=== PATIENT | female | born 1940 | race Caucasian/White ===

== ENCOUNTER → 2016-03-09 | Outpatient (CLI) | payer BC ==
[~2016-03-09] MED LIST: AMLO-110 PO; ASPCH81X PO; ASPI-435 PO; CHOLCAP5 PO; GLCSR500 PO; INSUINJ12 SC; IPRA0.037 NAE; JNV100 PO; LOSA1TAB38 PO; LSX20 PO; MELO15TA4 PO; METO1TAB69 PO; METO1TAB71 PO; MULT-506 PO; NVLGI/PEN SC; POTA-335 PO; RBX750 PO; SIMV-150 PO; TIMO0.5S2 OPB; [UNRECOGNIZED DRUG - CODE] PO
[2016-03-09 13:17] LABS: BASO % 0.6 %; BASO ABS # 0.05 K/uL (0-0.2); COMPLETE YES; EOS % 3.5 %; HEMATOCRIT 40.5 % (37-47); IG% 0.1 %; LYMPH % 32.6 %; LYMPH ABS # 2.63 K/uL (1.2-3.4); MEAN CELL VOLUME 89.6 fL (80-100); MEAN CORPUSCULAR HEMOGLOBIN 30.8 pg (25-34); MEAN CORPUSCULAR HGB CONC 34.3 g/dl (32-36); MEAN PLATELET VOLUME 10.9 fL (7.4-10.4); MONO % 8.2 %; PLATELET COUNT 227 K/uL (130-400); RED BLOOD COUNT 4.52 M/uL (4.2-5.4); WHITE BLOOD COUNT 8.07 K/uL (4.8-10.8)
[2016-03-09 13:31] LABS: URINE APPEARANCE CLEAR (CLEAR); URINE BILIRUBIN NEG (NEG); URINE COLOR YELLOW; URINE EPITHELIAL CELL AUTO >30 /lpf (0-5); URINE NITRITE NEG (NEG); URINE SPECIFIC GRAVITY 1.019 (1.000-1.030); UROBILINOGEN NEG (NEG); ZZUR CULT IF INDIC CLEAN CATCH YES
[2016-03-09 13:35] LABS: MANUAL MICROSCOPIC REQUIRED? NO; REVIEW REQ? YES
[2016-03-09 13:51] LABS: URINE PROTIEN/CREAT RATIO 0.3 (0-0.2); URINE TOTAL PROTEIN 73.8 mg/dl (0-11.9)
[2016-03-09 14:24] LABS: BLOOD UREA NITROGEN 10 mg/dl (7-18); BUN/CREATININE RATIO 8.6 (10-20); CARBON DIOXIDE 22 mmol/L (21-32); CHLORIDE 107 mmol/L (98-107); GLUCOSE 195 mg/dl (70-99); POTASSIUM 4.3 mmol/L (3.5-5.1); SODIUM 141 mmol/L (136-145)
== END | disposition home or self-care (01) ==
LOC: C.LABPVFM 09:44
PROVIDERS: ATTEND Family Medicine
DX: N18.3 Chronic kidney disease, stage 3 (moderate) (principal)

== ENCOUNTER → 2016-04-11 | Outpatient (CLI) | payer BC | END | disposition home or self-care (01) | LOC: C.RDSM 12:11 | PROVIDERS: ATTEND Physical Medicine & Rehabilitation Sports Medicine | DX: T84.84XA Pain due to internal orthopedic prosthetic devices, implants and grafts, initial encounter (principal); Z96.651 Presence of right artificial knee joint; Y79.2 Prosthetic and other implants, materials and accessory orthopedic devices associated with adverse incidents ==

== ENCOUNTER → 2016-06-08 | Day surgery (SDC) | payer BC ==
[2016-05-11 12:35] VITALS: Ht 160 cm; Wt 115.9 kg
[~2016-06-08] VITALS: Ht 160 cm; Wt 115.9 kg
[~2016-06-08] MED LIST changes: -ASPI-435 PO; +BUPIVACAINE/EPINEPHRINE 0.5% MPF 1:200,000 30 ML VIAL ONE; +CEFAZOLIN IV 2,000 MG/60 ML D5W IV ONE; -GLCSR500 PO; -IPRA0.037 NAE; -JNV100 PO; -MELO15TA4 PO; +METO100T44 PO; -METO1TAB69 PO; -METO1TAB71 PO; +MoRPHine SULFATE PF 1 MG/ML 10 ML AMP/VIAL ONE
--- NOTE | 2016-06-08 13:43 | History & Physical Bridge - [place] ---
H&P Re-Evaluation Bridge Note: I have examined the patient, reviewed the History & Physical and in the interval since the performance of the History & Physical I have noted the following changes of clinical significance: No changes noted
[2016-06-08] MEDS: LIDOCAINE HCL 1% MPF 5 ML VIAL ONE (14:01)
[2016-06-08] MEDS: IOPAMIDOL INJ 61% 15 ML VIAL ONE (14:02)
[2016-06-08] MEDS: SODIUM CHLORIDE 0.9% INJ 10 ML VIAL ONE (14:03)
[2016-06-08 14:15] VITALS: TEMP 37
--- NOTE | 2016-06-08 14:18 | Discharge Instructions ---
Discharge Instructions Date of Service Jun 08, 2016. Visit Reason for Visit: Lumbar Spondylolisthesis Discharge Discharge Diagnosis / Problem: bilateral leg pain Discharge Goals Goal(s): Decrease discomfort, Improve function Medications Stopped Medications Name(s): ASA 1 week ago Activity Recommendations Activity Limitations: resume your previous activity Anesthesia . Post Anesthesia Instructions: If you have had General Anesthesia or IV Sedation: * Do not drive today. * Resume driving when surgeon permits. * Do not make important decisions or sign legal documents today. * Call surgeon for: 1. Temperature elevations greater than 101 degrees F. 2. Uncontrollable pain. 3. Excessive bleeding. 4. Persistent nausea and vomiting. 5. Medication intolerance (nausea, vomiting or rash). * For nausea and vomiting use only clear liquids such as: tea, soda, bouillon until nausea subsides, then gradually increase diet as tolerated. * If you have any concerns or questions, call your surgeon's office. If physician is unavailable and it is an emergency, call 911 or go to the nearest emergency room. . Diet Recommendations Recommended Home Diet: resume previous diet Pending Studies Studies pending at discharge: no Medical Emergencies . Who to Call and When: Medical Emergencies: If at any time you feel your situation is an emergency, please call 911 immediately. . Non-Emergent Contact Non-Emergency issues call your: Specialist . . "Provider Documentation" section prepared by Winston Nelson. .
[2016-06-08 14:25] VITALS: BP 174/77; PULSE 58; O2SAT 95
--- NOTE | 2016-06-08 14:31 | OPERATIVE REPORT ---
DATE OF OPERATION: 06/08/2016 PREOPERATIVE DIAGNOSES: Lumbar spinal stenosis with lumbar spondylolisthesis L5-S1 with bilateral lower extremity radiculopathies. POSTOPERATIVE DIAGNOSES: Same. PROCEDURE: Left paramedian L5-S1 intralaminar epidural steroid injection under fluoroscopic guidance. INDICATIONS: The patient is a 75-year-old white female who has responded favorably to epidural injections in the past. She is having increasing radicular pain that is functionally limiting to her. She cannot walk very far, needs to sit down because of intense pain. She presents today for an epidural injection to provide her with relief. PHYSICAL EXAMINATION: GENERAL: Pleasant female, seated comfortably in no apparent distress. MUSCULOSKELETAL: Lumbar paraspinal muscles were palpated and noted to be nontender. She has normal lower extremity strength. Negative seated straight leg raises. CONSENT: Verbal and written consent was obtained from patient. Risks and benefits were reviewed. Risks include but are not limited to epidural abscess, epidural hematoma, allergic reaction, dural puncture. The patient wishes to proceed. DESCRIPTION OF PROCEDURE: The patient was taken back to the special procedures room of the [facility] where she has been maintained in prone position. Backside was cleansed with Betadine x3 and a dry sterile dressing was applied. Fluoroscope was used to identify the L5-S1 interlaminar space. It appeared to be a little bit more open on the left than the right. Overlying skin was then anesthetized with 4 mL of lidocaine 1% with a 25 gauge 1.5-inch needle. A 22 gauge 4.25-inch Tuohy needle was then directed down towards the intralaminar space, it was advanced under lateral fluoroscopic guidance and loss of resistance was noted at a depth of 10 cm. Isovue-300 contrast 1 mL was injected in which demonstrated epidural uptake pattern which was confirmed with both AP and lateral views, then underwent injection after negative aspiration of 40 mg of Depo-Medrol, 4 mL of preservative free sodium chloride. Injection was well tolerated and reproduced a familiar transient radicular sensation down the left leg. DISPOSITION: 1. The patient is taken out into the discharge recovery area where she will be discharged home once discharge criteria have been met. 2. Follow up in the [facility] office in 2-4 weeks. I attest to the content of the Intraoperative Record and any orders documented therein. Any exceptio ns are noted below.
== END | disposition home or self-care (01) ==
LOC: X.SURG 12:48
PROVIDERS: ATTEND Physical Medicine & Rehabilitation
DX: M48.06 Spinal stenosis, lumbar region (principal); M43.16 Spondylolisthesis, lumbar region; Z79.899 Other long term (current) drug therapy

== ENCOUNTER → 2016-06-24 | Outpatient (CLI) | payer BC ==
[~2016-06-24] MED LIST changes: -BUPIVACAINE/EPINEPHRINE 0.5% MPF 1:200,000 30 ML VIAL ONE; -CEFAZOLIN IV 2,000 MG/60 ML D5W IV ONE; -MoRPHine SULFATE PF 1 MG/ML 10 ML AMP/VIAL ONE
[2016-06-24 12:22] LABS: BASO % 0.4 %; BASO ABS # 0.04 K/uL (0-0.2); COMPLETE YES; EOS % 2.4 %; HEMATOCRIT 41.4 % (37-47); IG% 0.3 %; MEAN CELL VOLUME 91.4 fL (80-100); MEAN CORPUSCULAR HEMOGLOBIN 30.7 pg (25-34); MEAN CORPUSCULAR HGB CONC 33.6 g/dl (32-36); MEAN PLATELET VOLUME 11.1 fL (7.4-10.4); MONO % 10.8 %; NEUT % 56.1 %; PLATELET COUNT 253 K/uL (130-400); RED BLOOD COUNT 4.53 M/uL (4.2-5.4); WHITE BLOOD COUNT 10.01 K/uL (4.8-10.8)
[2016-06-24 12:28] LABS: URINE APPEARANCE CLOUDY (CLEAR); URINE BILIRUBIN NEG (NEG); URINE COLOR YELLOW; URINE EPITHELIAL CELL AUTO >30 /lpf (0-5); URINE NITRITE NEG (NEG); UROBILINOGEN NEG (NEG); ZZUR CULT IF INDIC CLEAN CATCH YES
[2016-06-24 12:43] LABS: MANUAL MICROSCOPIC REQUIRED? NO; REVIEW REQ? NO
[2016-06-24 12:47] LABS: BLOOD UREA NITROGEN 20 mg/dl (7-18); BUN/CREATININE RATIO 16.6 (10-20); CARBON DIOXIDE 26 mmol/L (21-32); CHLORIDE 107 mmol/L (98-107); GLUCOSE 149 mg/dl (70-99); MAGNESIUM 2.1 mg/dl (1.8-2.4); PHOSPHORUS 3.7 mg/dl (2.5-4.9); POTASSIUM 3.9 mmol/L (3.5-5.1); SODIUM 141 mmol/L (136-145)
[2016-06-24 12:51] LABS: CALCIUM 9.2 mg/dl (8.5-10.1); CHOLESTEROL/HDL RATIO 2.5
[2016-06-24 13:00] LABS: URINE PROTIEN/CREAT RATIO 0.5 (0-0.2); URINE TOTAL PROTEIN 68.6 mg/dl (0-11.9)
[2016-06-24 13:34] LABS: ESTIMATED AVERAGE GLUCOSE 192 mg/dl; HA1C FLAG Normal (Normal)
== END | disposition home or self-care (01) ==
LOC: C.LABPVFM 08:08
PROVIDERS: ATTEND Family Medicine
DX: E11.29 Type 2 diabetes mellitus with other diabetic kidney complication (principal); E11.22 Type 2 diabetes mellitus with diabetic chronic kidney disease; N18.3 Chronic kidney disease, stage 3 (moderate); E78.5 Hyperlipidemia, unspecified; M79.671 Pain in right foot

== ENCOUNTER → 2016-10-26 | Outpatient (CLI) | payer BC ==
[~2016-10-26] MED LIST changes: -METO100T44 PO; +METO1TAB69 PO
[2016-10-26 13:17] LABS: ESTIMATED AVERAGE GLUCOSE 174 mg/dl; HA1C FLAG Normal (Normal)
[2016-10-26 13:53] LABS: BLOOD UREA NITROGEN 11 mg/dl (7-18); BUN/CREATININE RATIO 9.2 (10-20); CALCIUM 8.9 mg/dl (8.5-10.1); CARBON DIOXIDE 27 mmol/L (21-32); CHLORIDE 110 mmol/L (98-107); GLUCOSE 114 mg/dl (70-99); POTASSIUM 4.1 mmol/L (3.5-5.1); SODIUM 143 mmol/L (136-145); TRIGLYCERIDES 128 mg/dl (0-150); VERY LOW DENSITY LIPOPROT CALC 26 mg/dl
[2016-10-26 13:56] LABS: ALB/GLOB RATIO 0.9 (0.9-2); ALKALINE PHOSPHATASE 117 U/L (45-117); ALT/SGPT 19 U/L (12-78); AST/SGOT 19 U/L (15-37); CHOLESTEROL 170 mg/dl (0-200); CHOLESTEROL/HDL RATIO 3.1; HDL CHOLESTEROL 54 mg/dl; LDL CHOLESTEROL CALCULATED 90 mg/dl
== END | disposition home or self-care (01) ==
LOC: C.LABPVFM 08:54
PROVIDERS: ATTEND Internal Medicine Nephrology
DX: I12.9 Hypertensive chronic kidney disease with stage 1 through stage 4 chronic kidney disease, or unspecified chronic kidney disease (principal); E78.5 Hyperlipidemia, unspecified; N18.3 Chronic kidney disease, stage 3 (moderate); E11.22 Type 2 diabetes mellitus with diabetic chronic kidney disease; E11.65 Type 2 diabetes mellitus with hyperglycemia; Z79.4 Long term (current) use of insulin

== ENCOUNTER → 2017-02-22 | Outpatient (CLI) | payer BC ==
[~2017-02-22] MED LIST changes: -AMLO-110 PO; +AMLO5TAB3 PO; +METO100T44 PO; -METO1TAB69 PO
--- NOTE | 2017-02-22 14:58 | MAMMOGRAPHY REPORT ---
BILATERAL DIGITAL SCREENING MAMMOGRAM TOMOSYNTHESIS WITH CAD: 02/22/2017 CLINICAL HISTORY: Routine screening. TECHNIQUE: Breast tomosynthesis in addition to standard 2D mammography was performed. Current study was also evaluated with a Computer Aided Detection (CAD) system. COMPARISON: Comparison is made to exams dated: 02/18/2016 mammogram, 02/16/2015 mammogram, 4 mammogram, 02/08/2013 mammogram, 02/08/2012 mammogram, and 02/04/2011 mammogram - [facility]. BREAST COMPOSITION: There are scattered areas of fibroglandular density in both breasts. FINDINGS: No suspicious masses, calcifications, or areas of architectural distortion are noted in ei ther breast. There has been no significant interval change compared to prior exams. IMPRESSION: ACR BI-RADS CATEGORY 1: NEGATIVE There is no mammographic evidence of malignancy. A 1 year screening mammogram is recommended. The pa tient will receive written notification of the results. Approximately 10% of breast cancers are not detected with mammography. A negative mammographic report should not delay biopsy if a clinically suggestive mass is present. Lilia Stewart M.D. ah/:02/22/2017 11:40:54 Finish Molder: Chiki VINCENT(Laura)(M), [facility] letter sent: Normal 1/2 BI-RADS Code: ACR BI-RADS Category 1: Negative
== END | disposition home or self-care (01) ==
LOC: C.MAMM 10:47
PROVIDERS: ATTEND Obstetrics & Gynecology
DX: Z12.31 Encounter for screening mammogram for malignant neoplasm of breast (principal)

== ENCOUNTER → 2017-03-22 | Outpatient (CLI) | payer BC ==
[~2017-03-22] MED LIST changes: +AMLO-110 PO; -AMLO5TAB3 PO
[2017-03-22 13:20] LABS: HEMOGLOBIN A1C 7.2 % (4.5-5.6)
== END | disposition home or self-care (01) ==
LOC: C.LABPVFM 08:49
PROVIDERS: ATTEND Family Medicine
DX: E11.29 Type 2 diabetes mellitus with other diabetic kidney complication (principal)

== ENCOUNTER → 2017-05-02 | Outpatient (CLI) | payer BC ==
[2017-05-02 17:23] LABS: BASO % 0.2 %; BASO ABS # 0.03 K/uL (0-0.2); EOS % 1.9 %; EOS ABS # 0.24 K/uL (0-0.5); HEMATOCRIT 40.8 % (37-47); IG# 0.02 K/uL (0.00-0.02); LYMPH % 22.1 %; LYMPH ABS # 2.73 K/uL (1.2-3.4); MEAN CELL VOLUME 90.1 fL (80-100); MEAN CORPUSCULAR HEMOGLOBIN 30.9 pg (25-34); MEAN CORPUSCULAR HGB CONC 34.3 g/dl (32-36); MEAN PLATELET VOLUME 10.6 fL (7.4-10.4); MONO % 11.5 %; MONO ABS # 1.42 K/uL (0.11-0.59); NEUT % 64.1 %; NEUT ABS # 7.92 K/uL (1.4-6.5); PLATELET COUNT 221 K/uL (130-400); RED CELL DISTRIBUTION WIDTH CV 13.7 % (11.5-14.5); RED CELL DISTRIBUTION WIDTH SD 45.1 fL (36.4-46.3); WHITE BLOOD COUNT 12.36 K/uL (4.8-10.8)
[2017-05-02 17:35] LABS: ALBUMIN 3.1 gm/dl (3.4-5.0); BLOOD UREA NITROGEN 16 mg/dl (7-18); CALCIUM 8.7 mg/dl (8.5-10.1); CARBON DIOXIDE 26 mmol/L (21-32); CREATININE 1.51 mg/dl (0.60-1.20); GLUCOSE 246 mg/dl (70-99); PHOSPHORUS 3.6 mg/dl (2.5-4.9); POTASSIUM 4.1 mmol/L (3.5-5.1); SODIUM 140 mmol/L (136-145)
== END | disposition home or self-care (01) ==
LOC: C.LABPVFM 13:36
PROVIDERS: ATTEND Internal Medicine Nephrology
DX: N18.3 Chronic kidney disease, stage 3 (moderate) (principal)

== ENCOUNTER → 2017-06-12 | Outpatient (CLI) | payer BC | END | disposition home or self-care (01) | LOC: C.RDSM 16:25 | PROVIDERS: ATTEND Physical Medicine & Rehabilitation Sports Medicine | DX: M25.562 Pain in left knee (principal); M25.552 Pain in left hip ==

== ENCOUNTER → 2017-06-21 | Outpatient (CLI) | payer BC ==
[2017-06-21 13:37] LABS: HEMOGLOBIN A1C 8.4 % (4.5-5.6)
== END | disposition home or self-care (01) ==
LOC: C.LABPVFM 08:48
PROVIDERS: ATTEND Nurse Practitioner Adult Health
DX: E11.29 Type 2 diabetes mellitus with other diabetic kidney complication (principal); E78.5 Hyperlipidemia, unspecified

== ENCOUNTER → 2017-09-20 | Outpatient (CLI) | payer BC ==
[~2017-09-20] MED LIST changes: -AMLO-110 PO; +AMLO5TAB3 PO
[2017-09-20 14:08] LABS: ALBUMIN 3.1 gm/dl (3.4-5.0); BLOOD UREA NITROGEN 11 mg/dl (7-18); CALCIUM 8.7 mg/dl (8.5-10.1); CARBON DIOXIDE 23 mmol/L (21-32); CREATININE 1.14 mg/dl (0.60-1.20); GLUCOSE 143 mg/dl (70-99); PHOSPHORUS 3.9 mg/dl (2.5-4.9); POTASSIUM 3.9 mmol/L (3.5-5.1); SODIUM 138 mmol/L (136-145)
== END | disposition home or self-care (01) ==
LOC: C.LABPVFM 09:39
PROVIDERS: ATTEND Internal Medicine Nephrology
DX: N18.3 Chronic kidney disease, stage 3 (moderate) (principal)

== ENCOUNTER → 2017-09-26 | Outpatient (CLI) | payer BC | END | disposition home or self-care (01) | LOC: C.RDSM 08:12 | PROVIDERS: ATTEND Physical Medicine & Rehabilitation Sports Medicine | DX: R20.2 Paresthesia of skin (principal); M19.041 Primary osteoarthritis, right hand ==

== ENCOUNTER 2019-08-30 11:54 | Inpatient (IN) ==
[2019-08-30 12:24] LABS: Basophils # (auto) 0.05 K/uL (0-0.2); Basophils % (auto) 0.5 %; Eosinophils # (auto) 0.25 K/uL (0-0.5); Eosinophils % (auto) 2.5 %; Hematocrit (blood only) 46.4 % (37-47); Hemoglobin 15.7 g/dL (12.0-16.0); Immature Granulocytes # (auto) 0.03 K/uL (0.00-0.02); Immature Granulocytes % (auto) 0.3 %; Lymphocytes # (auto) 2.65 K/uL (1.2-3.4); Mean Corpuscular Hemoglobin 31.2 pg (25-34); Mean Corpuscular Hgb Conc 33.8 g/dL (32-36); Mean Corpuscular Volume 92.1 fL (80-100); Mean Platelet Volume 10.6 fL (7.4-10.4); Monocytes # (auto) 1.26 K/uL (0.11-0.59); Monocytes % (auto) 12.8 %; Neutrophils # (auto) 5.57 K/uL (1.4-6.5); Neutrophils % (auto) 56.9 %; Platelet Count 238 K/uL (130-400); RDW Coefficient of Variation 13.9 % (11.5-14.5); RDW Standard Deviation 46.4 fL (36.4-46.3); Red Blood Count 5.04 M/uL (4.2-5.4); White Blood Count 9.81 K/uL (4.8-10.8)
[2019-08-30 12:36] LABS: Partial Thromboplastin Time 27.5 Seconds (21.0-31.0); Prothrombin Time 10.3 Seconds (9.0-12.0)
[2019-08-30] MEDS ORDERED: METOPROLOL TARTRATE 1 MG/ML VIAL IV STA (12:43)
[2019-08-30 12:45] LABS: Alanine Aminotransferase 21 U/L (12-78); Albumin Level 3.1 gm/dl (3.4-5.0); Aspartate Aminotransferase 18 U/L (15-37); Blood Urea Nitrogen 13 mg/dl (7-18); Calcium 9.2 mg/dl (8.5-10.1); Carbon Dioxide 27 mmol/L (21-32); Chloride 109 mmol/L (98-107); Creatinine Clr Calc Pharmacy 45.3 ml/min; Est GFR (African American) 44.6; Est GFR (Non-African American) 38.5; Glucose 149 mg/dl (70-99); Potassium 4.2 mmol/L (3.5-5.1); Sodium 142 mmol/L (136-145)
--- NOTE | 2019-08-30 12:47 | Emergency Department Note ---
Impression & Plan Atrial fibrillation with rapid ventricular response ED Provider Note Provider: Nigel Roberts MD DATE OF SERVICE: 08/30/2019 CHIEF COMPLAINT: Referred from preop testing HISTORY OF PRESENT ILLNESS: Patient is a 78-year-old female with a past medical history of CKD, type 2 diabetes on insulin, angina, hypertension, and hyperlipidemia presenting today referred from anesthesia preop testing as she is scheduled in several weeks for a left total knee replacement with orthopedics with notable atrial fibrillation onset today. Patient was noted on preop testing to have atrial fibrillation with rapid ventricular response with a rate of 115 per the EKG from preop testing. Patient states that for some time she has had a bit of shortness of breath with exertion but she thought this is more related to her weight. Denies any real chest pain and denies palpitations sensation. Patient states she is some chronic mild lower extremity swelling. Patient states that she is not had a history of atrial fibrillation before. She is unsure how long she may have been in this. Patient states at rest she feels fine. Patient denies any fever or infectious symptoms. Patient states compliance with home metoprolol 100 mg every morning. Occasionally follows with Dr. Gar yearly. REVIEW OF SYSTEMS: A total of 10 review of systems was obtained and negative except as stated above in the HPI. PAST MEDICAL HISTORY: As noted above MEDICATIONS: Reviewed home medication list which includes insulin, metoprolol SOCIAL HISTORY: , non-smoker PHYSICAL EXAM: GENERAL: alert and oriented in no acute distress on stretcher Head: normocephalic and atraumatic EYES: No injection, discharge or icterus. ENT: Mucous membranes pink and moist. LUNGS: Airway patent. No retractions. Breath sounds clear HEART: Irregular tachycardic rate and rhythm. No chest wall tenderness ABDOMEN: Soft and non-tender, without guarding or rebound. SKIN: Acyanotic, warm, dry, without rashes EXTREMITIES: Healed right midline knee scar. 1-2+ lower extremity swelling bilaterally. Some trace swelling of the left knee noted. No significant erythema appreciated. NEUROLOGICAL: No focal deficits. No aphasia. No facial droop or slurred speech. EKG: Atrial fibrillation with rapid ventricular sponsored [address] segment elevation although some lateral ST depression and some slight inferior d epressions appreciable. QTC 475. Some slight intraventricular conduction delay is appreciated. CONTINUOUS CARDIAC MONITORING: was ordered and showed a heart rate of bpm in Patient's hypertension was referred to the hospitalist/PCP HOSPITAL COURSE: [id number] Patient was first seen and H&P performed. 1338 Patient reassessed and updated. Patient was resting comfortably in bed. Heart rate appeared to initially responded in the 80s and 90s did spend some time talking with the patient her heart rate now unfortunately continues to be greater than 100 into the 1 teens. Discussed with her options at this time. Will discuss with the hospitalist. Patient's laboratory studies and imaging reviewed. Differential includes Premature contractions, electrolyte abnormality, cardiac dysrhythmia, thyroid dysfunction, pulmonary embolism, infection, gastrointestinal, as well as other pathologies. IMPRESSION/MEDICAL DECISION MAKING: Patient presents referred without real significant symptoms although some mild dyspnea on exertion reported though seems more chronic, with A. fib RVR. New diagnosis. Patient is on metoprolol every morning. Not currently anticoagulation. Patient does have elevated risk for stroke and discussed with her anticoagulation. Rate control attempted with bolus of diltiazem initially. Basic labs were obtained including magnesium and thyroid studies. Patient again not actively dorsi pain at this time and resting comfortably. Laboratory studies likely without significant procedures or anemia. Troponin is undetectable. Chronic kidney disease noted but stable. No significant electrolyte abnormality or evidence of thyroid dysfunction. Chest x-ray obtained without evidence of significant fluid overload. Patient's heart rate improved after initial diltiazem bolus and did strongly consider if she was rate controlled sending her home on oral Cardizem and anticoagulation. On reassessment however the patient now is drifting back up into a rapid ventricular response. Discussed with the patient and will start on a diltiazem drip. Discussed with the hospitalist further observation and inpatient management. DIAGNOSIS: New onset atrial fibrillation with rapid ventricular response DISPOSITION: Hospitalist will evaluate Patient was agreeable with this plan. Critical Care I have personally spent 42 minutes of critical care time in the direct management of this patient. This includes bedside care, interpretation of diagnostic studies, and testing, discussion with consultants, patient, and family members, and other required patient management activities. These 42 minutes is in excess of all separately billable procedures. Past Med/Surg History Medical History (Updated 08/30/19 @ 12:53 by Nigel Roberts M.D.) CKD (chronic kidney disease) STAGE III SEES DR. AZEVEDO Diabetes mellitus, type 2 Diverticulosis of colon (Inactive) Family history of melanoma (Inactive) GERD (gastroesophageal reflux disease) Glaucoma Hx of pancreatitis NO CURRENT ISSUE Hyperlipidemia Hypertension Kidney stones PASSED ON OWN Morbid obesity Osteoarthritis Osteoporosis Sacroiliitis Spondylisthesis LUMBAR REGION Stable angina SEES DR. MARTHA GOLDSMITH (was previous q 6 months but at last appt 11/2018 he felt OK to move to annually). At [facility], pt denies ever having CP. Feels SOB with 1 FOS but denies any CP. 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 Supervisor Required: No Beliefs That Will Affect Care: None Current Living Situation: Alone current occupational status: retired Feels Safe at Home: Yes Smoking Status: Never smoker Second Hand Exposure: No ; Hx Alcohol Use: Yes Alcohol type: wine and hard liquor Hx Substance Use: No caffeine: Yes Dental Care, Regularly: Yes Physical Activity Frequency: 1-2 Times per Week Seatbelt Use: sometimes Sunscreen Use: Yes Allergies Allergies Allergy/AdvReac Type Severity Reaction Status Date / Time No Known Allergies Allergy Unknown Verified 08/30/19 13:10 Home Meds Home Medications Medication Instructions Recorded Confirmed cholecalciferol (vitamin D3) 5,000 unit PO QAM 02/21/18 08/30/19 [Vitamin D3] methocarbamol 750 mg PO Q8H PRN 02/21/18 08/30/19 multivitamin 1 tab PO QAM 02/21/18 08/30/19 timolol 1 drp OPB BID 02/21/18 08/30/19 blood sugar diagnostic #10 ea 10/02/18 04/24/19 lancing device #1 ea 10/02/18 04/24/19 conjugated estrogens 0.45 mg tablet 0.45 mg PO Q OTHER DAY tab 10/10/18 08/30/19 cranberry extract 500 mg PO QAM 12/11/18 08/30/19 gabapentin 100 mg capsule 400 mg PO TID 04/24/19 08/30/19 diclofenac sodium [Voltaren] 2 g TOPICAL QID PRN 08/29/19 08/30/19 insulin aspart U-100 [Novolog 10 unit SUBCUT TID 08/29/19 08/30/19 Flexpen U-100 Insulin] insulin glargine U-300 conc 40 units SUBCUT QAM 08/29/19 08/30/19 [Toujeo Max U-300 SoloStar] omeprazole 20 mg PO DAILY PRN 08/29/19 08/30/19 Previous Rx's Medication Instructions Recorded furosemide 20 mg tablet 20 mg PO DAILY PRN #90 tab 10/16/18 potassium chloride 20 mEq 20 meq PO QAM #90 tab 01/03/19 tablet,extended release pen needle, diabetic 32 gauge x #400 ea 01/31/1902/23" amlodipine 5 mg tablet 5 mg PO QAM #90 tab 03/18/19 losartan 100 mg tablet 100 mg PO QAM #90 tab 03/18/19 ibuprofen 400 mg tablet 400 mg PO TID #240 tab 04/12/19 atorvastatin 10 mg tablet 10 mg PO Q OTHER DAY #90 tab 06/24/19 metoprolol succinate 100 mg 100 mg PO QAM #90 tab 06/24/19 tablet,extended release 24 hr Results & Data (ED) Vital Signs Vital Signs - 24 hr 08/30/19 11:59 08/30/19 12:57 08/30/19 14:06 Temperature 37.2 C Temperature Source Oral Pulse Rate 107 H Pulse Rate [Right Finger] 70 87 Pulse Rhythm Irregular Respiratory Rate 22 20 20 Respiratory Effort / Characteristics Non-Labored Non-Labored Spontaneous Respiratory Depth Normal Normal Respiratory Pattern Regular Blood Pressure 199/97 H Blood Pressure [Right Arm] 137/90 119/88 Blood Pressure Mean 131 Blood Pressure Mean [Right Arm] 105 98 Blood Pressure Position Lying Blood Pressure Position [Right Arm] Lying Pulse Oximetry 91 97 98 Oxygen Delivery Method Room Air Room Air Room Air Sepsis Recent Fever Within 48 Hours No Sepsis New/Unexplained Change in Mental Status No Sepsis Action Taken by Nursing No Action Required Laboratory Data Result diagrams: 08/30/19 12:11 08/30/19 12:11 Lab Results 08/30/19 08/30/19 08/30/19 Range/Units 12:11 12:11 12:11 WBC 9.81 (4.8-10.8) K/uL RBC 5.04 (4.2-5.4) M/uL Hgb 15.7 (12.0-16.0) g/dL Hct 46.4 (37-47) % MCV 92.1 (80-100) fL MCH 31.2 (25-34) pg MCHC 33.8 (32-36) g/dL RDW Std Deviation 46.4 H (36.4-46.3) fL RDW Coeff of Bill 13.9 (11.5-14.5) % Plt Count 238 (130-400) K/uL MPV 10.6 H (7.4-10.4) fL Immature Gran % (Auto) 0.3 % Neut % (Auto) 56.9 % Lymph % (Auto) 27.0 % [place] % (Auto) 12.8 % Eos % (Auto) 2.5 % Baso % (Auto) 0.5 % Neut # (Auto) 5.57 (1.4-6.5) K/uL Lymph # (Auto) 2.65 (1.2-3.4) K/uL [place] # (Auto) 1.26 H (0.11-0.59) K/uL Eos # (Auto) 0.25 (0-0.5) K/uL Baso # (Auto) 0.05 (0-0.2) K/uL Immature Gran # (Auto) 0.03 H (0.00-0.02) K/uL PT 10.3 (9.0-12.0) Seconds INR 1.0 (0.9-1.1) APTT 27.5 (21.0-31.0) Seconds PTT Ratio 1.0 Sodium 142 (136-145) mmol/L Potassium 4.2 (3.5-5.1) mmol/L Chloride 109 H (98-107) mmol/L Carbon Dioxide 27 (21-32) mmol/L Anion Gap 6.0 (3-11) BUN 13 (7-18) mg/dl Creatinine 1.33 H (0.6-1.2) mg/dl Est Cr Clr Drug Dosing 45.3 ml/min Est GFR ( Amer) 44.6 Est GFR (Non-Af Amer) 38.5 BUN/Creatinine Ratio 10.0 (10-20) Glucose 149 H (70-99) mg/dl Calcium 9.2 (8.5-10.1) mg/dl Magnesium (1.8-2.4) mg/dl Total Bilirubin 0.5 (0.2-1) mg/dl AST 18 (15-37) U/L ALT 21 (12-78) U/L Alkaline Phosphatase 130 H (45-117) U/L Troponin I < 0.015 (0-0.045) ng/ml Total Protein 7.0 (6.4-8.2) gm/dl Albumin 3.1 L (3.4-5.0) gm/dl Globulin 3.9 (2.5-4.0) gm/dl Albumin/Globulin Ratio 0.8 L (0.9-2) TSH (0.300-4.500) uIu/ml 08/30/19 Range/Units 12:11 WBC (4.8-10.8) K/uL RBC (4.2-5.4) M/uL Hgb (12.0-16.0) g/dL Hct (37-47) % MCV (80-100) fL MCH (25-34) pg MCHC (32-36) g/dL RDW Std Deviation (36.4-46.3) fL RDW Coeff of Bill (11.5-14.5) % Plt Count (130-400) K/uL MPV (7.4-10.4) fL Immature Gran % (Auto) % Neut % (Auto) % Lymph % (Auto) % [place] % (Auto) % Eos % (Auto) % Baso % (Auto) % Neut # (Auto) (1.4-6.5) K/uL Lymph # (Auto) (1.2-3.4) K/uL [place] # (Auto) (0.11-0.59) K/uL Eos # (Auto) (0-0.5) K/uL Baso # (Auto) (0-0.2) K/uL Immature Gran # (Auto) (0.00-0.02) K/uL PT (9.0-12.0) Seconds INR (0.9-1.1) APTT (21.0-31.0) Seconds PTT Ratio Sodium (136-145) mmol/L Potassium (3.5-5.1) mmol/L Chloride (98-107) mmol/L Carbon Dioxide (21-32) mmol/L Anion Gap (3-11) BUN (7-18) mg/dl Creatinine (0.6-1.2) mg/dl Est Cr Clr Drug Dosing ml/min Est GFR ( Amer) Est GFR (Non-Af Amer) BUN/Creatinine Ratio (10-20) Glucose (70-99) mg/dl Calcium (8.5-10.1) mg/dl Magnesium 1.9 (1.8-2.4) mg/dl Total Bilirubin (0.2-1) mg/dl AST (15-37) U/L ALT (12-78) U/L Alkaline Phosphatase (45-117) U/L Troponin I (0-0.045) ng/ml Total Protein (6.4-8.2) gm/dl Albumin (3.4-5.0) gm/dl Globulin (2.5-4.0) gm/dl Albumin/Globulin Ratio (0.9-2) TSH 1.260 (0.300-4.500) uIu/ml Administered Medications Diltiazem HCl 125 mg/ Dextrose 125 mls @ 5 mls/hr IV .Q24H [facility]; Protocol Stop: 09/29/19 13:59 Last Admin: 08/30/19 14:08 Dose: 5 mg/hr, 5 mls/hr Documented by: [id number] Cosigned by: [id number] Discontinued Medications Diltiazem HCl (Cardizem) 10 mg IV NOW STA Stop: 08/30/19 12:49 Last Admin: 08/30/19 12:53 Dose: 10 mg Documented by: [id number] Cosigned by: [id number] Metoprolol Tartrate (Lopressor) 5 mg IV NOW STA Stop: 08/30/19 12:44 Last Admin: 08/30/19 12:53 Dose: Not Given Documented by: [id number] Discharge Plan Visit Data Chief Complaint: Cardiac Assessment Stated Complaint: NEW ONSET AFIB ED Provider: Nigel Roberts Discharge Problem: Atrial fibrillation with rapid ventricular response Patient Disposition: Being Evaluated by Hospitalist Condition: Good Forms Stand Alone Forms: [facility] Prescriptions Prescriptions: No Action potassium chloride 20 mEq tablet extended release 20 meq PO QAM Qty: 90 RF: 3 (DME) pen needle, diabetic [Novofine 32] 32 gauge x 1/4" needle See Dose Instructions .ROUTE .MEDSUPPLY Qty: 400 RF: 3 losartan 100 mg tablet 100 mg PO QAM Qty: 90 RF: 3 amlodipine 5 mg tablet 5 mg PO QAM Qty: 90 RF: 3 atorvastatin [Lipitor] 10 mg tablet 10 mg PO Q OTHER DAY Qty: 90 RF: 1 metoprolol succinate 100 mg tablet extended release 24 hr 100 mg PO QAM Qty: 90 RF: 1 ibuprofen 400 mg tablet 400 mg PO TID Qty: 240 RF: 3 (DME) lancing device [Adjustable Lancing Device] misc See Dose Instructions .ROUTE .MEDSUPPLY Qty: 1 RF: 0 (DME) FreeStyle Test strip See Dose Instructions .ROUTE .MEDSUPPLY Qty: 10 RF: 0 furosemide [Lasix] 20 mg tablet 20 mg PO DAILY PRN (Reason: SWELLING) Qty: 90 RF: 1 gabapentin 100 mg capsule 400 mg PO TID RF: 0 multivitamin Tablet 1 tab PO QAM RF: 0 methocarbamol 750 mg Tablet 750 mg PO Q8H PRN (Reason: Muscle Spasm) RF: 0 timolol 0.5 % Drops 1 drp OPB BID RF: 0 cholecalciferol (vitamin D3) [Vitamin D3] 5,000 unit Tablet 5,000 unit PO QAM RF: 0 Premarin 0.45 mg tablet 0.45 mg PO Q OTHER DAY RF: 0 cranberry extract 500 mg Capsule 500 mg PO QAM RF: 0 diclofenac sodium [Voltaren] 1 % Gel 2 g TOPICAL QID PRN (Reason: Pain) RF: 0 omeprazole 20 mg capsule,delayed release(DR/EC) 20 mg PO DAILY PRN (Reason: Heartburn) RF: 0 insulin aspart U-100 [Novolog Flexpen U-100 Insulin] 100 unit/mL (3 mL) insulin pen 10 unit SUBCUT TID RF: 0 Toujeo Max U-300 SoloStar 300 unit/mL (3 mL) insulin pen 40 units SUBCUT QAM RF: 0 Referrals Referrals: Leidy Mckeon MD [Primary Care Provider] -
[2019-08-30] MEDS ORDERED: dilTIAZem HCl 5 MG/ML 5 ML VIAL IV STA (12:48)
[2019-08-30 12:50] LABS: Albumin Globulin Ratio 0.8 (0.9-2); Alkaline Phosphatase 130 U/L (45-117); Bilirubin,Total 0.5 mg/dl (0.2-1); Globulin 3.9 gm/dl (2.5-4.0); Troponin I < 0.015 ng/ml (0-0.045)
[2019-08-30 13:12] LABS: Magnesium 1.9 mg/dl (1.8-2.4); Thyroid Stimulating Hormone 1.26 uIu/ml (0.300-4.500)
--- NOTE | 2019-08-30 13:28 | XRay Report ---
XR chest 1V portable CLINICAL HISTORY: Chest Pain pain COMPARISON STUDY: None FINDINGS: The bones soft tissues and hemidiaphragms are normal. The cardiomediastinal silhouette is n ormal. The lungs are clear. The pulmonary vasculature is normal. IMPRESSION: Negative chest. ACT 112: Negative or not required by law. The above report was generated using voice recognition software. It may contain grammatical, syntax or spelling errors. Electronically signed by: Johnson Winkler M.D. 08/30/2019 1:26 PM
[2019-08-30] MEDS ORDERED: STAT IV Infusion **Titration per Protocol STA (13:49)
[2019-08-30] MEDS ORDERED: dilTIAZem HCL 125 MG in DEXTROSE 5% 100 ML IV SCH (14:00)
[2019-08-30] MEDS ORDERED: METOPROLOL TARTRATE 25 MG TAB PO STA (15:07)
[2019-08-30] MEDS ORDERED: GLUCOSE 10 TABS/TUBE PO PRN (17:16)
[2019-08-30] MEDS ORDERED: ALUMINUM/MAGNESIUM SUSP 30 ML UDC PO PRN (17:16)
[2019-08-30] MEDS ORDERED: GLUCAGON FOR INJ 1 MG VIAL SQ PRN (17:16)
[2019-08-30] MEDS ORDERED: CARBOHYDRATES FOR HYPOGLYCEMIA PO PRN (17:16)
[2019-08-30] MEDS ORDERED: DEXTROSE 50% 50 ML SYRINGE IV PRN (17:16)
[2019-08-30] MEDS ORDERED: METOPROLOL TARTRATE 1 MG/ML VIAL IV PRN (17:16)
[2019-08-30] MEDS ORDERED: METHOCARBAMOL 750 MG TABLET PO PRN (17:16)
[2019-08-30] MEDS ORDERED: GLUCOSE 40% GEL 15 GM TUBE PO PRN (17:16)
[2019-08-30] MEDS ORDERED: DICLOFENAC SOD 1% GEL 100 GM TUBE EXT PRN (17:16)
[2019-08-30] MEDS ORDERED: ACETAMINOPHEN 325 MG TAB PO PRN (17:16)
[2019-08-30] MEDS ORDERED: ONDANSETRON INJ 2 MG/ML 2 ML VIAL IV PRN (17:16)
[2019-08-30] MEDS ORDERED: PANTOprazole 40 MG TAB PO PRN (17:24)
[2019-08-30] MEDS: INSULIN ASPART 100 UNITS/ML 3 ML PEN SC SCH ×2 (18:19→22:15)
[2019-08-30] MEDS: GABAPENTIN 400 MG CAP PO SCH (20:20)
[2019-08-30] MEDS: METOPROLOL SUCC 50MG EXT REL TAB PO SCH (20:20)
[2019-08-30] MEDS: APIXABAN 2.5 MG TAB PO SCH (20:20)
[2019-08-30] MEDS: TIMOLOL MALEATE 0.5% OP SOLN 5 ML BTL OP SCH (20:21)
--- NOTE | 2019-08-30 20:22 | History & Physical Report ---
Date of Service August 30, 2019 Assessment & Plan (1) Atrial fibrillation with rapid ventricular response: New onset, found incidentally, patient asymptomatic Rate control by increasing her usual metoprolol succinate to 100mg BID Additional PRN dose of 5mg IV Q4H for HR 100 TTE TSH unremarkable Anticoagulation with Eliquis Follow up outpatient cardiology (she follows Dr Gar) for cardiac clearance for her surgery (2) Stage III chronic kidney disease: Cr at baseline 1.33 Monitor BMP with AM labs (3) Peripheral neuropathy: Continue home dose gabapentin (4) Hypertension: Continue home dose amlodipine and losartan Will add her usual Lasix in the morning given increased leg swelling (5) Controlled type 2 diabetes mellitus with kidney complication, with long-term current use of insulin: Hemoglobin A1C 7.5 in January Switch Tresiba to Lantus QAM Novolog sliding scale (correction and carb coverage) based on basal dose of insulin (6) Hyperlipidemia: Continue atorvastatin 10mg PO daily (7) DVT prophylaxis: Apixaban as above Admission and Anticipated Discharge Date Admission Date: 08/30/2019 History of Present Illness Chief Complaint: New onset atrial fibrillation Primary Care Provider: Leidy Mckeon MD Imelda Freed is a 78 year old female who presents to the ER from her pre-op appointment due to incidentally noted to have new onset atrial fibrillation with rapid ventricular rate. She denies any chest pain, shortness of breath, claudication, palpitations, PND or orthopnea. In hindsight she does feel she has had increased leg swelling for the past two days, more so than usual. She does occasionally take lasix as needed for leg swelling but has not done so in the last 2 days. Unsure if her weight is increasing. She otherwise feels in her normal state of health. No fevers, chills or cough. She plans on having her left knee replacement under Dr Kelly on September 17, 2019. Allergies Allergy/AdvReac Type Severity Reaction Status Date / Time No Known Allergies Allergy Unknown Verified 08/30/19 13:10 Home Medications Home Medications Medication Instructions Recorded Confirmed Type cholecalciferol (vitamin D3) 5,000 unit PO QAM 02/21/18 08/30/19 History [Vitamin D3] methocarbamol 750 mg PO Q8H PRN 02/21/18 08/30/19 History multivitamin 1 tab PO QAM 02/21/18 08/30/19 History timolol 1 drp OPB BID 02/21/18 08/30/19 History blood sugar diagnostic #10 ea 10/02/18 04/24/19 History lancing device #1 ea 10/02/18 04/24/19 History conjugated estrogens 0.45 mg tablet 0.45 mg PO Q OTHER DAY tab 10/10/18 08/30/19 History furosemide 20 mg tablet 20 mg PO DAILY PRN #90 tab 10/16/18 08/30/19 Rx cranberry extract 500 mg PO QAM 12/11/18 08/30/19 History potassium chloride 20 mEq 20 meq PO QAM #90 tab 01/03/19 08/30/19 Rx tablet,extended release pen needle, diabetic 32 gauge x #400 ea 01/31/19 04/24/19 Rx 1/" amlodipine 5 mg tablet 5 mg PO QAM #90 tab 03/18/19 08/30/19 Rx losartan 100 mg tablet 100 mg PO QAM #90 tab 03/18/19 08/30/19 Rx ibuprofen 400 mg tablet 400 mg PO TID #240 tab 04/12/19 08/30/19 Rx gabapentin 100 mg capsule 400 mg PO TID 04/24/19 08/30/19 History atorvastatin 10 mg tablet 10 mg PO Q OTHER DAY #90 tab 06/24/19 08/30/19 Rx metoprolol succinate 100 mg 100 mg PO QAM #90 tab 06/24/19 08/30/19 Rx tablet,extended release 24 hr diclofenac sodium [Voltaren] 2 g TOPICAL QID PRN 08/29/19 08/30/19 History insulin aspart U-100 [Novolog 10 unit SUBCUT TID 08/29/19 08/30/19 History Flexpen U-100 Insulin] insulin glargine U-300 conc 40 units SUBCUT QAM 08/29/19 08/30/19 History [Toujeo Max U-300 SoloStar] omeprazole 20 mg PO DAILY PRN 08/29/19 08/30/19 History Past Med/Surg History Medical History (Updated 09/01/19 @ 07:07 by Norbert Bobby MD) CKD (chronic kidney disease) STAGE III SEES DR. AZEVEDO Diabetes mellitus, type 2 Diverticulosis of colon (Inactive) Family history of melanoma (Inactive) GERD (gastroesophageal reflux disease) Glaucoma Hx of pancreatitis NO CURRENT ISSUE Hyperlipidemia Hypertension Kidney stones PASSED ON OWN Morbid obesity Osteoarthritis Osteoporosis Sacroiliitis Spondylisthesis LUMBAR REGION Stable angina SEES DR. MARTHA GOLDSMITH (was previous q 6 months but at last appt 11/2018 he felt OK to move to annually). At [facility], pt denies ever having CP. Feels SOB with 1 FOS but denies any CP. Surgical History (Updated 08/30/19 @ 11:17 by Holger Goddard) History of appendectomy History of cataract surgery RIGHT - HEMMORHAGE AND LOSS VISION History of colonoscopy History of esophagogastroduodenoscopy (EGD) History of eye surgery X 4 TO RIGHT EYE History of foot surgery RT History of tooth extraction History of total abdominal hysterectomy and bilateral salpingo-oophorectomy History of total knee replacement RT Hx of hand surgery RIGHT> LIGAMENT REPAIR Social History Preferred Language: Amharic Communication Ability: Effective Slasher Runner Required: No Beliefs That Will Affect Care: None Current Living Situation: Alone current occupational status: retired Other Information That Helps Us Care for You: No Feels Safe at Home: Yes Safety Concerns: Feels Safe At This Time Smoking Status: Never smoker Do You Dip or Chew Tobacco: No ; Second Hand Exposure: No ; Hx Alcohol Use: Yes Alcohol type: beer and wine Hx Substance Use: No caffeine: Yes Dental Care, Regularly: Yes Physical Activity Frequency: 1-2 Times per Week Seatbelt Use: sometimes Sunscreen Use: Yes Review of Systems Review of Systems: All systems reviewed & are unremarkable except as noted in HPI & below Physical Exam Constitutional: well developed, well nourished and + morbidly obese; no acute distress Eyes: PERRL, conjunctivae normal, anicteric sclerae ENMT: external ear and nose normal, oropharynx normal Neck: trachea midline, no thyromegaly Respiratory: normal respiratory effort; no respiratory distress Auscultation: + crackles (fine bibasal); no diminished lung sounds, no rales, no rhonchi and no wheezes Cardiovascular: Rate/Rhythm: + tachycardic and + irregularly irregular Heart Sounds: no murmur Vessels: + JVD Extremities: normal capillary refill and + pedal edema (1+ b/l equal top knees); no calf tenderness Gastrointestinal (Abdomen): normal bowel sounds, soft, nontender, no hepatosplenomegaly Musculoskeletal: no cyanosis or clubbing, extremities motor strength 5/5 Skin: no rashes, warm and dry Neurologic: moves all extremities and awake; not confused Psychiatric: A+Ox3, euthymic affect Genitourinary: no CVA tenderness Results & Data Results & Data ([facility]) Vital Signs (Past 12 Hours) Vital Signs Temp Pulse Pulse Resp BP BP Pulse Ox 08/30/19 14:06 87 20 119/88 98 08/30/19 12:57 70 20 137/90 97 08/30/19 11:59 37.2 C 107 H 22 199/97 H 91 Diagnostic Findings XR chest 1V portable IMPRESSION: Negative chest. ECG Indication: tachycardia Rate (beats per minute): 115 Rhythm: atrial fibrillation Findings: no acute ischemic change Comparison ECG Date: from Change: the following changes noted (atrial fibrillation is new) Code Status & VTE Plan Code Status Full as discussed with the patient VTE Prophylaxis Plan VTE Prophylaxis will be ordered: Yes PG Care Time/CCT Total # of Minutes Spent Total Time Spent with Patient: Total time spent is greater than 50% in coordination of care (as documented) at patient's floor/unit and/or counseling patient: Coding Level of Care Code 57568 Initial Inpt Care Lvl 3 Diagnoses Atrial fibrillation with rapid ventricular response I48.91 Stage III chronic kidney disease N18.3 Peripheral neuropathy G62.9 Hypertension I10 Controlled type 2 diabetes mellitus with kidney complication, with long-term current use of insulin E11.29; Z79.4 Hyperlipidemia E78.5 DVT prophylaxis Z29.9
--- NOTE | 2019-08-31 07:25 | Electrocardiogram Report ---
Test Reason : Blood Pressure : / mmHG Vent. Rate : 128 BPM Atrial Rate : 125 BPM P-R Int : 000 ms QRS Dur : 124 ms QT Int : 326 ms P-R-T Axes : 000 -03 216 degrees QTc Int : 475 ms Atrial fibrillation with rapid ventricular response Non-specific intra-ventricular conduction delay Abnormal ECG When compared with ECG of 30-AUG-2019 11:35, T wave inversion now evident in Inferior leads Confirmed by Irving Rodriguez ([id number]) on 08/31/2019 7:24:38 AM Referred By: Confirmed By:Irving Rodriguez
[2019-08-31] MEDS ORDERED: ESTROGENS, CONJUGATED 0.45 MG TAB PO SCH (09:00)
[2019-08-31] MEDS ORDERED: NON-FORMULARY MEDICATION (Cranberry Extract 500 MG) PO SCH (09:00)
[2019-08-31] MEDS ORDERED: ATORVASTATIN 10 MG TAB PO SCH (09:00)
[2019-08-31] MEDS ORDERED: FUROSEMIDE 20 MG TAB PO SCH (09:00)
[2019-08-31] MEDS ORDERED: INSULIN GLARGINE SOLOSTAR 100 UNITS/ML 3 ML PEN SC SCH (09:00)
[2019-08-31] MEDS ORDERED: METOPROLOL SUCC 50MG EXT REL TAB PO STA (09:02)
[2019-08-31] MEDS: CHOLECALCIFEROL 1,000 UNITS 25 MCG TAB PO SCH (09:41)
[2019-08-31] MEDS: MULTIVITAMIN TAB PO SCH (09:42)
[2019-08-31] MEDS: LOSARTAN POTASSIUM 50 MG TAB PO SCH (09:42)
[2019-08-31] MEDS: AMLODIPINE BESYLATE 5 MG TAB PO SCH (09:42)
[2019-08-31] MEDS: GABAPENTIN 400 MG CAP PO SCH ×3 (09:43→20:42)
[2019-08-31] MEDS: APIXABAN 2.5 MG TAB PO SCH ×2 (09:44→20:42)
[2019-08-31] MEDS: TIMOLOL MALEATE 0.5% OP SOLN 5 ML BTL OP SCH ×2 (09:44→20:43)
[2019-08-31] MEDS: INSULIN ASPART 100 UNITS/ML 3 ML PEN SC SCH ×4 (09:46→20:30)
[2019-08-31] MEDS: METOPROLOL SUCC 50MG EXT REL TAB PO SCH ×2 (09:54→20:43)
[2019-08-31 10:10] LABS: Basophils # (auto) 0.04 K/uL (0-0.2); Basophils % (auto) 0.4 %; Eosinophils # (auto) 0.33 K/uL (0-0.5); Eosinophils % (auto) 3.5 %; Hematocrit (blood only) 43.8 % (37-47); Hemoglobin 14.9 g/dL (12.0-16.0); Immature Granulocytes # (auto) 0.02 K/uL (0.00-0.02); Immature Granulocytes % (auto) 0.2 %; Lymphocytes # (auto) 2.69 K/uL (1.2-3.4); Lymphocytes % (auto) 28.8 %; Mean Corpuscular Hemoglobin 30.8 pg (25-34); Mean Corpuscular Volume 90.5 fL (80-100); Mean Platelet Volume 10.7 fL (7.4-10.4); Monocytes % (auto) 11.8 %; Neutrophils # (auto) 5.16 K/uL (1.4-6.5); Neutrophils % (auto) 55.3 %; Platelet Count 219 K/uL (130-400); RDW Coefficient of Variation 13.8 % (11.5-14.5); RDW Standard Deviation 45.9 fL (36.4-46.3); Red Blood Count 4.84 M/uL (4.2-5.4); White Blood Count 9.34 K/uL (4.8-10.8)
[2019-08-31 10:40] LABS: BUN Creatinine Ratio 10.6 (10-20); Calcium 8.8 mg/dl (8.5-10.1); Creatinine Clr Calc Pharmacy 39.5 ml/min; Est GFR (African American) 37.3; Est GFR (Non-African American) 32.2; Potassium 4.5 mmol/L (3.5-5.1)
[2019-08-31] MEDS ORDERED: FUROSEMIDE 20 MG in SYRINGE 0 ML IV ONE (16:45)
--- NOTE | 2019-08-31 19:23 | Hospitalist Progress Note ---
Date of Service August 31, 2019 Assessment & Plan (1) Atrial fibrillation with rapid ventricular response: New onset, found incidentally, patient asymptomatic Rate control by increasing her usual metoprolol succinate to 200mg BID (although unclear if increased dose really decreased HR further) Additional PRN dose of 5mg IV Q4H for HR 100 TTE - LVEF 55-60%, no wall motion abnormalities on technically limited study TSH unremarkable Anticoagulation with Eliquis Initially planned to discharge today but given right sided heart failure, limited left sided heart failure recommend continued inpatient stay for IV diuretics Follow up outpatient cardiology (she follows Dr Gar) for cardiac clearance for her surgery within the next week. (2) Right-sided heart failure: Elevated JVD and leg edema IV lasix 20mg PO this morning, given increased Cr will keep overnight and give additional IV lasix 20mg now to ensure she is on the correct path to euvolemia given upcoming surgery Daily weights I&Os Low sodium diet, heart healthy diet (3) Stage III chronic kidney disease: Cr increased without IV lasix ?reduced cardiac output due to tachycardia and a. fib and not on lasix. Right side appears hypervolemic as above although no significant left sided heart failure Monitor BMP with AM labs (4) Peripheral neuropathy: Continue home dose gabapentin (5) Hypertension: Continue home dose amlodipine and losartan Lasix as above (6) Controlled type 2 diabetes mellitus with kidney complication, with long-term current use of insulin: Hemoglobin A1C 7.5 in January Switched Tresiba to Lantus QAM Novolog sliding scale (correction and carb coverage) based on basal dose of insulin (7) Hyperlipidemia: Continue atorvastatin 10mg PO daily (8) DVT prophylaxis: Apixaban as above Admission and Anticipated Discharge Date Admission Date: August 30, 2019 Anticipated date of discharge: 09/01/19 Subjective Patient feeling well today, at baseline. No chest pain, palpitations, shortness of breath, claudication, orthopnea, PND. No real change in leg swelling. No significant change in heart rate on telemetry with increased metoprolol. Running 80-100. Review of Systems Review of Systems: All systems reviewed & are unremarkable except as noted in HPI & below Physical Exam Constitutional: well developed, well nourished and + morbidly obese; no acute distress Respiratory: normal respiratory effort; no respiratory distress Auscultation: lungs clear to auscultation bilaterally; no diminished lung sounds, no crackles, no rales, no rhonchi and no wheezes Cardiovascular: Rate/Rhythm: + tachycardic and + irregularly irregular Heart Sounds: no murmur Vessels: + JVD (to mid jaw) Extremities: normal capillary refill and + pedal edema (1+ b/l equal to knees, no change from yesterday); no calf tenderness Gastrointestinal (Abdomen): normal bowel sounds, soft, nontender, no hepatosplenomegaly Musculoskeletal: no cyanosis or clubbing, extremities motor strength 5/5 Skin: no rashes, warm and dry Neurologic: moves all extremities and awake; not confused Psychiatric: A+Ox3, euthymic affect Results & Data Results & Data ([facility]) Vital Signs (Past 12 Hours) Vital Signs Temp Pulse Pulse Resp BP Pulse Ox 08/31/19 16:06 36.7 C 96 H 18 119/59 L 93 08/31/19 11:35 37.0 C 77 18 126/77 93 08/31/19 08:00 91 H 08/31/19 07:31 36.6 C 103 H 18 140/91 93 PG Care Time/CCT Total # of Minutes Spent Total Time Spent with Patient: Total time spent is greater than 50% in coordination of care (as documented) at patient's floor/unit and/or counseling patient: Coding Level of Care Code 65562 Subseq Hosp Care Lvl 2 Diagnoses Atrial fibrillation with rapid ventricular response I48.91 Right-sided heart failure I50.810 Stage III chronic kidney disease N18.3 Peripheral neuropathy G62.9 Hypertension I10 Controlled type 2 diabetes mellitus with kidney complication, with long-term current use of insulin E11.29; Z79.4 Hyperlipidemia E78.5 DVT prophylaxis Z29.9
[2019-09-01 07:55] LABS: BUN Creatinine Ratio 13.5 (10-20); Calcium 8.9 mg/dl (8.5-10.1); Creatinine Clr Calc Pharmacy 38.9 ml/min; Est GFR (African American) 36.5; Est GFR (Non-African American) 31.5
[2019-09-01] MEDS ORDERED: INSULIN GLARGINE SOLOSTAR 100 UNITS/ML 3 ML PEN SC SCH (09:00)
[2019-09-01] MEDS: MULTIVITAMIN TAB PO SCH (09:48)
[2019-09-01] MEDS: APIXABAN 2.5 MG TAB PO SCH (09:48)
[2019-09-01] MEDS: METOPROLOL SUCC 50MG EXT REL TAB PO SCH (09:48)
[2019-09-01] MEDS: CHOLECALCIFEROL 1,000 UNITS 25 MCG TAB PO SCH (09:49)
[2019-09-01] MEDS: GABAPENTIN 400 MG CAP PO SCH ×2 (09:49→14:08)
[2019-09-01] MEDS: LOSARTAN POTASSIUM 50 MG TAB PO SCH (09:49)
[2019-09-01] MEDS: AMLODIPINE BESYLATE 5 MG TAB PO SCH (09:49)
[2019-09-01] MEDS: TIMOLOL MALEATE 0.5% OP SOLN 5 ML BTL OP SCH (09:50)
[2019-09-01] MEDS: INSULIN ASPART 100 UNITS/ML 3 ML PEN SC SCH ×2 (09:53→14:06)
--- NOTE | 2019-09-01 13:10 | Discharge Summary ---
Date of Service date of admission - August 30, 2019 date of discharge - September 01, 2019 Admission HPI Per Admitting Provider Imelda Freed is a 78 year old female who presents to the ER after attending a pre-op appointment for upcoming total knee replacement surgery. During that visit she was incidentally noted to have new-onset atrial fibrillation with rapid ventricular rate. She denies any chest pain, shortness of breath, claudication, palpitations, PND or orthopnea. In hindsight she does feel she has had increased leg swelling for the past two days, more so than usual. She does occasionally take lasix as needed for leg swelling but has not done so in the last 2 days. Unsure if her weight is increasing. She otherwise feels in her normal state of health. No fevers, chills or cough. She plans on having her left knee replacement under Dr Kelly on September 17, 2019. Principal Diagnosis atrial fibrillation with RVR Discharge Exam Constitutional well developed, well nourished and + morbidly obese; no acute distress and no altered mental status ENMT external ear and nose normal, oropharynx normal Respiratory normal respiratory effort, lungs clear to auscultation Cardiovascular Rate/Rhythm: regular rate and + irregularly irregular Heart Sounds: normal S1 and normal S2; no murmur Vessels: posterior tibial pulses present and dorsalis pedis pulses present; no JVD Extremities: no edema Gastrointestinal (Abdomen) normal bowel sounds, soft, nontender, no hepatosplenomegaly Psychiatric A+Ox3, euthymic affect Discharge Data Allergies Allergy/AdvReac Type Severity Reaction Status Date / Time No Known Allergies Allergy Unknown Verified 08/30/19 13:10 Procedures Performed echocardiogram - * EF 55-60% * moderate LVH * grade 2 diastolic dysfunction * right ventricular dilatation but preserved function * left atrial enlargement Hospital Course (1) Atrial fibrillation with rapid ventricular response: New onset, found incidentally during a pre-op appointment for upcoming left total knee replacement. Patient asymptomatic at time of discovery of a.fib even despite the rapid ventricular rate. Patient had been taking metoprolol succinate once daily at admission. This was increased to BID dosing and ultimately titrated to 200mg BID. With the 200mg BID dosing she had mildly low-normal BPs and thus the dose recommended at discharge was 150mg BID. She remained in a.fib the entire stay. Echocardiogram - EF 55-60%, normal valve function, right ventricular dilatation. TSH unremarkable. K/mag levels normal. CHADs-VASC score equated to ~5% stroke risk/year. Thus, anticoagulation was recommended in the form of eliquis 5mg BID. She received some IV diuresis while here in the setting of her rapid a.fib. Volume status was euvolemic at discharge. She will take PO lasix on prn basis at home for weight gain or edema. She sees Dr Gar from [facility] cardiology and follow-up with him within 7-10 days post-discharge advised. (2) Stage III chronic kidney disease: Cr ranged 1.3 to 1.5 while here with baseline 1.1/1.2. Likely due to rapid a.fib and diuresis. (3) Controlled type 2 diabetes mellitus with kidney complication, with long-term current use of insulin: Hemoglobin A1C 7.5 in January; repeat hemoglobin a1c was pending at discharge. She will resume her usual insulin regimen at discharge. (4) Hypertension: Continue home dose of amlodipine but hold losartan due to mild increase in creatinine and titration of beta kaylie. Defer resumption of ARB to outpatient providers. (5) Hyperlipidemia: Continue atorvastatin 10mg PO daily (6) Morbid obesity with BMI of 45.0-49.9, adult: BMI 49.4 (7) Peripheral neuropathy: Continue home dose gabapentin (8) Acute diastolic (congestive) heart failure: 2nd to a.fib with RVR. acute diastolic CHF resolved with gentle diuresis. volume status euvolemic at discharge. she was advised to check daily weights at home; parameters for using her lasix at home discussed in detail. (9) Osteoarthritis of left knee: Scheduled to undergo elective left TKR later in August [address] Adonis Kelly. However, in light of newly discovered a.fib and initiation of anticoagulation, the patient will need to coordinate this surgery with her surgeon and cardiology. Advised follow-up with both physicians to address the timing of her elective surgery. Total Time Total Time Spent Total Time Spent (In Minutes): 40 Total Time Includes: Examination of the Patient, Discharge Planning and Medication Reconciliation Discharge Plan Discharge Items Patient Disposition: Home - Self-Care Reason For Visit: NEW ONSET ATRIAL FIBRILLATION Discharge Diagnosis: Atrial fibrillation Condition on Discharge: Good Activity: Resume your previous activity Activity Comment: as tolerated Non-emergency contact: Primary Care Provider and [employer] Call non-emergency contact if: you have any medication questions, your symptoms worsen and you have a fever Follow-up/Referrals: Phuc Gar MD [Physician] - (see Dr Gar in 7-10 days ) Leidy Mckeon MD [Primary Care Provider] - (see your family doctor this week as scheduled ) Adonis Kelly MD [Surgeon] - (please call Dr Kelly this week to let him know you are now on blood thinner medication (ELIQUIS) ) Diet: Carb Consistent or DM2 and Heart Healthy Addtl Attending Provider Instructions: You were admitted and treated for newly-discovered atrial fibrillation. Atrial fibrillation (a.fib for short) is an irregular heart rhythm that or iginates from the top portion of your heart. Many people do not necessarily have symptoms or feel their a.fib. Your rapid heart rate from the a.fib improved with increasing your metoprolol. We have also started you on eliquis blood thinner to reduce your risk of stroke from the a.fib. Recommendations - 1. INCREASE your metoprolol xl to 150mg twice daily every day, first dose tonight. 2. START eliquis blood thinner 5mg twice daily every day, first dose tonight. Prescription sent to [facility]. 3. HOLD your losartan. 4. Have a blood test on Monday or Monday. 5. stop any anti-inflammatory pills (motrin, ibuprofen, etc). OK to take tylenol as needed. 6. in the future I strongly recommend you have a sleep study to rule out sleep apnea. 7. try to check your blood pressure and pulse every day. 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 8. check your weight every morning on the same scale. If you gain more than 2- 3 pounds in 1-2 days, you start to see swelling in your legs, etc please START your lasix (furosemide) water pill and let your doctors know. 9. wear a mask any time you leave your home to prevent COVID-19/coronavirus. Follow-up - see separate section Blood thinner information - Medication Instructions: Your condition is typically treated with an anticoagulant. Anticoagulants will thin your blood to help prevent new clots. Your anticoagulant is "ELIQUIS." * You should take her medication exactly as directed. * Never skip a dose. * Never take a double dose. If you miss a dose, take it as soon as you remember. Call your Primary Care doctor if you experience any of the following: * Chest Pain * Sudden Shortness of Breath * Rapid or pounding heart beat * Fainting * Dizziness * Cough with blood or bloody sputum * Sweating more than normal * Bruises * Heavy or uncontrolled bleeding * Blood in your urine, stool or vomit * Black or tarry stools * Heavy nosebleeds [facility] to [facility] if - * you have fever over 100.4 degrees * you have any concerns about bleeding * you have worsening chest pain or breathing difficulty * you have concerns about fluid weight gain * your pulse (heart rate) is consistently over 100 * your pulse is consistently less than 60 * any other concerns Pending Studies at Discharge: No Stand-Alone Forms: My [facility], Smoking Cessation Medications and DC Order Prescriptions: New Eliquis 5 mg tablet 5 mg PO BID Qty: 60 RF: 5 Continued potassium chloride 20 mEq tablet extended release 20 meq PO QAM Qty: 90 RF: 3 (DME) pen needle, diabetic [Novofine 32] 32 gauge x 1/4" needle See Dose Instructions .ROUTE .MEDSUPPLY Qty: 400 RF: 3 amlodipine 5 mg tablet 5 mg PO QAM Qty: 90 RF: 3 atorvastatin [Lipitor] 10 mg tablet 10 mg PO Q OTHER DAY Qty: 90 RF: 1 (DME) lancing device [Adjustable Lancing Device] misc See Dose Instructions .ROUTE .MEDSUPPLY Qty: 1 RF: 0 (DME) FreeStyle Test strip See Dose Instructions .ROUTE .MEDSUPPLY Qty: 10 RF: 0 furosemide [Lasix] 20 mg tablet 20 mg PO DAILY PRN (Reason: SWELLING) Qty: 90 RF: 1 gabapentin 100 mg capsule 400 mg PO TID RF: 0 multivitamin Tablet 1 tab PO QAM RF: 0 methocarbamol 750 mg Tablet 750 mg PO Q8H PRN (Reason: Muscle Spasm) RF: 0 timolol 0.5 % Drops 1 drp OPB BID RF: 0 cholecalciferol (vitamin D3) [Vitamin D3] 5,000 unit Tablet 5,000 unit PO QAM RF: 0 Premarin 0.45 mg tablet 0.45 mg PO Q OTHER DAY RF: 0 cranberry extract 500 mg Capsule 500 mg PO QAM RF: 0 diclofenac sodium [Voltaren] 1 % Gel 2 g TOPICAL QID PRN (Reason: Pain) RF: 0 omeprazole 20 mg capsule,delayed release(DR/EC) 20 mg PO DAILY PRN (Reason: Heartburn) RF: 0 insulin aspart U-100 [Novolog Flexpen U-100 Insulin] 100 unit/mL (3 mL) insulin pen 10 unit SUBCUT TID RF: 0 Toujeo Max U-300 SoloStar 300 unit/mL (3 mL) insulin pen 40 units SUBCUT QAM RF: 0 Changed metoprolol succinate 100 mg tablet extended release 24 hr 150 mg PO BID Qty: 90 RF: 1 Discontinued losartan 100 mg tablet 100 mg PO QAM Qty: 90 RF: 3 ibuprofen 400 mg tablet 400 mg PO TID Qty: 240 RF: 3 Discharge Orders: Discharge Order (Routine); Ordered 09/01/19 Ordered By: Norbert Davenport/Other Patient Handouts: Understanding Atrial Fibrillation, ED Atrial Fibrillation Admission Data Admit Date/Time: 08/30/19 16:02 Attending Provider: Norbert Rebollar Admit Provider: Norbert Bobby Primary Care Provider: Leidy Mckeon Other Providers: Norbert Bobby Other Interventions: Discharge Summary Assessment (RN) Last Done: 09/01/19 14:13 DC Date/Time DO NOT enter until pt leaves facility: 09/01/19 15:09 Coding Level of Care Code D/C Day Management >30 mins Diagnoses Atrial fibrillation with rapid ventricular response I48.91 Stage III chronic kidney disease N18.3 Controlled type 2 diabetes mellitus with kidney complication, with long-term current use of insulin E11.29; Z79.4 Hypertension I10 Hyperlipidemia E78.5 Morbid obesity with BMI of 45.0-49.9, adult E66.01; Z68.42 Peripheral neuropathy G62.9 Acute diastolic (congestive) heart failure I50.31 Osteoarthritis of left knee M17.12
[2019-09-02 07:05] LABS: Estimated Average Glucose 169 mg/dl; Hemoglobin A1C 7.5 % (4.5-5.6)
== END 2019-09-01 15:09 | disposition home or self-care (01) | DRG 308 ==
LOC: ED 11:54 → SUATTDRO 16:02 → 2N 16:02

== ENCOUNTER 2019-10-01 05:19 | Observation (INO) ==
--- NOTE | 2019-09-26 10:54 | Anesthesiology Consultation ---
Date of Service September 26, 2019 Assessment & Plan (1) Encounter for pre-operative examination: Patient was seen in PAT on 08/29, and found to be in new-onset afib with RVR. She was sent to ED and eventually admitted. Seen by [facility] cardiology for follow-up and surgical clearance. When patient presented for surgery on 09/16, per patient's report the surgeon canceled the case due to LE swelling and a brush burn on her knee on the operative limb. Per day-of procedure note from Dr. Adrianne Hugo (and review of pre-op vitals), pt was in fact febrile in pre-op, leading to cancellation of case. Patient was subsequently evaluated by PCP for DVT, US negative for DVT, Lasix increased. Patient now R/S to 10/01, and will be tested for COVID19 on 09/29 at [facility]. PCP Clearance 09/04/19 = "[reviewed] her medical record and her recent hospitalization and lab results. From my perspective, her diabetes is controlled enough that she can have surgery however the final decision will have to be made by Cardiology as to whether they feel that she can proceed with surgery at this time and she is aware of that." Cardiology Clearance 09/09/19 = "She is back in sinus rhythm with a rate of 60 bpm. She was asymptomatic with the arrhythmia, and it is therefore unclear when she converted. Will continue metoprolol and diltiazem for rate control of any future paroxysms of the arrhythmia. Continue Eliquis for thromboembolic prophylaxis. The medication can be held for 2-3 days prior to surgery and resumed once safe from a bleeding standpoint...She is at an acceptable risk to proceed with upcoming surgery without any additional cardiovascular testing or intervention. Recommend she remain on her beta kaylie and calcium channel kaylie throughout the perioperative period. Chart Review Chart Review: Acceptable Risk for Surgery and Patient seen in Pre Admission Testing (on 08/29, then surgery R/S) History Surgery Operation Date: 10/01/19 12:50 Proposed Procedures p Left Total Knee Arthroplasty - Adonis Kelly MD Height/Weight Height: 5 ft 3 in Weight: 122.47 kg Allergies Allergy/AdvReac Type Severity Reaction Status Date / Time No Known Allergies Allergy Unknown Verified 09/25/19 14:49 Medications Home Medications Medication Instructions Recorded Confirmed Last Taken cholecalciferol (vitamin D3) 5,000 unit PO QAM 02/21/18 09/25/19 09/16/19 09:00 [Vitamin D3] methocarbamol 750 mg PO Q8H PRN 02/21/18 09/25/19 2 Months Ago ~07/18/19 multivitamin 1 tab PO QAM 02/21/18 09/25/19 09/16/19 09:00 timolol 1 drp OPB BID 02/21/18 09/25/19 09/16/19 19:00 blood sugar diagnostic #10 ea 10/02/18 09/19/19 Unknown lancing device #1 ea 10/02/18 09/19/19 Unknown conjugated estrogens 0.45 mg tablet 0.45 mg PO Q OTHER DAY tab 10/10/18 09/25/19 09/16/19 09:00 cranberry extract 500 mg PO QAM 12/11/18 09/25/19 1 Week Ago ~09/10/19 potassium chloride 20 mEq 20 meq PO QAM #90 tab 01/03/19 09/25/19 09/16/19 09:00 tablet,extended release pen needle, diabetic 32 gauge x #400 ea 01/31/19 09/19/19 Unknown 02/23" gabapentin 100 mg capsule 400 mg PO TID 04/24/19 09/25/19 09/17/19 04:00 atorvastatin 10 mg tablet 10 mg PO Q OTHER DAY #90 tab 06/24/19 09/25/19 09/16/19 09:00 Toujeo Max U-300 SoloStar 40 units SUBCUT QAM 08/29/19 09/25/19 09/16/19 09:00 diclofenac sodium [Voltaren] 2 g TOPICAL QID PRN 08/29/19 09/25/19 2 Months Ago ~07/18/19 insulin aspart U-100 [Novolog 10 unit SUBCUT TID 08/29/19 09/25/19 09/16/19 19:00 Flexpen U-100 Insulin] omeprazole 20 mg PO DAILY PRN 08/29/19 09/25/19 2 Months Ago ~07/18/19 apixaban [Eliquis] 5 mg PO BID #60 tab 09/01/19 09/25/19 09/14/19 19:00 metoprolol succinate 100 mg 150 mg PO BID #90 tab 09/04/19 09/25/19 09/17/19 04:00 tablet,extended release 24 hr diltiazem HCl 120 mg PO QAM 09/25/19 09/25/19 Unknown furosemide 40 mg PO QAM 09/25/19 09/25/19 Unknown Past Medical History Medical History Atrial fibrillation new onset 08/2019 (noted during PAT appt and sent to ER) -- follows w/ [facility], seen for hospita f/u and surgical clearance, OK to proceed and hold Eliquis x 2-3 days. CKD (chronic kidney disease) STAGE [facility] SEES DR. WRAY Diabetes mellitus, type 2 IDDM Diverticulosis of colon (Inactive) GILL (dyspnea on exertion) Feels SOB with 1 FOS but denies any CP. Negative DSE in 2018. GERD (gastroesophageal reflux disease) Glaucoma History of kidney stones Hx of pancreatitis NO CURRENT ISSUE Hyperlipidemia Hypertension Morbid obesity On anticoagulant therapy Eliquis BID Osteoarthritis Osteoporosis Sacroiliitis Spondylisthesis LUMBAR REGION Past Family History Family History Father Diabetes Myocardial infarction Brother Diabetes Sister Diabetes Family history of melanoma Mother Cancer of the neck Denies family history of Ovarian cancer Prostate cancer Breast cancer Colorectal cancer Past Surgical History Surgical History History of appendectomy History of cataract surgery RIGHT - HEMMORHAGE AND LOSS VISION History of colonoscopy History of esophagogastroduodenoscopy (EGD) History of eye surgery X 4 TO RIGHT EYE History of foot surgery RT History of tooth extraction History of total abdominal hysterectomy and bilateral salpingo-oophorectomy History of total knee replacement RT Hx of hand surgery RIGHT> LIGAMENT REPAIR Social History Smoking Status: Never smoker Do You Dip or Chew Tobacco: No Hx Alcohol Use: Yes Alcohol type: beer and wine alcohol intake frequency: a few times a month Hx Substance Use: No substance use type: does not use Physical Exam Vital Signs BP: 126/81 P: 93bpm SPO2: 95% RA T: 98.5 F R: 16 Constitutional + morbidly obese ENMT Mouth: + dentures (partial upper); no chipped teeth and no loose teeth Thyromental Distance: > or= 3.5 Finger Breadths Mallampati Class: II Neck + short neck; neck extension not limited Respiratory normal respiratory effort Auscultation: lungs clear to auscultation bilaterally Cardiovascular Rate/Rhythm: regular rhythm (irregularly irregular) and + tachycardic (borderline) Heart Sounds: no murmur Extremities: + edema (1+ pitting edema B/L) Testing Laboratory Results 09/25/19 WBC: 10.29 H/H: 12.4/38.2 PLATELETS: 489 SODIUM: 141 POTASSIUM: 4.6 CHLORIDE: 105 CO2: 30 BUN: 15 CREATININE: 1.38 GLUCOSE: 191 09/01/19 A1C: 7.5% 08/30/19 PT: 10.3 PTT: 27.5 INR: 1.0 09/17/19 TYPE AND SCREEN: O+, ab screen negative Electrocardiogram Date: 09/09/19 Findings: + NSR @ (60bpm) IVCD. Possible LVH. Chest X-Ray Date: 08/30/19 Findings: + NAD Stress Test Date: 11/13/17 Type: DSE Findings: + WNL and + achieved max HR (88%); no ischemia Other Testing Echocardiogram Date: 08/31/19 EF: 55-60% This is a very technically limited study. The LV is normal in size and function. With use of echo contrast there are no obvious regional wall motion abnormalities. There is moderate concentric LVH. The RV appears dilated with normal RV function. Grade 2 diastolic dysfunction, consistent with elevated left atrial pressure. The left atrium is moderately dilated.
[2019-10-01] MEDS ORDERED: ROPIVACAINE 0.5% HCL/PF 150 MG, BUPIVACAINE 0.5% MPF 30 ML, EPINEPHrine 0.15 MG, Ketoro... INFIL SCH (06:00)
[2019-10-01] MEDS ORDERED: LR 500ML BOLUS, THEN 15ML/HR IV SCH (06:00)
[2019-10-01] MEDS ORDERED: BUPIVACAINE 0.5 % 5 MG/1 ML PF 10ML VIAL ONE (06:25)
[2019-10-01] MEDS ORDERED: BUPIVACAINE 0.25% 30 ML VIAL ONE (06:25)
[2019-10-01] MEDS ORDERED: BUPIVACAINE 0.5 % 5 MG/1 ML MPF 30ML VIAL ONE (06:25)
--- NOTE | 2019-10-01 06:42 | History & Physical Bridge Note ---
Date of Service October 01, 2019 History & Physical Bridge Note I have examined the patient, reviewed the History & Physical and in the interval since the performance of the History & Physical I have noted the following changes of clinical significance: no changes noted
[2019-10-01] MEDS ORDERED: ORTHO JOINT ANESTHETIC ONE (06:43)
[2019-10-01] MEDS ORDERED: LIDOCAINE HCL 2% 2 ML VIAL/AMP(20MG/ML) INFIL ONE (06:44)
[2019-10-01] MEDS ORDERED: MIDAZOLAM HCL 1 MG/ML 2ML VIAL ONE (06:44)
[2019-10-01] MEDS ORDERED: BACITRACIN INJ 50,000 UNIT VIAL ONE (06:44)
[2019-10-01] MEDS ORDERED: PROPOFOL IV EMULSION 10 MG/ML 20 ML VIAL IV ONE (06:44)
[2019-10-01] MEDS ORDERED: VANCOMYCIN HCL 1000MG/20ML VIAL ONE (07:01)
[2019-10-01] MEDS ORDERED: CEFAZOLIN 3000MG/72.5 ML BAG IV ONE (07:10)
[2019-10-01] MEDS ORDERED: ONDANSETRON INJ 2 MG/ML 2 ML VIAL ONE (07:11)
[2019-10-01] MEDS ORDERED: CeleBREX 200 MG CAP ONE (07:11)
[2019-10-01] MEDS ORDERED: FAMOTIDINE 20 MG TAB ONE (07:11)
[2019-10-01] MEDS ORDERED: ACETAMINOPHEN 500 MG TAB ONE (07:11)
[2019-10-01] MEDS ORDERED: fentaNYL citrate 100 MCG/2 ML VIAL ONE ×4 (07:11→09:55)
[2019-10-01] MEDS ORDERED: ROCURONIUM BROMIDE 10 MG/ML 5 ML VIAL IV ONE (07:11)
[2019-10-01] MEDS ORDERED: GABAPENTIN 300 MG CAP ONE (07:12)
[2019-10-01] MEDS ORDERED: METOCLOPRAMIDE HCL 10 MG TABLET ONE (07:12)
[2019-10-01] MEDS ORDERED: TRAMADOL HCL 50 MG TABLET ONE (07:13)
[2019-10-01] MEDS ORDERED: OXYCODONE HCL 10 MG TABCR (OXYCONTIN) ONE (07:13)
[2019-10-01] MEDS ORDERED: TRANEXAMIC ACID / 0.7% NACL 1000MG/100ML BAG IV ONE (07:14)
[2019-10-01] MEDS ORDERED: LABETALOL HCL IV 5 MG/ML 20ML IV ONE (08:10)
[2019-10-01] MEDS ORDERED: ONDANSETRON INJ 2 MG/ML 2 ML VIAL IV PRN ×2 (08:54→12:08)
[2019-10-01] MEDS ORDERED: ATROPINE SULFATE 0.1 MG/ML 10ML SYR IV PRN (08:54)
[2019-10-01] MEDS ORDERED: ePHEDrine sulfate 50 MG/ML AMP IV PRN (08:54)
--- NOTE | 2019-10-01 10:54 | Operative Report ---
Post Operative Report Pre & Post Diagnosis Operation Date: 10/01/19 07:00 Pre-Op Diagnosis: Left Knee Arthritis Post-Op Diagnosis: Left Knee Arthritis I identified the patient and participated in the time-out.: Yes Procedure Operation Date: 10/01/19 07:00 Actual Procedures p Left Total Knee Arthroplasty(Left) - Adonis Kelly MD Surgeon Adonis Kelly MD Safety Lamp Keeper Tracey Hardy physicians dairy and food laboratory assistant. No qualified resident or fellow was Estimated Blood Loss 5 Findings Consistent with Post-Op Diagnosis Specimens Resected bone and soft tissue Drains None Anesthesia Type General Regional Complications Intraoperative avulsion of the tibial attachment of the medial collateral ligament repaired with a single spike to ligament staple. Disposition Accompanied Patient To Recovery: No Disposition: Recovery Room Indications Patient is 78. She has severe osteoarthritis of her left knee. Previously scheduled for knee replacement but rescheduled due to fever and knee abrasion as well as leg swelling. Her knee abrasion has healed she has been on diuretics and her leg swelling is minimal. Knee abrasion has healed. She has been off her blood thinners for almost 3 days. She has had preoperative medical evaluation and clearance. Description of Procedure Informed consent obtained. Patient identified. She identified the operative site as the left knee. I marked with my initials and a preop surgical timeout was performed. Preop dose of IV antibiotics was given. She was taken to the operating room positioned supine on the operating room table. Tourniquet applied to the left thigh. Padded post under the left calf and a bump under the left hip. The exam under anesthesia showed range of motion 0/20/80 5-90. She had about a 15 degree loss of extension on the right side and flexed her knee to about 95 perhaps 100. She had a fixed varus deformity of the left knee with trace to 1+ edema at the ankle. The anesthetic was administered. TXA was given. DVT prophylaxis with foot pumps and postoperatively Eliquis. Limb exsanguinated with the Esmarch. Tourniquet inflated 250 mmHg after routine prep and drape. A midline longitudinal incision of about 20 to 25 cm was made followed by medial parapatellar arthrotomy. Immediately upon entering the knee some old blood was encountered. She had had a fall several weeks ago and this is likely the result in the resolving hematoma. Synovitis in the knee secondary to the hematoma as well as the hematoma itself were evacuated. Soft tissue on the anterior aspect the distal femur was excised along with the hypertrophic synovitis. The soft tissue around the patella was removed and osteophytes on the patella were debrided. She had grade 2 and 3 changes of the patella. The synovial reflection in the lateral gutter was removed. An extensile medial soft tissue release was performed off the tibia. The retropatellar fat pad was resected. There was severe osteoarthritis in the medial compartment of the knee with complete loss of cartilage bony wear and eburnation. Large marginal osteophytes were removed throughout the knee. The medial and lateral menisci were deficient more so medial. The cruciate ligaments were resected after carefully flexing the knee. The patella did not want to gabriel easily. Retractors were inserted. Brilliandeer Looper hole was drilled in front of the lateral tibial spine and the intramedullary alignment guide was inserted. The guide was aligned to the tibial tubercle and set to take 10 slotted off of the lateral side corresponding to a 2 skin cut medially. Guide was pinned in the place and checked with the extra medullary alignment tito. The cut was made. Laterally I had to do this manually and beveled with a rasp. This was a 0 degree block. Tibia was sized to a 3. Attention was then turned to the femur.Brilliandeer Looper hole was drilled in the distal femur after resecting the notch osteophytes. Distal femoral cutting guide was inserted into intramedullary fashion. 7 degrees valgus 14 mm thick cut. This was distal to the collateral ligaments. This was pinned in place and the cut was made. The extension gap was asymmetric 8. She had a fixed bearing knee on the contralateral side and I went ahead and elected to proceed with that on this side. The epicondylar axis was marked out and the distal femoral sizing guide was applied and sized with 3. The external rotation drill Holes were made which matched the epicondylar axis. The size 3 anterior down cutting block was applied and the cuts were made protecting the collateral ligaments. Osteophytes removed in the back of the knee along with several large loose bodies. Additionally the collateral ligaments were protected.The box cutting guide was applied and lateralized and the box cut was made. Residual osteophytes were removed in the back the knee and the size 3 femur was applied with good fit. Attention was turned to the patella. It measured 24 mm in thickness. The guide was set to preserve 16 mm of bone. The cut was made and residual patellar thickness was 15. It was sized with 32 and the paddle was aligned perpendicular to the trochlea and the lug holes were drilled. Patellar tracking was fine with a no hands technique. Trialing was then performed. The size 3 tibia was inserted and the knee was placed through range of motion and rotation was marked. Stability was good and at this point I was able to easily fit a size 10 fixed-bearing posterior stabilized insert. While trialing the femur slipped off and while bending the knee the distal MCL was avulsed. This resulted in increased medial laxity. At the conclusion of the procedure this was addressed by upsizing to a 12.5 mm thick posterior stabilized plus insert and repairing the MCL with a 16 mm x 20 mm stapler after identifying the avulsed MCL distally. It was fixed in its shortest position which was at about 80 degrees of knee flexion in an anatomical location. This restored stability to the knee.Trial components were removed. Copious irrigation was performed the bony surfaces were prepared. Ortho joint mix injected into the back of the knee canals were plugged. 2 g of powdered vancomycin per bag were mixed with 2 bags of Simplex P cement and then while in a doughy state the femur tibia and patella were cemented into place and held in full extension until the cement had cured. At that time the tourniquet was let down after about 123 minutes of inflation. There is no significant bleeding and meticulous hemostasis was performed. The distal MCL was tagged and the remainder the Ortho joint mix and irrigation was performed.Trialing was again performed and the 12.5 stabilized plus insert gave improved stability. The knee was cleaned of a cement at the posterior condyles copiously irrigated. The final 12.5 stabilized plus insert was applied and the knee was placed through a range of motion. She had full extension with neutral alignment. Patellar tracking was fine. Flexion was about to 90 degrees and to lift off occurred. This was consistent with the preoperative condition and the stiffness of her knee. At this time the knee was placed at about 80 degrees of flexion and with distal traction on the MCL joint reduced the stapler was inserted with good fixation. This restored stability there was no laxity in extension she had trace MCL laxity in mid position 1+ LCL laxity in mid position and trace varus valgus laxity at 90 degrees. The extensor mechanism was closed above the equator the patella with interrupted #2 FiberWire. The patellar thickness at the conclusion the operation was 24 mm. [place] assisted flexion was approximately 90 degrees. The extensor mechanism was closed with running and interrupted #1 Vicryl below the equator of the patella. The skin was closed in layers with 020 and reilly. A soft sterile dressing was applied Xeroform 4 x 4's ABD full-length Selvin wrap and a hinged brace locked in extension.She was then awakened from anesthesia without difficulty and taken to the recovery room in stable condition. Blood loss was 5 cc. Counts were correct. The intraoperative complication of a distal avulsion of the MCL was corrected by inserting a single bone staple. Specimens were bone and soft tissue. At the conclusion of the operation spoke to patient's son informed of my findings and postop instructions were given. She will be able to weight-bear as tolerated with her hinged brace on. Rehab per protocol. Components inserted with a J[employer]J PFC Sigma fixed bearing knee with a size 3 posterior stabilized left femur. A size 3 fixed bearing tibial tray a 32 mm 3 peg oval dome patella and a size 12.5 thick size 3 stabilized plus tibial earl yethylene insert I attest to the content of the Intraoperative Record and any orders documented therein. Any exceptions are noted below.
--- NOTE | 2019-10-01 11:03 | Operative Report ---
Post Operative Report Pre & Post Diagnosis Operation Date: 10/01/19 07:00 Pre-Op Diagnosis: Left Knee Arthritis Post-Op Diagnosis: Left Knee Arthritis I identified the patient and participated in the time-out.: Yes Procedure Operation Date: 10/01/19 07:00 Actual Procedures p Left Total Knee Arthroplasty(Left) - Adonis Kelly MD Surgeon Adonis Kelly M.D. Director Financial Planning Tracey Hardy PA-C, no fellow available, Medical Student Estimated Blood Loss 5 Findings Consistent with Post-Op Diagnosis Specimens Bone and soft tissue Drains None Anesthesia Type General Regional Complications none Description of Procedure Patient was taken to the operating room, placed under general anesthesia, given 3 gm IV ancef for surgical prophylaxis. Time out performed, prepped and draped in routine sterile fashion. I was present during the entire case and assisted with positioning, tissue retraction, trialing implants, implantation of hardware, closure and dressings. Patient was awakened and taken to the recovery room in stable condition. I attest to the content of the Intraoperative Record and any orders documented therein. Any exceptions are noted below.
[2019-10-01] MEDS: fentaNYL citrate 100 MCG/2 ML VIAL IV PRN ×4 (11:07→11:22)
--- NOTE | 2019-10-01 11:43 | XRay Report ---
XR knee LT 1 or 2V routine CLINICAL HISTORY: Postoperative evaluation. COMPARISON: Left knee radiographs August 27, 2019. FINDINGS: Left knee arthroplasty is noted. There is no periprosthetic fracture. No unexpected radiop aque foreign bodies are noted. Note is made of a spike within the proximal left tibia at the tibial i nsertion of the medial collateral alignment. There are skin reilly. IMPRESSION: Status post total left knee arthroplasty. No periprosthetic fracture. No unexpected radio paque foreign body. ACT 112: Negative or not required by law. Electronically signed by: Deandre Villtaoro M.D. 10/01/2019 11:42 AM
[2019-10-01] MEDS ORDERED: METOCLOPRAMIDE HCL INJ 5 MG/ML 2 ML VIAL IV PRN (12:08)
[2019-10-01] MEDS ORDERED: bisacodyL 10 MG SUPP PR PRN (12:08)
[2019-10-01] MEDS ORDERED: HYDROmorphone INJ 0.5 MG/0.5 ML SYR IV PRN (12:08)
[2019-10-01] MEDS ORDERED: METHOCARBAMOL 750 MG TABLET PO PRN (12:08)
[2019-10-01] MEDS ORDERED: NALOXONE HCL 0.4 MG/1 ML VIAL/CARP IV PRN (12:08)
[2019-10-01] MEDS ORDERED: MAGNESIUM HYDROXIDE SUSP 30 ML UDC PO PRN (12:08)
[2019-10-01] MEDS ORDERED: PANTOprazole 40 MG TAB PO PRN (12:14)
[2019-10-01] MEDS ORDERED: PHARMACY GLYCEMIC MGMT CONSULT PRN (12:23)
[2019-10-01] MEDS: SODIUM CHLORIDE 0.9% 1000ML 1,000 ML IV SCH ×2 (12:25→22:39)
--- NOTE | 2019-10-01 12:42 | Consultation ---
Date of Consultation October 01, 2019 Assessment & Plan (1) Osteoarthritis of left knee: s/p left TKR today by Dr Kelly. Eliquis 5mg BID for DVT proph. Pain control, disposition deferred to orthopedics. Repeat labs in am. (2) Type 2 DM with CKD stage 3 and hypertension: Orthopedics placed pharmacy glycemic consult. Defer management to pharmacy. Appreciate their assistance. (3) Morbid obesity with BMI of 45.0-49.9, adult: BMI 48 Hopefully with TKR on left she will be more mobile once recovered (4) PAF (paroxysmal atrial fibrillation): Cont CCB and BB. Cont eliquis 5mg BID. Examines NSR today. Was in NSR during previous cardiology clinic visit. Continue to monitor clinically. (5) Essential (primary) hypertension: Would recommend holding ARB and lasix in am until creatinine is checked to ensure stability. If creatinine is stable in am then resume both. Cont CCB, BB. (6) CKD (chronic kidney disease): baseline CrCl 30s/40s bmp in am (7) Glaucoma: cont eye drops (8) Hyperlipidemia: cont statin (9) DVT prophylaxis: eliquis 5mg BID thank you for the consult. hospitalist service will follow with you. History of Present Illness Requesting Physician: Adonis Kelly MD Reason for Consultation: post-op medical management Attending Physician: Adonis Kelly MD History of Present Illness 78yo female with recently diagnosed a.fib, HTN, T2DM, morbid obesity, and CKD stage 3 - well known to me from her August 2019 hospitalization for newly discovered a.fib with RVR - presented today for elective left TKR by Dr Kelly. I saw the patient post-op on the orthopedic floor. She was getting ready to eat lunch. She was awake & alert. Denied cp, dyspnea, abd pain, nausea, numbness or weakness of either arm or the right leg, recent fevers/chills, recent loss of taste or smell, or any other infectious symptoms. She mentioned she had seen cardiology twice after her hospital discharge and her AV stephanie agents were adjusted. During the 2nd visit with cardiology she was found to be in NSR. Patient is hopeful she will be able to go to rehab post-d/c as she lives alone in [place]. Allergies Allergy/AdvReac Type Severity Reaction Status Date / Time No Known Allergies Allergy Unknown Verified 10/01/19 05:58 Home Medications Home Medications Medication Instructions Recorded Confirmed Type cholecalciferol (vitamin D3) 5,000 unit PO QAM 02/21/18 10/01/19 History [Vitamin D3] methocarbamol 750 mg PO Q8H PRN 02/21/18 10/01/19 History multivitamin 1 tab PO QAM 02/21/18 10/01/19 History timolol 1 drp OPB BID 02/21/18 10/01/19 History blood sugar diagnostic #10 ea 10/02/18 09/26/19 History lancing device #1 ea 10/02/18 09/26/19 History conjugated estrogens 0.45 mg tablet 0.45 mg PO Q OTHER DAY tab 10/10/18 10/01/19 History cranberry extract 500 mg PO QAM 12/11/18 10/01/19 History potassium chloride 20 mEq 20 meq PO QAM #90 tab 01/03/19 10/01/19 Rx tablet,extended release pen needle, diabetic 32 gauge x #400 ea 01/31/19 09/26/19 Rx 1/4" gabapentin 100 mg capsule 400 mg PO TID 04/24/19 10/01/19 History atorvastatin 10 mg tablet 10 mg PO Q OTHER DAY #90 tab 06/24/19 10/01/19 Rx Toujeo Max U-300 SoloStar 40 units SUBCUT QAM 08/29/19 10/01/19 History diclofenac sodium [Voltaren] 2 g TOPICAL QID PRN 08/29/19 10/01/19 History insulin aspart U-100 [Novolog 10 unit SUBCUT TID 08/29/19 10/01/19 History Flexpen U-100 Insulin] omeprazole 20 mg PO DAILY PRN 08/29/19 10/01/19 History apixaban [Eliquis] 5 mg PO BID #60 tab 09/01/19 10/01/19 Rx metoprolol succinate 100 mg 150 mg PO BID #90 tab 09/04/19 10/01/19 Rx tablet,extended release 24 hr diltiazem HCl [Cardizem CD] 120 mg PO QAM 09/25/19 10/01/19 History furosemide 40 mg PO QAM 09/25/19 10/01/19 History losartan [Cozaar] 25 mg PO DAILY 10/01/19 10/01/19 History Patient History Medical History Atrial fibrillation new onset 08/2019 (noted during PAT appt and sent to ER) -- follows w/ [facility], seen for hospita f/u and surgical clearance, OK to proceed and hold Eliquis x 2-3 days. CKD (chronic kidney disease) STAGE III SEES DR. WRAY Diabetes mellitus, type 2 IDDM Diverticulosis of colon (Inactive) GILL (dyspnea on exertion) Feels SOB with 1 FOS but denies any CP. Negative DSE in 2018. GERD (gastroesophageal reflux disease) Glaucoma History of kidney stones Hx of pancreatitis NO CURRENT ISSUE Hyperlipidemia Hypertension Morbid obesity On anticoagulant therapy Eliquis BID Osteoarthritis Osteoporosis Sacroiliitis Spondylisthesis LUMBAR REGION Surgical History History of appendectomy History of cataract surgery RIGHT - HEMMORHAGE AND LOSS VISION History of colonoscopy History of esophagogastroduodenoscopy (EGD) History of eye surgery X 4 TO RIGHT EYE History of foot surgery RT History of tooth extraction History of total abdominal hysterectomy and bilateral salpingo-oophorectomy History of total knee replacement RT Hx of hand surgery RIGHT> LIGAMENT REPAIR Family History Father Diabetes Myocardial infarction Brother Diabetes Sister Diabetes Family history of melanoma Mother Cancer of the neck Denies family history of Ovarian cancer Prostate cancer Breast cancer Colorectal cancer Social History (Updated 10/01/19 @ 12:43 by Norbert Rebollar) Smoking Status: Never smoker Second Hand Exposure: No; Do You Dip or Chew Tobacco: No; Hx Alcohol Use: Yes Alcohol type: beer and wine Hx Substance Use: No Preferred Language: Malawian Communication Ability: Effective 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 Required: No Beliefs That Will Affect Care: None marital status: / Current Living Situation: Alone current occupational status: retired Other Information That Helps Us Care for You: No Feels Safe at Home: Yes Safety Concerns: Feels Safe At This Time caffeine: Yes Dental Care, Regularly: Yes Physical Activity Frequency: 1-2 Times per Week Seatbelt Use: sometimes Sunscreen Use: Yes Review of Systems Constitutional: no fever, no chills, no fatigue and no anorexia Ear, Nose, Mouth, Throat: no nasal congestion and no sore throat Respiratory: no cough and no dyspnea Cardiovascular: + edema (recent; takes prn lasix); no chest pain Gastrointestinal: no abdominal pain, no nausea and no vomiting Musculoskeletal: + joint pain (left knee ) Integumentary: no rash Neurologic: no localized weakness Endocrine: patient is diabetic on insulin at home Physical Exam Constitutional: well developed, well nourished and + morbidly obese; no acute distress Eyes: PERRL ENMT: external ear and nose normal, oropharynx normal Neck: trachea midline, no thyromegaly normal visual inspection Respiratory: normal respiratory effort, lungs clear to auscultation Cardiovascular: Rate/Rhythm: regular rate and regular rhythm Heart Sounds: normal S1 and normal S2; no murmur Vessels: posterior tibial pulses present and dorsalis pedis pulses present; no JVD Extremities: + edema (trace right foot; <1+ left foot/ankle) Gastrointestinal (Abdomen): normal bowel sounds, soft, nontender, no hepatosplenomegaly Musculoskeletal: left leg in knee immobilizer/brace; KIM wrap in place Skin: no rashes, warm and dry Neurologic: moves all extremities; no focal motor deficits and not confused Psychiatric: Orientation: alert and oriented x 3 Lymphatic: no cervical lymphadenopathy Results & Data ([facility]) Vital Signs (Past 12 Hours) Vital Signs Temp Pulse Pulse Resp BP BP Pulse Ox 10/01/19 11:40 36.4 C L 67 16 159/95 H 96 10/01/19 11:30 67 16 169/89 H 94 10/01/19 11:20 70 16 202/85 H 96 10/01/19 11:10 71 18 177/81 H 96 10/01/19 11:00 36.5 C 74 18 165/94 H 96 10/01/19 06:41 64 21 205/83 H 97 10/01/19 06:07 36.9 C 60 18 189/78 H 95 Laboratory Results Laboratory Results - last 24 hr 10/01/19 10/01/19 10/01/19 05:54 06:27 11:09 POC Glucose 180 H 171 H 209 H 10/01/19 10/01/19 12:18 16:59 POC Glucose 211 H 160 H PG Care Time/CCT Total # of Minutes Spent Total Time Spent with Patient: Total time spent is greater than 50% in coordination of care (as documented) at patient's floor/unit and/or counseling patient: Coding Level of Care Code 17435 Subseq Hosp Care Lvl 2 Diagnoses Osteoarthritis of left knee M17.12 Osteoarthritis type: unspecified Type 2 DM with CKD stage 3 and hypertension E11.22; I12.9; N18.3 Morbid obesity with BMI of 45.0-49.9, adult E66.01; Z68.42 PAF (paroxysmal atrial fibrillation) I48.0 Essential (primary) hypertension I10 CKD (chronic kidney disease) N18.3 Chronic kidney disease stage: stage 3 (moderate) Glaucoma H40.9 Glaucoma type: unspecified Laterality: unspecified laterality Hyperlipidemia E78.2 Hyperlipidemia type: mixed hyperlipidemia DVT prophylaxis Z29.9 (1) Hyperlipidemia Hyperlipidemia type: mixed hyperlipidemia Qualified Code(s): E78.2 - Mixed hyperlipidemia (2) CKD (chronic kidney disease) Chronic kidney disease stage: stage 3 (moderate) Qualified Code(s): N18.3 - Chronic kidney disease, stage 3 (moderate) (3) Osteoarthritis of left knee Osteoarthritis type: unspecified Qualified Code(s): M17.12 - Unilateral primary osteoarthritis, left knee (4) Glaucoma Glaucoma type: unspecified Laterality: unspecified laterality Qualified Code(s): H40.9 - Unspecified glaucoma
[2019-10-01] MEDS ORDERED: GLUCOSE 10 TABS/TUBE PO PRN (12:45)
[2019-10-01] MEDS ORDERED: GLUCOSE 40% GEL 15 GM TUBE PO PRN (12:45)
[2019-10-01] MEDS ORDERED: CARBOHYDRATES FOR HYPOGLYCEMIA PO PRN (12:45)
[2019-10-01] MEDS ORDERED: DEXTROSE 50% 50 ML SYRINGE IV PRN (12:45)
[2019-10-01] MEDS ORDERED: GLUCAGON FOR INJ 1 MG VIAL IM PRN (12:45)
--- NOTE | 2019-10-01 12:53 | Anesthesiology Progress Note ---
Date of Service October 01, 2019 Anesthesia Post Procedure Vital Signs Vital Signs: Temp Pulse Pulse Resp BP BP Pulse Ox 10/01/19 12:30 36.5 C 72 17 166/72 H 96 10/01/19 11:40 36.4 C L 67 16 159/95 H 96 10/01/19 11:30 67 16 169/89 H 94 10/01/19 11:20 70 16 202/85 H 96 10/01/19 11:10 71 18 177/81 H 96 10/01/19 11:00 36.5 C 74 18 165/94 H 96 10/01/19 06:41 64 21 205/83 H 97 10/01/19 06:07 36.9 C 60 18 189/78 H 95 Pain Intensity Left Knee: Pain Intensity: 5 Transfer of Care Handoff Completed per policy Notes Mental Status: alert / awake / arousable and participated in evaluation Patient Amnestic to Procedure: Yes Nausea / Vomiting: adequately controlled Pain: adequately controlled Airway Patency, RR, SpO2: stable & adequate BP & HR: stable & adequate Hydration State: stable & adequate Anesthetic Complications: no major complications apparent and Pt Satisfied with anesthetic care
[2019-10-01] MEDS: GABAPENTIN 400 MG CAP PO SCH ×2 (13:53→20:49)
[2019-10-01] MEDS: ACETAMINOPHEN 500 MG TAB PO SCH ×2 (13:53→21:17)
[2019-10-01] MEDS: INSULIN GLARGINE SOLOSTAR 100 UNITS/ML 3 ML PEN SC SCH (13:56)
[2019-10-01] MEDS: INSULIN ASPART 100 UNITS/ML 3 ML PEN SC SCH ×3 (13:56→20:54)
--- NOTE | 2019-10-01 15:23 | Pharmacy Report ---
Glycemic Control Consultation - Date of Service October 01, 2019 - Scope Scope: Glycemic Pharmacist consulted for glycemic control and to write orders per [facility] inpatient glycemic control protocol. - Objective Weight: 122.9 kg Accuchecks BSG (last 24hrs): 10/01/19 10/01/19 10/01/19 05:54 06:27 11:09 POC Glucose 180 H 171 H 209 H 10/01/19 12:18 POC Glucose 211 H - Recent Pertinent Medications Outpatient Anti-diabetic Regimen: * Toujeo 40 units SQ QAM * Novolog 10 units TID with meals * A1c = 7.5% on 09/01/19 Risk Factors for Insulin Resistance: * Steroids: none * Infection: Ancef 2 gm IV x 2 doses post op. * IVF: NS @ 100 ml/hr * Recent Surgery: POD 0 L TKA * Diet: T2DM - Assessment & Plan Assessment & Plan: ASSESSMENT: * 78 y/o F admitted for L TKA. Patient with history of Type 2 diabetes managed at home on basal Toujeo insulin and bolus Novolog with meals. * Will switch basal to Lantus while admitted and continue with same dose since conversion between the two insulins is 1:1. * Will initiate moderate stress, weight based insulin dosing and titrate based on BSG trends. * Patient is ordered a one-time dose of Decadron 8 mg PO x 1 tomorrow AM. Will adjust insulin dosing tomorrow to prevent steroid induced hyperglycemia. PLAN FOR INPATIENT GLYCEMIC CONTROL: * Basal insulin * Lantus 40 units SQ QAM * Bolus insulin * NovoLog per scale ACHS or Q6hrs while NPO * Goal Range: Low 110 mg/dL - High 140 mg/dL * Correction Factor: 20 mg/dL/unit * Nutritional / Prandial insulin per carb ratio of 1 unit per 7 grams CHO consumed * Please note that the plan above was derived based on current level of insulin resistance and hospital stress. These recommendations are appropriate for inpatient admission only. Plan of care upon discharge will need to be reassessed to avoid potential outpatient hypo/hyperglycemia. Thank you.
[2019-10-01] MEDS: CEFAZOLIN 2000MG 2,000 MG/15 ML SYR IV SCH ×2 (15:37→23:14)
--- NOTE | 2019-10-01 17:44 | Progress Note ---
Date of Service October 01, 2019 Assessment & Plan (1) CKD (chronic kidney disease): Chronic kidney disease stage: stage 3 (moderate) Qualified Code(s): N18.3 - Chronic kidney disease, stage 3 (moderate) Present on Admission?: Yes (2) Essential (primary) hypertension: Present on Admission?: Yes (3) PAF (paroxysmal atrial fibrillation): Present on Admission?: Yes (4) Spinal stenosis: Present on Admission?: Yes (5) Peripheral neuropathy: Present on Admission?: Yes (6) Obesity, morbid, BMI 40.0-49.9: Present on Admission?: Yes (7) Blindness of one eye: Present on Admission?: Yes (8) Diabetic nephropathy: Present on Admission?: Yes (9) Osteoarthritis of left knee: Osteoarthritis type: unspecified Qualified Code(s): M17.12 - Unilateral primary osteoarthritis, left knee Present on Admission?: Yes (10) Type 2 DM with CKD stage 3 and hypertension: Doing well postop. X-rays reviewed and without complication. Discussed with patient MCL avulsion and staple. start eliquis in AM. brace instructions reviewed. Present on Admission?: Yes (11) Bilateral lower extremity edema: Present on Admission?: Yes Admission and Anticipated Discharge Date Admission Date: October 01, 2019 Subjective Pain well controlled. No problems noted. eating. Physical Exam Physical Exam: dortsalis pedis 1+. Sensation intact throughout the foot. 5 out of 5 in all planes. Results & Data ([facility]) Vital Signs (Past 12 Hours) Vital Signs Temp Pulse Pulse Pulse Resp BP BP 10/01/19 15:11 36.6 C 68 16 155/75 H 10/01/19 14:00 36.5 C 67 16 164/83 H 10/01/19 13:00 36.5 C 67 17 147/74 H 10/01/19 12:30 36.5 C 72 17 166/72 H 10/01/19 12:00 36.7 C 68 16 173/82 H 10/01/19 11:40 36.4 C L 67 16 159/95 H 10/01/19 11:30 67 16 169/89 H 10/01/19 11:20 70 16 202/85 H 10/01/19 11:10 71 18 177/81 H 10/01/19 11:00 36.5 C 74 18 165/94 H 10/01/19 06:41 64 21 205/83 H 10/01/19 06:07 36.9 C 60 18 189/78 H Pulse Ox 10/01/19 15:11 99 10/01/19 14:00 98 10/01/19 13:00 92 10/01/19 12:30 96 10/01/19 12:00 97 10/01/19 11:40 96 10/01/19 11:30 94 10/01/19 11:20 96 10/01/19 11:10 96 10/01/19 11:00 96 10/01/19 06:41 97 10/01/19 06:07 95
[2019-10-01] MEDS: OXYCODONE HCL IR 5 MG TAB (IMMEDIATE RELEASE) PO PRN (19:57)
[2019-10-01] MEDS: DOCUSATE SODIUM 100 MG CAP PO SCH (20:49)
[2019-10-01] MEDS: SENNA 8.6 MG TAB PO SCH (20:49)
[2019-10-01] MEDS: METOPROLOL SUCC 50MG EXT REL TAB PO SCH (20:49)
[2019-10-01] MEDS: TIMOLOL MALEATE 0.5% OP SOLN 5 ML BTL OP SCH (20:49)
[2019-10-02] MEDS: OXYCODONE HCL IR 5 MG TAB (IMMEDIATE RELEASE) PO PRN (05:44)
[2019-10-02] MEDS: ACETAMINOPHEN 500 MG TAB PO SCH ×3 (05:44→21:57)
[2019-10-02] MEDS ORDERED: ROPIVACAINE 0.5% HCL/PF 150 MG, BUPIVACAINE 0.5% MPF 30 ML, EPINEPHrine 0.15 MG, Ketoro... INFIL SCH (06:00)
[2019-10-02 06:01] LABS: Hematocrit (blood only) 37.7 % (37-47); Hemoglobin 11.5 g/dL (12.0-16.0); Mean Corpuscular Hemoglobin 29.2 pg (25-34); Mean Corpuscular Hgb Conc 30.5 g/dL (32-36); Mean Corpuscular Volume 95.7 fL (80-100); Mean Platelet Volume 9.5 fL (7.4-10.4); Platelet Count 391 K/uL (130-400); RDW Coefficient of Variation 14.2 % (11.5-14.5); RDW Standard Deviation 49.4 fL (36.4-46.3); Red Blood Count 3.94 M/uL (4.2-5.4); White Blood Count 11.33 K/uL (4.8-10.8)
[2019-10-02 06:28] LABS: BUN Creatinine Ratio 10.7 (10-20); Calcium 7.7 mg/dl (8.5-10.1); Creatinine Clr Calc Pharmacy 30.7 ml/min; Est GFR (African American) 28.1; Est GFR (Non-African American) 24.2; Potassium 4.6 mmol/L (3.5-5.1)
[2019-10-02] MEDS ORDERED: dexAMETHasone 4 MG TAB PO SCH (08:00)
[2019-10-02] MEDS ORDERED: NovoLIN-N (NPH) PER UNIT CHARGE SQ ONE (08:00)
[2019-10-02] MEDS: TRAMADOL HCL 50 MG TABLET PO PRN ×3 (08:33→23:37)
[2019-10-02] MEDS: INSULIN ASPART 100 UNITS/ML 3 ML PEN SC SCH ×4 (08:37→22:02)
[2019-10-02] MEDS: INSULIN GLARGINE SOLOSTAR 100 UNITS/ML 3 ML PEN SC SCH (08:37)
[2019-10-02] MEDS: CHOLECALCIFEROL 1,000 UNITS 25 MCG TAB PO SCH (08:41)
[2019-10-02] MEDS: MULTIVITAMIN TAB PO SCH (08:41)
[2019-10-02] MEDS: METOPROLOL SUCC 50MG EXT REL TAB PO SCH ×2 (08:41→21:52)
[2019-10-02] MEDS: GABAPENTIN 400 MG CAP PO SCH ×3 (08:42→21:52)
[2019-10-02] MEDS: DOCUSATE SODIUM 100 MG CAP PO SCH ×2 (08:42→17:27)
[2019-10-02] MEDS: TIMOLOL MALEATE 0.5% OP SOLN 5 ML BTL OP SCH ×2 (08:42→21:52)
[2019-10-02] MEDS: APIXABAN 5 MG TABLET PO SCH ×2 (08:42→21:51)
[2019-10-02] MEDS: dilTIAZem HCL 120 MG CAPCR PO SCH (08:42)
[2019-10-02] MEDS ORDERED: LOSARTAN POTASSIUM 25 MG TAB PO SCH (09:00)
[2019-10-02] MEDS ORDERED: ATORVASTATIN 10 MG TAB PO SCH (09:00)
[2019-10-02] MEDS ORDERED: FUROSEMIDE 40 MG TAB PO SCH (09:00)
[2019-10-02] MEDS ORDERED: POTASSIUM CHLORIDE 20 MEQ TABCR PO SCH (09:00)
--- NOTE | 2019-10-02 09:52 | Hospitalist Progress Note ---
Date of Service October 02, 2019 Assessment & Plan (1) Osteoarthritis of left knee: * POD#1 s/p left TKR today by Dr Kelly on 09/30. EBL 5cc. Pre-op h/h 12.4/38.2 * Eliquis 5mg BID for DVT proph. * Pain control, disposition deferred to orthopedics. * h/h stable, but dropped to 11.5/37.7 --> likely acute blood loss from surgery as well as dilutional. WBC elevated slightly, likely atelectasis * CBC in AM (2) CKD (chronic kidney disease): * baseline CrCl 30s/40s * Now with MANNY --> Cr elevated to 1.95 on AM labs, eGFR 24.2 * --> ordered gentle IVF given hx of "puffing up". * Continue to hold lasix/arb (will also hold potassium 20meq as previously ord ered given pt K 4.6 on AM labs) * bmp in am (3) Type 2 DM with CKD stage 3 and hypertension: * Orthopedics placed pharmacy glycemic consult. * Defer management to pharmacy. * Appreciate their assistance (4) Morbid obesity with BMI of 45.0-49.9, adult: * BMI 48 * Hopefully with TKR on left she will be more mobile once recovered (5) PAF (paroxysmal atrial fibrillation): * Cont CCB and BB. * Cont eliquis 5mg BID. * Examines NSR today. * Was in NSR during previous cardiology clinic visit. * Continue to monitor clinically. (6) Essential (primary) hypertension: * Stable, currently 135/64 * Continue dilt, metoprolol * Continuing to hold losartan and lasix until creatinine is checked to ensure stability. * If creatinine is stable in am then resume both. (7) Glaucoma: * cont eye drops (8) Hyperlipidemia: * cont statin (9) DVT prophylaxis: * eliquis 5mg BID thank you for the consult. hospitalist service will follow with you. Admission and Anticipated Discharge Date Admission Date: October 01, 2019 Supervising Physician Co-Signing Physician Notes PA Supervision Note: I did not personally see or examine the patient today, but I verified all read points of SIDDHARTH Chao's assessment and plan with the following exceptions/additions: None Subjective Patient evaluated this morning. Eating/drinking without difficulty. States she has not had a bowel movement but has been passing lots of gas. Pain controlled with oral medication. States she was up with PT/OT this morning and tolerated well. Minimal discomfort afterwards and improved now resting in bed. States she just spoke with someone on the phone from [facility] that they have a bed available but they are just waiting on insurance. Discussed elevated creatinine and that we will monitor in the AM off of her lasix and losartan and that if stable we will resume in AM. Denies fever, chills, chest pain, shortness of breath, abdominal pain, n/v/d, dysuria at this time. Review of Systems Review of Systems: All systems reviewed & are unremarkable except as noted in HPI & below Physical Exam Constitutional: well developed, well nourished and + morbidly obese; no acute distress Eyes: PERRL Neck: trachea midline, no thyromegaly Respiratory: normal respiratory effort, lungs clear to auscultation Cardiovascular: Rate/Rhythm: regular rate and regular rhythm Heart Sounds: normal S1 and normal S2; no murmur Vessels: posterior tibial pulses present and dorsalis pedis pulses present; no JVD Extremities: + edema (trace b/l, improved from yesterday) Gastrointestinal (Abdomen): normal bowel sounds, soft, nontender, no hepatosplenomegaly Musculoskeletal: dressing to left knee c/d/i brace in place NVI 2+ dp/pt bilaterally Skin: no rashes, warm and dry Neurologic: moves all extremities; no focal motor deficits and not confused Psychiatric: Orientation: alert and oriented x 3 Lymphatic: no cervical lymphadenopathy Results & Data Results & Data ([facility]) Vital Signs (Past 12 Hours) Vital Signs Temp Pulse Pulse Resp BP Pulse Ox 10/02/19 07:36 37.1 C 66 17 129/76 94 10/02/19 02:40 37.1 C 69 20 129/68 90 10/01/19 22:59 37 C 71 16 160/73 H 91 Laboratory Results 10/02/19 10/02/19 10/02/19 Range/Units 17:06 12:11 08:09 WBC (4.8-10.8) K/uL RBC (4.2-5.4) M/uL Hgb (12.0-16.0) g/dL Hct (37-47) % MCV (80-100) fL MCH (25-34) pg MCHC (32-36) g/dL RDW Std Deviation (36.4-46.3) fL RDW Coeff of Bill (11.5-14.5) % Plt Count (130-400) K/uL MPV (7.4-10.4) fL Sodium (136-145) mmol/L Potassium (3.5-5.1) mmol/L Chloride (98-107) mmol/L Carbon Dioxide (21-32) mmol/L Anion Gap (3-11) BUN (7-18) mg/dl Creatinine (0.6-1.2) mg/dl Est Cr Clr Drug Dosing ml/min Est GFR ( Amer) Est GFR (Non-Af Amer) BUN/Creatinine Ratio (10-20) Glucose (70-99) mg/dl POC Glucose 174 H 131 H 157 H (70-99) mg/dl Calcium (8.5-10.1) mg/dl 10/02/19 10/02/19 10/01/19 Range/Units 05:49 05:49 20:40 WBC 11.33 H (4.8-10.8) K/uL RBC 3.94 L (4.2-5.4) M/uL Hgb 11.5 L (12.0-16.0) g/dL Hct 37.7 (37-47) % MCV 95.7 (80-100) fL MCH 29.2 (25-34) pg MCHC 30.5 L (32-36) g/dL RDW Std Deviation 49.4 H (36.4-46.3) fL RDW Coeff of Bill 14.2 (11.5-14.5) % Plt Count 391 (130-400) K/uL MPV 9.5 (7.4-10.4) fL Sodium 142 (136-145) mmol/L Potassium 4.6 (3.5-5.1) mmol/L Chloride 110 H (98-107) mmol/L Carbon Dioxide 25 (21-32) mmol/L Anion Gap 7.0 (3-11) BUN 21 H (7-18) mg/dl Creatinine 1.95 H (0.6-1.2) mg/dl Est Cr Clr Drug Dosing 30.7 ml/min Est GFR ( Amer) 28.1 Est GFR (Non-Af Amer) 24.2 BUN/Creatinine Ratio 10.7 (10-20) Glucose 108 H (70-99) mg/dl POC Glucose 182 H (70-99) mg/dl Calcium 7.7 L (8.5-10.1) mg/dl PG Care Time/CCT Total # of Minutes Spent Total Time Spent with Patient: Total time spent is greater than 50% in coordination of care (as documented) at patient's floor/unit and/or counseling patient: Coding Level of Care Code 60715 Subseq Hosp Care Lvl 3 Diagnoses Osteoarthritis of left knee M17.12 Osteoarthritis type: unspecified CKD (chronic kidney disease) N18.3 Chronic kidney disease stage: stage 3 (moderate) Type 2 DM with CKD stage 3 and hypertension E11.22; I12.9; N18.3 Morbid obesity with BMI of 45.0-49.9, adult E66.01; Z68.42 PAF (paroxysmal atrial fibrillation) I48.0 Essential (primary) hypertension I10 Glaucoma H40.9 Glaucoma type: unspecified Laterality: unspecified laterality Hyperlipidemia E78.2 Hyperlipidemia type: mixed hyperlipidemia DVT prophylaxis Z29.9 (1) Hyperlipidemia Hyperlipidemia type: mixed hyperlipidemia Qualified Code(s): E78.2 - Mixed hyperlipidemia (2) CKD (chronic kidney disease) Chronic kidney disease stage: stage 3 (moderate) Qualified Code(s): N18.3 - Chronic kidney disease, stage 3 (moderate) (3) Osteoarthritis of left knee Osteoarthritis type: unspecified Qualified Code(s): M17.12 - Unilateral primary osteoarthritis, left knee (4) Glaucoma Glaucoma type: unspecified Laterality: unspecified laterality Qualified Code(s): H40.9 - Unspecified glaucoma
--- NOTE | 2019-10-02 11:55 | Orthopedic Progress Note ---
Date of Service October 02, 2019 Assessment & Plan (1) S/P total knee arthroplasty: POD 1 - s/p left total knee arthroplasty PT/OT as ordered OOB, WBAT with hinged brace on and assistance of a walker Allowed for ROM left knee; unlock brace PRN Eliquis resumed for DVT prophylaxis. Appreciate medicine assistance, mildly elevated BUN/Creatinine, will recheck BMP in AM. H/H stable Pain medication as prescribed. Case management for disposition - bed available at [facility] - insurance authorization is pending. Ice/Elevation PRN Keep dressings in place today, if here tomorrow will redress in AM Dr. Kelly present for today's visit. Will D/C once insurance authorization obtained. Follow up with Dr. Kelly as scheduled, discharge instructions reviewed with patient in case of discharge later today. Present on Admission?: Yes Admission and Anticipated Discharge Date Admission Date: October 01, 2019 Subjective Patient doing well. Mild pain thru the night. Denies chest pain, shortness of breath, nausea or vomiting. Has been out of bed with PT/OT. Pain well controlled with ordered pain medications. Physical Exam Physical Exam: Left knee dressing intact. Hinged ROM brace in place. Distal pulses and sensation intact. strength 5/5. Results & Data ([facility]) Vital Signs (Past 12 Hours) Vital Signs Temp Pulse Pulse Resp BP Pulse Ox 10/02/19 07:36 37.1 C 66 17 129/76 94 10/02/19 02:40 37.1 C 69 20 129/68 90 Laboratory Results Lab Results 10/01/19 10/01/19 10/01/19 Range/Units 05:54 06:27 11:09 WBC (4.8-10.8) K/uL RBC (4.2-5.4) M/uL Hgb (12.0-16.0) g/dL Hct (37-47) % MCV (80-100) fL MCH (25-34) pg MCHC (32-36) g/dL RDW Std Deviation (36.4-46.3) fL RDW Coeff of Bill (11.5-14.5) % Plt Count (130-400) K/uL MPV (7.4-10.4) fL Sodium (136-145) mmol/L Potassium (3.5-5.1) mmol/L Chloride (98-107) mmol/L Carbon Dioxide (21-32) mmol/L Anion Gap (3-11) BUN (7-18) mg/dl Creatinine (0.6-1.2) mg/dl Est Cr Clr Drug Dosing ml/min Est GFR ( Amer) Est GFR (Non-Af Amer) BUN/Creatinine Ratio (10-20) Glucose (70-99) mg/dl POC Glucose 180 H 171 H 209 H (70-99) mg/dl Calcium (8.5-10.1) mg/dl 10/01/19 10/01/19 10/01/19 Range/Units 12:18 16:59 20:40 WBC (4.8-10.8) K/uL RBC (4.2-5.4) M/uL Hgb (12.0-16.0) g/dL Hct (37-47) % MCV (80-100) fL MCH (25-34) pg MCHC (32-36) g/dL RDW Std Deviation (36.4-46.3) fL RDW Coeff of Bill (11.5-14.5) % Plt Count (130-400) K/uL MPV (7.4-10.4) fL Sodium (136-145) mmol/L Potassium (3.5-5.1) mmol/L Chloride (98-107) mmol/L Carbon Dioxide (21-32) mmol/L Anion Gap (3-11) BUN (7-18) mg/dl Creatinine (0.6-1.2) mg/dl Est Cr Clr Drug Dosing ml/min Est GFR ( Amer) Est GFR (Non-Af Amer) BUN/Creatinine Ratio (10-20) Glucose (70-99) mg/dl POC Glucose 211 H 160 H 182 H (70-99) mg/dl Calcium (8.5-10.1) mg/dl 10/02/19 10/02/19 10/02/19 Range/Units 05:49 05:49 08:09 WBC 11.33 H (4.8-10.8) K/uL RBC 3.94 L (4.2-5.4) M/uL Hgb 11.5 L (12.0-16.0) g/dL Hct 37.7 (37-47) % MCV 95.7 (80-100) fL MCH 29.2 (25-34) pg MCHC 30.5 L (32-36) g/dL RDW Std Deviation 49.4 H (36.4-46.3) fL RDW Coeff of Bill 14.2 (11.5-14.5) % Plt Count 391 (130-400) K/uL MPV 9.5 (7.4-10.4) fL Sodium 142 (136-145) mmol/L Potassium 4.6 (3.5-5.1) mmol/L Chloride 110 H (98-107) mmol/L Carbon Dioxide 25 (21-32) mmol/L Anion Gap 7.0 (3-11) BUN 21 H (7-18) mg/dl Creatinine 1.95 H (0.6-1.2) mg/dl Est Cr Clr Drug Dosing 30.7 ml/min Est GFR ( Amer) 28.1 Est GFR (Non-Af Amer) 24.2 BUN/Creatinine Ratio 10.7 (10-20) Glucose 108 H (70-99) mg/dl POC Glucose 157 H (70-99) mg/dl Calcium 7.7 L (8.5-10.1) mg/dl Diagnostic Findings XR knee LT 1 or 2V routine CLINICAL HISTORY: Postoperative evaluation. COMPARISON: Left knee radiographs August 27, 2019. FINDINGS: Left knee arthroplasty is noted. There is no periprosthetic fracture. No unexpected radiopaque foreign bodies are noted. Note is made of a spike within the proximal left tibia at the tibial insertion of the medial collateral alignment. There are skin reilly. IMPRESSION: Status post total left knee arthroplasty. No periprosthetic fracture. No unexpected radiopaque foreign body.
--- NOTE | 2019-10-02 12:46 | Pharmacy Report ---
Pharmacy Glycemic Short Note 2 - Date of Service October 02, 2019 - Glycemic Short BSG Results (Last 24 hours): 10/01/19 10/01/19 10/02/19 16:59 20:40 05:49 Glucose 108 H POC Glucose 160 H 182 H 10/02/19 10/02/19 08:09 12:11 Glucose POC Glucose 157 H 131 H OUTPATIENT ANTIDIABETIC REGIMEN: * Toujeo 40 units SQ QAM * Novolog 10 units SQ TID with meals ASSESSMENT: * 78 y/o F admitted for L TKA, today is POD 1. * Patient received total of 61 units of insulin yesterday: 40 units of basal and 21 units bolus. This total is less than what she receives at home. * Pt is ordered Dexamethasone 8 mg PO x 1 dose this AM. To prevent steroid induced hyperglycemia, she was given one dose of NPH. Dose was based on 0.4 mg/kg using adjusted body weight, then reduced by 50% since patient's serum creatinine has increased today compared to yesterday. So 15 units of NPH was given with PO dexamethasone this AM. * Fasting BSG today = 108 is WNL. Will continue with 40 units of basal. * Post prandial BSG were only slightly elevated. Will continue with current Novolog parameters as well. PLAN FOR INPATIENT GLYCEMIC CONTROL: * Basal insulin * Lantus 40 units SQ QAM * NPH 15 units x 1 dose today AM with Decadron PO. * Bolus insulin: continue * NovoLog per scale ACHS or Q6hrs while NPO * Goal Range: Low 110 mg/dL - High 140 mg/dL * Correction Factor: 20 mg/dL/unit * Nutritional / Prandial insulin per carb ratio of 1 unit per 7 grams CHO consumed PLAN FOR DISCHARGE: * HbA1c = 7.5% * Goal A1c < 8% in this patient based on age and co-morbidities. * Patient at goal, recommend continue current insulin regimen that she is on at home with Toujeo and Novolog as long as she is not reporting any hypoglycemia.
[2019-10-02] MEDS: SENNA 8.6 MG TAB PO SCH (17:27)
[2019-10-02] MEDS ORDERED: SODIUM CHLORIDE 0.9% 1000ML 1,000 ML IV SCH (18:15)
[2019-10-03] MEDS: ACETAMINOPHEN 500 MG TAB PO SCH ×3 (05:26→21:16)
[2019-10-03 06:10] LABS: Hematocrit (blood only) 35.3 % (37-47); Hemoglobin 10.9 g/dL (12.0-16.0); Mean Corpuscular Hemoglobin 29.3 pg (25-34); Mean Corpuscular Hgb Conc 30.9 g/dL (32-36); Mean Corpuscular Volume 94.9 fL (80-100); Mean Platelet Volume 10.1 fL (7.4-10.4); Platelet Count 323 K/uL (130-400); RDW Coefficient of Variation 14.1 % (11.5-14.5); RDW Standard Deviation 48.8 fL (36.4-46.3); Red Blood Count 3.72 M/uL (4.2-5.4); White Blood Count 17.76 K/uL (4.8-10.8)
[2019-10-03 06:40] LABS: BUN Creatinine Ratio 16.1 (10-20); Calcium 8.8 mg/dl (8.5-10.1); Creatinine Clr Calc Pharmacy 34.7 ml/min; Est GFR (African American) 32.4; Potassium 4.7 mmol/L (3.5-5.1)
[2019-10-03] MEDS: CHOLECALCIFEROL 1,000 UNITS 25 MCG TAB PO SCH (08:28)
[2019-10-03] MEDS: dilTIAZem HCL 120 MG CAPCR PO SCH (08:29)
[2019-10-03] MEDS: GABAPENTIN 400 MG CAP PO SCH ×3 (08:30→21:15)
[2019-10-03] MEDS: TIMOLOL MALEATE 0.5% OP SOLN 5 ML BTL OP SCH ×2 (08:30→22:01)
[2019-10-03] MEDS: METOPROLOL SUCC 50MG EXT REL TAB PO SCH ×2 (08:30→21:15)
[2019-10-03] MEDS: APIXABAN 5 MG TABLET PO SCH ×2 (08:30→21:15)
[2019-10-03] MEDS: DOCUSATE SODIUM 100 MG CAP PO SCH ×2 (08:30→15:43)
[2019-10-03] MEDS: MULTIVITAMIN TAB PO SCH (08:30)
[2019-10-03] MEDS: TRAMADOL HCL 50 MG TABLET PO PRN ×2 (08:33→21:23)
[2019-10-03] MEDS: INSULIN GLARGINE SOLOSTAR 100 UNITS/ML 3 ML PEN SC SCH (08:35)
[2019-10-03] MEDS: INSULIN ASPART 100 UNITS/ML 3 ML PEN SC SCH ×4 (08:35→21:24)
--- NOTE | 2019-10-03 08:46 | Discharge Summary ---
Date of Service October 03, 2019 Discharge Data Consultations 10/01/19 12:08 Consult Case Management - Discharge Planning Routine Consult Hospitalist Routine Procedures Performed Operation Date: 10/01/19 07:00 Actual Procedures p Left Total Knee Arthroplasty(Left) - Adonis Kelly MD Hospital Course (1) S/P total knee arthroplasty: Patient was admitted to [facility] on October 01, 2019 after undergoing an elective left total knee arthroplasty by Dr. Adonis Kelly. Her preoperative COVID test was negative. She was placed under general anesthesia. She was given 3 g of IV Ancef for surgical prophylaxis and this was continued for 24 hours after her surgery. She tolerated the surgery well. Postoperative x-rays were performed in the recovery unit and showed a stable left knee prosthesis, as well as a retained staple in the proximal tibia. She underwent a normal left total knee arthroplasty except for the fact that her MCL was ruptured during surgery and a staple was placed to stabilize the MCL. Post operatively she was given a diabetic diet which she tolerated during her inpatient stay. She was allowed out of bed, weight bear as tolerated left lower extremity with the assistance of a walker and a hinged ROM brace left knee, which was locked with ambulation, and allowed to be unlocked for full ROM left knee as tolerated. These instructions were communicated with nursing as well as physical therapy and occupational therapy. On POD 2 we allowed for her brace to be unlocked at all times, but kept on her left leg at all times. Pain medication was prescribed and consisted of IV dilaudid, oxycodone, tylenol, tramadol. He pain was well controlled with oral medications during her stay. On POD 1 and POD 2 she did have an elevated BUN/Cr, but her Creatinine improved on POD 2. She was followed by the Hospitalist service for post op medical management during her stay. A glycemic control consult was also placed for post operative management of her Diabetes. She remained medically stable during her inpatient stay. Her dressings were changed on POD 2 and incision was clean, dry, intact. Her Eliquis was resumed on post operative day 1 and this was used for DVT prophylaxis as well as zohaib stockings and AV impulse boots. Case management was consulted for disposition, patient requested [employer] [facility]. A referral was placed and it took 3 days after surgery to get authorization for [employer]. Dr. Kelly had to do [id number] for authorization to be obtained. She did well in phsyical therapy and occupation therapy and was deemed safe for discharge to [facility]. She was discharged in stable condition on 10/04/19. Discharge instructions were reviewed and all questions answered. Discharge Instructions New Medicine: * You will likely be taking one or more of these medications: 1. Eliquis - Take, as prescribed, twice daily. 2. Oxycodone - Take, as directed, when you need it, every four to six hours to control your pain. 3. Tramadol - Take, as directed, when you need it, every four to six hours to control your pain. 4. Tylenol - Take, as directed, when you need it, every 8 hours to control your pain. 5. Colace & Senokot - Take to prevent constipation which can be caused by narcotics. These can be bought [id number] at the pharmacy. Also do your normal daily constipation prevention routine. * The most common side effects of pain medicine and iron are nausea and constipation. If nausea or constipation is too much of a problem or if you have any questions about your new medicines or doses, call [facility] at . We will try to help you manage these issues. "VERY IMPORTANT TO READ AND REVIEW" Blood Clots and Blood Thinning Medicine: * Take your Eliquis as prescribed. Physical Therapy: * Do your physical therapy at home. These are the exercises you learned while in the hospital (quad sets, leg raises, calf pumps, gluteal squeezes, knee bending, and heel props.) You should do these exercises 3-4 times per day. * You will either go to inpatient rehab ([facility]), home with Home Therapy and nursing or home with outpatient rehab. You should do rehab with the therapist 2-3 times per week. You should do therapy on your own daily. * You may bear full weight on your leg with crutches or walker unless otherwise advised. Home Exercise: * You were shown a series of exercises (heel props, heel slides, etc.) in the hospital. Do these exercises three to four times each day including the exercises you were shown in physical therapy. Walking: * You may be up for short periods of time. Standing and walking for 1-2 hours at a time is usually okay. You should not stand or walk for excessive periods of time as this may Cause increased pain and swelling. SELF CARE INSTRUCTIONS AFTER TOTAL KNEE REPLACEMENT A. You may need to continue a physical therapy program after discharge from the hospital. There are several options available to you. Your doctor will assist you in selecting the best one for you. 1. An out-patient facility 2 to 3 times a week for therapy or home therapy. 2. Continue working on all exercises taught to you in the hospital. Your goals should be to increase bending of your knee to 90 degrees and beyond and to fully straighten your knee. B. Your therapist will notify you when you are able to progress from a walker to a cane. C. Wear TEDS as much as possible.~ They may be removed at night for laundering. You may wear these during the day and remove at night. Wear on both legs. D. Do not place a pillow behind your knee when resting. A pillow at your ankle is okay. E. Ice your knee 15-20 minutes every 2-3 hours and elevate it above the level of your heart. F. You may shower on the fourth day after surgery using regular soap and water. (Monday) Do not submerge until the wound is completely healed (approximately 2 weeks). Until the fourth day after surgery, cover the incision/bandage with a bag or plastic wrap. G. Anyone who is touching your surgical incision area should wash their hands and wear gloves. H. Keep your incision covered with gauze pads under the ZOHAIB hose until it is dry. I. Use Hinged Range of Motion Brace left knee at all times. May unlock brace at all times. Only lock as needed for ambulation if knee feels unsteady. May unlock brace to work on Range of motion as tolerated (brace settings at 0-90 degrees). May unlock brace when sitting or getting into a chair. Will need to wear the brace for up to 4-6 weeks after surgery. May do physical therapy exercises with brace on and unlocked when appropriate. J. Use walker to assist with ambulation. K. Change dressing left knee as needed and daily. Reapply light gauze dressing and/or ABD pad and ZOHAIB stocking. L. Physical therapy and occupation therapy as tolerated. May unlock brace for ambulation and ROM. VERY IMPORTANT TO READ AND REVIEW A. There are a few signs you need to watch for after you are home. Call [facility] if you notice any of the followin. Increased severe knee pain. Some pain is expected especially when you exercise. 2. Increased swelling in your leg or knee; pain or swelling of the calf muscle in either lower leg. 3. Any fluid drainage from the incision. 4. Shortness of breath or chest pain. 5. Numbness and tingling in the surgical extremity B. Please call [facility] at if you have any concerns or questions about your operation or recovery. The doctor or his nurse will return your call promptly. C. Do not have any elective dental work or other elective procedures done for 6 weeks after your knee replacement. When you have any invasive procedure (dental cleaning, extraction, colonoscopy etc) performed, you will need to take antibiotics to prevent infection from developing in your artificial joint. Tell your other health care providers you have an artificial joint. My office will supply you with further information and the antibiotics. Call your doctor if: * Temperature above 101 degrees F. * Pain not relieved by pain medicine ordered. * Increased drainage or redness from incision. * Notify your doctor with any questions or concerns. Follow-up Visit: You will follow-up with Dr. Kelly 10-14 days after surgery. The office number is . Avoid all tobacco products. If you need help to stop smoking, call [place] at . This is a free call.
[2019-10-03 09:19] LABS: Basophils # (auto) 0.01 K/uL (0-0.2); Basophils % (auto) 0.1 %; Immature Granulocytes # (auto) 0.04 K/uL (0.00-0.02); Immature Granulocytes % (auto) 0.2 %; Lymphocytes # (auto) 0.87 K/uL (1.2-3.4); Lymphocytes % (auto) 4.7 %; Monocytes # (auto) 1.79 K/uL (0.11-0.59); Monocytes % (auto) 9.7 %; Neutrophils # (auto) 15.76 K/uL (1.4-6.5); Neutrophils % (auto) 85.3 %
--- NOTE | 2019-10-03 10:07 | Pharmacy Report ---
Glycemic Control Progress Note - Date of Service October 03, 2019 - Scope Glycemic Pharmacist consulted for glycemic control to write orders per [facility] inpatient glycemic control protocol. - Objective Accuchecks BSG(last 24 hours):: 10/02/19 10/02/19 10/02/19 12:11 17:06 20:42 Glucose POC Glucose 131 H 174 H 232 H 10/02/19 10/03/19 10/03/19 22:01 05:26 08:10 Glucose 190 H POC Glucose 224 H 183 H - Recent Pertinent Medications The patient is currently receiving: * Basal insulin: Lantus 40 units every 24 hours in the morning and NPH 15 units SQ x 1 * Correctional Insulin: Novolog Correction per scale ACHS Goal Range: Low 110 mg/dL - High 140 mg/dL Correction Factor: 20 mg/dL/unit * Prandial insulin: Per carb ratio of 1 unit per 7 grams CHO consumed - Outpatient Anti-Diabetic Meds Toujeo 40 units qAM Novolog 10 units TIDM - Assessment & Plan ASSESSMENT: * See progress note from 10/01/19 for more background info, in short: * Pt receiving SQ basal bolus insulin regimen for hyperglycemia secondary to baseline DM (outpatient regimen on hold). Received dexamethasone 8 mg PO x 1 yesterday. * Patient is currently receiving an average of 78 units of insulin per day * 55 units of basal insulin * 23 units of prandial/correctional insulin * BSGs ranging 131 - 232 mg/dl over the past 24hrs * Changes needed to insulin regimen: * AM Fasting BSG = 183 mg/dl. This is above goal range for patient based on inpatient targets and co-morbidities. Continue basal insulin as this hyperglycemia is from steroids. Regimen is very basal heavy right now. * Post-prandial BSGs are elevated due to steroids. Tighten CF/CR as steroid hyperglycemia may continue throughout the day. * Total daily dose = ~60-70 units. Insulin adjusted to push towards more 50/50 split. PLAN FOR INPATIENT GLYCEMIC CONTROL: * Continuing Lantus 40 units SQ qAM * TIGHTEN correction factor to 18 mg/dl/unit * TIGHTEN carb ratio to 1 unit per 5 grams CHO consumed * Continuing goal range of Low 110 mg/dL - High 140 mg/dL RECOMMENDATIONS FOR DISCHARGE: * HbA1c = 7.5% * Goal A1c < 8% in this patient based on age and co-morbidities. * Patient at goal, recommend continue current insulin regimen that she is on at home with Toujeo and Novolog as long as she is not reporting any hypoglycemia. Thank you.
--- NOTE | 2019-10-03 10:11 | Orthopedic Progress Note ---
Date of Service October 03, 2019 Assessment & Plan (1) S/P total knee arthroplasty: POD 2- left total knee arthroplasty Continue PT/OT - may unlock brace at all times if comfortable. Need to leave on at all times. WBAT LLE Continue Eliquis Appreciate medicine assistance. H/H stable Continue Diet Continue pain medication as ordered, recommended taking 1 tablet at a time Dr. Kelly present for today's visit. Ortho stable for discharge, plan for discharge today to either [facility] or [facility] based on insurance authorization. Present on Admission?: Yes Admission and Anticipated Discharge Date Admission Date: October 01, 2019 Anticipated date of discharge: 10/03/19 Subjective Doing well. No complaints of pain left knee. Has been out of bed with nursing and PT. Has been tolerating the brace. Physical Exam Physical Exam: Left knee dressings changed today, incision clean, dry intact. No effusion left knee. No edema left leg. Distal pulses 1+, strength 5/5. Full ROM left ankle, tolerates gentle ROM left knee, firm endpoint with valgus stress of MCL. No ecchymosis, erythema or blisters. Results & Data ([facility]) Vital Signs (Past 12 Hours) Vital Signs Temp Pulse Pulse Resp BP Pulse Ox 10/03/19 07:02 36.7 C 61 16 146/72 H 94 10/02/19 23:30 36.7 C 60 20 147/71 H 93 Laboratory Results 10/03/19 10/03/19 10/03/19 Range/Units 08:10 05:26 05:26 WBC 17.76 H (4.8-10.8) K/uL RBC 3.72 L (4.2-5.4) M/uL Hgb 10.9 L (12.0-16.0) g/dL Hct 35.3 L (37-47) % MCV 94.9 (80-100) fL MCH 29.3 (25-34) pg MCHC 30.9 L (32-36) g/dL RDW Std Deviation 48.8 H (36.4-46.3) fL RDW Coeff of Bill 14.1 (11.5-14.5) % Plt Count 323 (130-400) K/uL MPV 10.1 (7.4-10.4) fL Immature Gran % (Auto) 0.2 % Neut % (Auto) 85.3 % Lymph % (Auto) 4.7 % [place] % (Auto) 9.7 % Eos % (Auto) 0.0 % Baso % (Auto) 0.1 % Neut # (Auto) 15.76 H (1.4-6.5) K/uL Lymph # (Auto) 0.87 L (1.2-3.4) K/uL [place] # (Auto) 1.79 H (0.11-0.59) K/uL Eos # (Auto) 0.00 (0-0.5) K/uL Baso # (Auto) 0.01 (0-0.2) K/uL Immature Gran # (Auto) 0.04 H (0.00-0.02) K/uL Sodium 140 (136-145) mmol/L Potassium 4.7 (3.5-5.1) mmol/L Chloride 109 H (98-107) mmol/L Carbon Dioxide 26 (21-32) mmol/L Anion Gap 5.0 (3-11) BUN 28 H (7-18) mg/dl Creatinine 1.73 H (0.6-1.2) mg/dl Est Cr Clr Drug Dosing 34.7 ml/min Est GFR ( Amer) 32.4 Est GFR (Non-Af Amer) 28.0 BUN/Creatinine Ratio 16.1 (10-20) Glucose 190 H (70-99) mg/dl POC Glucose 183 H (70-99) mg/dl Calcium 8.8 (8.5-10.1) mg/dl 10/02/19 10/02/19 10/02/19 Range/Units 22:01 20:42 17:06 WBC (4.8-10.8) K/uL RBC (4.2-5.4) M/uL Hgb (12.0-16.0) g/dL Hct (37-47) % MCV (80-100) fL MCH (25-34) pg MCHC (32-36) g/dL RDW Std Deviation (36.4-46.3) fL RDW Coeff of Bill (11.5-14.5) % Plt Count (130-400) K/uL MPV (7.4-10.4) fL Immature Gran % (Auto) % Neut % (Auto) % Lymph % (Auto) % [place] % (Auto) % Eos % (Auto) % Baso % (Auto) % Neut # (Auto) (1.4-6.5) K/uL Lymph # (Auto) (1.2-3.4) K/uL [place] # (Auto) (0.11-0.59) K/uL Eos # (Auto) (0-0.5) K/uL Baso # (Auto) (0-0.2) K/uL Immature Gran # (Auto) (0.00-0.02) K/uL Sodium (136-145) mmol/L Potassium (3.5-5.1) mmol/L Chloride (98-107) mmol/L Carbon Dioxide (21-32) mmol/L Anion Gap (3-11) BUN (7-18) mg/dl Creatinine (0.6-1.2) mg/dl Est Cr Clr Drug Dosing ml/min Est GFR ( Amer) Est GFR (Non-Af Amer) BUN/Creatinine Ratio (10-20) Glucose (70-99) mg/dl POC Glucose 224 H 232 H 174 H (70-99) mg/dl Calcium (8.5-10.1) mg/dl 10/02/19 Range/Units 12:11 WBC (4.8-10.8) K/uL RBC (4.2-5.4) M/uL Hgb (12.0-16.0) g/dL Hct (37-47) % MCV (80-100) fL MCH (25-34) pg MCHC (32-36) g/dL RDW Std Deviation (36.4-46.3) fL RDW Coeff of Bill (11.5-14.5) % Plt Count (130-400) K/uL MPV (7.4-10.4) fL Immature Gran % (Auto) % Neut % (Auto) % Lymph % (Auto) % [place] % (Auto) % Eos % (Auto) % Baso % (Auto) % Neut # (Auto) (1.4-6.5) K/uL Lymph # (Auto) (1.2-3.4) K/uL [place] # (Auto) (0.11-0.59) K/uL Eos # (Auto) (0-0.5) K/uL Baso # (Auto) (0-0.2) K/uL Immature Gran # (Auto) (0.00-0.02) K/uL Sodium (136-145) mmol/L Potassium (3.5-5.1) mmol/L Chloride (98-107) mmol/L Carbon Dioxide (21-32) mmol/L Anion Gap (3-11) BUN (7-18) mg/dl Creatinine (0.6-1.2) mg/dl Est Cr Clr Drug Dosing ml/min Est GFR ( Amer) Est GFR (Non-Af Amer) BUN/Creatinine Ratio (10-20) Glucose (70-99) mg/dl POC Glucose 131 H (70-99) mg/dl Calcium (8.5-10.1) mg/dl
[2019-10-03] MEDS ORDERED: SODIUM CHLORIDE 0.9% 1000ML 1,000 ML IV SCH (11:00)
[2019-10-03] MEDS: OXYCODONE HCL IR 5 MG TAB (IMMEDIATE RELEASE) PO PRN (11:37)
--- NOTE | 2019-10-03 12:32 | Hospitalist Progress Note ---
Date of Service October 03, 2019 Assessment & Plan (1) Osteoarthritis of left knee: * POD#2 s/p left TKR today by Dr Kelly on 09/30. EBL 5cc. Pre-op h/h 12.4/38.2 * Eliquis 5mg BID for DVT proph. * Pain control, disposition deferred to orthopedics --> plans for possible d/c to [facility] pending insurance auth * h/h stable, 10.9/35.3 -- has been getting fluids-> likely acute blood loss from surgery as well as dilutional. WBC elevated from steroids operatively. Denied shortness of breath, abdominal pain, dysuria at this time. Has been afebrile. * CBC in AM (2) CKD (chronic kidney disease): * baseline CrCl 30s/40s. Follows with Dr. Azevedo outpatient. Per notes, baseline 1.2-1.6. * MANNY post-op with Cr ~1.9 * --> ordered 1L on 10/01 and ordered additional 500cc 10/02 for continued elevation at 1.73 * No edema, shortness of breath or JVD on exam * Continue to hold lasix/arb (also holding potassium 20meq starting 10/01as previously ordered given pt K 4.6 on AM labs, currently 4.7) * Of note, patient with history of "puffing up" -- monitor volume status (3) Type 2 DM with CKD stage 3 and hypertension: * Orthopedics placed pharmacy glycemic consult. * Defer management to pharmacy. * Appreciate their assistance -- tightening parameters due to steroid induced hyperglycemia * Conitnue to monitor (4) Morbid obesity with BMI of 45.0-49.9, adult: * BMI 48 * Hopefully with TKR on left she will be more mobile once recovered (5) PAF (paroxysmal atrial fibrillation): * Cont CCB and BB. * Cont eliquis 5mg BID. * Examines NSR today. * Was in NSR during previous cardiology clinic visit. * Continue to monitor clinically. (6) Essential (primary) hypertension: * Stable, currently 146/72 * Continue dilt, metoprolol * Continuing to hold losartan and lasix until creatinine returned to baseline * If creatinine is stable in am then resume both. (7) Glaucoma: * cont eye drops (8) Hyperlipidemia: * cont statin --> had previously discontinued statin due to intolerance per Dr Azevedo's note --> will discontinue at this time (9) DVT prophylaxis: * eliquis 5mg BID thank you for the consult. hospitalist service will follow with you. Admission and Anticipated Discharge Date Admission Date: October 01, 2019 Supervising Physician Co-Signing Physician Notes SIDDHARTH Supervision Note: I did not personally see or examine the patient today, but I verified all read points of SIDDHARTH Chao's assessment and plan with the following exceptions/additions: None Subjective Patient evaluated this morning. Eating and drinking better today. She states she has been trying to sip on more water today. Has been passing lots of gas but no BM. She states she did try some prune juice last night but has had success at home previously on dried prune. She states she had an episode last night where she was lethargic from pain medications and that she decided to take a lesser strength dose more frequently after discussion with orthopedic team this morning. She states pain has been controlled. Worked with therapy this morning. Denies any edema and states she is surprised and so what surgeon. Discussed Cr still slightly elevated. She does follow with Dr. Azevedo outpatient and has an appointment at the end of the month. Believes baseline Cr to be creeping up to the 1.3-1.5 range but she did have previous values around 1.1 and is supposed to have lab work completed later this month prior to seeing Dr. Azevedo. Discussed continuing to hold her diuretic and BP medication and will give a little bit of fluid and repeat labs in AM. All questions/concerns addressed at this time. Review of Systems Review of Systems: All systems reviewed & are unremarkable except as noted in HPI & below Physical Exam Constitutional: well developed, well nourished and + morbidly obese; no acute distress Eyes: PERRL ENMT: slightly dry mm Neck: trachea midline, no thyromegaly Respiratory: normal respiratory effort, lungs clear to auscultation Cardiovascular: Rate/Rhythm: regular rate and regular rhythm Heart Sounds: normal S1 and normal S2; no murmur Vessels: posterior tibial pulses present and dorsalis pedis pulses present; no JVD Extremities: + edema (trace LLE) Gastrointestinal (Abdomen): normal bowel sounds, soft, nontender, no hepatosplenomegaly Musculoskeletal: Dressing to LEFT knee changed today by orthopedic team. C/d/i Brace in place NVI 1+ pulses pt, dp Strength 5/5 Skin: warm, dry Neurologic: moves all extremities; no focal motor deficits and not confused Psychiatric: Orientation: alert and oriented x 3 Lymphatic: no cervical lymphadenopathy Results & Data Results & Data ([facility]) Vital Signs (Past 12 Hours) Vital Signs Temp Pulse Resp BP Pulse Ox 10/03/19 07:02 36.7 C 61 16 146/72 H 94 Laboratory Results 10/03/19 10/03/19 10/03/19 Range/Units 12:11 08:10 05:26 WBC 17.76 H (4.8-10.8) K/uL RBC 3.72 L (4.2-5.4) M/uL Hgb 10.9 L (12.0-16.0) g/dL Hct 35.3 L (37-47) % MCV 94.9 (80-100) fL MCH 29.3 (25-34) pg MCHC 30.9 L (32-36) g/dL RDW Std Deviation 48.8 H (36.4-46.3) fL RDW Coeff of Bill 14.1 (11.5-14.5) % Plt Count 323 (130-400) K/uL MPV 10.1 (7.4-10.4) fL Immature Gran % (Auto) 0.2 % Neut % (Auto) 85.3 % Lymph % (Auto) 4.7 % Custer % (Auto) 9.7 % Eos % (Auto) 0.0 % Baso % (Auto) 0.1 % Neut # (Auto) 15.76 H (1.4-6.5) K/uL Lymph # (Auto) 0.87 L (1.2-3.4) K/uL Custer # (Auto) 1.79 H (0.11-0.59) K/uL Eos # (Auto) 0.00 (0-0.5) K/uL Baso # (Auto) 0.01 (0-0.2) K/uL Immature Gran # (Auto) 0.04 H (0.00-0.02) K/uL Sodium (136-145) mmol/L Potassium (3.5-5.1) mmol/L Chloride (98-107) mmol/L Carbon Dioxide (21-32) mmol/L Anion Gap (3-11) BUN (7-18) mg/dl Creatinine (0.6-1.2) mg/dl Est Cr Clr Drug Dosing ml/min Est GFR ( Amer) Est GFR (Non-Af Amer) BUN/Creatinine Ratio (10-20) Glucose (70-99) mg/dl POC Glucose 154 H 183 H (70-99) mg/dl Calcium (8.5-10.1) mg/dl 10/03/19 10/02/19 10/02/19 Range/Units 05:26 22:01 20:42 WBC (4.8-10.8) K/uL RBC (4.2-5.4) M/uL Hgb (12.0-16.0) g/dL Hct (37-47) % MCV (80-100) fL MCH (25-34) pg MCHC (32-36) g/dL RDW Std Deviation (36.4-46.3) fL RDW Coeff of Bill (11.5-14.5) % Plt Count (130-400) K/uL MPV (7.4-10.4) fL Immature Gran % (Auto) % Neut % (Auto) % Lymph % (Auto) % Custer % (Auto) % Eos % (Auto) % Baso % (Auto) % Neut # (Auto) (1.4-6.5) K/uL Lymph # (Auto) (1.2-3.4) K/uL Custer # (Auto) (0.11-0.59) K/uL Eos # (Auto) (0-0.5) K/uL Baso # (Auto) (0-0.2) K/uL Immature Gran # (Auto) (0.00-0.02) K/uL Sodium 140 (136-145) mmol/L Potassium 4.7 (3.5-5.1) mmol/L Chloride 109 H (98-107) mmol/L Carbon Dioxide 26 (21-32) mmol/L Anion Gap 5.0 (3-11) BUN 28 H (7-18) mg/dl Creatinine 1.73 H (0.6-1.2) mg/dl Est Cr Clr Drug Dosing 34.7 ml/min Est GFR ( Amer) 32.4 Est GFR (Non-Af Amer) 28.0 BUN/Creatinine Ratio 16.1 (10-20) Glucose 190 H (70-99) mg/dl POC Glucose 224 H 232 H (70-99) mg/dl Calcium 8.8 (8.5-10.1) mg/dl 10/02/19 Range/Units 17:06 WBC (4.8-10.8) K/uL RBC (4.2-5.4) M/uL Hgb (12.0-16.0) g/dL Hct (37-47) % MCV (80-100) fL MCH (25-34) pg MCHC (32-36) g/dL RDW Std Deviation (36.4-46.3) fL RDW Coeff of Bill (11.5-14.5) % Plt Count (130-400) K/uL MPV (7.4-10.4) fL Immature Gran % (Auto) % Neut % (Auto) % Lymph % (Auto) % Custer % (Auto) % Eos % (Auto) % Baso % (Auto) % Neut # (Auto) (1.4-6.5) K/uL Lymph # (Auto) (1.2-3.4) K/uL Custer # (Auto) (0.11-0.59) K/uL Eos # (Auto) (0-0.5) K/uL Baso # (Auto) (0-0.2) K/uL Immature Gran # (Auto) (0.00-0.02) K/uL Sodium (136-145) mmol/L Potassium (3.5-5.1) mmol/L Chloride (98-107) mmol/L Carbon Dioxide (21-32) mmol/L Anion Gap (3-11) BUN (7-18) mg/dl Creatinine (0.6-1.2) mg/dl Est Cr Clr Drug Dosing ml/min Est GFR ( Amer) Est GFR (Non-Af Amer) BUN/Creatinine Ratio (10-20) Glucose (70-99) mg/dl POC Glucose 174 H (70-99) mg/dl Calcium (8.5-10.1) mg/dl PG Care Time/CCT Total # of Minutes Spent Total Time Spent with Patient: Total time spent is greater than 50% in coordination of care (as documented) at patient's floor/unit and/or counseling patient: Coding Level of Care Code 81169 Subseq Hosp Care Lvl 3 Diagnoses Osteoarthritis of left knee M17.12 Osteoarthritis type: unspecified CKD (chronic kidney disease) N18.3 Chronic kidney disease stage: stage 3 (moderate) Type 2 DM with CKD stage 3 and hypertension E11.22; I12.9; N18.3 Morbid obesity with BMI of 45.0-49.9, adult E66.01; Z68.42 PAF (paroxysmal atrial fibrillation) I48.0 Essential (primary) hypertension I10 Glaucoma H40.9 Glaucoma type: unspecified Laterality: unspecified laterality Hyperlipidemia E78.2 Hyperlipidemia type: mixed hyperlipidemia DVT prophylaxis Z29.9 (1) Hyperlipidemia Hyperlipidemia type: mixed hyperlipidemia Qualified Code(s): E78.2 - Mixed hyperlipidemia (2) CKD (chronic kidney disease) Chronic kidney disease stage: stage 3 (moderate) Qualified Code(s): N18.3 - Chronic kidney disease, stage 3 (moderate) (3) Osteoarthritis of left knee Osteoarthritis type: unspecified Qualified Code(s): M17.12 - Unilateral primary osteoarthritis, left knee (4) Glaucoma Glaucoma type: unspecified Laterality: unspecified laterality Qualified Code(s): H40.9 - Unspecified glaucoma
[2019-10-03] MEDS ORDERED: POLYETHYLENE (MIRALAX) 17 GM PACK PO ONE (13:30)
[2019-10-03] MEDS: SENNA 8.6 MG TAB PO SCH (15:43)
[2019-10-04] MEDS: ACETAMINOPHEN 500 MG TAB PO SCH ×2 (05:36→12:52)
[2019-10-04 05:47] LABS: Hematocrit (blood only) 33.8 % (37-47); Hemoglobin 10.7 g/dL (12.0-16.0); Mean Corpuscular Hemoglobin 29.5 pg (25-34); Mean Corpuscular Hgb Conc 31.7 g/dL (32-36); Mean Corpuscular Volume 93.1 fL (80-100); Mean Platelet Volume 10.1 fL (7.4-10.4); Platelet Count 329 K/uL (130-400); RDW Coefficient of Variation 14.2 % (11.5-14.5); RDW Standard Deviation 48.1 fL (36.4-46.3); Red Blood Count 3.63 M/uL (4.2-5.4); White Blood Count 15.19 K/uL (4.8-10.8)
[2019-10-04 06:16] LABS: BUN Creatinine Ratio 22.1 (10-20); Calcium 8.5 mg/dl (8.5-10.1); Creatinine Clr Calc Pharmacy 36.1 ml/min; Est GFR (African American) 34.1; Est GFR (Non-African American) 29.4; Potassium 4.5 mmol/L (3.5-5.1)
[2019-10-04] MEDS: INSULIN ASPART 100 UNITS/ML 3 ML PEN SC SCH ×2 (07:25→12:51)
[2019-10-04] MEDS: TRAMADOL HCL 50 MG TABLET PO PRN ×2 (07:29→12:54)
[2019-10-04] MEDS: DOCUSATE SODIUM 100 MG CAP PO SCH (07:30)
[2019-10-04] MEDS: TIMOLOL MALEATE 0.5% OP SOLN 5 ML BTL OP SCH (07:32)
[2019-10-04] MEDS: GABAPENTIN 400 MG CAP PO SCH ×2 (07:32→12:52)
[2019-10-04] MEDS: dilTIAZem HCL 120 MG CAPCR PO SCH (07:32)
[2019-10-04] MEDS: METOPROLOL SUCC 50MG EXT REL TAB PO SCH (07:32)
[2019-10-04] MEDS: APIXABAN 5 MG TABLET PO SCH (07:33)
[2019-10-04] MEDS: MULTIVITAMIN TAB PO SCH (07:33)
[2019-10-04] MEDS: CHOLECALCIFEROL 1,000 UNITS 25 MCG TAB PO SCH (07:33)
[2019-10-04] MEDS ORDERED: POLYETHYLENE (MIRALAX) 17 GM PACK PO SCH (09:00)
[2019-10-04] MEDS ORDERED: INSULIN GLARGINE SOLOSTAR 100 UNITS/ML 3 ML PEN SC SCH (09:00)
--- NOTE | 2019-10-04 11:34 | Hospitalist Progress Note ---
Date of Service October 04, 2019 Assessment & Plan (1) Osteoarthritis of left knee: * POD#3 s/p left TKR today by Dr Kelly on 09/30. EBL 5cc. Pre-op h/h 12.4/38.2 * Eliquis 5mg BID for DVT proph. * Pain control, disposition deferred to orthopedics --> plans for possible d/c to [facility] pending insurance auth --> transportation for today at 14:00 * h/h stable (2) CKD (chronic kidney disease): * baseline CrCl 30s/40s. Follows with Dr. Azevedo outpatient. Per notes, baseline 1.2-1.6. * MANNY post-op with Cr ~1.9 * --> ordered 1L on 10/01 and ordered additional 500cc 10/02 for continued elevation at 1.73 * Cr improved to 1.66, around baseline. With bump in BUN and trace-1+ edema resumed lasix and instructed to resume losartan until 10/04 and have repeat labs at [facility]. Script for lab put on patients chart and to be forwarded to her Records Officer Dr. Azevedo as well as she has an appointment with him at the end of the month (3) Type 2 DM with CKD stage 3 and hypertension: * Orthopedics placed pharmacy glycemic consult. * Defer management to pharmacy while inpatient * To have home medications resumed at discharge per recommendations. A1c 7.5 and at goal (4) Morbid obesity with BMI of 45.0-49.9, adult: * BMI 48 * Hopefully with TKR on left she will be more mobile once recovered (5) PAF (paroxysmal atrial fibrillation): * Cont CCB and BB. * Cont eliquis 5mg BID. * Examines NSR today. * Was in NSR during previous cardiology clinic visit. (6) Essential (primary) hypertension: * Stable, elevated to 177/79 this morning and resumed home lasix. BP to be repeated -- likely some component of stress in addition to ARB/lasix being held for MANNY * Continue dilt, metoprolol * Resumed and continue lasix. Resume losartan 10/04. Repeat labs as above (7) Glaucoma: * cont eye drops (8) Hyperlipidemia: * cont statin --> had previously discontinued statin due to intolerance per Dr Azevedo's note --> discontinued 10/02 (9) DVT prophylaxis: * eliquis 5mg BID thank you for the consult. hospitalist service will sign off. Please call with any questions/concerns. Admission and Anticipated Discharge Date Admission Date: October 01, 2019 Supervising Physician Co-Signing Physician Notes PA Supervision Note: I did not personally see or examine the patient today, but I verified all read points of SIDDHARTH Chao's assessment and plan with the following exceptions/additions: None Subjective Doing well. Pain controlled with tramadol. Worked with therapy this morning and is a little sore, now back in bed. Eating/drinking without difficulty. States she did have several bowel movements this morning, approximately 5, consisting of softer formed brown stool per her account. Resumed lasix this morning for some increased swelling to lower legs, now improved since administration. Discussed resuming losartan tomorrow and that we will provide slip for repeat labs at [facility] to ensure kidney function remains stable. Denies fever, chills, chest pain, shortness of breath, abdominal pain, dysuria at this time. Review of Systems Review of Systems: All systems reviewed & are unremarkable except as noted in HPI & below Physical Exam Constitutional: well developed, well nourished and + morbidly obese; no acute distress Eyes: PERRL Neck: trachea midline, no thyromegaly Respiratory: normal respiratory effort, lungs clear to auscultation Cardiovascular: Rate/Rhythm: regular rate and regular rhythm Heart Sounds: normal S1 and normal S2; no murmur Vessels: posterior tibial pulses present and dorsalis pedis pulses present; no JVD Extremities: + edema (trace) Gastrointestinal (Abdomen): normal bowel sounds, soft, nontender, no hepatosplenomegaly Musculoskeletal: dressing to left knee c/d/i brace in place NVI 1+ dp/pt bilaterally Skin: no rashes, warm and dry Neurologic: moves all extremities; no focal motor deficits and not confused Psychiatric: Orientation: alert and oriented x 3 Lymphatic: no cervical lymphadenopathy Results & Data Results & Data ([facility]) Vital Signs (Past 12 Hours) Vital Signs Temp Pulse Resp BP BP Pulse Ox 10/04/19 06:43 36.7 C 57 L 16 177/79 H 185/78 H 96 Laboratory Results 10/04/19 10/04/19 10/04/19 Range/Units 06:45 05:23 05:23 WBC 15.19 H (4.8-10.8) K/uL RBC 3.63 L (4.2-5.4) M/uL Hgb 10.7 L (12.0-16.0) g/dL Hct 33.8 L (37-47) % MCV 93.1 (80-100) fL MCH 29.5 (25-34) pg MCHC 31.7 L (32-36) g/dL RDW Std Deviation 48.1 H (36.4-46.3) fL RDW Coeff of Bill 14.2 (11.5-14.5) % Plt Count 329 (130-400) K/uL MPV 10.1 (7.4-10.4) fL Sodium 140 (136-145) mmol/L Potassium 4.5 (3.5-5.1) mmol/L Chloride 110 H (98-107) mmol/L Carbon Dioxide 24 (21-32) mmol/L Anion Gap 6.0 (3-11) BUN 37 H (7-18) mg/dl Creatinine 1.66 H (0.6-1.2) mg/dl Est Cr Clr Drug Dosing 36.1 ml/min Est GFR ( Amer) 34.1 Est GFR (Non-Af Amer) 29.4 BUN/Creatinine Ratio 22.1 H (10-20) Glucose 109 H (70-99) mg/dl POC Glucose 114 H (70-99) mg/dl Calcium 8.5 (8.5-10.1) mg/dl 10/03/19 10/03/19 10/03/19 Range/Units 20:40 17:08 12:11 WBC (4.8-10.8) K/uL RBC (4.2-5.4) M/uL Hgb (12.0-16.0) g/dL Hct (37-47) % MCV (80-100) fL MCH (25-34) pg MCHC (32-36) g/dL RDW Std Deviation (36.4-46.3) fL RDW Coeff of Bill (11.5-14.5) % Plt Count (130-400) K/uL MPV (7.4-10.4) fL Sodium (136-145) mmol/L Potassium (3.5-5.1) mmol/L Chloride (98-107) mmol/L Carbon Dioxide (21-32) mmol/L Anion Gap (3-11) BUN (7-18) mg/dl Creatinine (0.6-1.2) mg/dl Est Cr Clr Drug Dosing ml/min Est GFR ( Amer) Est GFR (Non-Af Amer) BUN/Creatinine Ratio (10-20) Glucose (70-99) mg/dl POC Glucose 168 H 180 H 154 H (70-99) mg/dl Calcium (8.5-10.1) mg/dl PG Care Time/CCT Total # of Minutes Spent Total Time Spent with Patient: Total time spent is greater than 50% in coordination of care (as documented) at patient's floor/unit and/or counseling patient: Coding Level of Care Code 31645 Subseq Hosp Care Lvl 2 Diagnoses Osteoarthritis of left knee M17.12 Osteoarthritis type: unspecified CKD (chronic kidney disease) N18.3 Chronic kidney disease stage: stage 3 (moderate) Type 2 DM with CKD stage 3 and hypertension E11.22; I12.9; N18.3 Morbid obesity with BMI of 45.0-49.9, adult E66.01; Z68.42 PAF (paroxysmal atrial fibrillation) I48.0 Essential (primary) hypertension I10 Glaucoma H40.9 Glaucoma type: unspecified Laterality: unspecified laterality Hyperlipidemia E78.2 Hyperlipidemia type: mixed hyperlipidemia DVT prophylaxis Z29.9 (1) Hyperlipidemia Hyperlipidemia type: mixed hyperlipidemia Qualified Code(s): E78.2 - Mixed hyperlipidemia (2) CKD (chronic kidney disease) Chronic kidney disease stage: stage 3 (moderate) Qualified Code(s): N18.3 - Chronic kidney disease, stage 3 (moderate) (3) Osteoarthritis of left knee Osteoarthritis type: unspecified Qualified Code(s): M17.12 - Unilateral primary osteoarthritis, left knee (4) Glaucoma Glaucoma type: unspecified Laterality: unspecified laterality Qualified Code(s): H40.9 - Unspecified glaucoma
--- NOTE | 2019-10-04 13:51 | Orthopedic Progress Note ---
Date of Service October 04, 2019 Assessment & Plan (1) S/P total knee arthroplasty: POD 2- left total knee arthroplasty Continue PT/OT - may unlock brace at all times if comfortable. Need to leave on at all times. WBAT LLE Continue Eliquis Appreciate medicine assistance. H/H stable Continue Diet Continue pain medication as ordered, recommended taking 1 tablet at a time Dr[address] Kelly present for today's visit. Ortho stable for discharge, plan for discharge today to either [facility] or [facility] based on insurance authorization. Admission and Anticipated Discharge Date Admission Date: October 01, 2019 Subjective Doing well. No complaints of pain. Resting in bed comfortably. Physical Exam Physical Exam: Dressings/ZOHAIB stocking intact. Clean and dry. Dorsalis pedis pulse 1+, no distal edema. Brace in place. Strength 5/5. Results & Data ([facility]) Vital Signs (Past 12 Hours) Vital Signs Temp Pulse Resp BP BP Pulse Ox 10/04/19 13:42 166/81 H 166/78 H 10/04/19 06:43 36.7 C 57 L 16 177/79 H 185/78 H 96
== END 2019-10-04 14:25 ==
LOC: 3E 05:19 → ASU 05:19

== ENCOUNTER 2020-08-25 11:09 | Observation (INO) ==
--- NOTE | 2020-08-20 08:51 | Anesthesiology Consultation ---
Date of Service August 20, 2020 Assessment & Plan (1) Encounter for pre-operative examination: Chart Review Chart Review: Acceptable Risk for Surgery (pending preop Covid test results ) and Patient NOT seen in Pre Admission Testing Per nursing assessment 08/11/2020, patient denies any recent travel. Wears mask when required. Patient is vaccinated for Covid. No known Covid infection in the past 90 days. No known Covid positive contacts or Covid related symptoms. Preop Covid testing scheduled 08/21/20= will await results. Seen in office by PCP 08/13/2020 = patient seen for preop physical. Scheduled for knee arthroscopy with lateral release. Denies issues with anesthesia in the past. 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 Diabeteson insulinunder fairly good control usually. Had cortisone injections recently for back that caused elevated blood sugars. Has appointment next week with endocrinology to get blood sugars under better control before surgery. CHF with A. fibfollow-up with cardiology. Stable with no recent CHF events. CKDoverall stable. Hypertensioncompliant with medicationsBP acceptable. "Patient is cleared for surgery. Form was completed and faxed to [facility]." PCP clearance request 08/12/2020 = " yes" patient is medically cleared for surgery. Seen by endocrinology 08/14/2020 = scheduled for upcoming knee scopeworried about recent A1c of 8.2. Had recent cortisone injection in ED for back pain. Started on Jardiance. BG's are still highrecommend increase Toujeo to 40 units. Increase basal insulin dose bolus to 9 or 10 units before meals of continued high. (Per [employer] Communication note- glucose and A1C discussed with surgeon- "he will go ahead with surgery." Endo will continue to keep patient optimized preop and follow up postop) Patient last seen by cardiology 06/11/2020 = presents for routine follow-up. Patient with history of paroxysmal A. fibmultiple vascular risk factors including hypertension, diabetes, obesity, CKD stage III and dyslipidemia. Paroxysmal A. fibincidentally noted last summerno clinical evidence of recurrence since. Appears euvolemic on once weekly furosemide. Lipids favorable on low-dose atorvastatin. No bleeding problems on apixaban. Continue current medications. Follow-up 6 months. Per [employer] note on 08/11/20= Cardio aware of upcoming surgery. "She has mild renal insufficiency, therefore would hold Eliquis for the 2 days prior to the day of surgery (as well as obviously that day)." Left TKA 10/01/2019 = done under [facility] with LMA #5. (Done under [facility] due to her last dose of Eliquis not being fully 72 hours outhas renal disease. Decision was made to do block and general onset of spinal did Eliquis.) History Surgery Operation Date: 08/25/20 09:30 Proposed Procedures p Left Arthroscopy Knee Lateral Release - Adonis Kelly MD Height/Weight Height: 5 ft 3 in Weight: 117.934 kg Allergies Allergy/AdvReac Type Severity Reaction Status Date / Time No Known Allergies Allergy Unknown Verified 08/13/20 15:18 Medications Home Medications Medication Instructions Recorded Confirmed Last Taken cholecalciferol (vitamin D3) 5,000 unit PO QAM 02/21/18 08/13/20 05/04/20 08:30 [Vitamin D3] methocarbamol 750 mg PO Q8H PRN 02/21/18 08/13/20 2 Months Ago ~07/18/19 multivitamin 1 tab PO QAM 02/21/18 08/13/20 05/04/20 08:30 blood sugar diagnostic #10 ea 10/02/18 08/13/20 Unknown lancing device #1 ea 10/02/18 08/13/20 Unknown cranberry extract 500 mg PO QAM 12/11/18 08/13/20 05/04/20 08:30 apixaban 5 mg tablet 5 mg PO BID #180 tab 10/30/19 08/13/20 04/30/20 20:00 atorvastatin 10 mg tablet 10 mg PO Q OTHER DAY #90 tab 12/31/19 08/13/20 05/04/20 08:30 potassium chloride 20 mEq 20 meq PO QAM #90 tab 12/31/19 08/13/20 05/04/20 08:30 tablet,extended release metoprolol succinate 100 mg 150 mg PO BID #270 tab 03/05/20 08/13/20 05/04/20 08:30 tablet,extended release 24 hr furosemide 40 mg tablet 60 mg PO .COMPLEX tab 03/13/20 08/13/20 05/04/20 08:30 Toujeo Max U-300 SoloStar 36 unit SUBCUT QAM 04/01/20 08/13/20 05/04/20 08:30 acetaminophen 1,000 mg PO Q8 PRN 04/01/20 08/13/20 Unknown diltiazem HCl 180 mg PO QAM 04/01/20 08/13/20 05/04/20 08:30 losartan 100 mg PO QAM 04/01/20 08/13/20 05/04/20 08:30 travoprost [Travatan Z] 1 drp OPHTHALMIC (EYE) PM 04/01/20 08/13/20 Unknown pen needle, diabetic 32 gauge x #400 ea 06/15/20 08/13/20 Unknown 02/23" insulin aspart U-100 100 unit/mL 8 unit SUBCUT TID #45 ml 06/17/20 08/13/20 Unknown (3 mL) subcutaneous pen empagliflozin [Jardiance] 10 mg PO UD 08/11/20 08/13/20 Unknown Past Medical History Medical History Atrial fibrillation Dx 08/2019 > follows with Dr. Gar CKD (chronic kidney disease) STAGE III SEES DR. WRAY Diabetes mellitus, type 2 IDDM GILL (dyspnea on exertion) Feels SOB with 1 FOS but denies any CP. Negative DSE in 2018. GERD (gastroesophageal reflux disease) Glaucoma History of kidney stones passed on own Hyperlipidemia Hypertension Macular hole, right eye Morbid obesity On anticoagulant therapy Eliquis BID Osteoporosis Sacroiliitis Spinal stenosis of lumbar region with radiculopathy Spondylisthesis LUMBAR REGION Past Family History Family History Father Diabetes Myocardial infarction Brother Diabetes Sister Diabetes Family history of melanoma Mother Cancer of the neck Denies family history of Ovarian cancer Prostate cancer Breast cancer Colorectal cancer Past Surgical History Surgical History History of appendectomy History of cataract surgery RIGHT - HEMMORHAGE AND LOSS VISION History of colonoscopy History of esophagogastroduodenoscopy (EGD) History of eye surgery X 4 TO RIGHT EYE History of foot surgery RT History of tooth extraction History of total abdominal hysterectomy and bilateral salpingo-oophorectomy History of total knee replacement bilat Hx of hand surgery RIGHT> LIGAMENT REPAIR S/P epidural steroid injection Social History Smoking Status: Never smoker Do You Dip or Chew Tobacco: No Hx Alcohol Use: Yes Alcohol type: hard liquor alcohol intake frequency: holidays/special occasions only Hx Substance Use: No substance use type: does not use Lab Results Anesthesia Preop Results Results Anesthesia Widget: WBC 9.18 K/uL (4.8-10.8) 06/29/20 Hgb 13.7 g/dL (12.0-16.0) 06/29/20 Hct 42.0 % (37-47) 06/29/20 Plt 246 K/uL (130-400) 06/29/20 Na 141 mmol/L (136-145) 08/11/20 K 4.3 mmol/L (3.5-5.1) 08/11/20 Cl 107 mmol/L (98-107) 08/11/20 CO2 28 mmol/L (21-32) 08/11/20 BUN 14 mg/dl (7-18) 08/11/20 Creat 1.17 mg/dl (0.6-1.2) 08/11/20 Glucose Level 149 mg/dl (70-99) H 08/11/20 HA1c 8.2 % (4.5-5.6) H 08/11/20 Testing Electrocardiogram Date: 09/09/19 Findings: + NSR @ (60bpm) IVCD. Possible LVH. Chest X-Ray Date: 01/24/20 Findings: + NAD Cardiomediastinal and hilar silhouettes are within normal limits. Calcified plaque the thoracic aorta. Mild chronic interstitial coarsening. There is no pneumothorax, pleural effusion, overt pulmonary edema or airspace consolidation typical for pneumonia. Degenerative changes of the shoulders and spine. Echocardiogram Date: 02/09/20 EF: 50-55% LV Function: normal RWMA: + none Other Findings: + LVH (Borderline/concentric) and + diastolic dysfunction (Grade 1) Valvular Disease: + no significant valvular disease Study technically difficult. Stress Test Date: 11/13/17 Type: DSE Findings: + WNL and + achieved max HR (88%); no ischemia No EKG changes. Resting echo with normal systolic function (EF 60%). Moderate concentric LVH. Mild MR.
[~2020-08-25 11:09] MED LIST changes: -AMLO5TAB3 PO; -ASPCH81X PO; -CHOLCAP5 PO; -INSUINJ12 SC; +LACTATED RINGER'S 1,000 ML IV SCH; -LOSA1TAB38 PO; +LR 15ML/HR IV SCH; -LSX20 PO; -METO100T44 PO; -MULT-506 PO; -NVLGI/PEN SC; -POTA-335 PO; -RBX750 PO; -SIMV-150 PO; -TIMO0.5S2 OPB; -[UNRECOGNIZED DRUG - CODE] PO
[2020-08-25] MEDS ORDERED: fentaNYL citrate 100 MCG/2 ML VIAL ONE (11:38)
[2020-08-25] MEDS ORDERED: MIDAZOLAM HCL 1 MG/ML 2ML VIAL ONE (11:38)
[2020-08-25] MEDS ORDERED: ONDANSETRON INJ 2 MG/ML 2 ML VIAL ONE (11:54)
[2020-08-25] MEDS ORDERED: LIDOCAINE 2% 2 ML VIAL/AMP(20MG/ML) INFIL ONE (11:54)
[2020-08-25] MEDS ORDERED: ePHEDrine sulfate 50 MG/ML SYR ONE (11:54)
[2020-08-25] MEDS ORDERED: PHENYLEPHRINE 100MCG/ML 5ML SYR ONE (11:54)
[2020-08-25] MEDS ORDERED: DEXAMETHASONE SOD INJ 4 MG/ML VIAL ONE (11:54)
[2020-08-25] MEDS ORDERED: PROPOFOL IV EMULSION 10 MG/ML 20 ML VIAL IV ONE (11:54)
[2020-08-25] MEDS ORDERED: ATROPINE SULFATE 0.1 MG/ML 10ML SYR IV PRN (12:51)
[2020-08-25] MEDS ORDERED: ePHEDrine sulfate 50 MG/ML AMP IV PRN (12:51)
[2020-08-25] MEDS ORDERED: HYDROmorphone INJ 2 MG/ML SYR/VIAL IV PRN (12:51)
[2020-08-25] MEDS ORDERED: ONDANSETRON INJ 2 MG/ML 2 ML VIAL IV PRN ×2 (12:51→18:34)
[2020-08-25] MEDS ORDERED: LIDOCAINE/EPINEPHRINE 1% 20 ML VIAL ONE (13:39)
--- NOTE | 2020-08-25 13:48 | History & Physical Bridge Note ---
Date of Service August 25, 2020 History & Physical Bridge Note I have examined the patient, reviewed the History & Physical and in the interval since the performance of the History & Physical I have noted the following changes of clinical significance: no changes noted
[2020-08-25] MEDS ORDERED: NEOSTIGMINE METHYLSULFATE 1 MG/ML 10ML VIAL ONE (14:12)
[2020-08-25] MEDS ORDERED: GLYCOPYRROLATE 0.2 MG/ML VIAL ONE (14:12)
[2020-08-25] MEDS ORDERED: ROCURONIUM BROMIDE 10 MG/ML 5 ML VIAL IV ONE (14:12)
[2020-08-25] MEDS ORDERED: LARYING-O-JET KIT (LTA) ONE (14:20)
--- NOTE | 2020-08-25 15:32 | Operative Report ---
Post Operative Report Pre & Post Diagnosis Operation Date: 08/25/20 13:00 Pre-Op Diagnosis: Left Patella Lateral tracking Status Post Left Total Knee Arthroplasty Post-Op Diagnosis: Left Patella Lateral tracking Status Post Left Total Knee Arthroplasty I identified the patient and participated in the time-out.: Yes Procedure Operation Date: 08/25/20 13:00 Actual Procedures p Left Arthroscopy Knee Lateral Release(Left) extensive debridement- Adonis Kelly MD Surgeon Adonis Kelly MD Academic Affairs Vice President Tracey Hardy no resident or fellow available. Estimated Blood Loss 0 Findings Consistent with Post-Op Diagnosis Specimens None Drains 1 Hemovac Anesthesia Type General Complications none Disposition Accompanied Patient To Recovery: No Disposition: Recovery Room Indications Sarah Marcano is 79. She is status post a left knee replacement. She has been having lateral peripatellar pain which I think is due to scarring and lateral tracking of the patella. Nonsurgical treatments have been ineffective and I have offered her arthroscopic surgery and she agrees to proceed. Her infection work-up was negative. Radiographs show no evidence of loosening. Description of Procedure Informed consent obtained. Patient identified. She identified the operative site as the left knee. I marked with my initials and a preoperative surgical timeout was performed. A preop dose of IV antibiotics was given. She was taken to the operating room and positioned supine. A tourniquet was applied to the left thigh the leg was prepped and draped in the usual sterile fashion from the toes to the tourniquet. DVT prophylaxis with foot pumps intraoperatively and postoperatively with her Eliquis. The exam under anesthesia revealed range of motion 0 to 105 degrees. She had a trace amount of fluid in the knee no swelling. There was 1+ LCL laxity and trace MCL laxity. Posterior drawer intact. Inferolateral viewing portal and an inferomedial working portal were established. This was done using the the outside in technique for the working portal. Scar tissue in the anterior aspect of the knee was debrided. There was scarring noted throughout the knee particularly in the suprapatellar pouch and the lateral and anterior portion of the knee. Some medial was debrided. The femoral component and the polyethylene look fine. There was no synovitis noted except for some irritated tissue in the lateral compartment. The patella seemed to track fairly centrally but there was scar tissue and extra tissue laterally which likely was getting impinged or pinched. The medial gutter and lateral gutters look normal. They were debrided. The retropatellar fat pad area was carefully debrided. The scope was able to be introduced into the suprapatellar pouch which was diminished due to scarring. The the suprapatellar pouch was recreated using electrocautery and shaver. The patellar component look normal. Lateral scarring was debrided. I identified the superior pole of the patella and the lateral tissue was released from this area down to the arthroscopic portal laterally using shaver cold cut and basket forceps. I then made a an outside in portal superolaterally and introduced a large Hemovac drain into the suprapatellar pouch. The tourniquet was inflated at the beginning of the case after exsanguinating the limb with an Esmarch. Tourniquet was let down after the dressing was applied after 45 minutes of inflation. Portals were closed with 4-0 nylon. A soft sterile dressing was applied Xeroform 4 x 4's ABD full- length Selvin wrap and a knee immobilizer. Patient was awakened from anesthesia without difficulty taken to recovery in stable condition. There were no specimens or complications. Counts were correct and blood loss was 0. At the conclusion the operation spoke patient's son informed him of my findings and gave postoperative instructions. She will be admitted to the hospital and received postop IV antibiotics. She will do PT and can weight-bear as tolerated. We will see her tomorrow and likely pull the drain out and keep her from bending her knee until that point. We will start her back on her Eliquis in the morning. I attest to the content of the Intraoperative Record and any orders documented therein. Any exceptions are noted below.
--- NOTE | 2020-08-25 15:35 | Operative Report ---
Post Operative Report Pre & Post Diagnosis Operation Date: 08/25/20 13:00 Pre-Op Diagnosis: Left Patella Lateral Locking Status Post Left Total Knee Arthroplasty Post-Op Diagnosis: Left Patella Lateral Locking Status Post Left Total Knee Arthroplasty I identified the patient and participated in the time-out.: Yes Procedure Operation Date: 08/25/20 13:00 Actual Procedures p Left Arthroscopy Knee Lateral Release(Left) - Adonis Kelly MD Surgeon Adonis Kelly M.D. Telecom Assistant Tracey Hardy PA-C Estimated Blood Loss 0 Findings Consistent with Post-Op Diagnosis Specimens NOne Drains Hemovac x 1 Anesthesia Type General Complications none Disposition Accompanied Patient To Recovery: Yes Disposition: Recovery Room Description of Procedure Patient was taken to the operating room, placed under general anesthesia, time out performed, prepped and draped in routine sterile fashion. She was given 3 gm IV Ancef for surgical prophylaxis. I was present during the entire case and assisted with instrumentation, leg positioning and closure. Please see Dr. Kelly's operative report for further detail. Patient was awakened and taken to the recovery room in stable condition. I attest to the content of the Intraoperative Record and any orders documented therein. Any exceptions are noted below.
[2020-08-25] MEDS: fentaNYL citrate 100 MCG/2 ML VIAL IV PRN ×2 (15:45→15:50)
--- NOTE | 2020-08-25 15:55 | Anesthesiology Progress Note ---
Date of Service August 25, 2020 Anesthesia Post Procedure Vital Signs Vital Signs: Temp Pulse Pulse Resp BP BP Pulse Ox 08/25/20 15:50 64 12 158/70 H 96 08/25/20 15:42 63 12 157/72 H 96 08/25/20 15:39 36.0 C L 67 12 135/71 96 08/25/20 11:47 37.0 C 70 20 146/89 H 96 Pain Intensity Left Knee: Pain Intensity: 4 Transfer of Care Handoff Completed per policy Notes Mental Status: alert / awake / arousable and participated in evaluation Patient Amnestic to Procedure: Yes Nausea / Vomiting: adequately controlled Pain: adequately controlled Airway Patency, RR, SpO2: stable & adequate BP & HR: stable & adequate Hydration State: stable & adequate Anesthetic Complications: no major complications apparent and Pt Satisfied with anesthetic care
[2020-08-25] MEDS ORDERED: MAGNESIUM HYDROXIDE SUSP 30 ML UDC PO PRN (18:34)
[2020-08-25] MEDS ORDERED: bisacodyL 10 MG SUPP PR PRN (18:34)
[2020-08-25] MEDS ORDERED: ATORVASTATIN 10 MG TAB PO SCH (18:34)
[2020-08-25] MEDS ORDERED: METHOCARBAMOL 750 MG TABLET PO PRN (18:34)
[2020-08-25] MEDS ORDERED: HYDROmorphone INJ 0.5 MG/0.5 ML SYR IV PRN (18:34)
[2020-08-25] MEDS ORDERED: NALOXONE HCL 0.4 MG/1 ML VIAL/CARP IV PRN (18:34)
[2020-08-25] MEDS ORDERED: METOCLOPRAMIDE HCL INJ 5 MG/ML 2 ML VIAL IV PRN (18:34)
[2020-08-25] MEDS ORDERED: PHARMACY GLYCEMIC MGMT CONSULT PRN (18:55)
[2020-08-25] MEDS ORDERED: GLUCOSE 10 TABS/TUBE PO PRN (19:15)
[2020-08-25] MEDS ORDERED: CARBOHYDRATES FOR HYPOGLYCEMIA PO PRN (19:15)
[2020-08-25] MEDS ORDERED: GLUCAGON FOR INJ 1 MG VIAL IM PRN (19:15)
[2020-08-25] MEDS ORDERED: GLUCOSE 40% GEL 15 GM TUBE PO PRN (19:15)
[2020-08-25] MEDS ORDERED: DEXTROSE 50% 50 ML SYRINGE IV PRN (19:15)
[2020-08-25] MEDS: INSULIN ASPART 100 UNITS/ML 3 ML PEN SC SCH ×2 (20:33→23:56)
[2020-08-25] MEDS: SODIUM CHLORIDE 0.9% 1000ML 1,000 ML IV SCH (20:34)
[2020-08-25] MEDS: traMADol HCL 50 MG TABLET PO PRN (20:36)
[2020-08-25] MEDS: DOCUSATE SODIUM 100 MG CAP PO SCH (20:37)
[2020-08-25] MEDS: METOPROLOL SUCC 50MG EXT REL TAB PO SCH (20:38)
[2020-08-25] MEDS ORDERED: SENNA 8.6 MG TAB PO SCH (21:00)
[2020-08-25] MEDS ORDERED: TRAVOPROST Z 0.004% OPH SOLN 2.5 ML BTL OP SCH (21:00)
[2020-08-25] MEDS: ACETAMINOPHEN 500 MG TAB PO SCH (22:24)
[2020-08-25] MEDS: ceFAZolin 2000MG 2,000 MG/15 ML SYR IV SCH (22:25)
[2020-08-25] MEDS: oxyCODONE HCL IR 5 MG TAB (IMMEDIATE RELEASE) PO PRN (23:55)
[2020-08-26] MEDS: SODIUM CHLORIDE 0.9% 1000ML 1,000 ML IV SCH (05:46)
[2020-08-26] MEDS: ACETAMINOPHEN 500 MG TAB PO SCH ×2 (05:47→13:04)
[2020-08-26] MEDS: ceFAZolin 2000MG 2,000 MG/15 ML SYR IV SCH (05:47)
[2020-08-26] MEDS: INSULIN ASPART 100 UNITS/ML 3 ML PEN SC SCH ×2 (08:47→12:57)
[2020-08-26] MEDS: METOPROLOL SUCC 50MG EXT REL TAB PO SCH (08:55)
[2020-08-26] MEDS: DOCUSATE SODIUM 100 MG CAP PO SCH (08:56)
[2020-08-26] MEDS ORDERED: POTASSIUM CHLORIDE CRTAB 20 MEQ TABCR PO SCH (09:00)
[2020-08-26] MEDS ORDERED: LOSARTAN POTASSIUM 50 MG TAB PO SCH (09:00)
[2020-08-26] MEDS ORDERED: INSULIN GLARGINE SOLOSTAR 100 UNITS/ML 3 ML PEN SC ONE (09:00)
[2020-08-26] MEDS ORDERED: MULTIVITAMIN TAB PO SCH (09:00)
[2020-08-26] MEDS ORDERED: dilTIAZem HCL 180 MG CAPCR PO SCH (09:00)
[2020-08-26] MEDS ORDERED: CHOLECALCIFEROL 1,000 UNITS 25 MCG TAB PO SCH (09:00)
[2020-08-26] MEDS ORDERED: APIXABAN 5 MG TABLET PO SCH (09:00)
[2020-08-26] MEDS ORDERED: CRANBERRY EXTRACT 500 MG PO SCH (09:00)
[2020-08-26 09:46] LABS: Hematocrit (blood only) 38.6 % (37-47); Hemoglobin 12.5 g/dL (12.0-16.0); Mean Corpuscular Hemoglobin 30.7 pg (25-34); Mean Corpuscular Hgb Conc 32.4 g/dL (32-36); Mean Corpuscular Volume 94.8 fL (80-100); Mean Platelet Volume 10.3 fL (7.4-10.4); Platelet Count 223 K/uL (130-400); RDW Coefficient of Variation 14.1 % (11.5-14.5); RDW Standard Deviation 49.1 fL (36.4-46.3); Red Blood Count 4.07 M/uL (4.2-5.4); White Blood Count 8.13 K/uL (4.8-10.8)
[2020-08-26 10:17] LABS: Calcium 8.5 mg/dl (8.5-10.1); Creatinine Clr Calc Pharmacy 41.5 ml/min; Est GFR (African American) 41.6 ml/min; Est GFR (Non-African American) 35.9 ml/min; Potassium 4.2 mmol/L (3.5-5.1)
--- NOTE | 2020-08-26 10:32 | Progress Notes ---
DATE: 08/26/2020. SUBJECTIVE: Sarah Marcano is resting comfortably in bed. She had some issues with low blood sugar over night and some knee pain controlled with medication. OBJECTIVE: VITAL SIGNS: She is afebrile. Her vital signs are stable. Her blood pressure was running a little bit high last night. Her drain output was 50 mL the last two shifts. EXTREMITIES: The dressing is clean and dry. The Hemovac is pulled without incident. Dorsalis pedis 1+. Sensation intact. Ankle and toe plantar flexion, dorsiflexion, and ankle eversion intact with normal strength. LABORATORY DATA: Labs are noted. PRP pending. CBC acceptable. ASSESSMENT: She is postoperative day #1, status post left knee arthroscopy, extensive debridement an d lateral release, status post total knee replacement. PLAN: She is doing very well. Discontinue the knee immobilizer and the Hemovac. She may bend her k nee and weightbear as tolerated. She may do regular rehabilitation and should ambulate with a walker . After PT today, we will assess her readiness for discharge. Pending PT evaluation, we will determ ine whether or not she can go home with outpatient PT or need home health services. She is to elevat e and ice. She will take her regular medications including her Eliquis, which was restarted today. She will take a stool softener and have a pain pill also. If there are any problems with pain, swell ing, fevers, numbness, drainage, etc., please call the office or go to the emergency room. She is to leave the dressing on until Monday, change it and then bathe, but not submerge. She will follow up in our office 2 weeks postoperatively with Tracey as scheduled. I discussed with her that I will b e out of the office at that time. Exercises encouraged today including ankle pumps, gluteal squeezes , quad sets, knee bending, leg raises. Job ID: [id number]
--- NOTE | 2020-08-26 10:44 | Pharmacy Report ---
Pharmacy Glycemic Short Note 2 - Date of Service August 26, 2020 - Glycemic Short BSG Results (Last 24 hours): 08/25/20 08/25/20 08/25/20 11:33 15:39 17:10 Glucose POC Glucose 159 H 101 H 122 H 08/25/20 08/25/20 08/26/20 19:07 23:40 01:22 Glucose POC Glucose 136 H 161 H 104 H 08/26/20 08/26/20 08:37 09:25 Glucose 207 H POC Glucose 164 H OUTPATIENT ANTIDIABETIC REGIMEN: * Toujeo (insulin glargine U-300) 36-40 units SQ AM * NovoLog 8 units TIDM + Scale * A1c = 8.2% on 08/11/20 ASSESSMENT: * 79yo T2DM female - follows with [facility]. Outpatient regimen is SQ basal jailyn us insulin regimen. Outpatient basal insulin recently increased from 36 units to 40 units. * Pt did NOT take her basal insulin yesterday prior to surgery. Pt refused a reduced dose of basal insulin last evening after surgery * AM fasting BSG 164 mg/dl this morning (GLU = 207 mg/dl). Pt fears hypoglycemia - she wears a CGM. * Since outpatient regimen is slightly more basal heavy will try to re-distr ibute 50:50% basal:prandial for inpatient use since typically CHO consumed in the hospital is less than outpatient (her outpatient basal may be covering some CHO). * Goal is to maintain BSGs < 180 (ideally < 150 mg/dl) to prevent post-op infectious complications. PLAN FOR INPATIENT GLYCEMIC CONTROL: * Basal insulin * Lantus 32 units SQ Daily in AM * Bolus insulin * NovoLog per scale ACHS or Q6hrs while NPO * Goal Range: Low 110 mg/dL - High 140 mg/dL * Correction Factor: 20 mg/dL/unit * Nutritional / Prandial insulin per carb ratio of 1 unit per 6 grams CHO consumed PLAN FOR DISCHARGE: * Pt to d/u with [facility] for further insulin dose titrations.
[2020-08-26] MEDS: oxyCODONE HCL IR 5 MG TAB (IMMEDIATE RELEASE) PO PRN (12:04)
[2020-08-26] MEDS: traMADol HCL 50 MG TABLET PO PRN (15:56)
[2020-08-27] MEDS ORDERED: INSULIN GLARGINE SOLOSTAR 100 UNITS/ML 3 ML PEN SC SCH (09:00)
--- NOTE | 2020-08-27 12:41 | Discharge Summary ---
Date of Service August 27, 2020 Discharge Data Procedures Performed Operation Date: 08/25/20 13:00 Actual Procedures p Left Arthroscopy Knee Lateral Release(Left) - Adonis Kelly MD Hospital Course (1) S/P total knee arthroplasty: Patient was placed in observation after undergoing a left knee arthroscopy, lateral release with Dr. Kelly on August 25, 2020. Surgery was p erformed with general anesthesia. She tolerated the surgery well without any intraoperative complications. She was given 3 g of IV Ancef which was continued for 24 hours after surgery. She was kept in observation in order to control pain, have her get a PT and OT evaluation postoperatively and in order to control hemostasis. A Hemovac drain was placed during surgery. She was given a regular diabetic diet postoperatively. A knee immobilizer was placed at the time of surgery. She was allowed out of bed, weight-bear as tolerated left lower extremity with the assistance of a walker. Her pain was well controlled with oral oxycodone, tramadol. Also ordered IV Dilaudid to use as needed. Her vitals remained stable while in the hospital. She was seen and evaluated by physical therapy and Occupational Therapy. She did well out of bed and was deemed safe for discharge to her home with home nursing and home physical therapy. She was seen by the egg caser and home health was arranged. Postoperative day 1 her dressings were clean and dry and the knee immobilizer was discontinued. She was allowed to do full range of motion of her left knee and continue weightbearing as tolerated with the assistance of a walker. Pain was well controlled after surgery when she was discharged home with oxycodone and tramadol. Discharge instructions were reviewed and provided to patient. She will follow-up as scheduled. She knows to call with any worsening problems, questions or concerns. She was discharged to her home in stable condition on August 26, 2020.
[2020-08-30] MEDS ORDERED: FUROSEMIDE 20 MG TAB PO SCH (09:00)
== END 2020-08-26 16:02 | disposition home health service (06) ==
LOC: ASU 11:09 → PACUINP 11:09 → 3W 18:45

== ENCOUNTER 2023-01-02 23:20 | Inpatient (IN) ==
[2023-01-02] MEDS ORDERED: SODIUM CHLORIDE 0.9% 250 ML IV PRN (23:40)
[2023-01-02] MEDS ORDERED: SODIUM CHLORIDE 0.9% 1,000 ML IV SCH (23:45)
--- NOTE | 2023-01-02 23:46 | Emergency Department Note ---
Impression & Plan Acute GI hemorrhage, MANNY (acute kidney injury) ED Provider Note NAME: RIN ZHAO AGE: 82 SEX: F : 1940 ARRIVES VIA: Walk-In INFORMANT: Patient ED PROVIDER(S): Mariusz Melara DO CHIEF COMPLAINT: GI bleed HPI: Patient is an 82-year-old female with a past medical history bradycardia, chronic heart failure with preserved EF, hyperlipidemia, diabetes, paroxysmal A- fib on Eliquis who presents to the ER for bright red blood per rectum. This started tonight around 5 PM when she had a bowel movement where she thought it was all diarrhea but ended up being all blood. She had 3 large bloody bowel movements and several small in between. She denies any headache or change in vision. No chest pain or shortness of breath. No dizziness or lightheadedness. She did take her nighttime dose of apixaban. No other exacerbating or remitting factors. ADDITIONAL HISTORY OBTAINED: Per HPI Chronic Medical/Social Conditions Affecting Care: Per HPI PAST MEDICAL HISTORY:See Below PAST SURGICAL HISTORY:See Below FAMILY HISTORY:See Below SOCIAL HISTORY:See Below HOME MEDICATIONS:See Below ALLERGIES:See Below VITALS:See Below PHYSICAL EXAMINATION: GENERAL: Sitting up in bed, alert, well appearing, well nourished, no distress, non-toxic EYE EXAM: normal conjunctiva. PERRL and EOM's grossly intact. OROPHARYNX: no exudate, no erythema, lips, buccal mucosa, and tongue normal and mucous membranes are moist LUNGS: Clear to auscultation. Normal chest wall mechanics HEART: no murmurs, S1 normal and S2 normal ABDOMEN: abdomen soft, non-tender, normo-active bowel sounds, no masses, no rebound or guarding. : Dried blood around the rectum. No appreciable UPPER EXTREMITIES: upper extremities are grossly normal. LOWER EXTREMITIES: No pitting edema. NEURO EXAM: Normal sensorium, cranial nerves II-XII grossly intact, normal speech, no gross weakness of arms, no gross weakness of legs. MEDICAL DECISION MAKING: Patient is an 82-year-old female who presents ER for bright red blood per rectum which started earlier tonight. She has had 3 episodes of fairly large amounts of blood and several smaller. She did just take her dose of Eliquis which she takes for A-fib which is paroxysmal. She presents the ER with no other complaints. She has no belly pain. Vitals are stable with exception she is slightly hypertensive. IV was established blood work was obtained. Labs show no significant leukocytosis or anemia with a hemoglobin of 13. INR 1. BMP with a creatinine of 2.0 up from baseline of 1.4. She was given IV fluids. Glucose mildly elevated at 241. LFTs bilirubin was unremarkable. Patient was typed and crossed for 2 units but they were put on hold as her hemoglobin was 13 and her vitals were stable throughout the stay in the ER. I did discuss the case with Dr. Yara Kidd for further evaluation management treatment. External Records Reviewed: Seen by cardiology earlier this month and has a preserved EF per report Consults/Care Managements Discussions: Per MDM Triage Nursing notes reviewed. Limited review of prior medical records performed Vital Signs: reviewed and remarkable for HTN Differential diagnosis: Differential diagnosis includes etiologies such as diverticulitis, diverticulosis, AVM, coagulopathy, colitis, inflammatory bowel disease, malignancy, Angie-Mcmillan tear, esophagitis, peptic ulcer disease, variceal bleed, gastritis, epistaxis, fissure, hemorrhoids, as well as others were entertained. ER treatment provided: See below Diagnostics interpreted by me include EKG and cardiac monitoring as listed below: -Cardiac Monitoring: An order was placed for continuous cardiac monitoring. The monitor shows a rate of 70 with sinus rhythm. -ECG: none -Laboratory studies:Interpreted by me as stated above in MDM and shown below. Imaging studies: Xrays: As interpreted by me:none CTs show: none Procedures:none Critical Care: None Past Med/Surg History Medical History Recurrent UTI Insomnia Neck pain, musculoskeletal History of kidney stones On anticoagulant therapy Atrial fibrillation GILL (dyspnea on exertion) GERD (gastroesophageal reflux disease) Nephrolithiasis Right shoulder pain Spondylisthesis Sacroiliitis Osteoporosis Surgical History History of arthroscopy of left knee S/P epidural steroid injection S/P total knee arthroplasty Hx of hand surgery History of appendectomy History of tooth extraction History of esophagogastroduodenoscopy (EGD) History of colonoscopy History of eye surgery History of cataract surgery History of foot surgery History of total knee replacement History of total abdominal hysterectomy and bilateral salpingo-oophorectomy Family History Father Diabetes Myocardial infarction Brother Diabetes Sister Diabetes Family history of melanoma Mother Cancer of the neck Denies family history of Ovarian cancer Prostate cancer Breast cancer Colorectal cancer Social History Smoking Status: Never smoker Second Hand Exposure: No; Do You Dip or Chew Tobacco: No; Hx Alcohol Use: Yes Alcohol type: hard liquor Alcohol Intake Frequency: Monthly or Less Hx Substance Use: No Preferred Language: East Timorese Communication Ability: Effective Visual Impairment: No Limitations Hearing Ability: Normal Computer Education Professor Required: No Beliefs That Will Affect Care: None marital status: / Current Living Situation: Alone current occupational status: retired How many Children do You have: 2 Feels Safe at Home: Yes Childhood Exposure to Second-Hand Smoke: Yes Diet: regular caffeine: Yes during the past year weight has: remained stable Dental Care, Regularly: Yes Physical Activity Frequency: 1-2 Times per Week Seatbelt Use: always Sunscreen Use: Yes Do you think of yourself as: straight/heterosexual Gender Identity: Female Assistive Devices: Cane and Glasses Allergies Allergies Allergy/AdvReac Type Severity Reaction Status Date / Time No Known Allergies Allergy Unknown Verified 01/03/23 00:29 Home Meds Home Medications Medication Instructions Recorded Confirmed cholecalciferol (vitamin D3) 125 5,000 unit PO QAM 02/21/18 01/03/23 mcg (5,000 unit) tablet (Vitamin D3) methocarbamol 750 mg tablet 750 mg PO Q8H PRN Muscle Spasm 02/21/18 01/03/23 multivitamin 1 tab PO QAM 02/21/18 01/03/23 cranberry extract 500 mg capsule 500 mg PO QAM 12/11/18 01/03/23 acetaminophen 500 mg tablet 1,000 mg PO Q8 PRN Pain 04/01/20 01/03/23 travoprost 0.004 % eye drops 1 drp ophthalmic (eye) PM 04/01/20 01/03/23 (Travatan Z) tramadol 50 mg tablet 50 mg PO Q6H PRN pain 01/03/23 01/03/23 Previous Rx's Medication Instructions Recorded trazodone 50 mg tablet 50 mg PO DAILY #90 tabs 07/02/21 conjugated estrogens 0.3 mg tablet 0.3 mg PO DAILY #90 tabs 08/31/21 (Premarin) atorvastatin 10 mg tablet (Lipitor) 10 mg PO Q OTHER DAY #90 tabs 12/17/21 potassium chloride 20 mEq 20 meq PO QAM #90 tabs 12/17/21 tablet,extended release empagliflozin 10 mg tablet 10 mg PO DAILY #90 tabs 02/03/22 (Jardiance) insulin glargine U-300 conc 300 40 unit (0.1333 mL) subcut QAM #12 06/17/22 unit/mL (3 mL) subcutaneous pen mL (Toujeo Max U-300 SoloStar) furosemide 40 mg tablet 60 mg (1.5 x 40 mg) PO Q2D #45 tabs 07/15/22 metoprolol succinate 100 mg 100 mg PO HS #90 tabs 07/21/22 tablet,extended release 24 hr finerenone 10 mg tablet 10 mg PO DAILY #90 tabs 08/05/22 insulin aspart U-100 100 unit/mL 7 unit (0.07 mL) subcut TID #30 mL 08/12/22 (3 mL) subcutaneous pen (Novolog FlexPen U-100 Insulin aspart) pen needle, diabetic 32 gauge x #400 ea 08/12/22 1/" (BD Ultra-Fine Micro Pen Needle) nystatin 100,000 unit/gram topical 1 applic topical BID #30 grams 09/08/22 cream diltiazem HCl 180 mg 180 mg PO QAM #90 caps 10/17/22 capsule,extended release 24 hr mirabegron 50 mg tablet,extended 50 mg PO DAILY #90 tabs 10/31/22 release 24 hr (Myrbetriq) apixaban 5 mg tablet (Eliquis) 5 mg PO BID #180 tabs 12/21/22 losartan 100 mg tablet 100 mg PO QAM #90 tabs 12/21/22 ciprofloxacin HCl 500 mg tablet 500 mg PO BID #14 tabs 12/28/22 (Cipro) Results & Data (ED) Vital Signs Vital Signs - 24 hr 01/02/23 23:25 01/02/23 23:41 Temperature 37.3 C Temperature Source Temporal Artery Scan Pulse Rate 80 75 Respiratory Rate 16 Blood Pressure 184/79 H Blood Pressure Mean 114 Pulse Oximetry 96 Oxygen Delivery Method Room Air Sepsis Recent Fever Within 48 Hours No Sepsis New/Unexplained Change in Mental Status No Sepsis Action Taken by Nursing No Action Required Laboratory Data 01/02/23 23:47 01/02/23 23:47 Lab Results 01/02/23 01/02/23 Range/Units 23:47 23:51 WBC 9.42 (4.8-10.8) K/ul RBC 4.24 (4.20-5.40) M/uL Hgb 13.3 (12.0-16.0) g/dl Hct 40.2 (37.0-47.0) % MCV 94.8 (80.0-100.0) fL MCH 31.4 (25.0-34.0) pg MCHC 33.1 (32.0-36.0) g/dL RDW Std Deviation 47.1 H (36.4-46.3) fL RDW Coeff of Bill 13.5 (11.5-14.5) % Plt Count 236 (130-400) K/uL MPV 10.2 (9.4-12.4) fL Immature Gran % (Auto) 0.3 % Neut % (Auto) 61.4 % Lymph % (Auto) 21.4 % [place] % (Auto) 13.8 % Eos % (Auto) 2.5 % Baso % (Auto) 0.6 % Neut # (Auto) 5.77 (1.40-6.50) K/uL Lymph # (Auto) 2.02 (1.20-3.40) K/uL [place] # (Auto) 1.30 H (0.11-0.59) K/uL Eos # (Auto) 0.24 (0.00-0.50) K/uL Baso # (Auto) 0.06 (0.00-0.20) K/uL Immature Gran # (Auto) 0.03 (0.01-0.20) K/uL PT 10.8 (9.0-12.0) Seconds INR 1.0 (0.9-1.1) APTT 31.2 H (21.0-31.0) Seconds PTT Ratio 1.1 Sodium 140 (136-145) mmol/L Potassium 4.6 (3.5-5.1) mmol/L Chloride 105 (98-107) mmol/L Carbon Dioxide 27 (21-32) mmol/L Anion Gap 8 (3-11) BUN 24 H (6-23) mg/dl Creatinine 2.01 H (0.6-1.2) mg/dl Est Cr Clr Drug Dosing Not Reportable Est GFR ( Amer) 26.3 ml/min Est GFR (Non-Af Amer) 22.7 ml/min BUN/Creatinine Ratio 11.9 (10-20) Glucose 241 H (70-99(Fasting)) mg/dl Calcium 9.3 (8.6-10.3) mg/dl Total Bilirubin 0.4 (0.2-1.0) mg/dl AST 18 (13-39) U/L ALT 16 (7-52) U/L Alkaline Phosphatase 105 H (34-104) U/L Total Protein 6.7 (6.0-8.3) gm/dl Albumin 3.8 (3.4-5.0) gm/dl Globulin 2.9 (2.5-4.0) gm/dl Albumin/Globulin Ratio 1.3 (0.9-2) Blood Type O Positive Antibody Screen NEGATIVE Crossmatch See Detail Administered Medications Discontinued Medications Sodium Chloride (Nss) 1,000 mls @ 999 mls/hr IV .Q1H1M GALO Stop: 01/03/23 00:45 Last Admin: 01/03/23 00:05 Dose: 999 mls/hr Documented By: SB Discharge Plan Visit Data Chief Complaint: Rectal Bleed Stated Complaint: RECTAL BLEEDING, ON BLOOD THINNERS ED Provider: Mariusz Melara Discharge Problem: Acute GI hemorrhage, MANNY (acute kidney injury) Forms Stand Alone Forms: My [facility] Prescriptions Prescriptions: No Action Toujeo Max U-300 SoloStar 300 unit/mL (3 mL) insulin pen 40 unit SUBCUT QAM Qty: 12 3RF metoprolol succinate 100 mg tablet extended release 24 hr 100 mg PO HS Qty: 90 3RF diltiazem HCl 180 mg capsule,extended release 24hr 180 mg PO QAM Qty: 90 3RF Eliquis 5 mg tablet 5 mg PO BID Qty: 180 3RF losartan 100 mg tablet 100 mg PO QAM Qty: 90 3RF ciprofloxacin HCl [Cipro] 500 mg tablet 500 mg PO BID Qty: 14 0RF trazodone 50 mg tablet 50 mg PO DAILY Qty: 90 3RF Rx Instructions: before bed Jardiance 10 mg tablet 10 mg PO DAILY Qty: 90 3RF Hold Instructions: Home Medication placed on hold at Doctor's office nystatin 100,000 unit/gram cream 1 applic topical BID Qty: 30 1RF Rx Instructions: apply to affected areas under breasts for 7-10 days insulin aspart U-100 [Novolog FlexPen U-100 Insulin] 100 unit/mL (3 mL) insulin pen 7 unit SUBCUT TID Qty: 30 3RF Rx Instructions: plus sliding scale Tdd 32 (DME) pen needle, diabetic [BD Ultra-Fine Micro Pen Needle] 32 gauge x 1/4" needle See Rx Instructions .Route Qty: 400 3RF Rx Instructions: use 4 x daily Premarin 0.3 mg tablet 0.3 mg PO DAILY Qty: 90 3RF atorvastatin [Lipitor] 10 mg tablet 10 mg PO Q OTHER DAY Qty: 90 1RF Rx Instructions: Every other day potassium chloride 20 mEq tablet extended release 20 meq PO QAM Qty: 90 3RF Hold Instructions: Home Medication placed on hold at Doctor's office finerenone 10 mg tablet 10 mg PO DAILY Qty: 90 3RF furosemide 40 mg tablet 60 mg PO Q2D Qty: 45 5RF Myrbetriq 50 mg tablet extended release 24 hr 50 mg PO DAILY Qty: 90 3RF multivitamin Tablet 1 tab PO QAM methocarbamol 750 mg Tablet 750 mg PO Q8H PRN (Reason: Muscle Spasm) cholecalciferol (vitamin D3) [Vitamin D3] 5,000 unit Tablet 5,000 unit PO QAM cranberry extract 500 mg Capsule 500 mg PO QAM travoprost [Travatan Z] 0.004 % Drops 1 drp OPHTHALMIC (EYE) PM acetaminophen 500 mg tablet 1,000 mg PO Q8 PRN (Reason: Pain) tramadol 50 mg tablet 50 mg PO Q6H PRN (Reason: pain) Referrals Referrals: Leidy Mckeon MD [Primary Care Provider] -
[2023-01-03 00:08] LABS: Basophils # (auto) 0.06 K/uL (0.00-0.20); Basophils % (auto) 0.6 %; Eosinophils # (auto) 0.24 K/uL (0.00-0.50); Eosinophils % (auto) 2.5 %; Hematocrit (blood only) 40.2 % (37.0-47.0); Hemoglobin 13.3 g/dl (12.0-16.0); Immature Granulocytes # (auto) 0.03 K/uL (0.01-0.20); Immature Granulocytes % (auto) 0.3 %; Lymphocytes # (auto) 2.02 K/uL (1.20-3.40); Lymphocytes % (auto) 21.4 %; Mean Corpuscular Hemoglobin 31.4 pg (25.0-34.0); Mean Corpuscular Hgb Conc 33.1 g/dL (32.0-36.0); Mean Corpuscular Volume 94.8 fL (80.0-100.0); Mean Platelet Volume 10.2 fL (9.4-12.4); Monocytes % (auto) 13.8 %; Neutrophils # (auto) 5.77 K/uL (1.40-6.50); Neutrophils % (auto) 61.4 %; Platelet Count 236 K/uL (130-400); RDW Coefficient of Variation 13.5 % (11.5-14.5); RDW Standard Deviation 47.1 fL (36.4-46.3); Red Blood Count 4.24 M/uL (4.20-5.40); White Blood Count 9.42 K/ul (4.8-10.8)
[2023-01-03 00:23] LABS: Alanine Aminotransferase 16 U/L (7-52); Albumin Globulin Ratio 1.3 (0.9-2); Albumin Level 3.8 gm/dl (3.4-5.0); Alkaline Phosphatase 105 U/L (34-104); Anion Gap 8 (3-11); Aspartate Aminotransferase 18 U/L (13-39); BUN Creatinine Ratio 11.9 (10-20); Bilirubin,Total 0.4 mg/dl (0.2-1.0); Blood Urea Nitrogen 24 mg/dl (6-23); Calcium 9.3 mg/dl (8.6-10.3); Carbon Dioxide 27 mmol/L (21-32); Chloride 105 mmol/L (98-107); Est GFR (African American) 26.3 ml/min; Est GFR (Non-African American) 22.7 ml/min; Globulin 2.9 gm/dl (2.5-4.0); Glucose 241 mg/dl (70-99(Fasting)); Potassium 4.6 mmol/L (3.5-5.1); Sodium 140 mmol/L (136-145); Total Protein 6.7 gm/dl (6.0-8.3)
[2023-01-03 00:39] LABS: Partial Thromboplastin Ratio 1.1; Partial Thromboplastin Time 31.2 Seconds (21.0-31.0); Prothrombin Time 10.8 Seconds (9.0-12.0)
--- NOTE | 2023-01-03 01:35 | History & Physical Report ---
Date of Service January 03, 2023 Assessment & Plan (1) Acute GI hemorrhage: Plan: 82-year-old female presenting with multiple episodes of bloody diarrhea Patient hemodynamically stable. Hemoglobin = 13.3. No coagulopathy. Platelets within normal limits. Likely lower GI source. Admit to telemetry Maintain 2 large-bore IVs LR at 100 mL/h x 1 L Monitor CBC every 8 hours. Transfuse for active bleed, symptomatic anemia or hemoglobin less than 7. Blood consent form signed and on chart GI consultation appreciated (2) Diabetes mellitus, type 2: Plan: Chronic. Elevated blood sugar here Lantus 20 units twice daily Insulin sliding scale Goal blood sugar [id number] (3) PAF (paroxysmal atrial fibrillation): Plan: Chronic. Stable. Rate controlled. Continue metoprolol 100 mg p.o. nightly Hold apixaban in setting of acute GI bleed (4) Hyperlipidemia: Plan: Chronic. Stable. Continue atorvastatin at 10 mg p.o. every other day History of Present Illness Chief Complaint: Bright red blood per rectum Primary Care Provider: Leidy Mckeon MD Sarah Freed is an 82-year-old female with history of atrial fibrillation on Eliquis anticoagulation, diabetes, hypertension hyperlipidemia presenting from home with bright red blood per rectum. Patient reports being in her usual state of health until around 1700 when she began to have some cramping in her abdomen. She then proceeded to have 2 episodes of bloody diarrhea. Patient came to the ER and had 5 additional episodes of bright red blood per rectum with passage of clots. She denies rectal pain no constipation. No prior history of GI bleed. She has no reported history of hemorrhoids or diverticuli to her knowledge. She did take her evening dose of Eliquis prior to coming in No report of chest pain, palpitations, dizziness or shortness of breath. No additional complaints at this time Allergies Allergy/AdvReac Type Severity Reaction Status Date / Time No Known Allergies Allergy Unknown Verified 01/03/23 00:29 Home Medications Medication Instructions Recorded Confirmed Type cholecalciferol (vitamin D3) 125 5,000 unit PO QAM 02/21/18 01/03/23 History mcg (5,000 unit) tablet (Vitamin D3) methocarbamol 750 mg tablet 750 mg PO Q8H PRN Muscle Spasm 02/21/18 01/03/23 History multivitamin 1 tab PO QAM 02/21/18 01/03/23 History cranberry extract 500 mg capsule 500 mg PO QAM 12/11/18 01/03/23 History acetaminophen 500 mg tablet 1,000 mg PO Q8 PRN Pain 04/01/20 01/03/23 History travoprost 0.004 % eye drops 1 drp ophthalmic (eye) PM 04/01/20 01/03/23 History (Travatan Z) trazodone 50 mg tablet 50 mg PO DAILY #90 tabs 07/02/21 01/03/23 Rx conjugated estrogens 0.3 mg tablet 0.3 mg PO DAILY #90 tabs 08/31/21 01/03/23 Rx (Premarin) atorvastatin 10 mg tablet (Lipitor) 10 mg PO Q OTHER DAY #90 tabs 12/17/21 01/03/23 Rx potassium chloride 20 mEq 20 meq PO QAM #90 tabs 12/17/21 01/03/23 Rx tablet,extended release empagliflozin 10 mg tablet 10 mg PO DAILY #90 tabs 02/03/22 01/03/23 Rx (Jardiance) insulin glargine U-300 conc 300 40 unit (0.1333 mL) subcut QAM #12 06/17/22 01/03/23 Rx unit/mL (3 mL) subcutaneous pen mL (Toujeo Max U-300 SoloStar) furosemide 40 mg tablet 60 mg (1.5 x 40 mg) PO Q2D #45 tabs 07/15/22 01/03/23 Rx metoprolol succinate 100 mg 100 mg PO HS #90 tabs 07/21/22 01/03/23 Rx tablet,extended release 24 hr finerenone 10 mg tablet 10 mg PO DAILY #90 tabs 08/05/22 01/03/23 Rx insulin aspart U-100 100 unit/mL 7 unit (0.07 mL) subcut TID #30 mL 08/12/22 01/03/23 Rx (3 mL) subcutaneous pen (Novolog FlexPen U-100 Insulin aspart) pen needle, diabetic 32 gauge x #400 ea 08/12/22 12/30/22 Rx 1/4" (BD Ultra-Fine Micro Pen Needle) nystatin 100,000 unit/gram topical 1 applic topical BID #30 grams 09/08/22 01/03/23 Rx cream diltiazem HCl 180 mg 180 mg PO QAM #90 caps 10/17/22 01/03/23 Rx capsule,extended release 24 hr mirabegron 50 mg tablet,extended 50 mg PO DAILY #90 tabs 10/31/22 01/03/23 Rx release 24 hr (Myrbetriq) apixaban 5 mg tablet (Eliquis) 5 mg PO BID #180 tabs 12/21/22 01/03/23 Rx losartan 100 mg tablet 100 mg PO QAM #90 tabs 12/21/22 01/03/23 Rx ciprofloxacin HCl 500 mg tablet 500 mg PO BID #14 tabs 12/28/22 01/03/23 Rx (Cipro) tramadol 50 mg tablet 50 mg PO Q6H PRN pain 01/03/23 01/03/23 History Past Med/Surg History Medical History Recurrent UTI Insomnia Neck pain, musculoskeletal History of kidney stones passed on own On anticoagulant therapy Eliquis BID Atrial fibrillation Dx 08/2019 > follows with Dr. Cong GILL (dyspnea on exertion) Feels SOB with 1 FOS but denies any CP. Negative DSE in 2018. PT REPORTS THIS IS IMPROVING AND FEELS DUE TO WEIGHT - HAS LOST SOME WEIGHT. GERD (gastroesophageal reflux disease) Nephrolithiasis Right shoulder pain Spondylisthesis LUMBAR REGION Sacroiliitis Osteoporosis Surgical History History of arthroscopy of left knee AUGUST 2020 - CURRENT PT FOR S/P epidural steroid injection HX S/P total knee arthroplasty Hx of hand surgery RIGHT> LIGAMENT REPAIR History of appendectomy History of tooth extraction History of esophagogastroduodenoscopy (EGD) History of colonoscopy History of eye surgery X 4 TO RIGHT EYE History of cataract surgery RIGHT - HEMMORHAGE AND LOSS VISION History of foot surgery RT History of total knee replacement bilat History of total abdominal hysterectomy and bilateral salpingo-oophorectomy Family History Father Diabetes Myocardial infarction Brother Diabetes Sister Diabetes Family history of melanoma Mother Cancer of the neck Denies family history of Ovarian cancer Prostate cancer Breast cancer Colorectal cancer Social History Smoking Status: Never smoker Second Hand Exposure: No; Do You Dip or Chew Tobacco: No; Hx Alcohol Use: Yes Alcohol type: hard liquor Alcohol Intake Frequency: Monthly or Less Hx Substance Use: No Preferred Language: Serbian Communication Ability: Effective Visual Impairment: No Limitations Hearing Ability: Normal Ultrasonic Solderer Required: No Beliefs That Will Affect Care: None marital status: / Current Living Situation: Alone current occupational status: retired How many Children do You have: 2 Other Information That Helps Us Care for You: No Feels Safe at Home: Yes Safety Concerns: Feels Safe At This Time Childhood Exposure to Second-Hand Smoke: Yes Diet: regular caffeine: Yes during the past year weight has: remained stable Dental Care, Regularly: Yes Physical Activity Frequency: 1-2 Times per Week Seatbelt Use: always Sunscreen Use: Yes Do you think of yourself as: straight/heterosexual Gender Identity: Female Assistive Devices: Cane, Denture - Upper and Glasses Assistive Devices Comment: partial upper dentures Review of Systems Review of Systems: All systems reviewed & are unremarkable except as noted in HPI & below Physical Exam Physical Exam: General: patient resting comfortably, NAD, non-toxic in appearance, AA&O x 4 Skin: warm, dry, intact, no rashes or lesions HEENT: NC/AT, PERRL, EOMI, anicteric sclera, conjunctiva without injection, external ear normal to inspection and nontender, nares patent, moist mucus membranes, dentition intact, no oropharyngeal lesions, neck supple, trachea midline, no LAD, no thyromegaly, no JVD Heart: +S1/S2, regular, no m/r/g Lungs: equal air entry bilaterally, no rales/rhonchi/wheezes Abd: +BS, soft, nondistended, tenderness in the lower abdomen without rebound/guarding/peritonitis, no masses/organomegaly/ascites Ext: warm, 2+ pulses in UE/LE bilaterally, no clubbing/cyanosis or edema Neuro: nonfocal, patient AA&O x 4, speech intact, no facial droop, moving all extremities on command with equal strength 5/5 Results & Data Results & Data Vital Signs (Past 12 Hours) Vital Signs Temp Pulse Resp BP Pulse Ox O2 Del Method 01/02/23 23:41 75 01/02/23 23:25 37.3 C 80 16 184/79 H 96 Room Air Laboratory Results Laboratory Results WBC 9.42 K/ul (4.8-10.8) 01/02/23 23:47 RBC 4.24 M/uL (4.20-5.40) 01/02/23 23:47 Hgb 13.3 g/dl (12.0-16.0) 01/02/23 23:47 Hct 40.2 % (37.0-47.0) 01/02/23 23:47 MCV 94.8 fL (80.0-100.0) 01/02/23 23:47 MCH 31.4 pg (25.0-34.0) 01/02/23 23:47 MCHC 33.1 g/dL (32.0-36.0) 01/02/23 23:47 RDW Std Deviation 47.1 fL (36.4-46.3) H 01/02/23 23:47 RDW Coeff of Bill 13.5 % (11.5-14.5) 01/02/23 23:47 Plt Count 236 K/uL (130-400) 01/02/23 23:47 MPV 10.2 fL (9.4-12.4) 01/02/23 23:47 Immature Gran % (Auto) 0.3 % 01/02/23 23:47 Neut % (Auto) 61.4 % 01/02/23 23:47 Lymph % (Auto) 21.4 % 01/02/23 23:47 Dickson % (Auto) 13.8 % 01/02/23 23:47 Eos % (Auto) 2.5 % 01/02/23 23:47 Baso % (Auto) 0.6 % 01/02/23 23:47 Neut # (Auto) 5.77 K/uL (1.40-6.50) 01/02/23 23:47 Lymph # (Auto) 2.02 K/uL (1.20-3.40) 01/02/23 23:47 Dickson # (Auto) 1.30 K/uL (0.11-0.59) H 01/02/23 23:47 Eos # (Auto) 0.24 K/uL (0.00-0.50) 01/02/23 23:47 Baso # (Auto) 0.06 K/uL (0.00-0.20) 01/02/23 23:47 Immature Gran # (Auto) 0.03 K/uL (0.01-0.20) 01/02/23 23:47 PT 10.8 Seconds (9.0-12.0) 01/02/23 23:47 INR 1.0 (0.9-1.1) 01/02/23 23:47 APTT 31.2 Seconds (21.0-31.0) H 01/02/23 23:47 PTT Ratio 1.1 01/02/23 23:47 Sodium 140 mmol/L (136-145) 01/02/23 23:47 Potassium 4.6 mmol/L (3.5-5.1) 01/02/23 23:47 Chloride 105 mmol/L (98-107) 01/02/23 23:47 Carbon Dioxide 27 mmol/L (21-32) 01/02/23 23:47 Anion Gap 8 (3-11) 01/02/23 23:47 BUN 24 mg/dl (6-23) H 01/02/23 23:47 Creatinine 2.01 mg/dl (0.6-1.2) H 01/02/23 23:47 Est Cr Clr Drug Dosing Not Reportable 01/02/23 23:47 Est GFR ( Amer) 26.3 ml/min 01/02/23 23:47 Est GFR (Non-Af Amer) 22.7 ml/min 01/02/23 23:47 BUN/Creatinine Ratio 11.9 (10-20) 01/02/23 23:47 Glucose 241 mg/dl (70-99(Fasting)) H 01/02/23 23:47 Calcium 9.3 mg/dl (8.6-10.3) 01/02/23 23:47 Total Bilirubin 0.4 mg/dl (0.2-1.0) 01/02/23 23:47 AST 18 U/L (13-39) 01/02/23 23:47 ALT 16 U/L (7-52) 01/02/23 23:47 Alkaline Phosphatase 105 U/L (34-104) H 01/02/23 23:47 Total Protein 6.7 gm/dl (6.0-8.3) 01/02/23 23:47 Albumin 3.8 gm/dl (3.4-5.0) 01/02/23 23:47 Globulin 2.9 gm/dl (2.5-4.0) 01/02/23 23:47 Albumin/Globulin Ratio 1.3 (0.9-2) 01/02/23 23:47 Blood Type O Positive 01/02/23 23:51 Antibody Screen NEGATIVE 01/02/23 23:51 Crossmatch See Detail 01/02/23 23:51 PG Care Time/CCT Total # of Minutes Spent Total Time Spent with Patient: Total time spent is greater than 50% in coordination of care (as documented) at patient's floor/unit and/or counseling patient: Coding Level of Care Code 15382 INT INP/OBS CARE 3/75MIN Diagnoses Acute GI hemorrhage K92.2 Type 2 diabetes mellitus with chronic kidney disease, with long-term current use of insulin, unspecified CKD stage E11.22; Z79.4 Diabetes mellitus jail 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 Diabetes mellitus complication status: with kidney complications Diabetes mellitus complication detail: with chronic kidney disease Chronic kidney disease stage: unspecified stage PAF (paroxysmal atrial fibrillation) I48.0 Mixed hyperlipidemia E78.2 Hyperlipidemia type: mixed hyperlipidemia (2) Diabetes mellitus, type 2 Diabetes mellitus jail insulin use: with jail use Diabetes mellitus complication status: with kidney complications Diabetes mellitus complication detail: with chronic kidney disease Chronic kidney disease stage: unspecified stage Qualified Code(s): E11.22 - Type 2 diabetes mellitus with diabetic chronic kidney disease; Z79.4 - residential (current) use of insulin (4) Hyperlipidemia Hyperlipidemia type: mixed hyperlipidemia Qualified Code(s): E78.2 - Mixed hyperlipidemia
[2023-01-03] MEDS ORDERED: GLUCOSE 40% GEL 15 GM TUBE PO PRN (02:53)
[2023-01-03] MEDS ORDERED: ACETAMINOPHEN 500 MG TAB PO PRN (02:53)
[2023-01-03] MEDS ORDERED: DEXTROSE 50% 50 ML SYRINGE IV PRN (02:53)
[2023-01-03] MEDS ORDERED: GLUCOSE 10 TAB/TUBE PO PRN (02:53)
[2023-01-03] MEDS ORDERED: GLUCAGON FOR INJ 1 MG VIAL SQ PRN (02:53)
[2023-01-03] MEDS ORDERED: traMADol HCL 50 MG TABLET PO PRN (02:53)
[2023-01-03] MEDS ORDERED: ONDANSETRON INJ 2 MG/ML 2 ML VIAL IV PRN (02:53)
[2023-01-03] MEDS ORDERED: METHOCARBAMOL 750 MG TABLET PO PRN (02:53)
[2023-01-03] MEDS ORDERED: LACTATED RINGER'S 1,000 ML IV SCH (02:53)
[2023-01-03] MEDS ORDERED: CARBOHYDRATES FOR HYPOGLYCEMIA PO PRN (02:53)
[2023-01-03] MEDS: INSULIN ASPART PER UNIT CHARGE SC SCH ×2 (03:30→12:10)
[2023-01-03 07:20] LABS: iSTAT Hemoglobin 13.3 g/dl (12.0-16.0); iSTAT Ionized Calcium 1.14 mmol/l (1.12-1.32); iSTAT Potassium 4.7 mmol/L (3.3-5.0)
[2023-01-03 08:31] LABS: Hematocrit (blood only) 31.6 % (37.0-47.0); Hemoglobin 10.5 g/dl (12.0-16.0); Mean Corpuscular Hemoglobin 30.9 pg (25.0-34.0); Mean Corpuscular Hgb Conc 33.2 g/dL (32.0-36.0); Mean Corpuscular Volume 92.9 fL (80.0-100.0); Mean Platelet Volume 10.5 fL (9.4-12.4); Platelet Count 197 K/uL (130-400); RDW Coefficient of Variation 13.6 % (11.5-14.5); RDW Standard Deviation 46.3 fL (36.4-46.3); White Blood Count 8.22 K/ul (4.8-10.8)
[2023-01-03 08:43] LABS: Albumin Level 3.1 gm/dl (3.4-5.0); BUN Creatinine Ratio 12.7 (10-20); Bilirubin Direct 0.1 mg/dl (0-0.2); Bilirubin,Total 0.4 mg/dl (0.2-1.0); Calcium 8.5 mg/dl (8.6-10.3); Creatinine Clr Calc Pharmacy 33.7 ml/min; Est GFR (African American) 33.4 ml/min; Est GFR (Non-African American) 28.8 ml/min; Potassium 4.4 mmol/L (3.5-5.1); Total Protein 5.3 gm/dl (6.0-8.3)
[2023-01-03] MEDS ORDERED: LANTUS PER UNIT CHARGE SQ SCH (09:00)
[2023-01-03] MEDS ORDERED: PANTOprazole 40 MG in SYRINGE 0 ML IV SCH (09:00)
[2023-01-03] MEDS ORDERED: traZODone HCL 50 MG TAB PO SCH (09:00)
[2023-01-03] MEDS ORDERED: ESTROGENS, CONJUGATED 0.3 MG TAB PO SCH (09:00)
[2023-01-03] MEDS ORDERED: dilTIAZem HCL 180 MG CAPCR PO SCH (09:00)
[2023-01-03] MEDS ORDERED: VIBEGRON 75 MG TAB PO SCH (09:00)
--- NOTE | 2023-01-03 09:00 | Electrocardiogram Report ---
Test Reason : Blood Pressure : / mmHG Vent. Rate : 069 BPM Atrial Rate : 069 BPM P-R Int : 158 ms QRS Dur : 124 ms QT Int : 414 ms P-R-T Axes : 084 -27 027 degrees QTc Int : 443 ms Poor data quality, interpretation may be adversely affected Normal sinus rhythm Left ventricular hypertrophy with QRS widening ( R in aVL , [place] product ) Abnormal ECG When compared with ECG of 30-AUG-2019 11:58, Sinus rhythm has replaced Atrial fibrillation Vent. rate has decreased BY [address] no longer depressed in Anterior leads T wave inversion no longer evident in Inferior leads T wave inversion no longer evident in Lateral leads Confirmed by Phuc Gar ([id number]) on 01/03/2023 9:00:35 AM Referred By: REFERRED SELF Confirmed By:Phuc Gar
[2023-01-03 12:45] LABS: Hematocrit (blood only) 32.6 % (37.0-47.0); Hemoglobin 10.6 g/dl (12.0-16.0); Mean Corpuscular Hemoglobin 30.9 pg (25.0-34.0); Mean Corpuscular Hgb Conc 32.5 g/dL (32.0-36.0); Mean Platelet Volume 10.2 fL (9.4-12.4); Platelet Count 181 K/uL (130-400); RDW Coefficient of Variation 13.7 % (11.5-14.5); RDW Standard Deviation 48.2 fL (36.4-46.3); Red Blood Count 3.43 M/uL (4.20-5.40); White Blood Count 7.82 K/ul (4.8-10.8)
--- NOTE | 2023-01-03 16:55 | Gastrointestinal Consultation ---
Date of Consultation January 03, 2023 Assessment & Plan (1) Acute GI hemorrhage: She had self limited rectal bleeding. It sounds like she had an acute infectious enteritis. It could also be diverticular hemorrhage but some features don't sound like it. At any rate she is passing formed brown stools t haresh. She has a trip planned for tomorrow at 4 am and would like to go on it. I am okay with it after I instructed her what to watch out for. We also have arranged to get together as outpatient to consider colonoscopy History of Present Illness Reason for Consultation: rectal bleeding Attending Physician: Farzad Caraballo MD History of Present Illness 82 year old female who was fixing dinner last night and had the urge to have diarrhea but it turned out to be bloody stool. She had another episode 4 hours later. She went to ER and had several episodes but has had none since. As I am seeing her she tells me she is passing formed brown stools. She never had pain with this. She had no nausea or vomiting. She has never done this before. Her last colonoscopy was 8-10 years ago. She denies fever or chills. She feels well now. Allergies Allergy/AdvReac Type Severity Reaction Status Date / Time No Known Allergies Allergy Unknown Verified 01/03/23 00:29 Home Medications Medication Instructions Recorded Confirmed Type cholecalciferol (vitamin D3) 125 5,000 unit PO QAM 02/21/18 01/03/23 History mcg (5,000 unit) tablet (Vitamin D3) methocarbamol 750 mg tablet 750 mg PO Q8H PRN Muscle Spasm 02/21/18 01/03/23 History multivitamin 1 tab PO QAM 02/21/18 01/03/23 History cranberry extract 500 mg capsule 500 mg PO QAM 12/11/18 01/03/23 History acetaminophen 500 mg tablet 1,000 mg PO Q8 PRN Pain 04/01/20 01/03/23 History travoprost 0.004 % eye drops 1 drp ophthalmic (eye) PM 04/01/20 01/03/23 History (Travatan Z) trazodone 50 mg tablet 50 mg PO DAILY #90 tabs 07/02/21 01/03/23 Rx conjugated estrogens 0.3 mg tablet 0.3 mg PO DAILY #90 tabs 08/31/21 01/03/23 Rx (Premarin) atorvastatin 10 mg tablet (Lipitor) 10 mg PO Q OTHER DAY #90 tabs 12/17/21 01/03/23 Rx potassium chloride 20 mEq 20 meq PO QAM #90 tabs 12/17/21 01/03/23 Rx tablet,extended release empagliflozin 10 mg tablet 10 mg PO DAILY #90 tabs 02/03/22 01/03/23 Rx (Jardiance) insulin glargine U-300 conc 300 40 unit (0.1333 mL) subcut QAM #12 06/17/22 Rx unit/mL (3 mL) subcutaneous pen mL (Toujeo Max U-300 SoloStar) furosemide 40 mg tablet 60 mg (1.5 x 40 mg) PO Q2D #45 tabs 07/15/22 01/03/23 Rx metoprolol succinate 100 mg 100 mg PO HS #90 tabs 07/21/22 01/03/23 Rx tablet,extended release 24 hr finerenone 10 mg tablet 10 mg PO DAILY #90 tabs 08/05/22 01/03/23 Rx insulin aspart U-100 100 unit/mL 7 unit (0.07 mL) subcut TID #30 mL 08/12/22 01/03/23 Rx (3 mL) subcutaneous pen (Novolog FlexPen U-100 Insulin aspart) pen needle, diabetic 32 gauge x #400 ea 08/12/22 12/30/22 Rx 1/4" (BD Ultra-Fine Micro Pen Needle) nystatin 100,000 unit/gram topical 1 applic topical BID #30 grams 09/08/22 01/03/23 Rx cream diltiazem HCl 180 mg 180 mg PO QAM #90 caps 10/17/22 01/03/23 Rx capsule,extended release 24 hr mirabegron 50 mg tablet,extended 50 mg PO DAILY #90 tabs 10/31/22 01/03/23 Rx release 24 hr (Myrbetriq) apixaban 5 mg tablet (Eliquis) 5 mg PO BID #180 tabs 12/21/22 01/03/23 Rx losartan 100 mg tablet 100 mg PO QAM #90 tabs 12/21/22 01/03/23 Rx ciprofloxacin HCl 500 mg tablet 500 mg PO BID #14 tabs 12/28/22 01/03/23 Rx (Cipro) tramadol 50 mg tablet 50 mg PO Q6H PRN pain 01/03/23 01/03/23 History Patient History Medical History Recurrent UTI Insomnia Neck pain, musculoskeletal History of kidney stones passed on own On anticoagulant therapy Eliquis BID Atrial fibrillation Dx 08/2019 > follows with Dr. Cong GILL (dyspnea on exertion) Feels SOB with 1 FOS but denies any CP. Negative DSE in 2018. PT REPORTS THIS IS IMPROVING AND FEELS DUE TO WEIGHT - HAS LOST SOME WEIGHT. GERD (gastroesophageal reflux disease) Nephrolithiasis Right shoulder pain Spondylisthesis LUMBAR REGION Sacroiliitis Osteoporosis Surgical History History of arthroscopy of left knee AUGUST 2020 - CURRENT PT FOR S/P epidural steroid injection HX S/P total knee arthroplasty Hx of hand surgery RIGHT> LIGAMENT REPAIR History of appendectomy History of tooth extraction History of esophagogastroduodenoscopy (EGD) History of colonoscopy History of eye surgery X 4 TO RIGHT EYE History of cataract surgery RIGHT - HEMMORHAGE AND LOSS VISION History of foot surgery RT History of total knee replacement bilat History of total abdominal hysterectomy and bilateral salpingo-oophorectomy Family History Father Diabetes Myocardial infarction Brother Diabetes Sister Diabetes Family history of melanoma Mother Cancer of the neck Denies family history of Ovarian cancer Prostate cancer Breast cancer Colorectal cancer Social History Smoking Status: Never smoker Second Hand Exposure: No; Do You Dip or Chew Tobacco: No; Hx Alcohol Use: Yes Alcohol type: hard liquor Alcohol Intake Frequency: Monthly or Less Hx Substance Use: No Preferred Language: Maori Communication Ability: Effective Visual Impairment: No Limitations Hearing Ability: Normal Compliance Review Specialist Required: No Beliefs That Will Affect Care: None marital status: / Current Living Situation: Alone current occupational status: retired How many Children do You have: 2 Other Information That Helps Us Care for You: No Feels Safe at Home: Yes Safety Concerns: Feels Safe At This Time Childhood Exposure to Second-Hand Smoke: Yes Diet: regular caffeine: Yes during the past year weight has: remained stable Dental Care, Regularly: Yes Physical Activity Frequency: 1-2 Times per Week Seatbelt Use: always Sunscreen Use: Yes Do you think of yourself as: straight/heterosexual Gender Identity: Female Assistive Devices: Cane Assistive Devices Comment: partial upper dentures Review of Systems Review of Systems: All systems reviewed & are unremarkable except as noted in HPI & below Physical Exam Constitutional: WD/WN, vitals as above no acute distress Eyes: PERRL, conjunctivae normal, anicteric sclerae ENMT: external ear and nose normal, oropharynx normal Neck: trachea midline, no thyromegaly Respiratory: normal respiratory effort, lungs clear to auscultation Cardiovascular: RRR, no murmur, no edema Gastrointestinal (Abdomen): normal bowel sounds, soft, nontender, no hepato splenomegaly Musculoskeletal: Extremities: no cyanosis and no clubbing Skin: no rashes, warm and dry Neurologic: PERRL, EOMI, accommodation nl, no face palsy, no dysarthria Psychiatric: Orientation: alert and oriented x 3 Results & Data Vital Signs (Past 12 Hours) Vital Signs Temp Pulse Pulse Resp BP Pulse Ox O2 Del Method 01/03/23 15:38 37.0 C 65 18 160/77 H 96 Room Air 01/03/23 11:26 36.7 C 63 18 122/76 96 Room Air 01/03/23 07:13 36.7 C 73 18 129/69 98 Room Air 01/03/23 07:12 64 Laboratory Results 01/03/23 01/03/23 01/03/23 Range/Units 16:35 12:30 11: WBC 7.82 (4.8-10.8) K/ul RBC 3.43 L (4.20-5.40) M/uL Hgb 10.6 L (12.0-16.0) g/dl POC Hgb (12.0-16.0) g/dl Hct 32.6 L (37.0-47.0) % POC Hct (37-47) % MCV 95.0 (80.0-100.0) fL MCH 30.9 (25.0-34.0) pg MCHC 32.5 (32.0-36.0) g/dL RDW Std Deviation 48.2 H (36.4-46.3) fL RDW Coeff of Bill 13.7 (11.5-14.5) % Plt Count 181 (130-400) K/uL MPV 10.2 (9.4-12.4) fL Immature Gran % (Auto) % Neut % (Auto) % Lymph % (Auto) % [place] % (Auto) % Eos % (Auto) % Baso % (Auto) % Neut # (Auto) (1.40-6.50) K/uL Lymph # (Auto) (1.20-3.40) K/uL [place] # (Auto) (0.11-0.59) K/uL Eos # (Auto) (0.00-0.50) K/uL Baso # (Auto) (0.00-0.20) K/uL Immature Gran # (Auto) (0.01-0.20) K/uL PT (9.0-12.0) Seconds INR (0.9-1.1) APTT (21.0-31.0) Seconds PTT Ratio POC Sodium (135-144) mmol/L Sodium (136-145) mmol/L POC Potassium (3.3-5.0) mmol/L Potassium (3.5-5.1) mmol/L POC Chloride (101-112) mmol/L Chloride (98-107) mmol/L Carbon Dioxide (21-32) mmol/L POC Total CO2 (24-31) mmol/L Anion Gap (3-11) POC Anion Gap (16-25) mmol/L POC BUN (7-18) mg/dl BUN (6-23) mg/dl Creatinine (0.6-1.2) mg/dl POC Creatinine (0.6-1.3) mg/dl Est Cr Clr Drug Dosing Est GFR ( Amer) ml/min Est GFR (Non-Af Amer) ml/min BUN/Creatinine Ratio (10-20) Glucose (70-99(Fasting)) mg/dl POC Glucose 129 H 158 H (70-99) mg/dl POC Glucose (other) (70-99) mg/dl Calcium (8.6-10.3) mg/dl POC Ioniz Calcium Amairani (1.12-1.32) mmol/l Total Bilirubin (0.2-1.0) mg/dl Direct Bilirubin (0-0.2) mg/dl AST (13-39) U/L ALT (7-52) U/L Alkaline Phosphatase (34-104) U/L Total Protein (6.0-8.3) gm/dl Albumin (3.4-5.0) gm/dl Globulin (2.5-4.0) gm/dl Albumin/Globulin Ratio (0.9-2) Blood Type Antibody Screen Crossmatch 01/03/23 01/03/23 01/02/23 Range/Units 08:08 05:54 23:53 WBC 8.22 (4.8-10.8) K/ul RBC 3.40 L (4.20-5.40) M/uL Hgb 10.5 L (12.0-16.0) g/dl POC Hgb 13.3 (12.0-16.0) g/dl Hct 31.6 L (37.0-47.0) % POC Hct 39 (37-47) % MCV 92.9 (80.0-100.0) fL MCH 30.9 (25.0-34.0) pg MCHC 33.2 (32.0-36.0) g/dL RDW Std Deviation 46.3 (36.4-46.3) fL RDW Coeff of Bill 13.6 (11.5-14.5) % Plt Count 197 (130-400) K/uL MPV 10.5 (9.4-12.4) fL Immature Gran % (Auto) % Neut % (Auto) % Lymph % (Auto) % [place] % (Auto) % Eos % (Auto) % Baso % (Auto) % Neut # (Auto) (1.40-6.50) K/uL Lymph # (Auto) (1.20-3.40) K/uL [place] # (Auto) (0.11-0.59) K/uL Eos # (Auto) (0.00-0.50) K/uL Baso # (Auto) (0.00-0.20) K/uL Immature Gran # (Auto) (0.01-0.20) K/uL PT (9.0-12.0) Seconds INR (0.9-1.1) APTT (21.0-31.0) Seconds PTT Ratio POC Sodium 140 (135-144) mmol/L Sodium 141 (136-145) mmol/L POC Potassium 4.7 (3.3-5.0) mmol/L Potassium 4.4 (3.5-5.1) mmol/L POC Chloride 106 (101-112) mmol/L Chloride 110 H (98-107) mmol/L Carbon Dioxide 27 (21-32) mmol/L POC Total CO2 25 (24-31) mmol/L Anion Gap 4 (3-11) POC Anion Gap 15.0 L (16-25) mmol/L POC BUN 24 H (7-18) mg/dl BUN 21 (6-23) mg/dl Creatinine 1.65 H D (0.6-1.2) mg/dl POC Creatinine 2.0 H (0.6-1.3) mg/dl Est Cr Clr Drug Dosing 33.7 Est GFR ( Amer) 33.4 ml/min Est GFR (Non-Af Amer) 28.8 ml/min BUN/Creatinine Ratio 12.7 (10-20) Glucose 182 H (70-99(Fasting)) mg/dl POC Glucose 176 H (70-99) mg/dl POC Glucose (other) 247 H (70-99) mg/dl Calcium 8.5 L (8.6-10.3) mg/dl POC Ioniz Calcium [place]ani 1.14 (1.12-1.32) mmol/l Total Bilirubin 0.4 (0.2-1.0) mg/dl Direct Bilirubin 0.1 (0-0.2) mg/dl AST 14 (13-39) U/L ALT 13 (7-52) U/L Alkaline Phosphatase 77 (34-104) U/L Total Protein 5.3 L D (6.0-8.3) gm/dl Albumin 3.1 L (3.4-5.0) gm/dl Globulin (2.5-4.0) gm/dl Albumin/Globulin Ratio (0.9-2) Blood Type Antibody Screen Crossmatch 01/02/23 01/02/23 Range/Units 23:51 23:47 WBC 9.42 (4.8-10.8) K/ul RBC 4.24 (4.20-5.40) M/uL Hgb 13.3 (12.0-16.0) g/dl POC Hgb (12.0-16.0) g/dl Hct 40.2 (37.0-47.0) % POC Hct (37-47) % MCV 94.8 (80.0-100.0) fL MCH 31.4 (25.0-34.0) pg MCHC 33.1 (32.0-36.0) g/dL RDW Std Deviation 47.1 H (36.4-46.3) fL RDW Coeff of Bill 13.5 (11.5-14.5) % Plt Count 236 (130-400) K/uL MPV 10.2 (9.4-12.4) fL Immature Gran % (Auto) 0.3 % Neut % (Auto) 61.4 % Lymph % (Auto) 21.4 % [place] % (Auto) 13.8 % Eos % (Auto) 2.5 % Baso % (Auto) 0.6 % Neut # (Auto) 5.77 (1.40-6.50) K/uL Lymph # (Auto) 2.02 (1.20-3.40) K/uL [place] # (Auto) 1.30 H (0.11-0.59) K/uL Eos # (Auto) 0.24 (0.00-0.50) K/uL Baso # (Auto) 0.06 (0.00-0.20) K/uL Immature Gran # (Auto) 0.03 (0.01-0.20) K/uL PT 10.8 (9.0-12.0) Seconds INR 1.0 (0.9-1.1) APTT 31.2 H (21.0-31.0) Seconds PTT Ratio 1.1 POC Sodium (135-144) mmol/L Sodium 140 (136-145) mmol/L POC Potassium (3.3-5.0) mmol/L Potassium 4.6 (3.5-5.1) mmol/L POC Chloride (101-112) mmol/L Chloride 105 (98-107) mmol/L Carbon Dioxide 27 (21-32) mmol/L POC Total CO2 (24-31) mmol/L Anion Gap 8 (3-11) POC Anion Gap (16-25) mmol/L POC BUN (7-18) mg/dl BUN 24 H (6-23) mg/dl Creatinine 2.01 H (0.6-1.2) mg/dl POC Creatinine (0.6-1.3) mg/dl Est Cr Clr Drug Dosing Not Reportable Est GFR ( Amer) 26.3 ml/min Est GFR (Non-Af Amer) 22.7 ml/min BUN/Creatinine Ratio 11.9 (10-20) Glucose 241 H (70-99(Fasting)) mg/dl POC Glucose (70-99) mg/dl POC Glucose (other) (70-99) mg/dl Calcium 9.3 (8.6-10.3) mg/dl POC Ioniz Calcium Ama[place]ani (1.12-1.32) mmol/l Total Bilirubin 0.4 (0.2-1.0) mg/dl Direct Bilirubin (0-0.2) mg/dl AST 18 (13-39) U/L ALT 16 (7-52) U/L Alkaline Phosphatase 105 H (34-104) U/L Total Protein 6.7 (6.0-8.3) gm/dl Albumin 3.8 (3.4-5.0) gm/dl Globulin 2.9 (2.5-4.0) gm/dl Albumin/Globulin Ratio 1.3 (0.9-2) Blood Type O Positive Antibody Screen NEGATIVE Crossmatch See Detail
--- NOTE | 2023-01-03 17:14 | Discharge Summary ---
Date of Service January 03, 2023 Admission HPI Per Admitting Provider Sarah Freed is an 82-year-old female with history of atrial fibrillation on Eliquis anticoagulation, diabetes, hypertension hyperlipidemia presenting from home with bright red blood per rectum. Patient reports being in her usual state of health until around 1700 when she began to have some cramping in her abdomen. She then proceeded to have 2 episodes of bloody diarrhea. Patient came to the ER and had 5 additional episodes of bright red blood per rectum with passage of clots. She denies rectal pain no constipation. No prior history of GI bleed. She has no reported history of hemorrhoids or diverticuli to her knowledge. She did take her evening dose of Eliquis prior to coming in No report of chest pain, palpitations, dizziness or shortness of breath. No additional complaints at this time Principal Diagnosis gi bleed Discharge Exam The patient is awake, alert and oriented 3, well developed and well nourished, normocephalic and atraumatic, lying in bed and in no acute distress. HEENT--PERRL, EOMI, mucous membranes and oropharynx mildly dry Neck--supple. No JVD. No bruits. Thyroid normal, trachea midline, no adenopathy. Heart--normal S1 and S2. No murmurs, rubs or gallops. Lungs--clear bilaterally, no respiratory distress, no accessory muscle use. Abdomen--normal bowel sounds and soft. Mild epigastric and left sided abdominal pain Extremities--no cyanosis or clubbing. No edema. Dermatologic--normal skin turgor, normal color, no abnormal lymph nodes, no rash. Neurologic--cranial nerves II through XII grossly intact. Rheumatologic--normal range of motion. Psychiatric--normal affect. Discharge Data Allergies Allergy/AdvReac Type Severity Reaction Status Date / Time No Known Allergies Allergy Unknown Verified 01/03/23 00:29 Consultations 01/03/23 00:27 ED Decision to Admit Stat 01/03/23 02:53 Consult Gastroenterology Routine Hospital Course (1) Acute GI hemorrhage: 82-year-old female presenting with multiple episodes of bloody diarrhea Patient hemodynamically stable. Hemoglobin = 13.3. No coagulopathy. Platelets within normal limits. Likely lower GI source. Bleeding has stopped Hb is stable Patient expressed a strong desire to be discharted so she can travel to [place] tomorrow -GI adviced on outpatient follow up (2) Diabetes mellitus, type 2: Chronic. Elevated blood sugar here Lantus 20 units twice daily Insulin sliding scale Goal blood sugar [id number] (3) PAF (paroxysmal atrial fibrillation): Chronic. Stable. Rate controlled. Continue metoprolol 100 mg p.o. nightly Hold apixaban in setting of acute GI bleed (4) Hyperlipidemia: Chronic. Stable. Continue atorvastatin at 10 mg p.o. every other day Total Time Total Time Spent Total Time Spent (In Minutes): 35 Discharge Plan Discharge Items Patient Disposition: Home - Self-Care Reason For Visit: HEMATOCHEZIA Discharge Diagnosis: GI bleed Activity: Resume your previous activity Non-emergency contact: Primary Care Provider and Elementary Classroom Teacher Call non-emergency contact if: you have any medication questions Follow-up/Referrals: Leidy Mckeon MD [Primary Care Provider] - Diet: Regular Addtl Attending Provider Instructions: please make appointment to follow up with GI as soon as possible. Please hold Apixaban until your stool no longer has some blood Pending Studies at Discharge: No Stand-Alone Forms: My [employer], Smoking Cessation Medications and DC Order Prescriptions: Continued Toujeo Max U-300 SoloStar 300 unit/mL (3 mL) insulin pen 40 unit SUBCUT QAM Qty: 12 3RF metoprolol succinate 100 mg tablet extended release 24 hr 100 mg PO HS Qty: 90 3RF diltiazem HCl 180 mg capsule,extended release 24hr 180 mg PO QAM Qty: 90 3RF losartan 100 mg tablet 100 mg PO QAM Qty: 90 3RF ciprofloxacin HCl [Cipro] 500 mg tablet 500 mg PO BID Qty: 14 0RF trazodone 50 mg tablet 50 mg PO DAILY Qty: 90 3RF Rx Instructions: before bed Jardiance 10 mg tablet 10 mg PO DAILY Qty: 90 3RF Hold Instructions: Home Medication placed on hold at Doctor's office nystatin 100,000 unit/gram cream 1 applic topical BID Qty: 30 1RF Rx Instructions: apply to affected areas under breasts for 7-10 days insulin aspart U-100 [Novolog FlexPen U-100 Insulin] 100 unit/mL (3 mL) insulin pen 7 unit SUBCUT TID Qty: 30 3RF Rx Instructions: plus sliding scale Tdd 32 (DME) pen needle, diabetic [BD Ultra-Fine Micro Pen Needle] 32 gauge x 1/4" needle See Rx Instructions .Route Qty: 400 3RF Rx Instructions: use 4 x daily Premarin 0.3 mg tablet 0.3 mg PO DAILY Qty: 90 3RF atorvastatin [Lipitor] 10 mg tablet 10 mg PO Q OTHER DAY Qty: 90 1RF Rx Instructions: Every other day potassium chloride 20 mEq tablet extended release 20 meq PO QAM Qty: 90 3RF Hold Instructions: Home Medication placed on hold at Doctor's office finerenone 10 mg tablet 10 mg PO DAILY Qty: 90 3RF furosemide 40 mg tablet 60 mg PO Q2D Qty: 45 5RF Myrbetriq 50 mg tablet extended release 24 hr 50 mg PO DAILY Qty: 90 3RF multivitamin Tablet 1 tab PO QAM methocarbamol 750 mg Tablet 750 mg PO Q8H PRN (Reason: Muscle Spasm) cholecalciferol (vitamin D3) [Vitamin D3] 5,000 unit Tablet 5,000 unit PO QAM cranberry extract 500 mg Capsule 500 mg PO QAM travoprost [Travatan Z] 0.004 % Drops 1 drp OPHTHALMIC (EYE) PM acetaminophen 500 mg tablet 1,000 mg PO Q8 PRN (Reason: Pain) tramadol 50 mg tablet 50 mg PO Q6H PRN (Reason: pain) Held Eliquis 5 mg tablet 5 mg PO BID Qty: 180 3RF Hold Instructions: Resume on 01/07/23. 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
[2023-01-03] MEDS ORDERED: METOPROLOL SUCC 50MG EXT REL TAB PO SCH (21:00)
[2023-01-03] MEDS ORDERED: TRAVOPROST Z 0.004% OPH SOLN 2.5 ML BTL OP SCH (21:00)
[2023-01-04] MEDS ORDERED: ATORVASTATIN 10 MG TAB PO SCH (09:00)
== END 2023-01-03 18:43 | disposition home or self-care (01) | DRG 378 ==
LOC: ED 23:20 → 2S 01-03 01:35 → SUATTDRO 01-03 01:35 → 2S 01-03 02:27
DX: Z79.01 Long term (current) use of anticoagulants; I50.32 Chronic diastolic (congestive) heart failure; Z96.653 Presence of artificial knee joint, bilateral; I11.0 Hypertensive heart disease with heart failure; I48.0 Paroxysmal atrial fibrillation; E78.5 Hyperlipidemia, unspecified; E11.9 Type 2 diabetes mellitus without complications; Z83.3 Family history of diabetes mellitus; Z79.4 Long term (current) use of insulin; K92.1 Melena

== ENCOUNTER 2023-11-24 18:10 | Inpatient (IN) ==
[2023-11-24 19:35] LABS: Basophils # (auto) 0.05 K/uL (0.00-0.20); Basophils % (auto) 0.6 %; Eosinophils # (auto) 0.16 K/uL (0.00-0.50); Hematocrit (blood only) 38.8 % (37.0-47.0); Hemoglobin 12.7 g/dl (12.0-16.0); Immature Granulocytes # (auto) 0.02 K/uL (0.01-0.20); Immature Granulocytes % (auto) 0.2 %; Lymphocytes # (auto) 1.39 K/uL (1.20-3.40); Lymphocytes % (auto) 17.1 %; Mean Corpuscular Hemoglobin 30.7 pg (25.0-34.0); Mean Corpuscular Hgb Conc 32.7 g/dL (32.0-36.0); Mean Corpuscular Volume 93.7 fL (80.0-100.0); Monocytes # (auto) 0.94 K/uL (0.11-0.59); Monocytes % (auto) 11.6 %; Neutrophils # (auto) 5.57 K/uL (1.40-6.50); Neutrophils % (auto) 68.5 %; Platelet Count 225 K/uL (130-400); RDW Coefficient of Variation 13.6 % (11.5-14.5); RDW Standard Deviation 46.7 fL (36.4-46.3); Red Blood Count 4.14 M/uL (4.20-5.40); White Blood Count 8.13 K/ul (4.8-10.8)
[2023-11-24 19:49] LABS: Albumin Globulin Ratio 1.4 (0.9-2); BUN Creatinine Ratio 14.7 (10-20); Bilirubin,Total 0.3 mg/dl (0.2-1.0); Calcium 9.4 mg/dl (8.6-10.3); Creatinine Clr Calc Pharmacy 21.4 ml/min; Globulin 2.9 gm/dl (2.5-4.0); Potassium 5.3 mmol/L (3.5-5.1); Total Protein 6.9 gm/dl (6.0-8.3)
[2023-11-24 19:58] LABS: INR 0.9 (0.9-1.1); Partial Thromboplastin Time 28 Seconds (21-31); Prothrombin Time 10.3 Seconds (9.0-12.0); Troponin I High Sensitivity 8.9 pg/ml (0-14)
--- NOTE | 2023-11-24 21:24 | Emergency Department Note ---
Impression & Plan Acute hyperkalemia, Diarrhea, Acute kidney injury superimposed on chronic kidney disease ED Provider Note CHIEF COMPLAINT: Elevated potassium HISTORY OF PRESENTING ILLNESS: This 83-year-old female patient presents to the emergency department with her son and [id number] for evaluation of elevated potassium. The patient has had diarrhea for the past 3 weeks. The patient was seen by her PCP today and had stool testing and blood work done. The patient was sent to the ER for elevated potassium. She denies any chest pain or shortness of breath. She denies any abdominal pain, nausea, or vomiting. Denies any urinary symptoms. Denies any fevers. She continues to have at least 5 BMs a day that are sometimes just water and sometimes thicker diarrhea. Has been having accidents because of the diarrhea. Denies recent antibiotic use, recent travel, drinking from outside water sources/well water, and denies known ill contacts. She does not have a pacemaker. She is on Eliquis for Afib. Outpatient labs from earlier today showed a white blood cell count of 8.40, hemoglobin 12.8, and platelet count of 236. Sodium normal at 137, potassium elevated at 5.8, chloride 108, BUN 37, and creatinine 2.15. Stool C. difficile was negative. Stool bio fire was negative. REVIEW OF SYSTEMS: See HPI for pertinent positives and pertinent negatives. ALLERGIES: NKDA MEDICATIONS: See below PAST MEDICAL HISTORY: See below PHYSICAL EXAM: VITALS: Vitals are noted on the nurse's note and reviewed by myself. GENERAL: Non toxic, no acute distress, non-diaphoretic. SKIN: Capillary refill <2 sec. EYES: PERRLA. EOMI. Conjunctivae without injection, sclerae without icterus. NOSE: Patent without discharge. MOUTH: Mucous membranes moist. Uvula midline. Airway patent. NECK: Supple without nuchal rigidity. HEART: Regular rate and rhythm without murmurs gallops or rubs. LUNGS: Clear to auscultation bilaterally without wheezes, rales or rhonchi. No retractions or accessory muscle use. ABDOMEN: Positive bowel sounds x 4. Normal tympanic percussion. Soft, nontender. No masses or organomegaly. Spaulding sign negative. No guarding or rebound tenderness. No focal RLQ or LLQ tenderness. MUSCULOSKELETAL: No gross musculoskeletal defects. NEURO: Patient was alert and oriented. No focal neurological deficits. DIFFERENTIAL DIAGNOSIS: Differential diagnosis includes electrolyte abnormality, IN, PE, cardiac arrhythmia, pneumonia, C. difficile, viral gastroenteritis, bacterial gastroenteritis, obstruction, UTI, sepsis, or others. ED COURSE AND MEDICAL DECISION MAKING: HISTORY FROM INDEPENDENT HISTORIAN: Additional history obtained to the patient's son and [id number] MEDICATIONS GIVEN: 500 mL normal saline solution bolus MONITOR: Continuous spinner continuous: Order was placed for continuous spinner continuous. Patient was placed on the spinner continuous and continuous pulse ox. Patient was noted to be in normal sinus rhythm at an initial rate of 70 bpm per my interpretation. EKG: EKG was interpreted by myself. Interpretation showed an atrial paced rhythm at 64 bpm, but the patient does not have a pacemaker. No significant peaked T's or evidence for ischemia noted. Repeat EKG was interpreted by myself and shows normal sinus rhythm at 61 bpm with no acute ST or T wave changes and no evidence for peaked T's. INTERPRETATION OF LABS: I interpreted the labs with full lab results as below in the lab section of this note. Pertinent lab results discussed in the MDM section below. INTERPRETATION OF IMAGING: Chest x-ray per my interpretation showed no acute cardiopulmonary etiology compared to her previous imaging studies. Radiology report is still pending. Due to a significant delay from STAT RAD reading of CT scans, the patient CT scan of the abdomen and pelvis without contrast was still pending at the time of admission. EXTERNAL RECORDS REVIEWED: I reviewed the patient's outpatient laboratory studies from earlier today as summarized above. CONSULTATIONS: On-call hospitalist MDM SUMMARY: The patient was seen during a time of extreme volume and extreme acuity. Nursing triage protocols were initiated with IV lock, labs, and/or imaging studies conducted by protocol in the triage area. The patient was examined by myself once they were taken back to an exam room. The patient has had diarrhea for the past 3 weeks and had outpatient laboratory studies by her PCP that showed an elevated potassium level of 5.8 with elevated BUN and creatinine. Stool studies were negative for C. difficile and stool bio fire was negative. The patient was referred to the ER due to her hyperkalemia. White blood cell count normal 8.13. Hemoglobin normal at 12.7. Platelet count normal at 225. Coags were normal. Sodium normal at 137. Potassium was elevated at 5.3 which was improved from previous lab today of 5.8. On-call hospitalist requested a repeat BMP at the time of admission and her potassium had decreased to 5.1. BUN remained stable at 37 among all 3 labs. Creatinine initially 2.15 and increased to 2.51 and then decreased to 2.36 again. Glucose in the 100s. CMP otherwise without significant abnormalities. High-sensitivity troponin was normal. Magnesium was normal. Lipase was normal. Chest x-ray per my interpretation showed no acute cardiopulmonary etiology compared to her previous imaging studies. Radiology report is still pending. Due to a significant delay from STAT RAD reading of CT scans, the patient CT scan of the abdomen and pelvis without contrast was still pending at the time of admission. The patient's EKGs did not show any peaked T waves or ischemic changes, but there were changes compared to previous EKGs. I had a meaningful discussion about this patient with Dr. Lehman who agrees with my assessment and the treatment plan. Due to the patient's continued diarrhea, hyperkalemia, and acute on chronic kidney disease, it was felt the patient would benefit from admission for further evaluation and treatment. I spoke with the on-call hospitalist who agreed to admit the patient for further management. Please refer to their dictation for further details. The patient's care was transferred in stable condition. DIAGNOSIS: Hyperkalemia Acute on chronic kidney disease Diarrhea Past Med/Surg History Problem List (Updated 11/25/23 @ 05:56 by Dora Naranjo PA-C) Acute kidney injury superimposed on chronic kidney disease (Acute) Diarrhea (Acute) Acute hyperkalemia (Acute) CKD (chronic kidney disease) Hyperkalemia Diarrhea Left wrist pain Rectal bleeding Cough MANNY (acute kidney injury) (Acute) Musculoskeletal pain of left thigh Urge incontinence Urinary incontinence in female Loss of protective sensation of skin of foot Diabetic peripheral neuropathy associated with type 2 diabetes mellitus Musculoskeletal thigh pain Chronic heart failure with preserved ejection fraction (HFpEF) Bradycardia Lumbar facet arthropathy Urinary incontinence Postmenopausal hormone replacement therapy Spinal stenosis of lumbar region with radiculopathy Essential (primary) hypertension PAF (paroxysmal atrial fibrillation) Bilateral lower extremity edema Type 2 DM with CKD stage 3 and hypertension Morbid obesity with BMI of 45.0-49.9, adult Right-sided heart failure Diabetes mellitus, type 2 IDDM Diabetic nephropathy Hyperlipidemia (Chronic) 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 Gar > no pacer > med controlled GILL (dyspnea on exertion) on occasion, pt feels just related to weight, not lung issue GERD (gastroesophageal reflux disease) Nephrolithiasis Right shoulder pain Spondylisthesis LUMBAR REGION Sacroiliitis Osteoporosis Surgical History History of ERCP History of arthroscopy of left knee S/P epidural steroid injection HX Hx of hand surgery RIGHT> LIGAMENT REPAIR History of appendectomy History of tooth extraction History of esophagogastroduodenoscopy (EGD) History of colonoscopy History of eye surgery X 4 TO RIGHT EYE History of cataract surgery right History of foot surgery RT History of total knee replacement bilat History of total abdominal hysterectomy and bilateral salpingo-oophorectomy Family History Father Diabetes Myocardial infarction Brother Diabetes Sister Diabetes Family history of melanoma Mother Cancer of the neck Denies family history of Ovarian cancer Prostate cancer Breast cancer Colorectal cancer Social History Smoking Status: Never smoker Second Hand Exposure: No; Do You Dip or Chew Tobacco: No; Hx Alcohol Use: Yes Alcohol type: hard liquor Alcohol Intake Frequency: Monthly or Less Hx Substance Use: No Preferred Language: Greenlandic Communication Ability: Effective Visual Impairment: Limited Hearing Ability: Normal Straightening Press Operator Required: No Beliefs That Will Affect Care: None marital status: / Current Living Situation: Alone current occupational status: retired How many Children do You have: 2 Feels Safe at Home: Yes Childhood Exposure to Second-Hand Smoke: Yes Diet: regular caffeine: Yes during the past year weight has: remained stable Dental Care, Regularly: Yes Physical Activity Frequency: 1-2 Times per Week Seatbelt Use: always Sunscreen Use: Yes Do you think of yourself as: straight/heterosexual Gender Identity: Female Assistive Devices: Cane, Denture - Upper, Glasses and Walker Allergies Allergies Allergy/AdvReac Type Severity Reaction Status Date / Time No Known Allergies Allergy Unknown Verified 11/24/23 13:49 Home Meds Home Medications Medication Instructions Recorded Confirmed cholecalciferol (vitamin D3) 125 5,000 unit PO QAM 02/21/18 11/24/23 mcg (5,000 unit) tablet (Vitamin D3) multivitamin 1 tab PO QAM 02/21/18 11/24/23 cranberry extract 500 mg capsule 500 mg PO QAM 12/11/18 11/24/23 acetaminophen 500 mg tablet 1,000 mg PO Q8 PRN Pain 04/01/20 11/24/23 travoprost 0.004 % eye drops 1 drp ophthalmic (eye) HS 04/01/20 11/24/23 (Travatan Z) flash glucose scanning reader 01/26/23 11/24/23 (FreeeGifteryle Octavia 2 [place]) oxycodone 5 mg tablet 5 mg PO DAILY PRN Pain 09/21/23 11/24/23 furosemide 40 mg tablet 60 mg PO Q2D PRN DIRECTED 11/23/23 11/24/23 insulin aspart U-100 100 unit/mL 10 unit subcut TID 11/23/23 11/24/23 (3 mL) subcutaneous pen (Novolog FlexPen U-100 Insulin aspart) insulin glargine U-300 conc 300 44 unit subcut QAM 11/23/23 11/24/23 unit/mL (3 mL) subcutaneous pen (Toujeo Max U-300 SoloStar) tramadol 50 mg tablet 50 mg PO Q6H PRN pain 11/24/23 11/24/23 Previous Rx's Medication Instructions Recorded pen needle, diabetic 32 gauge x #400 ea 08/12/22 1" (BD Ultra-Fine Micro Pen Needle) lorazepam 1 mg tablet 1 mg PO DAILY PRN anxiety #2 tabs 01/05/23 metoprolol succinate 100 mg 100 mg PO HS #90 tabs 07/20/23 tablet,extended release 24 hr mirabegron 50 mg tablet,extended 50 mg PO DAILY #90 tabs 09/12/23 release 24 hr (Myrbetriq) trazodone 50 mg tablet See Rx Instructions PO .COMPLEX 10/17/23 PRN insomnia #30 tabs apixaban 5 mg tablet (Eliquis) 5 mg PO BID #180 tabs 08/30/24 atorvastatin 10 mg tablet (Lipitor) 10 mg PO Q OTHER DAY #90 tabs 10/20/23 diltiazem HCl 120 mg capsule,24 120 mg PO DAILY #90 caps 10/20/23 hr,extended release losartan 100 mg tablet 100 mg PO QAM #90 tabs 10/20/23 Results & Data (ED) Vital Signs Vital Signs - 24 hr 11/24/23 18:43 11/24/23 20:17 11/24/23 22:23 Temperature 36.6 C 37.1 C Temperature Source Temporal Artery Scan Oral Pulse Rate 71 Pulse Rate [Apical] 62 59 L Pulse Rate from SpO2 Sensor Respiratory Rate 19 19 16 Respiratory Effort / Characteristics Non-Labored Spontaneous Non-Labored Spontaneous Respiratory Depth Normal Normal Respiratory Pattern Regular Regular Blood Pressure 171/67 H Blood Pressure [Left Arm] 197/84 H 179/83 H Blood Pressure Mean 101 Blood Pressure Mean [Left Arm] 121 115 Blood Pressure Position [Left Arm] Semi-fowlers Semi-fowlers Pulse Oximetry 94 98 98 Oxygen Delivery Method Room Air Room Air Room Air Sepsis Recent Fever Within 48 Hours No Sepsis New/Unexplained Change in Mental Status N/A Sepsis Action Taken by Nursing No Action Required 11/24/23 23:00 Temperature Temperature Source Pulse Rate 64 Pulse Rate [Apical] Pulse Rate from SpO2 Sensor 62 Respiratory Rate 19 Respiratory Effort / Characteristics Respiratory Depth Respiratory Pattern Blood Pressure 174/100 H Blood Pressure [Left Arm] Blood Pressure Mean 124 Blood Pressure Mean [Left Arm] Blood Pressure Position [Left Arm] Pulse Oximetry 98 Oxygen Delivery Method Room Air Sepsis Recent Fever Within 48 Hours Sepsis New/Unexplained Change in Mental Status Sepsis Action Taken by Nursing Laboratory Data 11/24/23 19:17 11/24/23 22:34 Lab Results 11/24/23 11/24/23 Range/Units 19:17 22:34 WBC 8.13 (4.8-10.8) K/ul RBC 4.14 L (4.20-5.40) M/uL Hgb 12.7 (12.0-16.0) g/dl Hct 38.8 (37.0-47.0) % MCV 93.7 (80.0-100.0) fL MCH 30.7 (25.0-34.0) pg MCHC 32.7 (32.0-36.0) g/dL RDW Std Deviation 46.7 H (36.4-46.3) fL RDW Coeff of Bill 13.6 (11.5-14.5) % Plt Count 225 (130-400) K/uL MPV 10.0 (9.4-12.4) fL Immature Gran % (Auto) 0.2 % Neut % (Auto) 68.5 % Lymph % (Auto) 17.1 % Burnet % (Auto) 11.6 % Eos % (Auto) 2.0 % Baso % (Auto) 0.6 % Neut # (Auto) 5.57 (1.40-6.50) K/uL Lymph # (Auto) 1.39 (1.20-3.40) K/uL Burnet # (Auto) 0.94 H (0.11-0.59) K/uL Eos # (Auto) 0.16 (0.00-0.50) K/uL Baso # (Auto) 0.05 (0.00-0.20) K/uL Immature Gran # (Auto) 0.02 (0.01-0.20) K/uL PT 10.3 (9.0-12.0) Seconds INR 0.9 (0.9-1.1) APTT 28 (21-31) Seconds PTT Ratio 1.0 Sodium 137 139 (136-145) mmol/L Potassium 5.3 H 5.1 (3.5-5.1) mmol/L Chloride 108 H 110 H (98-107) mmol/L Carbon Dioxide 23 22 (21-32) mmol/L Anion Gap 6 7 (3-11) BUN 37 H 37 H (6-23) mg/dl Creatinine 2.51 H D 2.36 H (0.6-1.2) mg/dl Est Cr Clr Drug Dosing 21.4 22.7 ml/min eGFR 18.64 20.07 BUN/Creatinine Ratio 14.7 15.7 (10-20) Glucose 199 H 100 H (70-99(Fasting)) mg/dl Calcium 9.4 9.3 (8.6-10.3) mg/dl Magnesium 2.0 (1.7-2.4) mg/dl Total Bilirubin 0.3 (0.2-1.0) mg/dl AST 17 (13-39) U/L ALT 14 (7-52) U/L Alkaline Phosphatase 98 (34-104) U/L Troponin I High Sens 8.9 (0-14) pg/ml Total Protein 6.9 (6.0-8.3) gm/dl Albumin 4.0 (3.4-5.0) gm/dl Globulin 2.9 (2.5-4.0) gm/dl Albumin/Globulin Ratio 1.4 (0.9-2) Administered Medications Sodium Chloride (Nss) 1,000 mls @ 80 mls/hr IV .[id number] GALO Stop: 11/25/23 14:58 Last Admin: 11/25/23 02:56 Dose: 80 mls/hr Documented By: MÓNICA Discontinued Medications Apixaban (Apixaban 2.5 Mg Tab) 2.5 mg PO ONE ONE Stop: 11/25/23 03:31 Last Admin: 11/25/23 04:00 Dose: 2.5 mg Documented By: HAFSA Sodium Chloride (Nss) 500 mls @ 999 mls/hr IV .Q31M ONE Stop: 11/24/23 22:20 Last Infusion: 11/24/23 23:22 Dose: Infused Documented By: Admin: 11/24/23 22:30 Dose: 999 mls/hr Documented By: ZAK Metoprolol Succinate (Metoprolol Succ 50mg Ext Rel Tab) 100 mg PO NOW STA Stop: 11/25/23 03:18 Last Admin: 11/25/23 04:00 Dose: 100 mg Documented By: HAFSA Discharge Plan Visit Data Chief Complaint: Abnormal Labs/Diagnostic Testing Stated Complaint: ABN TEST RESULTS, POTTASIUM HIGH ED Provider: Chrissy Lehman ED Midlevel Provider: Dora Naranjo Discharge Problem: Acute hyperkalemia, Diarrhea, Acute kidney injury superimposed on chronic kidney disease Patient Disposition: Admitted As Inpatient Condition: Good Discharge Instructions Interventions: ED Discharge Assessment Last Done: 11/25/23 02:29 Discharge Problem: Diarrhea Qualifiers: Diarrhea type: unspecified type Qualified Code(s): R19.7 - Diarrhea, unspecified
[2023-11-24] MEDS: SODIUM CHLORIDE 0.9% 500 ML IV ONE (22:30)
[2023-11-24 23:07] LABS: BUN Creatinine Ratio 15.7 (10-20); Calcium 9.3 mg/dl (8.6-10.3); Creatinine Clr Calc Pharmacy 22.7 ml/min; Potassium 5.1 mmol/L (3.5-5.1)
--- NOTE | 2023-11-24 23:50 | History & Physical Report ---
Date of Service November 24, 2023 Assessment & Plan (1) Hyperkalemia: Plan: Patient with K=5.8 on outpatient labs. Improved 5.3 --> 5.1. -Admit to medical -Hold Losartan -Repeat BMP in AM -NSS at 80mL/hr x 1L (2) Diarrhea: Plan: Patient with ongoing diarrhea since 10/27/23. Stool PCR is NEGATIVE. Etiology unclear. -Consider GI consultation -Gentle IVF and electrolyte correction as needed (3) CKD (chronic kidney disease): Plan: Patient has had decline of her renal function. Possible progression of CKD vs dehydration in setting of ongoing diarrhea -Check Urine Na and Cr for FeNa calculation -Gentle IVF with NSS at 80mL/hr -Avoid nephrotoxic agents -Renal dosing where needed Plan Diabetes - patient is on Toujeo Max 44 units and aspart -Hold home regimen -Lantus 15u BID -ISS -Goal blood sugar 110 - 140 -Check HgbA1C Atrial fibrillation - rate controlled. On anticoagulation for AF -Continue Metoprolol 100mg po qHS -Continue Diltiazem -Continue Apixaban - dose reduced to 2.5mg po BID History of Present Illness Chief Complaint: hyperkalemia Primary Care Provider: Leidy Mckeon MD Sarah Freed is a pleasant 83yo female with history of atrial fibrillation on Eliquis anticoagulation, HTN, GERD and HLP presenting at the request of her PCP for hyperkalemia. Patient reports having diarrhea ongoing since 10/27/23. She has multiple daily episodes of watery and soft stools, often over 5x daily. She reports that the diarrhea "runs out of her". She has nocturnal symptoms and frequent incontinence. Her diarrhea is not associated with meals or PO intake, not associated with any medication use. She denies any formed stool since 10/27/23. Patient lives alone. No recent travel. No sick contacts. No undercooked or contaminated food intake to her knowledge. No report of melena or hematochezia. No abdominal pain, cramping or bloating. No fevers or chills. No nausea, vomiting. Patient reports she is eating well. Patient had a colonoscopy 03/02/23 with some polyps extracted. Also told that she has internal hemorrhoids. Patient was seen by her PCP and was sent for blood work. She was contacted later and told to come to the ER due to hyperkalemia. K=5.8 in outpatient labs, 5.3 on arrival --> 5.1 In the ER she is afebrile, HD stable ER Course: NSS Allergies Allergy/AdvReac Type Severity Reaction Status Date / Time No Known Allergies Allergy Unknown Verified 11/24/23 13:49 Home Medications Medication Instructions Recorded Confirmed Type cholecalciferol (vitamin D3) 125 5,000 unit PO QAM 02/21/18 11/24/23 History mcg (5,000 unit) tablet (Vitamin D3) multivitamin 1 tab PO QAM 02/21/18 11/24/23 History cranberry extract 500 mg capsule 500 mg PO QAM 12/11/18 11/24/23 History acetaminophen 500 mg tablet 1,000 mg PO Q8 PRN Pain 04/01/20 11/24/23 History travoprost 0.004 % eye drops 1 drp ophthalmic (eye) HS 04/01/20 11/24/23 History (Travatan Z) pen needle, diabetic 32 gauge x #400 ea 08/12/22 11/24/23 Rx 1/4" (BD Ultra-Fine Micro Pen Needle) lorazepam 1 mg tablet 1 mg PO DAILY PRN anxiety #2 tabs 01/05/23 11/24/23 Rx flash glucose scanning reader 01/26/23 11/24/23 History (FreeStyle Octavia [address] [place]) metoprolol succinate 100 mg 100 mg PO HS #90 tabs 07/20/23 11/24/23 Rx tablet,extended release 24 hr mirabegron 50 mg tablet,extended 50 mg PO DAILY #90 tabs 09/12/23 11/24/23 Rx release 24 hr (Myrbetriq) oxycodone 5 mg tablet 5 mg PO DAILY PRN Pain 09/21/23 11/24/23 History trazodone 50 mg tablet See Rx Instructions PO .COMPLEX 10/17/23 11/24/23 Rx PRN insomnia #30 tabs apixaban 5 mg tablet (Eliquis) 5 mg PO BID #180 tabs 10/20/23 11/24/23 Rx atorvastatin 10 mg tablet (Lipitor) 10 mg PO Q OTHER DAY #90 tabs 10/20/23 11/24/23 Rx diltiazem HCl 120 mg capsule,24 120 mg PO DAILY #90 caps 10/20/23 11/24/23 Rx hr,extended release losartan 100 mg tablet 100 mg PO QAM #90 tabs 10/20/23 11/24/23 Rx furosemide 40 mg tablet 60 mg PO Q2D PRN DIRECTED 11/23/23 11/24/23 History insulin aspart U-100 100 unit/mL 10 unit subcut TID 11/23/23 11/24/23 History (3 mL) subcutaneous pen (Novolog FlexPen U-100 Insulin aspart) insulin glargine U-300 conc 300 44 unit subcut QAM 11/23/23 11/24/23 History unit/mL (3 mL) subcutaneous pen (Toujeo Max U-300 SoloStar) tramadol 50 mg tablet 50 mg PO Q6H PRN pain 11/24/23 11/24/23 History Past Med/Surg History Problem List (Updated 11/25/23 @ 03:44 by Winnei Kidd DO) CKD (chronic kidney disease) Hyperkalemia Diarrhea Left wrist pain Rectal bleeding Cough MANNY (acute kidney injury) (Acute) Musculoskeletal pain of left thigh Urge incontinence Urinary incontinence in female Loss of protective sensation of skin of foot Diabetic peripheral neuropathy associated with type 2 diabetes mellitus Musculoskeletal thigh pain Chronic heart failure with preserved ejection fraction (HFpEF) Bradycardia Lumbar facet arthropathy Urinary incontinence Postmenopausal hormone replacement therapy Spinal stenosis of lumbar region with radiculopathy Essential (primary) hypertension PAF (paroxysmal atrial fibrillation) Bilateral lower extremity edema Type 2 DM with CKD stage 3 and hypertension Morbid obesity with BMI of 45.0-49.9, adult Right-sided heart failure Diabetes mellitus, type 2 IDDM Diabetic nephropathy Hyperlipidemia (Chronic) 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 Gar > no pacer > med controlled GILL (dyspnea on exertion) on occasion, pt feels just related to weight, not lung issue GERD (gastroesophageal reflux disease) Nephrolithiasis Right shoulder pain Spondylisthesis LUMBAR REGION Sacroiliitis Osteoporosis Surgical History History of ERCP History of arthroscopy of left knee S/P epidural steroid injection HX Hx of hand surgery RIGHT> LIGAMENT REPAIR History of appendectomy History of tooth extraction History of esophagogastroduodenoscopy (EGD) History of colonoscopy History of eye surgery X 4 TO RIGHT EYE History of cataract surgery right History of foot surgery RT History of total knee replacement bilat History of total abdominal hysterectomy and bilateral salpingo-oophorectomy Family History Father Diabetes Myocardial infarction Brother Diabetes Sister Diabetes Family history of melanoma Mother Cancer of the neck Denies family history of Ovarian cancer Prostate cancer Breast cancer Colorectal cancer Social History Smoking Status: Never smoker Second Hand Exposure: No; Do You Dip or Chew Tobacco: No; Hx Alcohol Use: Yes Alcohol type: hard liquor Alcohol Intake Frequency: Monthly or Less Hx Substance Use: No Preferred Language: Icelandic Communication Ability: Effective Visual Impairment: Limited Hearing Ability: Normal Change Management Director Required: No Beliefs That Will Affect Care: None marital status: / Current Living Situation: Alone current occupational status: retired How many Children do You have: 2 Feels Safe at Home: Yes Childhood Exposure to Second-Hand Smoke: Yes Diet: regular caffeine: Yes during the past year weight has: remained stable Dental Care, Regularly: Yes Physical Activity Frequency: 1-2 Times per Week Seatbelt Use: always Sunscreen Use: Yes Do you think of yourself as: straight/heterosexual Gender Identity: Female Assistive Devices: Cane, Denture - Upper, Glasses and Walker Review of Systems Review of Systems: All systems reviewed & are unremarkable except as noted in HPI & below Physical Exam Physical Exam: General: patient resting comfortably, NAD, non-toxic in appearance, AA&O x 4 Skin: warm, dry, intact, no rashes or lesions HEENT: NC/AT, PERRL, EOMI, anicteric sclera, conjunctiva without injection, external ear normal to inspection and nontender, nares patent, moist mucus membranes, dentition intact, no oropharyngeal lesions, neck supple, trachea midline, no LAD, no thyromegaly, no JVD Heart: +S1/S2, irregularly irregular, no m/r/g Lungs: equal air entry bilaterally, no rales/rhonchi/wheezes Abd: +BS, soft, NT/ND, no masses/organomegaly/ascites Ext: warm, 2+ pulses in UE/LE bilaterally, no clubbing/cyanosis or edema Neuro: nonfocal, patient AA&O x 4, speech intact, no facial droop, moving all extremities on command with equal strength 5/5 Results & Data Results & Data Vital Signs (Past 12 Hours) Vital Signs Temp Pulse Pulse Resp BP BP Pulse Ox 11/24/23 23:00 64 19 174/100 H 98 11/24/23 22:23 59 L 16 179/83 H 98 11/24/23 20:17 37.1 C 62 19 197/84 H 98 11/24/23 18:43 36.6 C 71 19 171/67 H 94 O2 Del Method 11/24/23 23:00 Room Air 11/24/23 22:23 Room Air 11/24/23 20:17 Room Air 11/24/23 18:43 Room Air Laboratory Results Laboratory Results WBC 8.13 K/ul (4.8-10.8) 11/24/23 19:17 RBC 4.14 M/uL (4.20-5.40) L 11/24/23 19:17 Hgb 12.7 g/dl (12.0-16.0) 11/24/23 19:17 Hct 38.8 % (37.0-47.0) 11/24/23 19:17 MCV 93.7 fL (80.0-100.0) 11/24/23 19:17 MCH 30.7 pg (25.0-34.0) 11/24/23 19:17 MCHC 32.7 g/dL (32.0-36.0) 11/24/23 19:17 RDW Std Deviation 46.7 fL (36.4-46.3) H 11/24/23 19:17 RDW Coeff of Bill 13.6 % (11.5-14.5) 11/24/23 19:17 Plt Count 225 K/uL (130-400) 11/24/23 19:17 MPV 10.0 fL (9.4-12.4) 11/24/23 19:17 Immature Gran % (Auto) 0.2 % 11/24/23 19:17 Neut % (Auto) 68.5 % 11/24/23 19:17 Lymph % (Auto) 17.1 % 11/24/23 19:17 Wake % (Auto) 11.6 % 11/24/23 19:17 Eos % (Auto) 2.0 % 11/24/23 19:17 Baso % (Auto) 0.6 % 11/24/23 19:17 Neut # (Auto) 5.57 K/uL (1.40-6.50) 11/24/23 19:17 Lymph # (Auto) 1.39 K/uL (1.20-3.40) 11/24/23 19:17 Wake # (Auto) 0.94 K/uL (0.11-0.59) H 11/24/23 19:17 Eos # (Auto) 0.16 K/uL (0.00-0.50) 11/24/23 19:17 Baso # (Auto) 0.05 K/uL (0.00-0.20) 11/24/23 19:17 Immature Gran # (Auto) 0.02 K/uL (0.01-0.20) 11/24/23 19:17 PT 10.3 Seconds (9.0-12.0) 11/24/23 19:17 INR 0.9 (0.9-1.1) 11/24/23 19:17 APTT 28 Seconds (21-31) 11/24/23 19:17 PTT Ratio 1.0 11/24/23 19:17 Sodium 139 mmol/L (136-145) 11/24/23 22:34 Potassium 5.1 mmol/L (3.5-5.1) 11/24/23 22:34 Chloride 110 mmol/L (98-107) H 11/24/23 22:34 Carbon Dioxide 22 mmol/L (21-32) 11/24/23 22:34 Anion Gap 7 (3-11) 11/24/23 22:34 BUN 37 mg/dl (6-23) H 11/24/23 22:34 Creatinine 2.36 mg/dl (0.6-1.2) H 11/24/23 22:34 Est Cr Clr Drug Dosing 22.7 ml/min 11/24/23 22:34 eGFR 20.07 11/24/23 22:34 BUN/Creatinine Ratio 15.7 (10-20) 11/24/23 22:34 Glucose 100 mg/dl (70-99(Fasting)) H 11/24/23 22:34 Calcium 9.3 mg/dl (8.6-10.3) 11/24/23 22:34 Magnesium 2.0 mg/dl (1.7-2.4) 11/24/23 19:17 Total Bilirubin 0.3 mg/dl (0.2-1.0) 11/24/23 19:17 AST 17 U/L (13-39) 11/24/23 19:17 ALT 14 U/L (7-52) 11/24/23 19:17 Alkaline Phosphatase 98 U/L (34-104) 11/24/23 19:17 Troponin I High Sens 8.9 pg/ml (0-14) 11/24/23 19:17 Total Protein 6.9 gm/dl (6.0-8.3) 11/24/23 19:17 Albumin 4.0 gm/dl (3.4-5.0) 11/24/23 19:17 Globulin 2.9 gm/dl (2.5-4.0) 11/24/23 19:17 Albumin/Globulin Ratio 1.4 (0.9-2) 11/24/23 19:[address] of the Abdomen obtained - Read PENDING PG Care Time/CCT Total # of Minutes Spent Total Time Spent with Patient: Total time spent is greater than 50% in coordination of care (as documented) at patient's floor/unit and/or counseling patient: Coding Level of Care Code 16995 INT INP/OBS CARE 3/75MIN Diagnoses Hyperkalemia E87.5 Diarrhea R19.7 CKD (chronic kidney disease) N18.9
[2023-11-25] MEDS ORDERED: LORazepam 1 MG TAB PO PRN (02:29)
[2023-11-25] MEDS ORDERED: GLUCOSE 10 TAB/TUBE PO PRN (02:29)
[2023-11-25] MEDS ORDERED: traMADol HCL 50 MG TABLET PO PRN (02:29)
[2023-11-25] MEDS ORDERED: traZODone HCL 50 MG TAB PO PRN (02:29)
[2023-11-25] MEDS ORDERED: DEXTROSE 50% 50 ML SYRINGE IV PRN (02:29)
[2023-11-25] MEDS ORDERED: PHARMACY GLYCEMIC MGMT CONSULT PRN (02:29)
[2023-11-25] MEDS ORDERED: oxyCODONE HCL IR 5 MG TAB (IMMEDIATE RELEASE) PO PRN (02:29)
[2023-11-25] MEDS ORDERED: ACETAMINOPHEN 500 MG TAB PO PRN (02:29)
[2023-11-25] MEDS ORDERED: CARBOHYDRATES FOR HYPOGLYCEMIA PO PRN (02:29)
[2023-11-25] MEDS ORDERED: GLUCAGON FOR INJ 1 MG VIAL SQ PRN (02:29)
[2023-11-25] MEDS ORDERED: GLUCOSE 40% GEL 15 GM TUBE PO PRN (02:29)
[2023-11-25] MEDS: SODIUM CHLORIDE 0.9% 1,000 ML IV SCH (02:56)
[2023-11-25] MEDS: APIXABAN 2.5 MG TAB PO ONE (04:00)
[2023-11-25] MEDS: METOPROLOL SUCC 50MG EXT REL TAB PO STA (04:00)
[2023-11-25 05:46] LABS: Hematocrit (blood only) 35.9 % (37.0-47.0); Hemoglobin 11.7 g/dl (12.0-16.0); Mean Corpuscular Hemoglobin 30.1 pg (25.0-34.0); Mean Corpuscular Hgb Conc 32.6 g/dL (32.0-36.0); Mean Corpuscular Volume 92.3 fL (80.0-100.0); Mean Platelet Volume 10.1 fL (9.4-12.4); Platelet Count 199 K/uL (130-400); RDW Coefficient of Variation 13.7 % (11.5-14.5); RDW Standard Deviation 46.7 fL (36.4-46.3); Red Blood Count 3.89 M/uL (4.20-5.40); White Blood Count 8.04 K/ul (4.8-10.8)
[2023-11-25 06:00] LABS: BUN Creatinine Ratio 16.3 (10-20); Creatinine Clr Calc Pharmacy 26.6 ml/min
[2023-11-25 06:03] LABS: Appearance Urine Cloudy (Clear); Bacteria Urine Automated None Seen (None Seen); Bilirubin Urine Negative (Negative); Blood Urine Negative (Negative); Cast Urine Automated 0-2 /lpf (0-2); Color Urine Yellow; Glucose Urine UA Negative (Negative); Ketones Urine Negative (Negative); Leukocyte Esterase Urine Negative (Negative); Nitrite Urine Negative (Negative); Protein Urine 1+ (Negative); RBC Urine Automated 0-2 /hpf (0-2); Specific Gravity Urine 1.014 (1.000-1.030); Urobilinogen Urine Negative (Negative); WBC Urine Automated 0-5 /hpf (0-5); pH Urine 5.5 (4.5-7.5)
--- NOTE | 2023-11-25 06:03 | CT Scan Report ---
Exam(s): CT ABDOMEN + PELVIS Without Contrast EXAM: CT Abdomen and Pelvis Without Intravenous Contrast CLINICAL HISTORY: Reason for exam: Diarrhea, abdominal pain. TECHNIQUE: Axial computed tomography images of the abdomen and pelvis without intravenous contrast. CTDI is 28.14 mGy and DLP is 1394.82 mGy-cm. Automated exposure control was utilized for the study. A dose lowering technique was utilized adhering to the principles of ALARA. COMPARISON: No relevant prior studies available. FINDINGS: Limitations: Study is limited without the use of IV and oral contrast. Lung bases: Unremarkable. No mass. No consolidation. ABDOMEN: Liver: Unremarkable. Gallbladder and bile ducts: Unremarkable. No calcified stones. No ductal dilation. Pancreas: Unremarkable. No ductal dilation. Spleen: Unremarkable. No splenomegaly. Adrenals: Unremarkable. No mass. Kidneys and ureters: Unremarkable. No obstructing stones. No hydronephrosis. Stomach and bowel: There is some thickening at the gastroesophageal junction. There is extensive diverticulosis. No obstruction. PELVIS: Appendix: No findings to suggest acute appendicitis. Bladder: There is some urinary bladder distention. No stones. Reproductive: Unremarkable as visualized. ABDOMEN and PELVIS: Intraperitoneal space: There are postsurgical changes within the pelvis. No free air. No significant fluid collection. Bones/joints: Moderate to severe degeneration to the osseous structures. No acute fracture. No dislocation. Soft tissues: Unremarkable. Vasculature: There is extensive calcific atherosclerotic vascular disease. No abdominal aortic aneurysm. Lymph nodes: Unremarkable. No enlarged lymph nodes. IMPRESSION: There is some urinary bladder distention. Limited, chronic change. Electronically signed by: Steve Mathews MD 11/25/23 06:02 AM
[2023-11-25 06:20] LABS: Creatinine Urine Random 93.3 mg/dl
[2023-11-25 07:14] LABS: Estimated Average Glucose 171 mg/dl; Hemoglobin A1C 7.6 % (4.5-5.6)
[2023-11-25] MEDS: dilTIAZem HCL 120 MG CAPCR PO SCH (08:10)
[2023-11-25] MEDS: ATORVASTATIN 10 MG TAB PO SCH (08:10)
[2023-11-25] MEDS: APIXABAN 2.5 MG TAB PO SCH (08:10)
--- NOTE | 2023-11-25 08:16 | XRay Report ---
XR chest 1V not portable CLINICAL HISTORY: Chest pain, nonspecific COMPARISON STUDY: Chest radiograph June 02, 2023 FINDINGS: Lung volumes are normal. Lungs are clear. There is no pneumothorax or pleural effusion. Car diac size is normal. Mediastinal contours are normal. There is no evidence for pulmonary edema. IMPRESSION: No acute cardiopulmonary findings. ACT 112: Negative or not required by law. Electronically signed by: Deandre Villatoro M.D. 11/25/2023 8:14 AM
[2023-11-25] MEDS: INSULIN ASPART PER UNIT CHARGE SC SCH (09:56)
[2023-11-25] MEDS: LANTUS PER UNIT CHARGE SQ SCH (09:56)
--- NOTE | 2023-11-25 10:48 | Electrocardiogram Report ---
Test Reason : Blood Pressure : */* mmHG Vent. Rate : 61 BPM Atrial Rate : 61 BPM P-R Int : 152 ms QRS Dur : 122 ms QT Int : 408 ms P-R-T Axes : 89 -25 -4 degrees QTcB Int : 410 ms Normal sinus rhythm Left ventricular hypertrophy with QRS widening ( R in aVL , Juan Antonio product ) Nonspecific ST abnormality Abnormal ECG When compared with ECG of 24-Nov-2023 19:15, (unconfirmed) Criteria for Inferior infarct are no longer Present Confirmed by Kyree Zaldivar ([id number]) on 11/25/2023 10:48:24 AM Referred By: Randy Rocha Confirmed By: Kyree Zaldivar
--- NOTE | 2023-11-25 10:56 | Electrocardiogram Report ---
Test Reason : Blood Pressure : */* mmHG Vent. Rate : 64 BPM Atrial Rate : 64 BPM P-R Int : 84 ms QRS Dur : 138 ms QT Int : 396 ms P-R-T Axes : * -11 -14 degrees QTcB Int : 408 ms Sinus rhythm Left ventricular hypertrophy with QRS widening ( R in aVL , Lentner product ) Inferior infarct , age undetermined Abnormal ECG When compared with ECG of 03-Jan-2023 00:17, Inferior infarct is now Present Confirmed by Kyree Zaldivar ([id number]) on 11/25/2023 10:56:24 AM Referred By: Randy Rocha Confirmed By: Kyree Zaldivar
--- NOTE | 2023-11-25 11:53 | Hospitalist Progress Note ---
Date of Service November 25, 2023 Assessment & Plan (1) Hyperkalemia: (2) Diarrhea: (3) CKD (chronic kidney disease): Plan ## Hyperkalemia - K+ 5.8 in outpatient labs and 5.3 in ED. Am labs now at 5 - Suspect that hyperkalemia may be secondary to Spironolactone since it is a potassium-sparing diuretic, given improvement in potassium levels since holding it. - Continue to hold Spironolactone and ARB - Continue mIVF - Monitor am labs ## Acute on Chronic Kidney Disease - Baseline Cr is 1.2-1.6 - Follows w/ outpatient nephrology - Suspect re-renal etiology given prolonged diarrhea and diuretic use - Some improvement w/ IVF administration (2.36 --> 2.02) - Continue to hold diuretics - Diarrhea management as below - Continue mIVF ## Diarrhea - Ongoing since 10/27/23 w/ around 5 episodes of non-bloody diarrhea per day - Stool studies in ED negative for infectious cause, including C diff - CTAP w/o IV or PO contrast w/ some bladder distension, diverticulosis w/o diverticulitis - Not related to food - Will likely need outpatient follow up with PCP and GI - Manage symptomatically for now to prevent exacerbation of MANNY - Added Metamucil and Loperamide prn - May consider repeat CTAP w/ contrast for better assessment ## Diabetes -Patient is on Toujeo Max 44 units and aspart -Hgb A1c 7.6% (11/25/23) -Hold home regimen -Lantus 15u BID -SSI ## Atrial fibrillation -Rate controlled -Eliquis for anticoagulation; dose reduced to 2.5 mg bid due to age and kidney function -Continue Metoprolol 100mg po qHS -Continue Diltiazem Admission and Anticipated Discharge Date Admission Date: November 24, 2023 Supervising Physician Co-Signing Physician Notes ATTESTATION I also saw the patient and confirmed read portions of the history and exam. I agree with the impression and plan in the resident documentation, and as summarized below. Upon my exam with resident, she remains in the ED pending room on the floor. She has not had a loose stool movement since admission, which is about as long as she has gone since onset of the loose stool. EXAM 171/77, 62, 17, afebrile Alert and oriented. NAD. CV regular Respirations non labored DATA Labs HgB 11.7 Sodium 139, potassium 5.0, BUN 33, Cr 2.02 A1c = 7.[address] Abd and pelvis unremarkable. CXR NAD. IMPRESSION & PLAN Hyperkalemia Diarrhea x three weeks ARF with history of CKD, stage 3 Type 2 DM with CJD Stage 3 Atrial fib on chronic AC Hold potassium sparring medications and ARB Trend BMP Gentle IVF Usual enteric pathogens negative, although seems to be improved at moment Symptomatic treatment and monitor Consider inpatient GI consultation if worsens given her baseline renal status Additional per resident documentation Subjective Patient evaluated at bedside and found to be AAOx3, afebrile, comfortable, and in NAD. She states she has not had a true episode of diarrhea since yesterday at 5 pm but this morning had a bm that was not very well formed but better than her other diarrheal stools that are more liquid. No new symptoms or concerns. Review of Systems Review of Systems: As per HPI. Physical Exam Physical Exam: General: patient resting comfortably, NAD, non-toxic in appearance, AA&O x 4 Skin: warm, dry, intact, no rashes or lesions Heart: +S1/S2, irregularly irregular, no m/r/g Lungs: equal air entry bilaterally, no rales/rhonchi/wheezes Abd: soft, NT/ND, no masses/organomegaly/ascites Ext: warm, 2+ pulses in UE/LE bilaterally, no clubbing/cyanosis or edema Neuro: nonfocal, patient AA&O x 4, speech intact, no facial droop, moving all extremities on command with equal strength 5/5 Results & Data Results & Data Vital Signs (Past 12 Hours) Vital Signs Pulse Resp BP Pulse Ox O2 Del Method 11/25/23 07:22 61 11/25/23 07:01 63 18 164/73 H 97 Room Air 11/25/23 05:00 61 19 182/86 H 96 11/25/23 04:33 60 18 186/124 H 96 11/25/23 04:00 91 H 15 194/77 H 97 11/25/23 03:30 64 17 185/90 H 96 11/25/23 03:30 185/90 H 11/25/23 03:00 64 18 195/92 H 96 Room Air 11/25/23 02:57 71 20 204/76 H 97 11/25/23 02:24 71 11/25/23 02:03 76 17 160/90 H 97 Room Air 11/25/23 01:00 65 18 191/94 H 95 Room Air 11/25/23 00:00 62 18 177/89 H 96 Room Air Resident Activity Tracking Resident Involvement: Resident Care Provided Care Provided: Adult [facility] Medicine
--- NOTE | 2023-11-25 15:52 | Pharmacy Report ---
Pharmacy Glycemic Short Note 2 - Date of Service November 25, 2023 - Glycemic Short BSG Results (Last 24 hours): 11/24/23 11/24/23 11/25/23 19:17 22:34 05:12 Glucose 199 H 100 H 153 H OUTPATIENT ANTIDIABETIC REGIMEN: * Novolog 10 units SC TID with meals * Lantus 44 units SC QAM HbA1c = 7.6% on 11/25/23 ASSESSMENT: * 83 y/o F admitted for hyperkalemia and acute on chronic kidney disease. Patient has history of Type 2 diabetes managed on basal and bolus insulins at home. * Fasting BSG today was 122 mg/dl. Basal insulin 15 units ordered today AM based on stress between 1 and 2. Scale ordered for HS. * Novolog parameters were started yesterday based on stress of 2. Pre-lunch BSG trended down to 118 mg/dl. Parameters loosened for dinner time. PLAN FOR INPATIENT GLYCEMIC CONTROL: * Basal insulin * Lantus 15 units SQ given this AM. * Lantus 5/10/15 units scale SQ BID ordered based on BSG. * Bolus insulin * NovoLog per scale ACHS or Q6hrs while NPO * Goal Range: Low 110 mg/dL - High 140 mg/dL * Correction Factor: 30 mg/dL/unit * Nutritional / Prandial insulin per carb ratio of 1 unit per 10 grams CHO consumed
[2023-11-25] MEDS: METOPROLOL SUCC 50MG EXT REL TAB PO SCH (20:36)
[2023-11-25] MEDS: LANTUS PER UNIT CHARGE SC SCH (21:55)
[2023-11-25] MEDS: LOPERAMIDE HCL 2 MG CAP PO PRN (21:56)
[2023-11-25] MEDS: TRAVOPROST Z 0.004% OPH SOLN 2.5 ML BTL OP SCH (22:39)
[2023-11-26 07:40] LABS: BUN Creatinine Ratio 16.8 (10-20); Calcium 9.1 mg/dl (8.6-10.3); Potassium 5.2 mmol/L (3.5-5.1)
[2023-11-26] MEDS: SODIUM CHLORIDE 0.9% 1,000 ML IV ONE (08:44)
[2023-11-26] MEDS: PSYLLIUM or GUAR GUM FIBER 4GM PACKET PO SCH (09:15)
[2023-11-26] MEDS: SODIUM CHLORIDE 0.9% 1,000 ML IV SCH (10:43)
--- NOTE | 2023-11-26 17:57 | Hospitalist Progress Note ---
Date of Service November 26, 2023 Assessment & Plan (1) Hyperkalemia: (2) Diarrhea: (3) CKD (chronic kidney disease): Plan ## Hyperkalemia - K+ 5.8 in outpatient labs and 5.3 in ED. Am labs now at 5 - Suspect that hyperkalemia may be secondary to Spironolactone and MANNY plus diarrhea - Continue to hold Spironolactone and ARB - Continue mIVF today. K in repeat BMP 5.1 - Monitor am labs ## Acute on Chronic Kidney Disease - Baseline Cr is 1.2-1.6 - Follows w/ outpatient nephrology - Suspect pre-renal etiology given prolonged diarrhea and diuretic use. - Some improvement w/ IVF administration 1.79 in am labs, however, with increase in diarrhea frequency concern for worsening from continued fluid loss (probable cause of increase in Cr to 1.88 in afternoon BMP given increase in diarrhea frequency) - Continue to hold diuretics - Diarrhea management as below ## Diarrhea - Ongoing since 10/27/23 w/ around 5 episodes of non-bloody diarrhea per day - Stool studies in ED negative for infectious cause, including C diff - CTAP w/o IV or PO contrast w/ some bladder distension, diverticulosis w/o diverticulitis - Not related to food - Will likely need outpatient follow up with PCP and GI - Manage symptomatically for now to prevent exacerbation of MANNY - Continue Loperamide prn. Stop Metamucil - May consider repeat CTAP w/ contrast for better assessment once MANNY improves ## Diabetes -Patient is on Toujeo Max 44 units and aspart -Hgb A1c 7.6% (11/25/23) -Hold home regimen -Lantus 15u BID -SSI ## Atrial fibrillation -Rate controlled -Eliquis for anticoagulation; dose reduced to 2.5 mg bid due to age and kidney function -Continue Metoprolol 100mg po qHS -Continue Diltiazem Admission and Anticipated Discharge Date Admission Date: November 24, 2023 Supervising Physician Co-Signing Physician Notes ATTESTATION I also saw the patient and confirmed read portions of the history and exam. I agree with the impression and plan in the resident documentation, and as summarized below. Feeling a little better in the AM with less bowel movements, but increased again this PM. EXAM 154/73, 53, 16 Alert and oriented. NAD. CV regular Respirations non labored DATA Labs HgB 11.7 Sodium 140, potassium 5.2, BUN 30, Cr 1.79 A1c = 7.[address] Abd and pelvis unremarkable. CXR NAD. 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 Stable and in NAD. Refers increase in frequency of watery stools and has gone every few hours. No fevers or chills. Review of Systems Review of Systems: As per HPI. Physical Exam Physical Exam: General: patient resting comfortably, NAD, non-toxic in appearance, AA&O x 4 Skin: warm, dry, intact, no rashes or lesions Heart: +S1/S2, irregularly irregular, no m/r/g Lungs: equal air entry bilaterally, no rales/rhonchi/wheezes Abd: soft, NT/ND, no masses/organomegaly/ascites Ext: warm, 2+ pulses in UE/LE bilaterally, no clubbing/cyanosis or edema Neuro: nonfocal, patient AA&O x 4, speech intact, no facial droop, moving all extremities on command with equal strength 5/5 Results & Data Results & Data Vital Signs (Past 12 Hours) Vital Signs Temp Pulse Resp BP BP Pulse Ox O2 Del Method 11/26/23 15:23 36.8 C 53 L 16 154/73 H 98 Room Air 11/26/23 09:14 56 L 128/68 11/26/23 08:07 54 L 144/79 H 11/26/23 07:23 36.6 C 55 L 16 176/98 H 96 Room Air Resident Activity Tracking Resident Involvement: Resident Care Provided Care Provided: Adult Hospital Medicine
[2023-11-26 18:33] LABS: Calcium 8.7 mg/dl (8.6-10.3); Creatinine Clr Calc Pharmacy 28.5 ml/min; Potassium 5.1 mmol/L (3.5-5.1)
[2023-11-27 07:41] VITALS: RESP 16; O2SAT 94
[2023-11-27] MEDS: LANTUS PER UNIT CHARGE SC SCH (08:45)
[2023-11-27 08:47] LABS: BUN Creatinine Ratio 15.3 (10-20); Calcium 8.9 mg/dl (8.6-10.3); Creatinine Clr Calc Pharmacy 30.3 ml/min
--- NOTE | 2023-11-27 10:04 | Gastrointestinal Consultation ---
<Statement entered by Angus Olson MD - 11/27/23 16:33> Patient seen and examined. Case discussed with Jesus LEYVA. Patient is feeling improved. Trial of Questran once or twice per day (avoid giving with other medications it may bind) would be advisable. Date of Consultation November 27, 2023 Assessment & Plan (1) Diarrhea: 83 year old female with history of atrial fibrillation on Eliquis anticoagulation, HTN, GERD, T2DM, CKD, right sided heart failure and others b elow admitted w/ MANNY on CKD in the setting of diarrhea. She has had 4+ weeks of nonbloody, loose, watery stools w/ urgency and nocturnal emptying. CTAP without acute findings, stool studies including c.diff testing negative. She was started on a new oral antifungal 1-2 weeks prior to developing loose stools but denies any improvement since stopping the medications. 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 Add Questran once daily May use Imodium as needed Low FODMAPs diet as tolerated Thank you for allowing us to participate in the care of this patient. Please call with any acute changes, questions or concerns. Please see addendum below with additional recommendation from my supervising physician. I spent a total of 60 minutes on the date of service in review of patient's record, and previously obtained information in person and appropriate medical visit, discussion and education of plan, with patient and/or caregiver, placing orders for tests/referral/procedures as medically necessary and documentation of pertinent clinical information in patient's medical records for their visit today. History of Present Illness Reason for Consultation: diarrhea Requesting Physician: Via [employer] from Dr. Gann to Dr. Oslon Attending Physician: Mariusz Romero DO History of Present Illness 83 year old female with history of atrial fibrillation on Eliquis anticoagulation, HTN, GERD, T2DM, CKD, right sided heart failure and others below admitted w/ abnormal labs and diarrhea. Pt was seen and evaluated, chart reviewed. Notes she has had watery loose stools for almost four weeks now. At onset, no nausea/vomiting or fevers. Suggests the only new medication she was started on was an oral antifungal about 5/6 weeks ago. She stopped this about three weeks ago in the event it was causing her diarrhea. However, symptoms never improved. Endorsing 4-6 loose, watery stools daily. Has had some nocturnal BMs as well. Has had a few episodes of incontinence related to sever urgency and no access to a restroom. No black or bloody stools. Denies any sick contacts. No raw fish/meats. No travel. C.diff negative. Stool PCR negative. CTAP without evidence of colitis. Colonoscopy 2023: diverticular disease, hemorrhoids, TVA - recall recommended in 2026 Allergies Allergy/AdvReac Type Severity Reaction Status Date / Time No Known Allergies Allergy Unknown Verified 11/24/23 13:49 Home Medications Medication Instructions Recorded Confirmed Type cholecalciferol (vitamin D3) 125 5,000 unit PO QAM 02/21/18 11/24/23 History mcg (5,000 unit) tablet (Vitamin D3) multivitamin 1 tab PO QAM 02/21/18 11/24/23 History cranberry extract 500 mg capsule 500 mg PO QAM 12/11/18 11/24/23 History acetaminophen 500 mg tablet 1,000 mg PO Q8 PRN Pain 04/01/20 11/24/23 History travoprost 0.004 % eye drops 1 drp ophthalmic (eye) HS 04/01/20 11/24/23 History (Travatan Z) pen needle, diabetic 32 gauge x #400 ea 08/12/22 11/24/23 Rx 1/4" (BD Ultra-Fine Micro Pen Needle) lorazepam 1 mg tablet 1 mg PO DAILY PRN anxiety #2 tabs 01/05/23 11/24/23 Rx flash glucose scanning reader 01/26/23 11/24/23 History (FreeStyle Octavia 2 Malone) metoprolol succinate 100 mg 100 mg PO HS #90 tabs 07/20/23 11/24/23 Rx tablet,extended release 24 hr mirabegron 50 mg tablet,extended 50 mg PO DAILY #90 tabs 09/12/23 11/24/23 Rx release 24 hr (Myrbetriq) oxycodone 5 mg tablet 5 mg PO DAILY PRN Pain 09/21/23 11/24/23 History trazodone 50 mg tablet See Rx Instructions PO .COMPLEX 10/17/23 11/24/23 Rx PRN insomnia #30 tabs apixaban 5 mg tablet (Eliquis) 5 mg PO BID #180 tabs 10/20/23 11/24/23 Rx atorvastatin 10 mg tablet (Lipitor) 10 mg PO Q OTHER DAY #90 tabs 10/20/23 11/24/23 Rx diltiazem HCl 120 mg capsule,24 120 mg PO DAILY #90 caps 10/20/23 11/24/23 Rx hr,extended release losartan 100 mg tablet 100 mg PO QAM #90 tabs 10/20/23 11/24/23 Rx furosemide 40 mg tablet 60 mg PO Q2D PRN DIRECTED 11/23/23 11/24/23 History insulin aspart U-100 100 unit/mL 10 unit subcut TID 11/23/23 11/24/23 History (3 mL) subcutaneous pen (Novolog FlexPen U-100 Insulin aspart) insulin glargine U-300 conc 300 44 unit subcut QAM 11/23/23 11/24/23 History unit/mL (3 mL) subcutaneous pen (Toujeo Max U-300 SoloStar) tramadol 50 mg tablet 50 mg PO Q6H PRN pain 11/24/23 11/24/23 History Patient History Medical History Urge incontinence Diverticular disease Macular hole, 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 Gar > no pacer > med controlled GILL (dyspnea on exertion) on occasion, pt feels just related to weight, not lung issue GERD (gastroesophageal reflux disease) Nephrolithiasis Right shoulder pain Spondylisthesis LUMBAR REGION Sacroiliitis Osteoporosis Surgical History History of ERCP History of arthroscopy of left knee S/P epidural steroid injection HX Hx of hand surgery RIGHT> LIGAMENT REPAIR History of appendectomy History of tooth extraction History of esophagogastroduodenoscopy (EGD) History of colonoscopy History of eye surgery X 4 TO RIGHT EYE History of cataract surgery right History of foot surgery RT History of total knee replacement bilat History of total abdominal hysterectomy and bilateral salpingo-oophorectomy Family History Father Diabetes Myocardial infarction Brother Diabetes Sister Diabetes Family history of melanoma Mother Cancer of the neck Denies family history of Ovarian cancer Prostate cancer Breast cancer Colorectal cancer Social History Smoking Status: Never smoker Second Hand Exposure: No; Do You Dip or Chew Tobacco: No; Hx Alcohol Use: No Hx Substance Use: No Preferred Language: Pashto Communication Ability: Effective Visual Impairment: Limited Hearing Ability: Normal Bull Rider Required: No Beliefs That Will Affect Care: None marital status: / Current Living Situation: Alone current occupational status: retired How many Children do You have: 2 Feels Safe at Home: Yes Childhood Exposure to Second-Hand Smoke: Yes Diet: regular caffeine: Yes during the past year weight has: remained stable Dental Care, Regularly: Yes Physical Activity Frequency: 1-2 Times per Week Seatbelt Use: always Sunscreen Use: Yes Do you think of yourself as: straight/heterosexual Gender Identity: Female Assistive Devices: Cane and Glasses Review of Systems Review of Systems: All other findings negative except as noted in HPI. Physical Exam Constitutional: WD/WN, vitals as above Respiratory: normal respiratory effort, lungs clear to auscultation Cardiovascular: Rate/Rhythm: regular rate and regular rhythm Gastrointestinal (Abdomen): normal bowel sounds, soft, nontender, no hepatosplenomegaly Skin: no rashes, warm and dry Results & Data Vital Signs (Past 12 Hours) Vital Signs Temp Pulse Resp BP Pulse Ox O2 Del Method 11/27/23 07:38 36.7 C 82 16 135/71 94 Room Air Laboratory Results 11/27/23 11/27/23 11/26/23 Range/Units 07:47 07:33 20:04 Sodium 139 (136-145) mmol/L Potassium 5.0 (3.5-5.1) mmol/L Chloride 113 H (98-107) mmol/L Carbon Dioxide 22 (21-32) mmol/L Anion Gap 4 (3-11) BUN 27 H (6-23) mg/dl Creatinine 1.77 H (0.6-1.2) mg/dl Est Cr Clr Drug Dosing 30.3 ml/min eGFR 28.35 BUN/Creatinine Ratio 15.3 (10-20) Glucose 85 (70-99(Fasting)) mg/dl POC Glucose 88 130 H (70-99) mg/dl Calcium 8.9 (8.6-10.3) mg/dl 11/26/23 11/26/23 11/26/23 Range/Units 17:50 16:30 11:39 Sodium 138 (136-145) mmol/L Potassium 5.1 (3.5-5.1) mmol/L Chloride 112 H (98-107) mmol/L Carbon Dioxide 20 L (21-32) mmol/L Anion Gap 6 (3-11) BUN 30 H (6-23) mg/dl Creatinine 1.88 H (0.6-1.2) mg/dl Est Cr Clr Drug Dosing 28.5 ml/min eGFR 26.37 BUN/Creatinine Ratio 16.0 (10-20) Glucose 135 H (70-99(Fasting)) mg/dl POC Glucose 113 H 153 H (70-99) mg/dl Calcium 8.7 (8.6-10.3) mg/dl PG Care Time/CCT Total # of Minutes Spent Total Time Spent with Patient: Total time spent is greater than 50% in coordination of care (as documented) at patient's floor/unit and/or counseling patient: Coding Level of Care Code 78177 INT INP/OBS CARE 2/55MIN Diagnoses Diarrhea R19.7 Diarrhea type: unspecified type (1) Diarrhea Diarrhea type: unspecified type Qualified Code(s): R19.7 - Diarrhea, unspecified
[2023-11-27] MEDS: CHOLESTYRAMINE LIGHT 4 GM PKT PO SCH (11:40)
--- NOTE | 2023-11-27 13:36 | Pharmacy Report ---
Pharmacy Glycemic Short Note 2 - Date of Service November 27, 2023 - Glycemic Short BSG Results (Last 24 hours): 11/26/23 11/26/23 11/26/23 16:30 17:50 20:04 Glucose 135 H POC Glucose 113 H 130 H 11/27/23 11/27/23 11/27/23 07:33 07:47 10:35 Glucose 85 POC Glucose 88 109 H 11/27/23 11:39 Glucose POC Glucose 83 OUTPATIENT ANTIDIABETIC REGIMEN: * Novolog 10 units SC TID with meals * Lantus 44 units SC QAM HbA1c = 7.6% on 11/25/23 ASSESSMENT: 11/26 * A total of 30 units of insulin were given yesterday. 10units were basal and 20 units were bolus insulin. * Fasting BSG today was 88mg/dl. Patient refused basal insulin this morning. Basal insulin changed to a scale (0-5 units) at bedtime only. * Lunch BSG 83mg/dl and the correction factor and CHO ratio were loosened starting with lunch today. 11/24 * 83 y/o F admitted for hyperkalemia and acute on chronic kidney disease. Patient has history of Type 2 diabetes managed on basal and bolus insulins at home. * Fasting BSG today was 122 mg/dl. Basal insulin 15 units ordered today AM based on stress between 1 and 2. Scale ordered for HS. * Novolog parameters were started yesterday based on stress of 2. Pre-lunch BSG trended down to 118 mg/dl. Parameters loosened for dinner time. PLAN FOR INPATIENT GLYCEMIC CONTROL: * Basal insulin * Lantus 0/5 units scale SQ QHS ordered based on BSG. * Bolus insulin * NovoLog per scale ACHS or Q6hrs while NPO * Goal Range: Low 110 mg/dL - High 140 mg/dL * Correction Factor: 35 mg/dL/unit * Nutritional / Prandial insulin per carb ratio of 1 unit per 12 grams CHO consumed
[2023-11-27 14:06] VITALS: BP 149/69; PULSE 60; TEMP 97.7
--- NOTE | 2023-11-27 17:01 | Discharge Summary ---
Date of Service November 27, 2023 Admission HPI Per Admitting Provider Sarah Freed is a pleasant 83yo female with history of atrial fibrillation on Eliquis anticoagulation, HTN, GERD and HLP presenting at the request of her PCP for hyperkalemia. Patient reports having diarrhea ongoing since 10/27/23. She has multiple daily episodes of watery and soft stools, often over 5x daily. She reports that the diarrhea "runs out of her". She has nocturnal symptoms and frequent incontin ence. Her diarrhea is not associated with meals or PO intake, not associated with any medication use. She denies any formed stool since 10/27/23. Patient lives alone. No recent travel. No sick contacts. No undercooked or contaminated food intake to her knowledge. No report of melena or hematochezia. No abdominal pain, cramping or bloating. No fevers or chills. No nausea, vomiting. Patient reports she is eating well. Patient had a colonoscopy 03/02/23 with some polyps extracted. Also told that she has internal hemorrhoids. Patient was seen by her PCP and was sent for blood work. She was contacted later and told to come to the ER due to hyperkalemia. K=5.8 in outpatient labs, 5.3 on arrival --> 5.1 In the ER she is afebrile, HD stable ER Course: NSS Admission Exam Per Admitting Provider General: patient resting comfortably, NAD, non-toxic in appearance, AA&O x 4 Skin: warm, dry, intact, no rashes or lesions HEENT: NC/AT, PERRL, EOMI, anicteric sclera, conjunctiva without injection, external ear normal to inspection and nontender, nares patent, moist mucus membranes, dentition intact, no oropharyngeal lesions, neck supple, trachea midline, no LAD, no thyromegaly, no JVD Heart: +S1/S2, irregularly irregular, no m/r/g Lungs: equal air entry bilaterally, no rales/rhonchi/wheezes Abd: +BS, soft, NT/ND, no masses/organomegaly/ascites Ext: warm, 2+ pulses in UE/LE bilaterally, no clubbing/cyanosis or edema Neuro: nonfocal, patient AA&O x 4, speech intact, no facial droop, moving all extremities on command with equal strength 5/5 Principal Diagnosis Hyperkalemia as a medication adverse effect, Diarrhea Discharge Exam General: patient resting comfortably, NAD, non-toxic in appearance, AA&O x 4 Skin: warm, dry, intact, no rashes or lesions Heart: +S1/S2, irregularly irregular, no m/r/g Lungs: equal air entry bilaterally, no rales/rhonchi/wheezes Abd: soft, NT/ND, no masses/organomegaly/ascites Ext: warm, 2+ pulses in UE/LE bilaterally, no clubbing/cyanosis or edema Neuro: nonfocal, patient AA&O x 4, speech intact, no facial droop, moving all extremities on command with equal strength / Discharge Data Allergies Allergy/AdvReac Type Severity Reaction Status Date / Time No Known Allergies Allergy Unknown Verified 11/24/23 13:49 Consultations 11/24/23 22:22 ED Decision to Admit Stat 11/27/23 10:18 Consult Gastroenterology Routine Ordered Studies 11/24/23 21:50 CT abd pelvis wo con Stat Hospital Course (1) Hyperkalemia: (2) Diarrhea: (3) CKD (chronic kidney disease): Plan ## Hyperkalemia - K+ 5.8 in outpatient labs and 5.3 in ED. Am labs now at 5 - Suspect that hyperkalemia may be secondary to Spironolactone and MANNY plus diarrhea - Continue to hold Spironolactone after discharge - Repeat BMP on 11/29/23; PCP f/u at that date as well ## Acute on Chronic Kidney Disease - Baseline Cr is 1.2-1.6 - Follows w/ outpatient nephrology - Suspect pre-renal etiology given prolonged diarrhea and diuretic use. - Some improvement w/ IVF administration 1.77 in am labs - Continue to hold Spironolactone - Patient encouraged to maintain good PO hydration - Diarrhea management as below in an effort to prevent recurring dehydration that could lead to pre-renal kidney injury ## Diarrhea - Ongoing since 10/27/23 w/ around 5 episodes of non-bloody diarrhea per day as well as some episodes of incontinence - Stool studies in ED negative for infectious cause, including C diff - CTAP w/o IV or PO contrast w/ some bladder distension, diverticulosis w/o diverticulitis - Not related to food - Frequency of diarrhea decreased w/ Loperamide and Cholestyramine added per GI reccs, and last episode was ~12 hours ago - Will discharge today with Cholestyramine and outpatient f/u with PCP ## Diabetes -Patient is on Toujeo Max 44 units and aspart -Hgb A1c 7.6% (11/25/23) -Continue home regimen ## Atrial fibrillation -Rate controlled -Eliquis for anticoagulation; dose reduced to 2.5 mg bid due to age and kidney function -Continue Metoprolol 100mg po qHS -Continue Diltiazem Will discharge home today. Total Time Total Time Spent Total Time Spent (In Minutes): <30 Discharge Plan Discharge Items Patient Disposition: Home - Self-Care Reason For Visit: ELEVATED K Discharge Diagnosis: Diarrhea Condition on Discharge: Good Activity: Per Instructions section Non-emergency contact: Primary Care Provider and Meter Repairer Helper Call non-emergency contact if: your symptoms worsen and your temperature is above 101 Follow-up/Referrals: Leidy Mckeon MD [Primary Care Provider] - 11/29/23 11:30 am Diet: Carb Consistent or DM2 and Heart Healthy Ambulatory Orders: Basic Metabolic Panel (Routine) Timeframe: [id number] Location: Determined by Patient Ordered By: Cherelle Rose Attending Provider Instructions: You were admitted to the hospital due to elevated potassium level and your kidney numbers being elevated. Your potassium levels being slightly elevated may have been related to your chronic kidney disease, for which you are seeing a special procedures nurse for or due to some of the medications you are using (e.g. Spironolactone). After giving you some fluids through your veins and holding the medication that may have been playing a role in your potassium levels being slightly higher, this number corrected by itself. Therefore, we advise that you continue to hold your Spironolactone until you see your primary care provider or your special procedures nurse to try and limit the risk of your potassium levels getting higher again and to limit the risk of getting dehydrated since this medication may make you pee a little more than usual. With regards to your kidney numbers being slightly elevated, we suspect that it may have been due to dehydration that in turn came as a consequence to your diarrhea. Your diarrhea does not seem to be infectious right now since the stool studies we had done while you were in the hospital were all negative, however, a possibility is that your diarrhea came as a consequence of a prior infection that affected your colon in a way that makes reabsorbing water more difficult, making your stool more liquid since water is still mixing up with it. After we gave you some fluids through your veins, this also improved. Therefore, we will discharge you today with recommendations to drink lots of fluids. For your diarrhea, we recommend you start using Cholestyramine (Questran) as was recommended by the gastroenterologists since this may help prevent further episodes of diarrhea, however, please be aware that it may have the opposite effect, meaning that it may work a little too well and lead to constipation. We have placed an order for a lab ([facility]), which we advise you have done this coming Monday (11/29/23) in the configuration manager. We have called to schedule an appointment for you with your primary care doctor (Dr. Mckeon) at 11:30 am. At this appointment, you will be able to discuss your potassium levels with said lab, as well as discuss how you are feeling with regards to your diarrhea and if your medications can be changed or kept as they are. A discharge summary will be sent to your primary care physician to ensure continuity of care. Please bring this discharge summary with you to your next office appointment so that your provider can review it at that time. CONTACT YOUR PRIMARY CARE PROVIDER if you experience any of the following: Worsening of symptoms Fever, chills, or fatigue Difficulty following your treatment plan, or difficulty taking medications CALL 911 OR GO TO THE EMERGENCY DEPARTMENT if you experience any of the following: Sudden, severe abdominal pain or nausea/vomiting Severe chest pain, or chest pain that radiates (moves) to your jaw or arm Sudden, severe shortness of breath or difficulty breathing Thank you for allowing us to participate in your care. Pending Studies at Discharge: No Stand-Alone Forms: My [facility] [employer], Smoking Cessation Medications and DC Order Prescriptions: New cholestyramine-aspartame [Prevalite] 4 gram Powder In Packet 1 ea PO DAILY Qty: 60 0RF Continued lorazepam 1 mg tablet 1 mg PO DAILY PRN (Reason: anxiety) Qty: 2 0RF Rx Instructions: take one tab 30 minutes prior to procedure. metoprolol succinate 100 mg tablet extended release 24 hr 100 mg PO HS Qty: 90 3RF (DME) FreeStyle Octavia 2 [place] Misc See Rx Instructions .Route Rx Instructions: As directed losartan 100 mg tablet 100 mg PO QAM Qty: 90 3RF diltiazem HCl 120 mg capsule,extended release 24 hr 120 mg PO DAILY Qty: 90 3RF Eliquis 5 mg tablet 5 mg PO BID Qty: 180 3RF Hold Instructions: Resume on 01/07/23. atorvastatin [Lipitor] 10 mg tablet 10 mg PO Q OTHER DAY Qty: 90 3RF Rx Instructions: Every other day (DME) pen needle, diabetic [BD Ultra-Fine Micro Pen Needle] 32 gauge x 1/4" needle See Rx Instructions .Route Qty: 400 3RF Rx Instructions: use 4 x daily Myrbetriq 50 mg tablet extended release 24 hr 50 mg PO DAILY Qty: 90 1RF oxycodone 5 mg tablet 5 mg PO DAILY PRN (Reason: Pain) furosemide 40 mg tablet 60 mg PO Q2D PRN (Reason: DIRECTED) insulin aspart U-100 [Novolog FlexPen U-100 Insulin] 100 unit/mL (3 mL) insulin pen 10 unit SUBCUT TID Rx Instructions: plus sliding scale Tdd 32 insulin glargine U-300 conc [Toujeo Max U-300 SoloStar] 300 unit/mL (3 mL) i nsulin pen 44 unit SUBCUT QAM trazodone 50 mg tablet See Rx Instructions PO .COMPLEX PRN (Reason: insomnia) Qty: 30 2RF Rx Instructions: 1 to 2 tabs orally at bedtime; PRN; multivitamin Tablet 1 tab PO QAM cholecalciferol (vitamin D3) [Vitamin D3] 5,000 unit Tablet 5,000 unit PO QAM cranberry extract 500 mg Capsule 500 mg PO QAM travoprost [Travatan Z] 0.004 % Drops 1 drp OPHTHALMIC (EYE) HS acetaminophen 500 mg tablet 1,000 mg PO Q8 PRN (Reason: Pain) tramadol 50 mg tablet 50 mg PO Q6H PRN (Reason: pain) Discharge Orders: Discharge Order (Routine); Ordered 11/27/23 Ordered By: Cherelle Davenport/Other Patient Handouts: Managing Type 2 Diabetes Admission Data Admit Date/Time: 11/27/23 09:54 Attending Provider: Mariusz Romero Admit Provider: Winnie Kidd Primary Care Provider: Leidy Mckeon Other Providers: Winnie Kidd; Angus Olson Other Interventions: Discharge Summary Assessment (RN) Last Done: 11/27/23 17:34 Supervising Physician Co-Signing Physician Notes I personally examined the patient and verified all read points of history and exam, discussed case, and agree with decision making with Dr Gann feeling better. No bowel movement since 4 AM. Eating well. Would like to go home. Vitals noted, in general she is awake and alert pleasant no distress. HEENT normocephalic atraumatic mucous membranes moist. Breathing unlabored no accessory muscle use good effort. Skin without rashes pallor or icterus. Neuro without focal deficits. 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 Feeling better overall, would like to go home. Appears safe/stable for home. Home on colestyramine, continue to hold spironolactone for now, basic metabolic panel in about 48 hours. PCP and nephrology follow-up as an outpatientanticipate resumption of spironolactone once the current situation has totally resolved. Additional per resident documentation Resident Activity Tracking Resident Involvement: Resident Care Provided Care Provided: Adult Hospital Medicine
--- NOTE | 2023-11-27 19:44 | Billing Data ---
Date of Service November 27, 2023 Coding Level of Care Code 06344 IN/OBS DISCH 30 MIN/LESS
[2023-11-27] MEDS ORDERED: LANTUS PER UNIT CHARGE SC SCH ×2 (21:00)
== END 2023-11-27 17:59 | disposition home or self-care (01) | DRG 641 ==
LOC: EDINP 18:10 → ED 18:10 → SUATTDRO 23:49 → 3N 11-25 02:29

== ENCOUNTER 2024-03-19 21:33 | Observation (INO) ==
[2024-03-19] MEDS: LABETALOL HCL IV 5 MG/ML 20ML IV STA (21:56)
[2024-03-19 22:05] LABS: Basophils # (auto) 0.05 K/uL (0.00-0.20); Basophils % (auto) 0.5 %; Eosinophils % (auto) 3.3 %; Hematocrit (blood only) 44.4 % (37.0-47.0); Hemoglobin 14.8 g/dl (12.0-16.0); Immature Granulocytes # (auto) 0.02 K/uL (0.01-0.20); Immature Granulocytes % (auto) 0.2 %; Lymphocytes # (auto) 1.91 K/uL (1.20-3.40); Mean Corpuscular Hemoglobin 30.9 pg (25.0-34.0); Mean Corpuscular Hgb Conc 33.3 g/dL (32.0-36.0); Mean Corpuscular Volume 92.7 fL (80.0-100.0); Mean Platelet Volume 10.3 fL (9.4-12.4); Monocytes # (auto) 1.09 K/uL (0.11-0.59); Neutrophils # (auto) 5.73 K/uL (1.40-6.50); Platelet Count 259 K/uL (130-400); RDW Coefficient of Variation 13.7 % (11.5-14.5); RDW Standard Deviation 46.5 fL (36.4-46.3); Red Blood Count 4.79 M/uL (4.20-5.40)
[2024-03-19 22:18] LABS: BUN Creatinine Ratio 14.2 (10-20); Calcium 9.1 mg/dl (8.6-10.3); Creatinine Clr Calc Pharmacy 31.8 ml/min; Potassium 3.8 mmol/L (3.5-5.1)
--- NOTE | 2024-03-19 23:28 | History & Physical Report ---
Date of Service March 19, 2024 Assessment & Plan (1) Hypertensive urgency: Plan: 83 y.o female with PMH of paroxysmal atrial fibrillation, DM2, Hyperlipidemia, CKD III, HFpEF, OA here due to hypertensive urgency - Patient presented to the Ed due to headaches and lightheadedness. BP of 256/103 - Admitted to Med Surg/Tele for observation - BP: 167/90 after Labetalol 10 mg at ED - Head CT: Trace amount of periventricular white matter low density consistent with chronic small vessel disease and/or senescent changes. The brain is otherwise unremarkable. No acute large vessel infarct or intracranial hemorrhage is seen. - No signs of end organ damage. No neurology deficits - Cr: 1.76 (Baseline 1.5-2.0 mg/dL) - Normal troponin - Will give her home metoprolol 100 mg HS - Continue home regimen: Metoprolol qHS, Losartan 100 mg daily and Diltiazem - she is taking Furosemide as needed for leg swelling, this was hold now. no leg edema on exam - Labetalol prn if 180/120 and symptomatic CMP, Mag AM (2) PAF (paroxysmal atrial fibrillation): Plan: continue Eliquis - Dose reduced to 2.5 mg BID - >80 y/o and Cr.15 (CKD) Continue metoprolol and diltiazem (3) Diabetes mellitus, type 2: Plan: Continue insulin Glargine 40 units daily Nolavolg added (4) Hyperlipidemia: Plan: continue atorvastatin (5) Heart failure with preserved ejection fraction: Plan: no signs of failure on exam continue home meds consider adding Furosemide if needed for leg edema Plan FEN: hh/ DM2 Code status: full code DVT ppx: Home Eliquis Dispo: med/surg with telemetry History of Present Illness Primary Care Provider: Leidy Mckeon MD 83 /o female with PMH of paroxysmal atrial fibrillation, DM2, Hyperlipidemia, CKD III, HFpEF, OA here due to hypertensive urgency Patient presented to the Ed due to headaches and lightheadedness. BP of 256/103. she states that she woke up with a headache. during the day she monitor her BP and refers being high all day around 190s. She denied any chest pain, SOB or visual changes. she refers took her medication this morning and last night. No stressful situation. Denied any weakness, ambulatory disfunction, numbness. Ed course: Labetalol [address] head with no acute changes. LAbs: Cr. 1.76. Tronopin 14.0 Allergies Allergy/AdvReac Type Severity Reaction Status Date / Time No Known Allergies Allergy Unknown Verified 02/09/24 11:48 Home Medications Medication Instructions Recorded Confirmed Type cholecalciferol (vitamin D3) 125 5,000 unit PO QAM 02/21/18 03/19/24 History mcg (5,000 unit) tablet (Vitamin D3) multivitamin 1 tab PO QAM 02/21/18 03/19/24 History cranberry extract 500 mg capsule 500 mg PO QAM 12/11/18 03/19/24 History acetaminophen 500 mg tablet 1,000 mg PO Q8 PRN Pain 04/01/20 03/19/24 History travoprost 0.004 % eye drops 1 drp ophthalmic (eye) HS 04/01/20 03/19/24 History (Travatan Z) flash glucose scanning reader 01/26/23 03/19/24 History (FreeStyle Octavia 2 [place]) metoprolol succinate 100 mg 100 mg PO HS #90 tabs 07/20/23 03/19/24 Rx tablet,extended release 24 hr insulin aspart U-100 100 unit/mL 10 unit subcut TID 11/23/23 03/19/24 History (3 mL) subcutaneous pen (Novolog FlexPen U-100 Insulin aspart) insulin glargine U-300 conc 300 44 unit subcut QAM 11/23/23 03/19/24 History unit/mL (3 mL) subcutaneous pen (Toujeo Max U-300 SoloStar) apixaban 5 mg tablet (Eliquis) 5 mg PO BID #180 tabs 01/08/24 03/19/24 Rx atorvastatin 10 mg tablet (Lipitor) 10 mg PO Q OTHER DAY #90 tabs 01/08/24 03/19/24 Rx furosemide 40 mg tablet 60 mg (1.5 x 40 mg) PO Q2D PRN 01/08/24 03/19/24 Rx DIRECTED #90 tabs losartan 100 mg tablet 100 mg PO QAM #90 tabs 01/08/24 03/19/24 Rx gabapentin 100 mg capsule 100 mg PO HS 01/12/24 03/19/24 History pen needle, diabetic 32 gauge x #400 ea 01/29/24 03/19/24 Rx 1/4" (BD Ultra-Fine Micro Pen Needle) cholestyramine-aspartame 4 gram 1 ea PO QAM 03/19/24 03/19/24 History oral powder for susp in a packet (Prevalite) diltiazem HCl 120 mg capsule,24 120 mg PO QAM 03/19/24 03/19/24 History hr,extended release mirabegron 50 mg tablet,extended 50 mg PO QAM 03/19/24 03/19/24 History release 24 hr (Myrbetriq) trazodone 50 mg tablet 50 - 100 mg PO HS PRN insomnia 03/19/24 03/19/24 History Past Med/Surg History Problem List (Updated 03/20/24 @ 11:58 by Andreas Crockett MD) Headache (Acute) Hypertensive emergency (Acute) Heart failure with preserved ejection fraction Hypertensive urgency Decreased hearing Encounter for immunization Encounter for examination following treatment at hospital Left wrist pain Rectal bleeding Cough Musculoskeletal pain of left thigh Urge incontinence Urinary incontinence in female Loss of protective sensation of skin of foot Diabetic peripheral neuropathy associated with type 2 diabetes mellitus Musculoskeletal thigh pain Chronic heart failure with preserved ejection fraction (HFpEF) Bradycardia Lumbar facet arthropathy Urinary incontinence Postmenopausal hormone replacement therapy Spinal stenosis of lumbar region with radiculopathy Essential (primary) hypertension PAF (paroxysmal atrial fibrillation) Bilateral lower extremity edema Type 2 DM with CKD stage 3 and hypertension Morbid obesity with BMI of 45.0-49.9, adult Right-sided heart failure Diabetes mellitus, type 2 IDDM Diabetic nephropathy Hyperlipidemia (Chronic) 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 Gar > no pacer > med controlled GILL (dyspnea on exertion) on occasion, pt feels just related to weight, not lung issue GERD (gastroesophageal reflux disease) Nephrolithiasis Right shoulder pain Spondylisthesis LUMBAR REGION Sacroiliitis Osteoporosis Surgical History History of ERCP History of arthroscopy of left knee S/P epidural steroid injection HX Hx of hand surgery RIGHT> LIGAMENT REPAIR History of appendectomy History of tooth extraction History of esophagogastroduodenoscopy (EGD) History of colonoscopy History of eye surgery X 4 TO RIGHT EYE History of cataract surgery right History of foot surgery RT History of total knee replacement bilat History of total abdominal hysterectomy and bilateral salpingo-oophorectomy Family History Father Diabetes Myocardial infarction Brother Diabetes Sister Diabetes Family history of melanoma Mother Cancer of the neck Denies family history of Ovarian cancer Prostate cancer Breast cancer Colorectal cancer Social History (Updated 01/12/24 @ 13:22 by Kathia Hart LPN) Smoking Status: Never smoker Second Hand Exposure: Yes (As a child, parents smoke. Adult son smokes as well. ); Do You Dip or Chew Tobacco: No; Hx Alcohol Use: No Hx Substance Use: No Preferred Language: Micronesian Communication Ability: Effective Visual Impairment: Limited Hearing Ability: Normal Citrus Fruit Colorer Required: No Beliefs That Will Affect Care: None marital status: / Current Living Situation: Alone Current Living Situation Comment: caregiver current occupational status: retired How many Children do You have: 2 Feels Safe at Home: Yes Childhood Exposure to Second-Hand Smoke: Yes (Parent's smoked. ) Diet: regular caffeine: Yes during the past year weight has: remained stable Dental Care, Regularly: Yes Physical Activity Frequency: 1-2 Times per Week Seatbelt Use: always Sunscreen Use: Yes Do you think of yourself as: straight/heterosexual Sexual Activity: has been sexually active, but not for at least 12 months Gender Identity: Female Assistive Devices: Cane and Glasses Review of Systems Review of Systems: as per hpi Physical Exam Constitutional: WD/WN, vitals as above Eyes: PERRL, conjunctivae normal, anicteric sclerae Respiratory: normal respiratory effort, lungs clear to auscultation Cardiovascular: RRR, no murmur, no edema Rate/Rhythm: + tachycardic Gastrointestinal (Abdomen): normal bowel sounds, soft, nontender, no hepatosplenomegaly Results & Data Results & Data Vital Signs (Past 12 Hours) Vital Signs Temp Pulse Pulse Resp BP BP BP 03/19/24 23:00 69 21 167/90 H 03/19/24 22:52 69 171/106 H 03/19/24 22:45 67 18 171/106 H 03/19/24 22:30 74 21 191/87 H 03/19/24 22:30 191/87 H 03/19/24 22:22 70 23 196/92 H 03/19/24 22:21 196/92 H 03/19/24 22:00 73 20 196/91 H 03/19/24 21:56 71 206/92 H 03/19/24 21:52 71 20 206/92 H 03/19/24 21:51 74 21 212/95 H 03/19/24 21:44 70 03/19/24 21:40 255/103 H 03/19/24 21:33 229/82 H 03/19/24 21:33 36.7 C 73 18 Pulse Ox O2 Del Method 03/19/24 23:00 95 Room Air 03/19/24 22:52 03/19/24 22:45 95 Room Air 03/19/24 22:30 95 Room Air 03/19/24 22:30 03/19/24 22:22 95 Room Air 03/19/24 22:21 03/19/24 22:00 96 Room Air 03/19/24 21:56 03/19/24 21:52 96 Room Air 03/19/24 21:51 97 Room Air 03/19/24 21:44 03/19/24 21:40 03/19/24 21:33 03/19/24 21:33 96 Room Air Supervising Physician Co-Signing Physician Notes Attending addendum: I have physically seen this patient, have supervised the medical residents activities, and agree with the H&P unless as otherwise noted. Assessment and Plan: The patient is an 83-year-old female past medical history including PAF, diabetes mellitus type 2, hyperlipidemia, CKD stage III, HFpEF, generalized OA, who presents to the emergency department with concerns regarding headache and elevated blood pressure. She reports that she woke up with a headache, and checked her blood pressure at home and it was 256/103. She denied any associated neurologic issues such as vision or hearing changes, or weakness in arms or legs. She presented to the emergency department for further evaluation. #Hypertensive urgency- Patient did not take her evening medications She was given labetalol 10 mg IV from the ED, with some improvement in BP and heart rate She will be given her evening dosages of metoprolol succinate 100 mg now Lopressor 2.5 mg IV every 4 hours as needed for systolic blood pressure rhythm at 60 Continue routine morning medications of apixaban 5 mg p.o. twice daily, diltiazem CD 120 mg every morning, losartan [address] scan head without contrast was negative Paroxysmal atrial fibrillation- Continue Eliquis Continue metoprolol and diltiazem as noted above Diabetes mellitus type 2 Continue glargine [address] Accu-Cheks with NovoLog SSI Hyperlipidemia- continue atorvastatin CKD stage III- Creatinine 1.76, with base 1.54-1.92 Resident Activity Tracking Resident Involvement: Resident Care Provided Care Provided: Adult Hospital Medicine (3) Diabetes mellitus, type 2 Chronic kidney disease stage: unspecified stage Diabetes mellitus complication detail: with chronic kidney disease Diabetes mellitus complication status: with kidney complications Diabetes mellitus chcf insulin use: with termination clerk use Qualified Code(s): E11.22 - Type 2 diabetes mellitus with diabetic chronic kidney disease; Z79.4 - exterminator (current) use of insulin (4) Hyperlipidemia Hyperlipidemia type: mixed hyperlipidemia Qualified Code(s): E78.2 - Mixed hyperlipidemia
--- NOTE | 2024-03-19 23:28 | CT Scan Report ---
Exam(s): CT HEAD Without Contrast EXAM: CT Head Without Intravenous Contrast CLINICAL HISTORY: Reason for exam: headache, bp 250, subarachnoid hemorrhage, PRES. TECHNIQUE: Axial computed tomography images of the head/brain without intravenous contrast. CTDI is 62.75 mGy and DLP is 1098.96 mGy-cm. Automated exposure control was utilized for the study. A dose lowering technique was utilized adhering to the principles of ALARA. COMPARISON: No relevant prior studies available. FINDINGS: Brain: Trace amount of periventricular white matter low density consistent with chronic small vessel disease and/or senescent changes. The brain is otherwise unremarkable. No acute large vessel infarct or intracranial hemorrhage is seen. Ventricles: Unremarkable. No ventriculomegaly. Bones/joints: Unremarkable. No acute fracture. Soft tissues: Unremarkable. Sinuses: Unremarkable as visualized. No acute sinusitis. Mastoid air cells: Unremarkable as visualized. No mastoid effusion. IMPRESSION: Trace amount of periventricular white matter low density consistent with chronic small vessel disease and/or senescent changes. The brain is otherwise unremarkable. No acute large vessel infarct or intracranial hemorrhage is seen. Electronically signed by: Nigel Kidd MD 03/19/24 23:27 PM
--- NOTE | 2024-03-20 00:03 | Emergency Department Note ---
Impression & Plan Hypertensive emergency, Headache ED Provider Note NAME: RIN ZHAO AGE: 83 SEX: F : 1940 ARRIVES VIA: Walk-In INFORMANT: Patient, ED PROVIDER(S): Andreas Crockett MD CHIEF COMPLAINT: Hypertension HPI: This is a 83-year-old female presenting for hypertension and headache patient notes that she began having a headache around 630, felt like her "head was going to explode ". She notes this happened before with elevated blood pressure. She took her blood pressure at home and it was 199/90. She came to the ER. She had no chest pain, vision changes, shortness of breath, fever, chills, nausea, vomiting. She reports no difficulty with walking, talking or any strokelike symptoms. She does take blood pressure medications and has not missed any doses. ROS: See above HPI for pertinent positives & negatives. A total of 10 systems reviewed and were otherwise negative. PAST MEDICAL HISTORY: See Below PAST SURGICAL HISTORY: See Below FAMILY HISTORY: See Below SOCIAL HISTORY: See Below HOME MEDICATIONS: See Below ALLERGIES: See Below VITALS: See Below PHYSICAL EXAMINATION: [ General: resting comfortably in no acute distress Head: Normocephalic and atraumatic Eyes: Normal inspection, extraocular muscles intact Ear, nose, throat: Normal external exam Neck: Normal range of motion Respiratory: lungs clear to auscultation bilaterally Cardiovascular: Regular rate/rhythm, no murmur GI: soft, nontender, no guarding or rebound Extremities: nontender, moves all extremities Neuro: The patient awake and alert, appropriately conversive, no focal deficits, symmetric faces Skin: Warm, dry, and intact MEDICAL DECISION MAKING: This is a 83-year-old female presenting for hypertension/headache. Patient had a blood pressure on arrival of 255. This is concerning for hypertensive urgency/emergency. Will do CT of the head with her headache to rule out subarachnoid hemorrhage, subdural, stroke or pres. -Will give labetalol, 10 mg IV. Will do basic blood work as well -Bloodwork is reviewed showing no significant leukocytosis, anemia, electrolyte. Slightly elevated creatinine, at her previous baseline negative troponin -CT head reveals no acute new process -Patient will be admitted for hypertensive emergency/urgency -Discussed care with Dr. Camarillo, admitting hospitalist Differential diagnosis: Hypertensive emergency, subarachnoid hemorrhage, stroke, PRES Independent History obtained from: [facility] interpreted by me: ECG: ECG independently interpreted by me with normal sinus rhythm, rate of 75, left axis deviation], normal HI, normal QRS, normal QTc, no ST segment elevations consistent with STEMI criteria Cardiac Monitoring: An order was placed for continuous cardiac monitoring. The monitor shows a rate of 76 with sinus rhythm. Past Med/Surg History Problem List (Updated 03/20/24 @ 11:58 by Andreas Crockett MD) Headache (Acute) Hypertensive emergency (Acute) Heart failure with preserved ejection fraction Hypertensive urgency Decreased hearing Encounter for immunization Encounter for examination following treatment at hospital Left wrist pain Rectal bleeding Cough Musculoskeletal pain of left thigh Urge incontinence Urinary incontinence in female Loss of protective sensation of skin of foot Diabetic peripheral neuropathy associated with type 2 diabetes mellitus Musculoskeletal thigh pain Chronic heart failure with preserved ejection fraction (HFpEF) Bradycardia Lumbar facet arthropathy Urinary incontinence Postmenopausal hormone replacement therapy Spinal stenosis of lumbar region with radiculopathy Essential (primary) hypertension PAF (paroxysmal atrial fibrillation) Bilateral lower extremity edema Type 2 DM with CKD stage 3 and hypertension Morbid obesity with BMI of 45.0-49.9, adult Right-sided heart failure Diabetes mellitus, type 2 IDDM Diabetic nephropathy Hyperlipidemia (Chronic) 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 Gar > no pacer > med controlled GILL (dyspnea on exertion) on occasion, pt feels just related to weight, not lung issue GERD (gastroesophageal reflux disease) Nephrolithiasis Right shoulder pain Spondylisthesis LUMBAR REGION Sacroiliitis Osteoporosis Surgical History History of ERCP History of arthroscopy of left knee S/P epidural steroid injection HX Hx of hand surgery RIGHT> LIGAMENT REPAIR History of appendectomy History of tooth extraction History of esophagogastroduodenoscopy (EGD) History of colonoscopy History of eye surgery X 4 TO RIGHT EYE History of cataract surgery right History of foot surgery RT History of total knee replacement bilat History of total abdominal hysterectomy and bilateral salpingo-oophorectomy Family History Father Diabetes Myocardial infarction Brother Diabetes Sister Diabetes Family history of melanoma Mother Cancer of the neck Denies family history of Ovarian cancer Prostate cancer Breast cancer Colorectal cancer Social History (Updated 01/12/24 @ 13:22 by Kathia Hrat LPN) Smoking Status: Never smoker Second Hand Exposure: Yes (As a child, parents smoke. Adult son smokes as well. ); Do You Dip or Chew Tobacco: No; Hx Alcohol Use: No Hx Substance Use: No Preferred Language: Ukrainian Communication Ability: Effective Visual Impairment: Limited Hearing Ability: Normal Front Office Specialist Required: No Beliefs That Will Affect Care: None marital status: / Current Living Situation: Alone Current Living Situation Comment: caregiver current occupational status: retired How many Children do You have: 2 Other Information That Helps Us Care for You: No Feels Safe at Home: Yes Safety Concerns: Feels Safe At This Time Childhood Exposure to Second-Hand Smoke: Yes (Parent's smoked. ) Diet: regular caffeine: Yes during the past year weight has: remained stable Dental Care, Regularly: Yes Physical Activity Frequency: 1-2 Times per Week Seatbelt Use: always Sunscreen Use: Yes Do you think of yourself as: straight/heterosexual Sexual Activity: has been sexually active, but not for at least 12 months Gender Identity: Female Assistive Devices: Cane, Denture - Upper and Glasses Assistive Devices Comment: partial upper denture Allergies Allergies Allergy/AdvReac Type Severity Reaction Status Date / Time No Known Allergies Allergy Unknown Verified 02/09/24 11:48 Home Meds Home Medications Medication Instructions Recorded Confirmed cholecalciferol (vitamin D3) 125 5,000 unit PO QAM 02/21/18 03/19/24 mcg (5,000 unit) tablet (Vitamin D3) multivitamin 1 tab PO QAM 02/21/18 03/19/24 cranberry extract 500 mg capsule 500 mg PO QAM 12/11/18 03/19/24 acetaminophen 500 mg tablet 1,000 mg PO Q8 PRN Pain 04/01/20 03/19/24 travoprost 0.004 % eye drops 1 drp ophthalmic (eye) HS 04/01/20 03/19/24 (Travatan Z) flash glucose scanning reader 01/26/23 03/19/24 (FreeStyle Octavia 2 Paulina) insulin aspart U-100 100 unit/mL 10 unit subcut TID 11/23/23 03/19/24 (3 mL) subcutaneous pen (Novolog FlexPen U-100 Insulin aspart) insulin glargine U-300 conc 300 44 unit subcut QAM 11/23/23 03/19/24 unit/mL (3 mL) subcutaneous pen (Toujeo Max U-300 SoloStar) gabapentin 100 mg capsule 100 mg PO HS 01/12/24 03/19/24 cholestyramine-aspartame 4 gram 1 ea PO QAM 03/19/24 03/19/24 oral powder for susp in a packet (Prevalite) diltiazem HCl 120 mg capsule,24 120 mg PO QAM 03/19/24 03/19/24 hr,extended release mirabegron 50 mg tablet,extended 50 mg PO QAM 03/19/24 03/19/24 release 24 hr (Myrbetriq) trazodone 50 mg tablet 50 - 100 mg PO HS PRN insomnia 03/19/24 03/19/24 Previous Rx's Medication Instructions Recorded metoprolol succinate 100 mg 100 mg PO HS #90 tabs 07/20/23 tablet,extended release 24 hr apixaban 5 mg tablet (Eliquis) 5 mg PO BID #180 tabs 01/08/24 atorvastatin 10 mg tablet (Lipitor) 10 mg PO Q OTHER DAY #90 tabs 01/08/24 furosemide 40 mg tablet 60 mg (1.5 x 40 mg) PO Q2D PRN 01/08/24 DIRECTED #90 tabs losartan 100 mg tablet 100 mg PO QAM #90 tabs 01/08/24 pen needle, diabetic 32 gauge x #400 ea 01/29/24 1" (BD Ultra-Fine Micro Pen Needle) Results & Data (ED) Vital Signs Vital Signs - 24 hr 03/19/24 21:33 03/19/24 21:33 03/19/24 21:40 Temperature 36.7 C Temperature Source Temporal Artery Scan Pulse Rate 73 Pulse Rate [Left Apical] Pulse Rhythm Regular Pulse Strength Normal Respiratory Rate 18 Respiratory Effort / Characteristics Non-Labored Spontaneous Respiratory Depth Normal Respiratory Pattern Regular Blood Pressure Blood Pressure [Left Arm] 255/103 H Blood Pressure [Right Arm] 229/82 H Blood Pressure Mean Blood Pressure Mean [Left Arm] 153 Blood Pressure Mean [Right Arm] 131 Blood Pressure Position [Left Arm] Sitting Blood Pressure Position [Right Arm] Sitting Pulse Oximetry 96 Oxygen Delivery Method Room Air Sepsis Recent Fever Within 48 Hours No Sepsis New/Unexplained Change in Mental Status N/A Sepsis Action Taken by Nursing No Action Required 03/19/24 21:44 03/19/24 21:51 03/19/24 21:52 Temperature Temperature Source Pulse Rate 70 74 71 Pulse Rate [Left Apical] Pulse Rhythm Pulse Strength Respiratory Rate 21 20 Respiratory Effort / Characteristics Respiratory Depth Respiratory Pattern Blood Pressure 212/95 H 206/92 H Blood Pressure [Left Arm] Blood Pressure [Right Arm] Blood Pressure Mean 165 142 Blood Pressure Mean [Left Arm] Blood Pressure Mean [Right Arm] Blood Pressure Position [Left Arm] Blood Pressure Position [Right Arm] Pulse Oximetry 97 96 Oxygen Delivery Method Room Air Room Air Sepsis Recent Fever Within 48 Hours Sepsis New/Unexplained Change in Mental Status Sepsis Action Taken by Nursing 03/19/24 21:56 03/19/24 22:00 03/19/24 22:21 Temperature Temperature Source Pulse Rate 71 73 Pulse Rate [Left Apical] Pulse Rhythm Pulse Strength Respiratory Rate 20 Respiratory Effort / Characteristics Respiratory Depth Respiratory Pattern Blood Pressure 206/92 H 196/91 H 196/92 H Blood Pressure [Left Arm] Blood Pressure [Right Arm] Blood Pressure Mean 148 174 Blood Pressure Mean [Left Arm] Blood Pressure Mean [Right Arm] Blood Pressure Position [Left Arm] Blood Pressure Position [Right Arm] Pulse Oximetry 96 Oxygen Delivery Method Room Air Sepsis Recent Fever Within 48 Hours Sepsis New/Unexplained Change in Mental Status Sepsis Action Taken by Nursing 03/19/24 22:22 03/19/24 22:30 03/19/24 22:30 Temperature Temperature Source Pulse Rate 74 Pulse Rate [Left Apical] 70 Pulse Rhythm Pulse Strength Respiratory Rate 23 21 Respiratory Effort / Characteristics Non-Labored Spontaneous Respiratory Depth Normal Respiratory Pattern Regular Blood Pressure 191/87 H 191/87 H Blood Pressure [Left Arm] 196/92 H Blood Pressure [Right Arm] Blood Pressure Mean 120 120 Blood Pressure Mean [Left Arm] 126 Blood Pressure Mean [Right Arm] Blood Pressure Position [Left Arm] Blood Pressure Position [Right Arm] Pulse Oximetry 95 95 Oxygen Delivery Method Room Air Room Air Sepsis Recent Fever Within 48 Hours Sepsis New/Unexplained Change in Mental Status Sepsis Action Taken by Nursing 03/19/24 22:45 03/19/24 22:52 03/19/24 23:00 Temperature Temperature Source Pulse Rate 67 69 69 Pulse Rate [Left Apical] Pulse Rhythm Pulse Strength Respiratory Rate 18 21 Respiratory Effort / Characteristics Respiratory Depth Respiratory Pattern Blood Pressure 171/106 H 171/106 H 167/90 H Blood Pressure [Left Arm] Blood Pressure [Right Arm] Blood Pressure Mean 135 147 Blood Pressure Mean [Left Arm] Blood Pressure Mean [Right Arm] Blood Pressure Position [Left Arm] Blood Pressure Position [Right Arm] Pulse Oximetry 95 95 Oxygen Delivery Method Room Air Room Air Sepsis Recent Fever Within 48 Hours Sepsis New/Unexplained Change in Mental Status Sepsis Action Taken by Nursing 03/19/24 23:15 03/19/24 23:45 03/20/24 00:00 Temperature Temperature Source Pulse Rate 71 69 67 Pulse Rate [Left Apical] Pulse Rhythm Pulse Strength Respiratory Rate 16 17 20 Respiratory Effort / Characteristics Respiratory Depth Respiratory Pattern Blood Pressure 155/77 H 173/78 H 193/93 H Blood Pressure [Left Arm] Blood Pressure [Right Arm] Blood Pressure Mean 111 142 132 Blood Pressure Mean [Left Arm] Blood Pressure Mean [Right Arm] Blood Pressure Position [Left Arm] Blood Pressure Position [Right Arm] Pulse Oximetry 96 94 95 Oxygen Delivery Method Room Air Room Air Room Air Sepsis Recent Fever Within 48 Hours Sepsis New/Unexplained Change in Mental Status Sepsis Action Taken by Nursing Laboratory Data 03/20/24 07:24 03/20/24 07:24 Lab Results 03/19/24 Range/Units 21:45 WBC 9.10 (4.8-10.8) K/ul RBC 4.79 (4.20-5.40) M/uL Hgb 14.8 (12.0-16.0) g/dl Hct 44.4 (37.0-47.0) % MCV 92.7 (80.0-100.0) fL MCH 30.9 (25.0-34.0) pg MCHC 33.3 (32.0-36.0) g/dL RDW Std Deviation 46.5 H (36.4-46.3) fL RDW Coeff of Bill 13.7 (11.5-14.5) % Plt Count 259 (130-400) K/uL MPV 10.3 (9.4-12.4) fL Immature Gran % (Auto) 0.2 % Neut % (Auto) 63.0 % Lymph % (Auto) 21.0 % [place] % (Auto) 12.0 % Eos % (Auto) 3.3 % Baso % (Auto) 0.5 % Neut # (Auto) 5.73 (1.40-6.50) K/uL Lymph # (Auto) 1.91 (1.20-3.40) K/uL [place] # (Auto) 1.09 H (0.11-0.59) K/uL Eos # (Auto) 0.30 (0.00-0.50) K/uL Baso # (Auto) 0.05 (0.00-0.20) K/uL Immature Gran # (Auto) 0.02 (0.01-0.20) K/uL Sodium 142 (136-145) mmol/L Potassium 3.8 (3.5-5.1) mmol/L Chloride 105 (98-107) mmol/L Carbon Dioxide 30 (21-32) mmol/L Anion Gap 7 (3-11) BUN 25 H (6-23) mg/dl Creatinine 1.76 H (0.6-1.2) mg/dl Est Cr Clr Drug Dosing 31.8 ml/min eGFR 28.54 BUN/Creatinine Ratio 14.2 (10-20) Glucose 128 H (70-99(Fasting)) mg/dl Calcium 9.1 (8.6-10.3) mg/dl Troponin I High Sens 14.0 (0-14) pg/ml Administered Medications Acetaminophen (Acetaminophen 325 Mg Tab) 650 mg PO Q4H PRN PRN Reason: Pain or Fever Stop: 04/19/24 00:49 Last Admin: 03/20/24 02:50 Dose: 650 mg Documented By: JILLIAN Apixaban (Apixaban 2.5 Mg Tab) 2.5 mg PO BID [facility] Stop: 04/19/24 08:59 Last Admin: 03/20/24 08:34 Dose: 2.5 mg Documented By: DIANA Atorvastatin Calcium (Atorvastatin 10 Mg Tab) 10 mg PO Q48H [facility] Stop: 04/19/24 08:59 Last Admin: 03/20/24 08:02 Dose: 10 mg Documented By: DIANA Diltiazem HCl (Diltiazem Hcl 120 Mg Capcr) [facility] [place] Stop: 04/19/24 08:59 Last Admin: 03/20/24 08:03 Dose: 120 mg Documented By: DIANA Insulin Aspart (Insulin Aspart Per Unit Charge) 0 units SC ACHS [facility] Stop: 04/19/24 07:29 Last Admin: 03/20/24 08:36 Dose: 10 units Documented By: DIANA Co-signed By: SREEKANTH Insulin Glargine (Lantus Per Unit Charge) 40 units SQ DAILY [facility] Stop: 04/19/24 08:59 Last Admin: 03/20/24 08:37 Dose: 40 units Documented By: DIANA Co-signed By: RSEEKANTH Losartan Potassium (Losartan Potassium 50 Mg Tab) [address] [facility] Stop: 04/19/24 08:59 Last Admin: 03/20/24 08:02 Dose: 100 mg Documented By: DIANA Vibegron (Vibegron 75 Mg Tab) [address] [facility] Stop: 04/19/24 08:59 Last Admin: 03/20/24 11:00 Dose: 75 mg Documented By: DIANA Discontinued Medications Furosemide (Furosemide 20 Mg Tab) 60 mg PO NOW ONE Stop: 03/20/24 10:08 Last Admin: 03/20/24 11:00 Dose: 60 mg Documented By: DIANA Labetalol HCl (Labetalol Hcl Iv 5 Mg/Ml 20ml) 10 mg IV NOW STA Stop: 03/19/24 21:48 Last Admin: 03/19/24 21:56 Dose: 10 mg Documented By: TON Metoprolol Succinate (Metoprolol Succ 50mg Ext Rel Tab) 100 mg PO NOW STA Stop: 03/19/24 23:51 Last Admin: 03/20/24 00:46 Dose: 100 mg Documented By: JILLIAN Imaging Data Radiologist's Impression: Head CT 03/19/24 22:00 Exam(s): CT HEAD Without Contrast EXAM: CT Head Without Intravenous Contrast CLINICAL HISTORY: Reason for exam: headache, bp 250, subarachnoid hemorrhage, PRES. TECHNIQUE: Axial computed tomography images of the head/brain without intravenous contrast. CTDI is 62.75 mGy and DLP is 1098.96 mGy-cm. Automated exposure control was utilized for the study. A dose lowering technique was utilized adhering to the principles of ALARA. COMPARISON: No relevant prior studies available. FINDINGS: Brain: Trace amount of periventricular white matter low density consistent with chronic small vessel disease and/or senescent changes. The brain is otherwise unremarkable. No acute large vessel infarct or intracranial hemorrhage is seen. Ventricles: Unremarkable. No ventriculomegaly. Bones/joints: Unremarkable. No acute fracture. Soft tissues: Unremarkable. Sinuses: Unremarkable as visualized. No acute sinusitis. Mastoid air cells: Unremarkable as visualized. No mastoid effusion. IMPRESSION: Trace amount of periventricular white matter low density consistent with chronic small vessel disease and/or senescent changes. The brain is otherwise unremarkable. No acute large vessel infarct or intracranial hemorrhage is seen. Electronically signed by: Nigel Kidd MD 03/19/24 23:27 PM Discharge Plan Visit Data Chief Complaint: Hypertension Stated Complaint: HYPERTENSION, DIZZY, LIGHTHEADED ED Provider: Andreas Crockett Discharge Problem: Hypertensive emergency, Headache Patient Disposition: Admitted As Inpatient Discharge Instructions Interventions: ED Discharge Assessment Last Done: 03/20/24 00:24
[2024-03-20] MEDS: METOPROLOL SUCC 50MG EXT REL TAB PO STA (00:46)
[2024-03-20] MEDS ORDERED: ALUMINUM/MAGNESIUM SUSP 30 ML UDC PO PRN (00:50)
[2024-03-20] MEDS ORDERED: GLUCOSE 40% GEL 15 GM TUBE PO PRN (00:50)
[2024-03-20] MEDS ORDERED: DEXTROSE 50% 50 ML SYRINGE IV PRN (00:50)
[2024-03-20] MEDS ORDERED: CARBOHYDRATES FOR HYPOGLYCEMIA PO PRN (00:50)
[2024-03-20] MEDS ORDERED: GLUCOSE 10 TAB/TUBE PO PRN (00:50)
[2024-03-20] MEDS ORDERED: POLYETHYLENE (MIRALAX) 17 GM PACK PO PRN (00:50)
[2024-03-20] MEDS ORDERED: ONDANSETRON INJ 2 MG/ML 2 ML VIAL IV PRN (00:50)
[2024-03-20] MEDS ORDERED: GLUCAGON FOR INJ 1 MG VIAL SQ PRN (00:50)
[2024-03-20] MEDS: ACETAMINOPHEN 325 MG TAB PO PRN (02:50)
--- OUTSIDE RECORDS SUMMARY | 2024-03-20 03:48 | External Medical Summary | Continuity of Care Document ---
Author Name Unknown Organization [place] [address] [address] [facility] [address] [place] [phone] Care Team Providers Care Geographic Information Systems Director Name Role Phone Leidy Mckeon Primary Care Physician [phone] [facility] [id number] Date(s): 03/15/24 - [facility] [address] [facility] [place] [address] [facility], [address] [place] [address] [phone] Encounter Diagnosis Spinal stenosis, lumbar region with neurogenic claudication(Discharge Diagnosis) - 03/15/24 Discharge Disposition: Home or Self Care Attending Physician: MD Field Yakov M Referring Physician: MD Feild Yakov M Allergies, Adverse Reactions, Alerts No Known Allergies Assessment and Plan Extracted from: Title:Office Visit Note Author:MD Field Yakov M Date:03/15/24 1.Spinal stenosis, lumbar region with neurogenic claudication Plan:The patient is onEliquis,which may be an impedimentto lumbar epidural steroid injection. If it is not safe to hold this medication for 72 hours,we will perform bilateralL3-L4 transforaminal epidural steroid injection. All the patient's questions were answered; she understood the plan and agreed with it. Immunizations Given and Recorded Vaccine Date Status Refusal Reason pneumococcal 13-valent vaccine 02/17/14 Recorded pneumococcal 23-valent vaccine 12/04/09 Recorded Medications Ativan 2 mg oral tablet Start: 01/05/24 11:18:00 AM EST, See Instructions, Disp# 1 tab, 1 tab PO 40 min before MRI, [facility] Start [facility]: 01/05/24 Status: Ordered Cozaar 100 mg oral tablet Start: 05/26/12 12:23:00 PM EDT, 1 tab, PO, Daily Start Date: 05/26/12 Status: Ordered cranberry Start: 08/30/19 9:46:00 AM EDT, 450 mg =, PO, Daily Start Date: 08/30/19 Status: Ordered DilTIAZem (Eqv-Cardizem CD) Start: 08/10/20 10:56:00 AM EDT, 180 mg =, PO, Daily Start Date: 08/10/20 Status: Ordered Duricef 500 mg oral capsule Start: 08/02/23 10:11:00 AM EDT, 1 cap, PO, q12h, Disp# 14 cap, Refills: 0, One capsule twice daily for 7 days after your surgery. Take with food., Pharmacy: [facility] [place] Start Date: 08/02/23 Stop Date: 08/09/23 Status: Ordered Eliquis 5 mg oral tablet Start: 08/10/20 10:55:00 AM EDT, 1 tab, PO, bid Start Date: 08/10/20 Status: Ordered gabapentin 100 mg oral capsule Start: 01/05/24 11:16:00 AM EST, 1 cap, PO, qhs, Disp# 30 cap, Refills: 2, Pharmacy: [facility] Start Date: 01/05/24 Status: Ordered Lasix Start: 08/10/20 10:52:00 AM EDT, 60 mg =, PO, Daily, PRN: fluid retention Start Date: 08/10/20 Status: Ordered Lipitor 10 mg oral tablet Start: 06/20/18 2:49:00 PM EDT, See Instructions, 1 tab PO Daily Start Date: 06/20/18 Status: Ordered multivitamin Start: 09/18/14 12:47:00 PM EDT, 1 tab, PO, Daily Start Date: 09/18/14 Status: Ordered Myrbetriq 50 mg oral tablet, extended release Start: 07/20/23 10:16:00 AM EDT, 1 tab, PO, Daily Start Date: 07/20/23 Status: Ordered NovoLOG FlexPen Start: 06/20/18 2:48:00 PM EDT, 8 unit =, subQ, sliding scale at meal time Start Date: 06/20/18 Status: Ordered oxyCODONE 5 mg oral tablet Start: 08/03/23 10:42:00 AM EDT, 5 mg =, PO, q4h, Disp# 15 tab, Refills: 0, post- op patient for continued use., PRN: pain - moderate (4-6), Pharmacy: [facility] [place] Start Date: 08/03/23 Status: Ordered Toprol-XL Start: 08/10/20 10:54:00 AM EDT, 100 mg =, PO, qhs Start Date: 08/10/20 Status: Ordered Toujeo Max SoloStar 300 units/mL subcutaneous solution Start: 09/30/19 1:25:00 PM EDT, 40 units, subQ, Daily Start Date: 09/30/19 Status: Ordered travoprost 0.004% ophthalmic solution Start: 08/10/20 10:55:00 AM EDT, 1 drop, both eyes, qPM Start Date: 08/10/20 Status: Ordered Tylenol 500 mg oral tablet Start: 08/03/23 10:42:00 AM EDT, 2 tab, PO, q8h Start Date: 08/03/23 Status: Ordered Ultram 50 mg oral tablet Start: 08/16/23 11:02:00 AM EDT, 1 tab, PO, bid, Disp# 15 tab, Refills: 0, post- op patient for continued use. To use before PT or at bedtime, no more than twice daily., PRN: as needed for pain, Pharmacy: [facility] Start Date: 08/16/23 Status: Ordered Vitamin D3 Start: 09/18/14 12:47:00 PM EDT, 5000 units, PO, Daily Start Date: 09/18/14 Status: Ordered Mental Status 03/15/24 Barriers to Learning one year None evide nt Mandatory Health Literacy Documentation Yes Communication Barrier Present No Health Literacy Communication Barriers N ever Primary Language Sami Problem List Condition Confirmation Course Effective Dates Status Health Status Informant ANXIETY Confirmed Active Arthritis Confirmed Active Arthritis of facet joint of lumbar spine Confirmed Active Arthritis of carpometacarpal (CMC) joint of left thumb Confirmed Active Arthritis of left hip. Confirmed Active Arthritis of right glenohumeral joint Confirmed Active Lumbar facet arthropathy Confirmed Active Hip bursitis, left Confirmed Active Cervical radiculopathy Confirmed Active Diabetes mellitus Confirmed Active Diabetes Confirmed Active Hand arthritis Confirmed Active Disseminated idiopathic skeletal hyperostosis Confirmed Active Drug indicated Confirmed Active Foot pain 1 Confirmed Active Glaucoma Confirmed Active S/P knee replacement Confirmed Active Hammertoe Confirmed Active Left hand pain Confirmed Active Left hip pain Confirmed Active History of left knee replacement Confirmed Active Status post revision of total replacement of left knee Confirmed Active Status post total right knee replacement Confirmed Active S/P total knee replacement Confirmed Active HYPERTENSION Confirmed Active Knee pain 2 Confirmed Active Stiffness of left knee Confirmed Active Low back pain 3 Confirmed Active Right lumbar radiculopathy Confirmed Active L-S radiculopathy Confirmed Active Myofascial pain Confirmed Active Diabetic neuropathy Confirmed Active Tinea unguium Confirmed Active Localized primary osteoarthritis of carpometacarpal joint of right thumb. Confirmed Active Osteoarthritis of right hip Confirmed Active Osteoarthritis of left knee Confirmed Active Left knee DJD Confirmed Active Bilateral wrist pain Confirmed Active Left knee pain Confirmed Active Right hand paresthesia Confirmed Active De Quervain's tenosynovitis, left Confirmed Active Sacroiliitis Confirmed Active SHOULDER PAIN 4 Confirmed Active Right shoulder pain Confirmed Active Right shoulder pain Confirmed Active Spinal stenosis 5 Confirmed Active Spondylolisthesis of lumbar region Confirmed Active Right rotator cuff tendinitis Confirmed Active Trochanteric bursitis Confirmed Active Weight disorder Confirmed Active 1L side 2R side 3L4-5 4R side 5w/ radiculopathy, R side Diagnosis Diagnosis Type Effective Dates Health Status Clinical Service Informant Spinal stenosis, lumbar region with neurogenic claudication Discharge Diagnosis 03/15/24 Procedures Procedure Date Related Diagnosis Body Site Status Radiofrequency ablation 1 09/22/22 Completed Procedure 2 09/06/22 Completed Procedure 3 07/19/22 Completed Procedure 4 05/25/22 Completed Total knee arthroplasty 5 10/01/19 Completed Cataract 6 2015 Completed Retina 7 2015 Completed Hand X-ray 8 12/12/14 Completed Chest x-ray 9 07/20/14 Completed Surgical manipulation of knee joint 10 05/2005 Completed Total replacement of right knee joint 03/2005 Completed Procedure on foot 1999 Comp leted Hysterectomy 1978 Completed Appendectomy 1961 Completed Toe Completed 1Left genicular radiofrequency ablation 2Bilateral L3,4,5 dx MBB 3left genicular DX NB 4left diagnostic genicular nerve block 5Left 6right eye 7right retinal detachment repair 8No acute fracture or dislocation of the right hand. 9No active disease in chest. 10R side 11R foot Social History Social History Type Response Smoking Status Never smoked cigaret seth Sex Female Sex Representation Female (finding) Implantable Device List Procedure Provider Procedure Date Device Type Site Unknown Unknown 08/02/23 Unknown Unknown Device Identifier Serial Number Lot or Batch Number Manufacturing Date Expiration Date Distinct Identification Code MRI Safety Implantable Status Assigning Authority Unknown Unknown [id number] Unknown 10/20/24 Unknown Unknown Active Unkn own Unknown Unknown [id number] Unknown 06/19/25 Unknown Unknown Active Unkn own Unknown Unknown [id number] Unknown 10/20/24 Unknown Unknown Active Unkn own Unknown Unknown [id number] Unknown 12/21/27 Unknown Unknown Active Unk nown Unknown Unknown [id number] Unknown 02/19/30 Unknown Unknown Active Unknown Unknown Unknown [id number] Unknown 07/20/32 Unknown Unknown Active Unkn own Unknown Unknown [id number] Unknown 04/19/32 Unknown Unknown Active Unkn own Unknown Unknown [id number] Unknown 06/20/27 Unknown Unknown Active Unkn own Unknown Unknown [id number] Unknown 02/20/32 Unknown Unknown Active Unk nown Unknown Unknown [id number] Unknown 12/20/32 Unknown Unknown Active Unk nown Unknown Unknown [id number] Unknown 10/21/27 Unknown Unknown Active Unkn own Unknown Unknown [id number] Unknown 03/22/29 Unknown Unknown Active Unknown Unknown Unknown [id number] Unknown 06/19/29 Unknown Unknown Active Unkn own Unknown Unknown [id number] Unknown 12/21/23 Unknown Unknown Active Unk nown Chronic Pain Outpt Note * MD Emir, Hermes M: PERFORM Event Display: Chronic Pain Outpt Note Authored Date: [id number] Chief Complaint MRI results History of Present Illness Today we had the pleasure of seeing Ms. Zhao for follow-up visitafter MRI of the lumbosacral spinewhichshe underwent following our recommendations. The patient continues to complain ofsevere pain in her low backradiating intoher proximal legs. The pain is rated a 6 out of 10 intensity. The patient has pain only when she is in the vertical position, specifically when she is walking or standing. The pain disappears almost instantaneously when the patient sits down. The patient tried numerous medications includinggabapentin and Tylenoloxycodone, tramadolfor this painwithout much success. He also tried physical therapy before, which provided her with littlebenefits. The most prominent pathologyon MRI of lumbosacral spineisseverespinal stenosisand bilateral lateral recess stenosisat L3-4 vertebral level. Physical Exam The patient is alert and oriented x 3. She came to this appointment unaccompanied. She has no acute distress. Her affect is appropriate. Gait is not antalgic. Straight leg raise test is negative. Rosalva maneuver is negative. Thigh thrust is negative. Pressure applied tolower lumbarfacet jointselicits only slightpain. Deep tendon reflexes are symmetricfrom the lower extremities 1+. The rest of the physical exam has not changed. Images MRI: Alignment: Grade 1 anterolisthesis of L3 on L4 and L4 on L5 by approximately 4 to 5 mm. Vertebrae: Type II one and endplate Modic degenerative changes at L2-L3. Type one endplate degenerative changes at T12-L1. End plate degenerative Schmorl's node visualized at L2 and L3 levels. Conus/cauda equina roots: Tip of the conus medullaris is at superior endplate of L1. First nonrib-bearing vertebra is counted as L1. Transitional anatomy with sacralization of L5. Tip of thecal sac at S2. Pre-, Para-, posterior vertebral tissues: Atrophy of erector spinae and psoas musculature bilaterally right more than left. Axial interbody analysis: L1-L2: Mild disc bulge and facet hypertrophy. No central canal stenosis or neural foraminal stenosis L2-L3: Broad-based disc bulge with facet hypertrophy results in moderate bilateral neural foraminalstenosis and moderate thecal sac stenosis. Encroachment of lateral recesses bilaterally. L3-L4: Disc uncovering with facet arthropathy and facet fluid with buckling of ligamentum flavum resulting in severe thecal sac stenosis and bilateral lateral recess stenosis. L4-L5: Disc uncovering with facet hypertrophy resulting in mild bilateral right more than left neural foraminal stenosis and mild thecal sac stenosis. L5-S1: No central canal stenosis or neural foraminal stenosis IMPRESSION: Multilevel degenerative changes in the lumbar spine most prominent at L2-L3 and L3-L4. Assessment/Plan 1.Spinal stenosis, lumbar region with neurogenic claudication Plan:The patient is onEliquis,which may be an impedimentto lumbar epidural steroid injection. If it is not safe to hold this medication for 72 hours,we will perform bilateralL3-L4 transforaminal epidural steroid injection. All the patient's questions were answered; she understood the plan and agreed with it. Problem List/Past Medical History Ongoing ANXIETY Arthritis Arthritis of carpometacarpal (CMC) joint of left thumb Arthritis of facet joint of lumbar spine Arthritis of left hip. Arthritis of right glenohumeral joint Bilateral wrist pain Cervical radiculopathy De Quervain's tenosynovitis, left Diabetes Diabetes mellitus Diabetic neuropathy Disseminated idiopathic skeletal hyperostosis Drug indicated Foot pain Glaucoma Hammertoe Hand arthritis Hip bursitis, left History of left knee replacement HYPERTENSION Knee pain L-S radiculopathy Left hand pain Left hip pain Left knee DJD Left knee pain Localized primary osteoarthritis of carpometacarpal joint of right thumb. Low back pain Lumbar facet arthropathy Myofascial pain Osteoarthritis of left knee Osteoarthritis of right hip Right hand paresthesia Right lumbar radiculopathy Right rotator cuff tendinitis Right shoulder pain Right shoulder pain S/P knee replacement S/P total knee replacement Sacroiliitis SHOULDER PAIN Spinal stenosis Spondylolisthesis of lumbar region Status post revision of total replacement of left knee Status post total right knee replacement Stiffness of left knee Tinea unguium Trochanteric bursitis Weight disorder Resolved Pre-op exam Procedure/Surgical History Radiofrequency ablation| Service Date: 3Procedure| Service Date: 3Procedure| Service Date: 3Procedure| Service Date: 05/25/2022Total knee arthroplasty| Service Date: 10/01/2019Retina| Service Date: 2016Cataract| Service Date: 2016Hand X-ray| Service Date: 12/12/2014Chest x-ray| Service Date: 07/20/2014Surgical manipulation of knee joint| Service Date: 05/2005Total replacement of right knee joint| Service Date: 03/2005Procedure on foot| Service Date: 1999Hysterectomy| Service Date: 1978Appendectomy| Service Date: 1961To Medications acetaminophen(Tylenol 500 mg oral tablet), 1000 mg= 2 tab, PO, q8h apixaban(Eliquis 5 mg oral tablet), 5 mg= 1 tab, PO, bid atorvastatin(Lipitor 10 mg oral tablet), See Instructions cefadroxil(Duricef 500 mg oral capsule), 500 mg= 1 cap, PO, q12h cholecalciferol(Vitamin D3), 5000 units, PO, Daily cranberry, 450 mg, PO, Daily dilTIAZem(DilTIAZem (Eqv-Cardizem CD)), 180 mg, PO, Daily furosemide(Lasix), 60 mg, PO, Daily, PRN gabapentin(gabapentin 100 mg oral capsule), 100 mg= 1 cap, PO, qhs, 2 refills insulin aspart(NovoLOG FlexPen), 8 unit, subQ insulin glargine(Toujeo Max SoloStar 300 units/mL subcutaneous solution), 40 units, subQ, Daily LORazepam(Ativan 2 mg oral tablet), See Instructions losartan(Cozaar 100 mg oral tablet), 100 mg= 1 tab, PO, Daily metoprolol(Toprol-XL), 100 mg, PO, qhs mirabegron(Myrbetriq 50 mg oral tablet, extended release), 50 mg= 1 tab, PO, Daily multivitamin, 1 tab, PO, Daily oxyCODONE(oxyCODONE 5 mg oral tablet), 5 mg, PO, q4h, PRN traMADol(Ultram 50 mg oral tablet), 50 mg= 1 tab, PO, bid, PRN travoprost ophthalmic(travoprost 0.004% ophthalmic solution), 1 drop, both eyes, qPM Allergies NKA Social History Smoking Status Never smoked cigarettes Alcohol - Denies Alcohol Use Employment/School Status:Retired Substance Abuse - Denies Substance Abuse Tobacco - Denies Tobacco Use Family History Cancer: Unknown. Diabetes: Unknown. Heart disease: Unknown. Health Status Family Member(s) Immunizations Vaccine Date Status pneumococcal 13-valent vaccine 02/17/2014 Recorded pneumococcal 23-valent vaccine 12/04/2009 Recorded Recommendations Health Maintenance Pending(in the next year) OverDue Adult Influenza Vaccine due08/21/23and every 1year Due Adult COVID-19 Vaccination due03/15/24Unknown Frequency Adult Tdap/Td Vaccine due03/15/24Unknown Frequency Diabetic Eye Exam due03/15/24Unknown Frequency Lipid Screening due03/15/24Unknown Frequency Medicare Annual Wellness Visit due03/15/24and every 1year Osteoporosis Screening due03/15/24One-time only Shingles Vaccine due03/15/24One-time only Due In Future Body Mass Index not due until07/06/24and every 366day Adult Social Determinants of Health Screening not due until08/02/24and every 366day Diabetes Management A1c not due until08/03/24and every 366day Satisfied(in the past 1 year) Satisfied Body Mass Index on08/02/23.Satisfied by JERMAIN Shane, Marilee Mendez Diabetes Management A1c on08/03/23.Satisfied by Contributor_system, [employer] Electronic Signature on File Electronically Reviewed/Signed by: Hermes Field MD, PhD Author Signature Dt/Tm:03/15/2024 11:50 AM Director, Interventional Pain Management Prof of Anesthesiology & Neurology, Dept: Anesthesiology, Div of Pain Medicine [facility] [address], [address] [address] YMV Patient Care team information Care Team Personnel Name: MD Mckeon Tamar Position: Referring Member Role: Primary Care Provider Address: [address] [place] [id number] [place] Name: MD Robin, Adonis Aguayo Position: Physician - Sports Medicine [place] Member Role: Lifetime Relationship Address: [address] [place] [id number] [place] Name: Domi Arias Kyle Position: Pharmacist Member Role: Pharmacy - Lifetime Address: [address] [place] [address] [place] Name: Domi Upton Brittani Position: Pharmacist Member Role: Pharmacy - Lifetime Care Team Related Persons Name: BRYON ZHAO"
--- OUTSIDE RECORDS SUMMARY | 2024-03-20 03:49 | External Medical Summary | Continuity of Care Document ---
Author Name Unknown Organization [address] Address [address] [place] [phone] Care Team Providers Care Food Service Associate Name Role Phone Leidy Mckeon Primary Care Physician [phone] [id number] Date(s): 03/04/24 - 03/04/[address] [facility] A, [address] [place] [phone] Discharge Disposition: Home or Self Care Attending Physician: MD Field Yakov M Referring Physician: MD Field Yakov M Allergies, Adverse Reactions, Alerts No Known Allergies Immunizations Given and Recorded Vaccine Date Status Refusal Reason pneumococcal 13-valent vaccine 02/17/14 Recorded pneumococcal 23-valent vaccine 12/04/09 Recorded Medications Ativan 2 mg oral tablet Start: 01/05/24 11:18:00 AM EST, See Instructions, Disp# 1 tab, 1 tab PO 40 min before MRI, Pharmacy: [facility] Start Date: 01/05/24 Status: Ordered Cozaar 100 [...] after your surgery. Take with food., Pharmacy: [facility] Start Date: 08/02/23 Stop Date: 08/09/23 Status: Ordered Eliquis 5 mg oral tablet Start: 08/10/20 10:55:00 AM EDT, 1 tab, PO, bid Start Date: 08/10/20 Status: Ordered gabapentin 100 mg oral capsule Start: 01/05/24 11:16:00 AM EST, 1 cap, PO, qhs, Disp# 30 cap, Refills: 2, Pharmacy: [facility] Start Date: 01/05/24 Status: Ordered Kerendia 10 mg oral tablet Start: 09/06/22 2:15:00 PM EDT, 1 tab, PO, Daily Start Date: 09/06/22 Status: Ordered Lasix Start: 08/10/20 10:52:00 AM [...] use., PRN: pain - moderate (4-6), Pharmacy: [facility] Start Date: 08/03/23 Status: Ordered Premarin 0.3 mg oral tablet Start: 09/13/21 1:17:00 PM EDT, 1 tab, PO, q5days Start Date: 09/13/21 Status: Ordered Toprol-XL Start: 08/10/20 10:54:00 AM EDT, 100 mg =, PO, qhs Start Date: 08/10/20 Status: Ordered Toureddo Max SoloStar 300 units/mL subcutaneous solution Start: [...] PO, Daily Start Date: 09/18/14 Status: Ordered Problem List Condition Confirmation Course Effective Dates [...] 3L4-5 4R side 5w/ radiculopathy, R side Procedures Procedure Date Related Diagnosis Body Site [...] Procedure on foot 1999 Comp leted Hysterectomy 1979 Completed Appendectomy 1961 Completed Toe Completed 1Left genicular radiofrequency ablation 2Bilateral L3,4,5 dx MBB 3left genicular DX NB 4left diagnostic genicular nerve block 5Left 6right eye 7right retinal detachment repair 8No acute fracture or dislocation of the right hand. 9No active disease in chest. 10R side 11R foot Results Radiology Reports * Exam Date Time Procedure Performing Provider Status 03/04/24 3:25 PM MRI Spine Lumbar w/o Contrast Clarisa Mcrae; Final Notes: (MRI Spine Lumbar w/o Contrast) Reason For Exam: low back and thigh pain MRI Spine Lumbar w/o Contrast EXAMINATION: MR OF THE LUMBAR SPINE WITHOUT CONTRAST CLINICAL HISTORY: Spinal stenosis, lumbar region with neurogenic cla; COMPARISON: [facility] including radiographs 08/24/2020. TECHNIQUE: Multiplanar, multisequence MR of the lumbar spine was performed without intravenous contrast. FINDINGS: Alignment: Grade 1 anterolisthesis of L3 on [...] spine most prominent at L2-L3 and L3-L4. Workstation ID: [id number] Final Dictated by:MD Kwong T Thomas Dictated DT/TM:03/05/2024 11:22 Signed by:MD Kwong T Thomas Signed (Electronic Signature):03/05/2024 11:21 Social History Social History Type Response Smoking Status Never smoked cigaret seth Sex Female Sex Representation Female (finding) Implantable Device List Procedure Provider Procedure Date Device Type Site Unknown Unknown 08/02/23 Unknown Unknown Device Identifier Serial Number Lot or Batch Number Manufacturing Date Expiration Date Distinct Identification Code MRI Safety Implantable Status Assigning Authority Unknown Unknown [id number] Unknown 10/20/24 Unknown Unknown Active Unkn own Unknown Unknown [id number] Unknown 06/19/25 Unknown Unknown Active Unkn own Unknown Unknown [id number] Unknown 10/20/24 Unknown Unknown Active Unkn own Unknown Unknown [id number] Unknown 12/21/27 Unknown Unknown Active Unk nown Unknown Unknown [id number] Unknown 02/19/30 Unknown Unknown Active Unknown Unknown Unknown [id number] Unknown 07/20/32 Unknown Unknown Active Unkn own Unknown Unknown [id number] Unknown 04/19/32 Unknown Unknown Active Unkn own Unknown Unknown [id number] Unknown 06/20/27 Unknown Unknown Active Unkn own Unknown Unknown [id number] Unknown 02/20/32 Unknown Unknown Active Unk nown Unknown Unknown [id number] Unknown 12/20/32 Unknown Unknown Active Unk nown Unknown Unknown [id number] Unknown 10/21/27 Unknown Unknown Active Unkn own Unknown Unknown [id number] Unknown 03/22/29 Unknown Unknown Active Unknown Unknown Unknown [id number] Unknown 06/19/29 Unknown Unknown Active Unkn own Unknown Unknown [id number] Unknown 12/21/23 Unknown Unknown Active Unk nown Patient Care team information Care Team Personnel Name: MD Mckeon Tamar Position: Referring Member Role: Primary Care Provider Address: [address] [place] [phone] [place] Name: MD Robin, Adonis Aguayo Position: Physician - Sports Medicine [place] Member Role: Lifetime Relationship Address: [address] [address] [place] Name: Domi Arias Kyle Position: Pharmacist Member Role: Pharmacy - Lifetime Address: [address] [place] [address] [place] Name: Domi Upton Brittani Position: Pharmacist Member Role: Pharmacy - Lifetime Care Team Related Persons Name: BRYON ZHAO
[2024-03-20 07:45] LABS: Hematocrit (blood only) 37.4 % (37.0-47.0); Hemoglobin 12.4 g/dl (12.0-16.0); Mean Corpuscular Hemoglobin 30.5 pg (25.0-34.0); Mean Corpuscular Hgb Conc 33.2 g/dL (32.0-36.0); Mean Corpuscular Volume 92.1 fL (80.0-100.0); Mean Platelet Volume 10.3 fL (9.4-12.4); Platelet Count 214 K/uL (130-400); RDW Coefficient of Variation 13.6 % (11.5-14.5); RDW Standard Deviation 46.5 fL (36.4-46.3); Red Blood Count 4.06 M/uL (4.20-5.40); White Blood Count 7.12 K/ul (4.8-10.8)
[2024-03-20] MEDS: LOSARTAN POTASSIUM 50 MG TAB PO SCH (08:02)
[2024-03-20] MEDS: ATORVASTATIN 10 MG TAB PO SCH (08:02)
[2024-03-20] MEDS: dilTIAZem HCL 120 MG CAPCR PO SCH (08:03)
[2024-03-20 08:04] LABS: BUN Creatinine Ratio 13.7 (10-20); Creatinine Clr Calc Pharmacy 32.8 ml/min; Magnesium 2.1 mg/dl (1.7-2.4)
[2024-03-20] MEDS: APIXABAN 2.5 MG TAB PO SCH (08:34)
[2024-03-20] MEDS: INSULIN ASPART PER UNIT CHARGE SC SCH (08:36)
[2024-03-20] MEDS: LANTUS PER UNIT CHARGE SQ SCH (08:37)
[2024-03-20] MEDS ORDERED: MIRABEGRON ER 25 MG TAB PO SCH (09:00)
[2024-03-20] MEDS ORDERED: APIXABAN 5 MG TABLET PO SCH (09:00)
--- NOTE | 2024-03-20 09:38 | Electrocardiogram Report ---
Test Reason : Blood Pressure : */* mmHG Vent. Rate : 75 BPM Atrial Rate : 75 BPM P-R Int : 164 ms QRS Dur : 132 ms QT Int : 402 ms P-R-T Axes : 78 -30 58 degrees QTcB Int : 448 ms Normal sinus rhythm Left axis deviation Left ventricular hypertrophy with QRS widening ( R in aVL ) Abnormal ECG When compared with ECG of 24-Nov-2023 21:56, T wave inversion no longer evident in Inferior leads T wave amplitude has increased in Anterior leads Confirmed by Herrera Biggs ([id number]) on 03/20/2024 9:37:53 AM Referred By: REFERRED SELF Confirmed By: Herrera Biggs
[2024-03-20] MEDS: FUROSEMIDE 20 MG TAB PO ONE (11:00)
[2024-03-20] MEDS: VIBEGRON 75 MG TAB PO SCH (11:00)
[2024-03-20] MEDS: CHOLESTYRAMINE LIGHT 4 GM PKT PO SCH (12:51)
--- NOTE | 2024-03-20 13:56 | XCELERA ---
[id number]
--- NOTE | 2024-03-20 16:31 | Hospitalist Progress Note ---
Date of Service March 20, 2024 Assessment & Plan (1) Hypertensive urgency: (2) Diabetes mellitus, type 2: (3) PAF (paroxysmal atrial fibrillation): (4) Hyperlipidemia: (5) Heart failure with preserved ejection fraction: Plan 83 y.o female with PMH of paroxysmal atrial fibrillation, DM2, Hyperlipidemia, CKD III, HFpEF, OA here due to hypertensive urgency and sensation of feeling like the top of her head is going to come off. Denies blurry vision/double vision. Was given 10mg IV labetalol in the ED with improvement of BP. Head CT showed Trace amount of periventricular white matter low density consistent with chronic small vessel disease and/or senescent changes. #Hypertensive Urgency Follows with nephrology (Dr. Azevedo)- home meds: Diltazem 120mg PO (recently decreased 2/2 bradycardia) , Losartan 100mg PO, Metoprolol succ 100mg PO No signs of end organ damage. No neurology deficits. Cr at baseline. Troponin WNL Takes Lasix 60mg PRN for leg swelling - last cardiology note reports to take it every 2 days, pt reports she takes it 1-2 times a week. weight elevated, pitting edema Lasix given today, 03/20 Reports BP at home ~170/70s, running that or higher here - add hydralzine 25mg BID, check renal artery doppler AM CBC and BMP #DMT2 01/2024 a1c: 603. Home regimen: Lantus 44units, Aspart 10units with meals - HELD Episode of hypoglycemia today - decrease to 36unit Lantus and continue SSI #Afib/HFpEF continue Eliquis - Dose reduced to 2.5 mg BID - this needs to be changed on discharge (new rx sent) Continue metoprolol and diltiazem. PRN lasix as above. Echo: mild LVH, EF 60-65% HLD - continue statin Dispo: continued inpatient stay, monitoring Blood pressures Admission and Anticipated Discharge Date Admission Date: March 20, 2024 Supervising Physician Co-Signing Physician Notes PA Supervision Note: I did not personally see or examine the patient today, but I verified all read points of SIDDHARTH Roberts's assessment and plan with the following exceptions/additions: None Subjective Sarah was seen multiple times today. this morning - no headache or weird head sensation. Denied dizziness or vision changes when this was happens. CHecks her BP 2-3 timess per week at home, usually runs 170s/70s. Has not seen a change since her decrease in diltazem. No recent change in diet. Does not drink alcohol or take NSAIDs. Seen this afternoon was having head sensation again - denied headache, lightheadedness, dizziness, viison changes. At this time her BS was also low at 69, as this corrected her head sensation went away. Hayley has a husam sensor and were able to check her BSG yesterday during her episode and it was NOT low. Tele afb 60-70s Review of Systems Review of Systems: All systems reviewed & are unremarkable except as noted in Subjective Physical Exam Physical Exam: General: NAD, VS as above Resp: normal respiratory effort, crackles in the bases, on room air CV: afib, no murmur, Abd: normal bowel sounds, non tender, no hepatosplenomegaly Extremities: Moves all extremities, 2+ edema right ankle, 1+ edema left ankle Neuro: A&O x3, Results & Data Results & Data Vital Signs (Past 12 Hours) Vital Signs Temp Pulse Pulse Resp BP Pulse Ox O2 Del Method 03/20/24 14:40 69 18 188/80 H 95 Room Air 03/20/24 14:21 98.6 F 69 16 193/98 H 96 Room Air 03/20/24 14:18 67 03/20/24 11:23 98.2 F 66 20 176/78 H 95 Room Air 03/20/24 07:11 97.9 F 63 16 174/75 H 94 Room Air 03/20/24 07:05 60 PG Care Time/CCT Total # of Minutes Spent Total Time Spent with Patient: Total time spent is greater than 50% in coordination of care (as documented) at patient's floor/unit and/or counseling patient: Coding Level of Care Code None Diagnoses Hypertensive urgency I16.0 Type 2 diabetes mellitus with chronic kidney disease, with long-term current use of insulin, unspecified CKD stage E11.22; Z79.4 Chronic kidney disease stage: unspecified stage Diabetes mellitus complication detail: with chronic kidney disease Diabetes mellitus complication status: with kidney complications Diabetes mellitus manager intermediate insulin use: with manager intermediate use PAF (paroxysmal atrial fibrillation) I48.0 Mixed hyperlipidemia E78.2 Hyperlipidemia type: mixed hyperlipidemia Heart failure with preserved ejection fraction I50.30 (2) Diabetes mellitus, type 2 Chronic kidney disease stage: unspecified stage Diabetes mellitus complication detail: with chronic kidney disease Diabetes mellitus complication status: with kidney complications Diabetes mellitus manager intermediate insulin use: with snf use Qualified Code(s): E11.22 - Type 2 diabetes mellitus with diabetic chronic kidney disease; Z79.4 - buttermaker continuous churn (current) use of insulin (4) Hyperlipidemia Hyperlipidemia type: mixed hyperlipidemia Qualified Code(s): E78.2 - Mixed hyperlipidemia
--- NOTE | 2024-03-20 20:07 | Billing Data ---
Date of Service March 20, 2024 Coding Level of Care Code 61557 INT INP/OBS CARE
[2024-03-20] MEDS: hydrALAZINE HCL 25 MG TAB PO SCH (20:15)
[2024-03-20] MEDS: METOPROLOL SUCC 50MG EXT REL TAB PO SCH (20:16)
[2024-03-20] MEDS: GABAPENTIN 100 MG CAP PO SCH (20:17)
--- NOTE | 2024-03-21 01:11 | Ultrasound Report ---
Exam(s): US RENAL EXAM: US Retroperitoneal Limited, Renal CLINICAL HISTORY: Reason for exam: persistent HTN, htn urgency. TECHNIQUE: Real-time limited ultrasound of the retroperitoneum with image documentation. COMPARISON: June 12, [address] scan from November 24, 2023 FINDINGS: Aorta: The abdominal aorta is nondilated proximally but obscured distally. Peak systolic velocity 105 cm/s. Right kidney: The right kidney measures 10.1 cm with no hydronephrosis, mass, or calculus. Right renal artery velocities measure 51, 38, and 24 cm/s proximal to distal with resistive indices of 0.68, 0.66, and 0.74. The right renal aortic ratio is 0.5. There is a 1.5 x 1.1 x 1.7 cm simple cyst in the right kidney. No follow-up is required. Left kidney: The left renal artery demonstrates a peak systolic velocity and 72, 40, and 36 cm/s proximal to distal with resistive indices of 0.88, 0.75, and 0.79. The left renal aortic ratio 0.7. No stones. No hydronephrosis. IMPRESSION: No evidence of renal artery stenosis. Electronically signed by: Nigel Kidd MD 03/21/24 01:10 AM
[2024-03-21 06:12] LABS: Hematocrit (blood only) 38.8 % (37.0-47.0); Hemoglobin 13.6 g/dl (12.0-16.0); Mean Corpuscular Hgb Conc 35.1 g/dL (32.0-36.0); Mean Corpuscular Volume 91.3 fL (80.0-100.0); Mean Platelet Volume 10.3 fL (9.4-12.4); Platelet Count 214 K/uL (130-400); RDW Coefficient of Variation 13.8 % (11.5-14.5); RDW Standard Deviation 46.3 fL (36.4-46.3); Red Blood Count 4.25 M/uL (4.20-5.40); White Blood Count 6.87 K/ul (4.8-10.8)
[2024-03-21 06:28] LABS: BUN Creatinine Ratio 14.4 (10-20); Creatinine Clr Calc Pharmacy 30.7 ml/min; Potassium 3.9 mmol/L (3.5-5.1)
[2024-03-21] MEDS: hydrALAZINE HCL 25 MG TAB PO SCH (08:59)
[2024-03-21] MEDS: LANTUS PER UNIT CHARGE SQ SCH (09:01)
[2024-03-21 11:27] VITALS: O2SAT 95
[2024-03-21 14:28] VITALS: RESP 16; TEMP 98.1
--- NOTE | 2024-03-21 15:26 | Discharge Summary ---
Discharge Summary Date of Service March 21, 2024 Principal Dx & Hospital Course #1 = Principal Diagnosis (1) Hypertensive urgency: (2) Diabetes mellitus, type 2: (3) PAF (paroxysmal atrial fibrillation): (4) Hyperlipidemia: (5) Heart failure with preserved ejection fraction: Plan #Hypertensive Urgency 83 y.o female with PMH of paroxysmal atrial fibrillation, DM2, Hyperlipidemia, CKD III, HFpEF, OA here due to hypertensive urgency and sensation of feeling like the top of her head is going to come off. Denies blurry vision/double vision. Was given 10mg IV labetalol in the ED with improvement of BP. Head CT showed Trace amount of periventricular white matter low density consistent with chronic small vessel disease and/or senescent changes. Thankfully workup did not show end organ damage (No neurology deficits. Cr at baseline. Troponin WNL). Renal artery doppler showed NO stenosis. BPs improved with hydralazine 25mg TID and a dose of her lasix. Encouraged her to take this 2-3 times a week (consist ent with last cardiology note). BP still not at goal, but improved but close follow up with nephrology arranged. informed patient to keep log to bring to appointments. Continue home meds: Diltazem 120mg PO Losartan 100mg PO, Metoprolol succ 100mg PO. Hydralazine 25mg TID added #DMT2 Continue home regiment - if lows at home f/u with endocrinology. #Afib/HFpEF continue Eliquis - Dose reduced to 2.5 mg BID - new rx sent Continue metoprolol and diltiazem. PRN lasix as above. Echo: mild LVH, EF 60-65% HLD - continue statin Dispo: discharge to home today with PCP and nephrology follow up Notes For Next Care Provider Medication Changes From Visit hydralazine 25mg TID eliquis dose reduced to 2.5mg BID Admission HPI Per Admitting Provider 83 /o female with PMH of paroxysmal atrial fibrillation, DM2, Hyperlipidemia, CKD III, HFpEF, OA here due to hypertensive urgency Patient presented to the Ed due to headaches and lightheadedness. BP of 256/103. she states that she woke up with a headache. during the day she monitor her BP and refers being high all day around 190s. She denied any chest pain, SOB or visual changes. she refers took her medication this morning and last night. No stressful situation. Denied any weakness, ambulatory disfunction, numbness. Ed course: Labetalol [address] head with no acute changes. LAbs: Cr. 1.76. Tronopin 14.0 Discharge Exam General: NAD, VS as above Resp: normal respiratory effort, clear to ascultation CV: RRR, no murmur, Extremities: Moves all extremities, non pitting edema Neuro: A&O x3, Discharge Plan Discharge Items Patient Disposition: Home - Self-Care Reason For Visit: HYPERTENSIVE URGENCY Discharge Diagnosis: hypertensive urgency Activity: Resume your previous activity Weightbearing: Full weightbearing Non-emergency contact: Primary Care Provider Call non-emergency contact if: you have any medication questions, your symptoms worsen and your temperature is above 101 Follow-up/Referrals: Esteban Azevedo DO [Physician] - 03/27/24 1:20 pm (appt is in the [address] office in [place]) Leidy Mckeon MD [Primary Care Provider] - 03/26/24 2:30 pm Diet: Carb Consistent or DM2, Heart Healthy and Low Sodium (2gm) Addtl Attending Provider Instructions: Ms. Freed, You were hospitalized after having high blood pressure with a weird head sensation. With your workup, we did not find any other issues to cause the high blood pressure. The renal ultrasound showed normal blood flow to your kidneys. We have added a new blood pressure medication - hydralazine, you should take this 3 times a day. I have sent this into your pharmacy. Take the first dose this evening. You should follow up with Dr. Azevedo in the next 1-2 weeks, we have notified their office about your hospitalization. Your blood pressures are not quite at goal yet - as we want them to be less than 130/80, however it can be dangerous to decrease your blood pressure too fast. Please keep a log of your blood pressures at home - take them 1-2 times a day for the next few weeks until you follow up with nephrology or your PCP. Take a record of these measurings to your appointment as medication should be further adjusted. Continue to monitor your salt intake - increase salt can cause your blood pressure to increase. You should be taking your lasix 2-3 times a week. This will help your leg swelling but also help to lower your blood pressure. I did not change your diabetic regimen but if you are having lows at home, please reach out to endocrinology to have your dose adjusted. I decreased your eliquis to 2.5mg twice a day - this is the appropriate dose for your age and kidney function, please poultry picker the new prescription at the pharmacy. Activity: You can do normal everyday activities as your body allows. Take rest breaks if you feel tired. Do not overexert. Stop activity if you have pain, shortness of breath or feel dizzy. Follow-up appointments: Make an appointment with your primary care physician within one week of discharge. A copy of this summary will be sent to them. Every time you see your primary care physician, or any other doctor, bring your medication list, and a list of questions. CONTACT YOUR PRIMARY CARE PROVIDER if you experience any of the following: Shortness of breath or difficulty breathing Fevers or chills Feeling tired with normal activity or experiencing dizziness or fainting Difficulty following your treatment plan, or difficulty taking medications CALL 911 OR GO TO THE EMERGENCY DEPARTMENT if you experience any of the following: Severe abdominal pain or nausea/vomiting Severe chest pain, or chest pain that radiates (moves) to your jaw or arm Sudden, severe shortness of breath or difficulty breathing Thank you for allowing us to participate in your care. Pending Studies at Discharge: No Stand-Alone Forms: My [facility] coRank, Smoking Cessation Medications and DC Order Prescriptions: New hydralazine 25 mg Tablet 25 mg PO TID 30 Days Qty: 90 0RF Eliquis 2.5 mg Tablet 2.5 mg PO BID 30 Days Qty: 60 1RF Continued metoprolol succinate 100 mg tablet extended release 24 hr 100 mg PO HS Qty: 90 3RF atorvastatin [Lipitor] 10 mg tablet 10 mg PO Q OTHER DAY Qty: 90 3RF Rx Instructions: Every other day furosemide 40 mg tablet 60 mg PO Q2D PRN (Reason: DIRECTED) Qty: 90 3RF losartan 100 mg tablet 100 mg PO QAM Qty: 90 3RF (DME) pen needle, diabetic [BD Ultra-Fine Micro Pen Needle] 32 gauge x 1/4" needle See Rx Instructions .Route Qty: 400 3RF Rx Instructions: use 4 x daily (DME) FreeStyle Octavia 2 [place] Misc See Rx Instructions .Route Rx Instructions: As directed gabapentin 100 mg capsule 100 mg PO HS insulin aspart U-100 [Novolog FlexPen U-100 Insulin] 100 unit/mL (3 mL) insulin pen 10 unit SUBCUT TID Rx Instructions: plus sliding scale Tdd 32 insulin glargine U-300 conc [Toujeo Max U-300 SoloStar] 300 unit/mL (3 mL) insulin pen 44 unit SUBCUT QAM multivitamin Tablet 1 tab PO QAM cholecalciferol (vitamin D3) [Vitamin D3] 5,000 unit Tablet 5,000 unit PO QAM cranberry extract 500 mg Capsule 500 mg PO QAM travoprost [Travatan Z] 0.004 % Drops 1 drp OPHTHALMIC (EYE) HS acetaminophen 500 mg tablet 1,000 mg PO Q8 PRN (Reason: Pain) trazodone 50 mg tablet 50 - 100 mg PO HS PRN (Reason: insomnia) Rx Instructions: 1 to 2 tabs orally at bedtime; PRN; diltiazem HCl 120 mg capsule,extended release 24hr 120 mg PO QAM cholestyramine-aspartame [Prevalite] 4 gram powder in packet 1 ea PO QAM mirabegron [Myrbetriq] 50 mg tablet extended release 24 hr 50 mg PO QAM Discontinued Eliquis 5 mg tablet 5 mg PO BID Qty: 180 3RF Hold Instructions: Resume on 01/07/23. Discharge Orders: Discharge Order (Routine); Ordered 03/21/24 Ordered By: Janina [place]en[place]/Other Patient Handouts: Hypertension Dc Admission Data Admit Date/Time: 03/20/24 00:02 Attending Provider: Melva Carpenter Admit Provider: Nabil Moreno Primary Care Provider: Leidy Mckeon Other Providers: Crow Dyson Other Interventions: Discharge Summary Assessment (RN) Last Done: 03/21/24 15:42 Hospital Stay Data Consultations 03/20/24 00:10 ED Decision to Admit Stat Diagnostic Imagining Performed Head CT 03/19/24 22:00 Exam(s): CT HEAD Without Contrast EXAM: CT Head Without Intravenous Contrast CLINICAL HISTORY: Reason for exam: headache, bp 250, subarachnoid hemorrhage, PRES. TECHNIQUE: Axial computed tomography images of the head/brain without intravenous contrast. CTDI is 62.75 mGy and DLP is 1098.96 mGy-cm. Automated exposure control was utilized for the study. A dose lowering technique was utilized adhering to the principles of ALARA. COMPARISON: No relevant prior studies available. FINDINGS: Brain: Trace amount of periventricular white matter low density consistent with chronic small vessel disease and/or senescent changes. The brain is otherwise unremarkable. No acute large vessel infarct or intracranial hemorrhage is seen. Ventricles: Unremarkable. No ventriculomegaly. Bones/joints: Unremarkable. No acute fracture. Soft tissues: Unremarkable. Sinuses: Unremarkable as visualized. No acute sinusitis. Mastoid air cells: Unremarkable as visualized. No mastoid effusion. IMPRESSION: Trace amount of periventricular white matter low density consistent with chronic small vessel disease and/or senescent changes. The brain is otherwise unremarkable. No acute large vessel infarct or intracranial hemorrhage is seen. Electronically signed by: Nigel Kidd MD 03/19/24 23:27 PM Renal Artery Duplex 03/20/24 16:03 Exam(s): US RENAL EXAM: US Retroperitoneal Limited, Renal CLINICAL HISTORY: Reason for exam: persistent HTN, htn urgency. TECHNIQUE: Real-time limited ultrasound of the retroperitoneum with image documentation. COMPARISON: June 12, [address] scan from November 24, 2023 FINDINGS: Aorta: The abdominal aorta is nondilated proximally but obscured distally. Peak systolic velocity 105 cm/s. Right kidney: The right kidney measures 10.1 cm with no hydronephrosis, mass, or calculus. Right renal artery velocities measure 51, 38, and 24 cm/s proximal to distal with resistive indices of 0.68, 0.66, and 0.74. The right renal aortic ratio is 0.5. There is a 1.5 x 1.1 x 1.7 cm simple cyst in the right kidney. No follow-up is required. Left kidney: The left renal artery demonstrates a peak systolic velocity and 72, 40, and 36 cm/s proximal to distal with resistive indices of 0.88, 0.75, and 0.79. The left renal aortic ratio 0.7. No stones. No hydronephrosis. IMPRESSION: No evidence of renal artery stenosis. Electronically signed by: Nigel Kidd MD 03/21/24 01:10 AM Pending Results Patient Have Any Pending Studies at Discharge: No Discharge Instructions Given to Patient (Per Discharging Provider) Ms. Freed, Waldo were hospitalized after having high blood pressure with a weird head sensation. With your workup, we did not find any other issues to cause the high blood pressure. The renal ultrasound showed normal blood flow to your kidneys. We have added a new blood pressure medication - hydralazine, you should take this 3 times a day. I have sent this into your pharmacy. Take the first dose this evening. You should follow up with Dr. Azevedo in the next 1-2 weeks, we have notified their office about your hospitalization. Your blood pressures are not quite at goal yet - as we want them to be less than 130/80, however it can be dangerous to decrease your blood pressure too fast. Please keep a log of your blood pressures at home - take them 1-2 times a day for the next few weeks until you follow up with nephrology or your PCP. Take a record of these measurings to your appointment as medication should be further adjusted. Continue to monitor your salt intake - increase salt can cause your blood pressure to increase. You should be taking your lasix 2-3 times a week. This will help your leg swelling but also help to lower your blood pressure. I did not change your diabetic regimen but if you are having lows at home, please reach out to endocrinology to have your dose adjusted. I decreased your eliquis to 2.5mg twice a day - this is the appropriate dose for your age and kidney function, please poultry picker the new prescription at the pharmacy. Activity: You can do normal everyday activities as your body allows. Take rest breaks if you feel tired. Do not overexert. Stop activity if you have pain, shortness of breath or feel dizzy. Follow-up appointments: Make an appointment with your primary care physician within one week of discharge. A copy of this summary will be sent to them. Every time you see your primary care physician, or any other doctor, bring your medication list, and a list of questions. CONTACT YOUR PRIMARY CARE PROVIDER if you experience any of the following: Shortness of breath or difficulty breathing Fevers or chills Feeling tired with normal activity or experiencing dizziness or fainting Difficulty following your treatment plan, or difficulty taking medications CALL 911 OR GO TO THE EMERGENCY DEPARTMENT if you experience any of the following: Severe abdominal pain or nausea/vomiting Severe chest pain, or chest pain that radiates (moves) to your jaw or arm Sudden, severe shortness of breath or difficulty breathing Thank you for allowing us to participate in your care. Supervising Physician Co-Signing Physician Notes PA Supervision Note: I did not personally see or examine the patient today, but I verified all read points of SIDDHARTH Roberts's assessment and plan with the following exceptions/additions: None Total Time Total Time Spent Total Time Spent (In Minutes): Time spent day of discharge 38 minutes including direct patient care, medication reconciliation, documentation, review of labs and images, and coordination of care. Coding Level of Care Code 86902 INP/OBS DISCH >30 MIN Diagnoses Hypertensive urgency I16.0 Type 2 diabetes mellitus with chronic kidney disease, with long-term current use of insulin, unspecified CKD stage E11.22; Z79.4 Chronic kidney disease stage: unspecified stage Diabetes mellitus complication detail: with chronic kidney disease Diabetes mellitus complication status: with kidney complications Diabetes mellitus exterminator termite insulin use: with exterminator termite use PAF (paroxysmal atrial fibrillation) I48.0 Mixed hyperlipidemia E78.2 Hyperlipidemia type: mixed hyperlipidemia Heart failure with preserved ejection fraction I50.30
[2024-03-21 15:43] VITALS: BP 164/87; PULSE 59
== END 2024-03-21 16:39 | disposition home or self-care (01) ==
LOC: ED 21:33 → 2W 21:33 → SUATTDRO 03-20 00:02 → 2W 03-20 00:24